=== PATIENT | female | born 1965 | race Caucasian/White ===

== ENCOUNTER 2018-09-21 13:33 | Inpatient (IN) | payer OTHER ==
[~2018-09-21] VITALS: Ht 162.6 cm; Wt 90.7 kg
--- OUTSIDE RECORDS SUMMARY | 2018-09-21 13:37 | XMS REPORT | Summary of Care ---
Author Organization Unknown Address Unknown Phone Unavailable Encounter [facility] Encntr_mike(BAYRON) [id number] Date(s): 11/10/14 - 11/10/14 [facility] Outpatient Imaging - [id number] [place] [address] [phone] Discharge Disposition: Home Physician Attending: Tao Wang MD Vital Signs No data available for this section Problem List No data available for this section Allergies, Adverse Reactions, Alerts Substance Reaction Severity Status NKDA Active Medications No data available for this section Results No data available for this section Immunizations Vaccine Date Refusal Reason diphtheria/pertussis, acel/tetanus adult 03/07/14 Procedures No data available for this section Social History No data available for this section Assessment and Plan No data available for this section
--- OUTSIDE RECORDS SUMMARY | 2018-09-21 13:37 | XMS REPORT | Summary of Care ---
Author Author [facility] Organization [facility] Address Unknown Phone Unavailable Encounter BANDAR Cazares(BAYRON) [id number] Date(s): 04/15/17 - 04/15/17 [facility] [address] [place] [address]- [phone] Discharge Diagnosis: Acute exacerbation of chronic obstructive pulmonary disease (COPD) Discharge Disposition: Home or Self Care Attending Physician: Yonatan Moran MD Vital Signs 1 2 3 Most recent to oldest [Reference Range]: 162.56 cm (04/15/17 6:19 PM) Height 98.2 DegF (04/15/17 10:05 PM) 98 DegF (04/15/17 8:10 PM) 98.1 DegF (04/15/17 6:19 PM) Temperature Oral [96.4-99.1 DegF] 153/88 mmHg *HI* (04/15/17 10:05 PM) 131/96 mmHg (04/15/17 8:10 PM) 166/115 mmHg *HI* (04/15/17 6:19 PM) Blood Pressure [90-140/60-90 mmHg] 16 BRMIN (04/15/17 10:05 PM) 20 BRMIN (04/15/17 8:49 PM) 18 BRMIN (04/15/17 8:10 PM) Respiratory Rate [14-20 BRMIN] 84 bpm (04/15/17 10:05 PM) 84 bpm (04/15/17 8:10 PM) 90 bpm (04/15/17 6:19 PM) Peripheral Pulse Rate [60-100 bpm] 74.545 kg (04/15/17 6:19 PM) Weight 28.21 m2 (04/15/17 6:19 PM) Body Mass Index Problem List Condition Effective Dates Status Health Status Informant Screening for breast Active cancer(Confirmed) Chronic low back 09/15/13 Active pain1 Chronic obstructive Active lung disease(Confirmed)2 COPD (chronic Resolved obstructive pulmonary disease)(Confirmed) Leg Active cramps(Confirmed) Deviated nasal 10/19/14 Active septum3, 4 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 2Data migrated from [employer] on 01/30/15. 3Data migrated from [employer] on 03/10/15. 4Data migrated from [employer] on 03/10/15. 5Data migrated from [employer] on 03/20/15. 6Data migrated from [employer] on 03/19/15. 7Data migrated from [employer] on 01/30/15. 8Data migrated from [employer] on 01/30/15. Allergies, Adverse Reactions, Alerts Substance Reaction Severity Status acetaminophen-HYDROcodone hives MO^Moderate Active 1, 2 1Data migrated from [employer] on 03/11/15. Originally documented as VICODIN. hives 2Data migrated from [employer] on 12/31/14. Originally documented as VICODIN. hives Medications albuterol 0.083% inhalation solution 4.98 mg, 6 mL, Route: NEB, Drug form: SOLN, RQ6H, Dosing Weight 74.545, kg, Star t date: 04/16/17 2:00:00 CDT, Duration: 30 day, Stop date: 05/15/17 20:00:00 CDT Notes: SEE RT DOCUMENTATION (Same as: Belle) Start Date: 04/16/17 Stop Date: 04/15/17 Status: Canceled albuterol 0.083% inhalation solution 4.98 mg, 6 mL, Route: NEB, Drug form: SOLN, ONCE, Dosing Weight 74.545, kg, Prio rity: STAT, Start date: 04/15/17 21:41:00 CDT, Stop date: 04/15/17 21:41:00 CDT Notes: SEE RT DOCUMENTATION (Same as: Proventil) Start Date: 04/15/17 Stop Date: 04/15/17 Status: Completed albuterol 0.5% inhalation solution 2.5 mg, INHALATION, Q6H, PRN wheezing, # 20 ea, 0 Refill(s) Start Date: 04/15/17 Status: Ordered albuterol-ipratropium 2.5-0.5 mg inhalation solution 3 mL, Route: NEB, Drug Form: SOLN, Dosing Weight 74.545, kg, ONCE, STAT, Start d ate: 04/15/17 20:18:00 CDT, Stop date: 04/15/17 20:18:00 CDT Start Date: 04/15/17 Stop Date: 04/15/17 Status: Completed ipratropium 0.5 mg, Route: NEB, Drug form: SOLN, ONCE, Dosing Weight 74.545, kg, Priority: S TAT, Start date: 04/15/17 20:18:00 CDT, Stop date: 04/15/17 20:18:00 CDT Start Date: 04/15/17 Stop Date: 04/15/17 Status: Completed methylPREDNISolone SODium SUCCinate 125 mg, Route: IVP, ONCE, Dosing Weight 74.545, kg, Priority: STAT, Start date: 04/15/17 20:18:00 CDT, Stop date: 04/15/17 20:18:00 CDT Start Date: 04/15/17 Stop Date: 04/15/17 Status: Completed morphine Sulfate 4 mg, 1 mL, Route: IVP, Drug form: SOLN, ONCE, Dosing Weight 74.545, kg, Priorit y: STAT, Start date: 04/15/17 20:48:00 CDT, Stop date: 04/15/17 20:48:00 CDT Notes: (Same as:MORPhine Sulfate) Start Date: 04/15/17 Stop Date: 04/15/17 Status: Completed ondansetron 4 mg, 2 mL, Route: IVP, Drug form: INJ, ONCE, Dosing Weight 74.545, kg, Priority : STAT, Start date: 04/15/17 20:48:00 CDT, Stop date: 04/15/17 20:48:00 CDT Notes: (Same as: Thaoan) MEDICATION WASTE Product Size: 4 mgProduct Was elizabeth: ___ mg Start Date: 04/15/17 Stop Date: 04/15/17 Status: Completed predniSONE 50 mg oral tablet 50 mg=1 tab, PO, Daily, X 7 day, # 7 tab, 0 Refill(s) Start Date: 04/15/17 Stop Date: 04/22/17 Status: Ordered Saline Flush 0.9% 10 mL, Route: IVP, Drug Form: INJ, Dosing Weight 73.6, kg, PRN, PRN Line Flush, Start date: 04/15/17 18:21:00 CDT, Duration: 30 day, Stop date: 05/15/17 18:20:0 0 CDT Notes: Same as: BD Posiflush Sterile Start Date: 04/15/17 Stop Date: 04/16/17 Status: Discontinued Results ELECTROLYTES Most recent to 1 oldest [Reference Range]: Sodium Lvl [135-145 139 mEq/L mEq/L] (04/15/17 6:38 PM) Potassium Lvl 3.3 mEq/L [3.5-5.1 mEq/L] *LOW* (04/15/17 6:38 PM) Chloride Lvl [95-109 104 mEq/L mEq/L] (04/15/17 6:38 PM) CO2 [24-32 mEq/L] 30 mEq/L (04/15/17 6:38 PM) AGAP [10.0-20.0 8.3 mEq/L mEq/L] *LOW* (04/15/17 6:38 PM) CHEM PANEL Most recent to 1 oldest [Reference Range]: Creatinine Lvl 0.86 mg/dL [0.50-1.40 mg/dL] (04/15/17 6:38 PM) eGFR 78 mL/min/1.73m2 1 *NA* (04/15/17 6:38 PM) BUN [7-22 mg/dL] 12 mg/dL (04/15/17 6:38 PM) B/C Ratio [6-25] 14 (04/15/17 6:38 PM) Glucose Lvl [70-99 92 mg/dL mg/dL] (04/15/17 6:38 PM) Total Protein 7.8 g/dL [6.4-8.4 g/dL] (04/15/17 6:38 PM) Albumin Lvl [3.5-5.0 3.4 g/dL g/dL] *LOW* (04/15/17 6:38 PM) Globulin [2.7-4.2 4.4 g/dL g/dL] *HI* (04/15/17 6:38 PM) A/G Ratio [0.7-1.6] 0.8 (04/15/17 6:38 PM) Calcium Lvl 9.0 mg/dL [8.5-10.5 mg/dL] (04/15/17 6:38 PM) ALT [0-65 unit/L] 28 unit/L (04/15/17 6:38 PM) AST [0-37 unit/L] 14 unit/L (04/15/17 6:38 PM) Alk Phos [39-136 114 unit/L unit/L] (04/15/17:38 PM) Bili Total [0.2-1.3 0.4 mg/dL mg/dL] (04/15/17 6:38 PM) 1Result Comment: The eGFR is calculated using the CKD-EPI formula. In most young, healthy individuals the eGFR will be >90 mL/min/1.73m2. The eGFR declines with age. An eGFR of 60-89 may be normal in some populations, particularly the elderly, for whom the CKD-EPI formula has not been extensively validated. Use of the eGFR is not recommended in the following populations: Individuals with unstable creatinine concentrations, including patients and those with serious co-morbid conditions. Patients with extremes in muscle mass or diet. The data above are obtained from the National Kidney Disease Education Program ( NKDEP) which additionally recommends that when the eGFR is used in patients with extremes of body mass index for purposes of drug dosing, the eGFR should be mul tiplied by the estimated BMI. CARDIAC ENZYMES Most recent to 1 oldest [Reference Range]: Total CK [12-191 169 unit/L unit/L] (04/15/17 6:38 PM) CK MB [0.5-3.6 1.4 ng/mL ng/mL] (04/15/17 6:38 PM) CK MB Index 0.8 [0.0-2.5] (04/15/17 6:38 PM) Troponin-I <0.02 ng/mL [0.00-0.40 ng/mL] (04/15/17 6:38 PM) BNP [<=100 pg/mL] 24 pg/mL (04/15/17 6:38 PM) URINE AND STOOL Most recent to 1 oldest [Reference Range]: UA Turbidity [Clear] Clear (04/15/17 7:06 PM) UA Color Ltyellow *NA* (04/15/17 7:06 PM) UA pH [5.0-8.0] 6.0 (04/15/17 7:06 PM) UA Spec Grav 1.002 [<=1.030] (04/15/17 7:06 PM) UA Glucose [Negative Negative mg/dL mg/dL] *NA* (04/15/17 7:06 PM) UA Blood [Negative] Negative (04/15/17 7:06 PM) UA Ketones [Negative Negative mg/dL mg/dL] *NA* (04/15/17 7:06 PM) UA Protein [Negative Negative mg/dL mg/dL] (04/15/17 7:06 PM) UA Urobilinogen <=1.0 mg/dL [0.1-1.0 mg/dL] *NA* (04/15/17 7:06 PM) UA Bili [Negative] Negative *NA* (04/15/17 7:06 PM) UA Leuk Est Negative [Negative] (04/15/17 7:06 PM) UA Nitrite Negative [Negative] (04/15/17 7:06 PM) UA WBC [0-5 /HPF] <1 /HPF (04/15/17 7:06 PM) UA Sq Epi [Few /LPF] Occasional /LPF *NA* (04/15/17 7:06 PM) UA Mucus [None Seen Few /LPF /LPF] *NA* (04/15/17 7:06 PM) HEMATOLOGY Most recent to 1 oldest [Reference Range]: WBC [3.7-10.4 K/CMM] 11.7 K/CMM *HI* (04/15/17 6:38 PM) RBC [4.20-5.40 4.44 M/CMM M/CMM] (04/15/17 6:38 PM) Hgb [12.0-16.0 g/dL] 13.8 g/dL (04/15/17 6:38 PM) Hct [36.0-48.0 %] 40.9 % (04/15/17 6:38 PM) MCV [80.0-98.0 fL] 92.1 fL (04/15/17 6:38 PM) MCH [27.0-31.0 pg] 31.1 pg *HI* (04/15/17 6:38 PM) MCHC [32.0-36.0 33.8 g/dL g/dL] (04/15/17 6:38 PM) RDW [11.5-14.5 %] 12.3 % (04/15/17 6:38 PM) Platelet [133-450 283 K/CMM K/CMM] (04/15/17 6:38 PM) MPV [7.4-10.4 fL] 8.1 fL (04/15/17 6:38 PM) Segs [45.0-75.0 %] 70.7 % (04/15/17 6:38 PM) Lymphocytes 18.5 % [20.0-40.0 %] *LOW* (04/15/17 6:38 PM) Monocytes [2.0-12.0 7.5 % %] (04/15/17 6:38 PM) Eosinophils [0.0-4.0 2.6 % %] (04/15/17 6:38 PM) Basophils [0.0-1.0 0.7 % %] (04/15/17 6:38 PM) Segs-Bands # 8.3 K/CMM [1.5-8.1 K/CMM] *HI* (04/15/17 6:38 PM) Lymphocytes # 2.2 K/CMM [1.0-5.5 K/CMM] (04/15/17 6:38 PM) Monocytes # [0.0-0.8 0.9 K/CMM K/CMM] *HI* (04/15/17 6:38 PM) Eosinophils # 0.3 K/CMM [0.0-0.5 K/CMM] (04/15/17 6:38 PM) Basophils # [0.0-0.2 0.1 K/CMM K/CMM] (04/15/17 6:38 PM) Immunizations Given and Recorded Vaccine Date Status Refusal Reason diphtheria/pertussis, acel/tetanus adult 03/07/14 Given influenza virus vaccine, inactivated 05/29/16 Given influenza virus vaccine, inactivated 06/03/15 Given tuberculin purified protein derivative 05/29/16 Given Procedures Procedure Date Related Diagnosis Body Site Adhesiolysis FESS - FSS sphenoidotomy FLORENCIO BSO - Total abdominal hysterectomy and bilateral salpingo-oophorectomy1 1due to cysts Social History Social History Type Response Substance Abuse Use: None. Exercise Exercise type: none. Employment/School Status: Employed. 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 Alcohol Current, Type Beer. Frequency: 1-2 times per year. Smoking Status Former smoker; Type: Cigarettes; Started at age: 15.0; Exposure to Tobacco Smoke self; Cigarette Smoking Last 365 Days Yes; Reg Smoking Cessation Counseling No Assessment and Plan No data available for this section
--- OUTSIDE RECORDS SUMMARY | 2018-09-21 13:37 | XMS REPORT | Summary of Care ---
Author Author [facility] Organization [facility] Address Unknown Phone Unavailable Encounter BANDAR Cazares(BAYRON) [id number] Date(s): 02/28/17 - 02/28/17 [facility] [address] [place] [address]- Discharge Diagnosis: Displaced fracture of right radial styloid process, initial encounter for closed fracture Discharge Diagnosis: Closed nondisplaced fracture of ulnar styloid with delayed healing Discharge Disposition: Home or Self Care Attending Physician: Jose Alberto Plascencia MD Vital Signs Most recent to 1 2 oldest [Reference Range]: Temperature Oral 98.2 DegF 98.0 DegF [96.4-99.1 DegF] (02/28/17 9:00 PM) (02/28/17 4:22 PM) Blood Pressure 139/75 mmHg 152/83 mmHg [90-140/60-90 mmHg] (02/28/17 9:00 PM) *HI* (02/28/17 4:22 PM) Respiratory Rate 16 BRMIN 18 BRMIN [14-20 BRMIN] (02/28/17 9:00 PM) (02/28/17 4:22 PM) Peripheral Pulse 67 bpm 55 bpm Rate [60-100 bpm] (02/28/17 9:00 PM) *LOW* (02/28/17 4:22 PM) Weight 74.545 kg (02/28/17 4:22 PM) Problem List Condition Effective Dates Status Health Status Informant Screening for breast Active cancer(Confirmed) Chronic low back 09/15/13 Active pain1 Chronic obstructive Active lung disease(Confirmed)2 Leg Active cramps(Confirmed) Deviated nasal 10/19/14 Active [...] 12/31/14. Originally documented as VICODIN. hives Medications ibuprofen 800 mg, Route: PO, Drug form: TAB, ONCE, Dosing Weight 74.545, kg, Priority: STA T, Start date: 02/28/17 20:04:00 CDT, Stop date: 02/28/17 20:04:00 CDT Start Date: 02/28/17 Stop Date: 02/28/17 Status: Completed ketOROLAC 60 mg, 2 mL, Route: IM, Drug form: INJ, ONCE, Dosing Weight 74.545, kg, Priority : STAT, Start date: 02/28/17 16:26:00 CDT, Stop date: 02/28/17 16:26:00 CDT Notes: (Same as:Toradol) IV bolus must be given >15 seconds. Give IM administration slowly and deeply into the muscle.Not for use > 4 days MEDICATION WASTE Product Size: 60 mgProduct Wasted: ___ mg Start Date: 02/28/17 Stop Date: 02/28/17 Status: Completed Motrin 800 mg oral tablet 800 mg=1 tab, PO, Q8H, PRN Pain, Take with food, X 10 day, # 30 tab, 0 Refill(s) Start Date: 02/28/17 Stop Date: 03/10/17 Status: Ordered Tylenol with Codeine #3 oral tablet 2 tab, Route: PO, Drug Form: TAB, Dosing Weight 74.545, kg, ONCE, STAT, Start da te: 02/28/17 20:04:00 CDT, Stop date: 02/28/17 20:04:00 CDT Start Date: 02/28/17 Stop Date: 02/28/17 Status: Completed Tylenol with Codeine #4 oral tablet 1 - 2 tab, PO, Q6H, PRN Pain, X 4 day, # 32 tab, 0 Refill(s) Start Date: 02/28/17 Stop Date: 03/04/17 Status: Ordered Results No data available for this section Immunizations Given and Recorded Vaccine Date Status [...] type: none. Employment/School Status: Employed. 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 Alcohol Current, Type Beer. Frequency: 1-2 times per year. Smoking Status Current every day smoker; Type: Cigarettes; Tobacco use per day: 20; Started at age: 15.0; Exposure to Tobacco Smoke self; Cigarette Smoking Last 365 Days Yes; Reg Smoking Cessation Counseling No Assessment and Plan No data available for this section
--- OUTSIDE RECORDS SUMMARY | 2018-09-21 13:37 | XMS REPORT | Continuity of Care Document ---
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 enhancement on postcontrast imaging (axial series 14 image 9 and coronal series 11 image 19). On the PET/CT a chronic, sclerotic, and benign-appearing erosion is seen within the sphenoid wing about this mass. Localization of the lesion is limited on this whole brain MRI, but overall appearance favors benign lesion, possibly a sphenoid sinus mucous retention cyst. No other possible mass is identified on this study. No evidence of metastatic disease to the brain. No abnormal meningeal enhancement. There is no acute infarct or restricted diffusion. The ventricles, sulci, and cisterns are normal. There are a few scattered nonspecific foci of T2/FLAIR signal abnormality, likely reflecting minimal chronic small vessel ischemic change. There is no other signal abnormality in the honeycutt or the white matter. No abnormal enhancement is present. No hemorrhage or extra-axial fluid collection is identified. The pituitary gland is normal in size. The cerebellar tonsils are normal in position. Normal T2 flow voids are present. A small mucous retention cyst is seen within each maxillary sinus. IMPRESSION: 1. A benign-appearing elongated complex cyst or mass along the left aspect of the sphenoid sinus with associated benign-appearing erosion of the left sphenoid wing, not well characterized. Question whether this may represent a sphenoid sinus mucous retention cyst or mucocele. Recommend further evaluation with MRI of the IAC without and with IV contrast. 2. No other mass lesions are identified. No evidence of metastatic disease within the brain. 3. Minimal microvascular chronic ischemic change and small mucous retention cyst within each maxillary sinus. SL: [id number] 04/26/2017 - - Electronically Signed by: Fransisco Julian MD 06/25/17 14:35 FINAL REPORT - - Read by: Fransisco Julian MD Dictated Date/time: 04/27/17 10:10 Electronically Signed by: Fransisco Julian MD 04/27/17 10:31 FINAL REPORT [facility] Brain w/wo contrast MRI Brain w/wo contrast MRI MRI BRAIN WITHOUT AND WITH CONTRAST HISTORY: ; - C34.90 Malignant neoplasm of unspecified part of unspecified bronchus or lung; COMPARISON: PET/CT dated April 26, [address] thorax dated April 11, 2017 TECHNIQUE: Multiecho multiplanar images of the brain were done without and with contrast injection. FINDINGS: There is a 10 x 13 x 20 mm elongated complex cyst or mass along the left aspect of the sphenoid sinus which shows mild T1 hyperintensity and no definite enhancement on postcontrast imaging (axial series 14 image 9 and coronal series 11 image 19). On the PET/CT a chronic, sclerotic, and benign-appearing erosion is seen within the sphenoid wing about this mass. Localization of the lesion is limited on this whole brain MRI, but overall appearance favors benign lesion, possibly a sphenoid sinus mucous retention cyst. No other possible mass is identified on this study. No evidence of metastatic disease to the brain. No abnormal meningeal enhancement. There is no acute infarct or restricted diffusion. The ventricles, sulci, and cisterns are normal. There are a few scattered nonspecific foci of T2/FLAIR signal abnormality, likely reflecting minimal chronic small vessel ischemic change. There is no other signal abnormality in the honeycutt or the white matter. No abnormal enhancement is present. No hemorrhage or extra-axial fluid collection is identified. The pituitary gland is normal in size. The cerebellar tonsils are normal in position. Normal T2 flow voids are present. A small mucous retention cyst is seen within each maxillary sinus. IMPRESSION: 1. A benign-appearing elongated complex cyst or mass along the left aspect of the sphenoid sinus with associated benign-appearing erosion of the left sphenoid wing, not well characterized. Question whether this may represent a sphenoid sinus mucous retention cyst or mucocele. Recommend further evaluation with MRI of the IAC without and with IV contrast. 2. No other mass lesions are identified. No evidence of metastatic disease within the brain. 3. Minimal microvascular chronic ischemic change and small mucous retention cyst within each maxillary sinus. SL: [id number] 04/26/2017 - - Read by: Fransisco Julian MD Dictated Date/time: 04/27/17 10:10 Electronically Signed by: Fransisco Julian MD 04/27/17 10:31 FINAL REPORT [facility] PET CT Lung non-small cell initial [facility] PET CT Lung non- small cell [facility] Lung non-small cell initial staging TECHNIQUE: 16.3 mCis of FDG were administered intravenously and a series of overlapping images were obtained from the skull base to the proximal thighs utilizing a PET/CT hybrid device. The CT was utilized for attenuation correction and anatomic correlation and not as an independent diagnostic study. BLOOD GLUCOSE: 108 mg/dl COMPARISON: CTA chest 04/11/2017 CLINICAL HISTORY: C34.90 Malignant neoplasm of unspecified part of unspecified bronchus or lung - NZC=808.56 mGy*cm , CTDIvol=6.45 mGy; FINDINGS: HEAD AND NECK: No abnormal activity is visualized CHEST: Right hilar mass, nearly 3 cm in size, demonstrates increase in metabolic activity with maximum SUV at 4.4 on image 91. Enlarged and FDG avid lymph nodes are present in the right suprahilar, precarinal and subcarinal locations. Maximum SUV is 3.8 on image 82. 8 mm groundglass density nodule is visualized in the right upper lobe with mild increase in metabolic activity. Maximum SUV is 1.9 on image 75. Small granuloma, right upper lobe. ABDOMEN AND PELVIS: Adrenal glands demonstrate normal morphology. Physiologic activity is visualized in the solid organs, genitourinary tract and gastrointestinal tract. SKELETON: No abnormal activity is visualized. IMPRESSION: Moderate increase in metabolic activity in the right hilar region presumed to represent primary focus of malignancy. There is local danyell disease in the right suprahilar region, precarinal and subcarinal locations. Nonspecific 8 mm groundglass density nodule, right upper lobe. Differential considerations include infectious, inflammatory and neoplastic possibilities. SL:[id number] 04/26/2017 - - Read by: Russell Pantoja MD Dictated Date/time: 04/27/17 11:51 Electronically Signed by: Russell Pantoja MD 04/27/17 13:23 FINAL REPORT [facility] URINE AND STOOL UA Color Ltyellow 04/16/2017 [facility] URINE AND STOOL UA Mucus Few /LPF None Seen /LPF 04/16/2017 [facility] URINE AND STOOL UA WBC null 0 - 5 04/16/2017 [facility] URINE AND STOOL UA Urobilinogen <=1.0 mg/dL 0.1 - 1.0 04/16/2017 [facility] URINE AND STOOL UA Blood Negative (04/15/17 7:06 PM) Negative 04/16/2017 [facility] URINE AND STOOL UA Leuk Est Negative (04/15/17 7:06 PM) Negative 04/16/2017 [facility] URINE AND STOOL UA Sq Epi Occasional /LPF Few /LPF 04/16/2017 [facility] URINE AND STOOL UA Nitrite Negative (04/15/17 7:06 PM) Negative 04/16/2017 [facility] URINE AND STOOL UA Glucose Negative mg/dL Negative mg/dL 04/16/2017 [facility] URINE AND STOOL UA Protein Negative mg/dL Negative mg/dL 04/16/2017 [facility] URINE AND STOOL UA Ketones Negative mg/dL Negative mg/dL 04/16/2017 [facility] URINE AND STOOL UA Bili Negative *NA* (04/15/17 7:06 PM) Negative 04/16/2017 [facility] URINE AND STOOL UA Turbidity Clear (04/15/17 7:06 PM) Clear 04/16/2017 [facility] URINE AND STOOL UA pH 6.0 5.0 - 8.0 04/16/2017 [facility] URINE AND STOOL UA Spec Grav 1.002 <=1.030 04/16/2017 [facility] CARDIAC ENZYMES BNP 24 pg/mL <=100 pg/mL 04/15/2017 [facility] CARDIAC ENZYMES Troponin-I null 0.00 - 0.40 04/15/2017 [facility] CARDIAC ENZYMES CK MB 1.4 ng/mL 0.5 - 3.6 04/15/2017 [facility] CARDIAC ENZYMES Total CK 169 unit/L 12 - 191 04/15/2017 [facility] CARDIAC ENZYMES CK MB Index 0.8 0.0 - 2.5 04/15/2017 [facility] CHEM PANEL eGFR 78 mL/min/1.73m2 04/15/2017 Result Comment: The eGFR is calculated using the [...] from the National Kidney Disease Education Program (NKDEP) which additionally recommends that when the eGFR is used in patients with extremes of body mass index for purposes of drug dosing, the eGFR should be multiplied by the estimated BMI. [facility] CHEM PANEL Globulin 4.4 g/dL 2.7 - 4.2 04/15/2017 [facility] CHEM PANEL B/C Ratio 14 6 - 25 04/15/2017 [facility] CHEM PANEL A/G Ratio 0.8 0.7 - 1.6 04/15/2017 [facility] CHEM PANEL Albumin Lvl 3.4 g/dL 3.5 - 5.0 04/15/2017 [facility] CHEM PANEL Calcium Lvl 9.0 mg/dL 8.5 - 10.5 04/15/2017 [facility] CHEM PANEL Total Protein 7.8 g/dL 6.4 - 8.4 04/15/2017 [facility] CHEM PANEL Bili Total 0.4 mg/dL 0.2 - 1.3 04/15/2017 [facility] CHEM PANEL Alk Phos 114 unit/L 39 - 136 04/15/2017 [facility] CHEM PANEL AGAP 8.3 meq/L 10.0 - 20.0 04/15/2017 [facility] CHEM PANEL AST 14 unit/L 0 - 37 04/15/2017 [facility] CHEM PANEL Chloride Lvl 104 meq/L 95 - 109 04/15/2017 [facility] CHEM PANEL CO2 30 meq/L 24 - 32 04/15/2017 [facility] CHEM PANEL Glucose Lvl 92 mg/dL 70 - 99 04/15/2017 [facility] CHEM PANEL ALT 28 unit/L 0 - 65 04/15/2017 [facility] CHEM PANEL Potassium Lvl 3.3 meq/L 3.5 - 5.1 04/15/2017 [facility] CHEM PANEL Sodium Lvl 139 meq/L 135 - 145 04/15/2017 [facility] CHEM PANEL Creatinine Lvl 0.86 mg/dL 0.50 - 1.40 04/15/2017 [facility] CHEM PANEL BUN 12 mg/dL 7 - 22 04/15/2017 [facility] HEMATOLOGY MPV 8.1 fL 7.4 - 10.4 04/15/2017 [facility] HEMATOLOGY Platelet 283 K/CMM 133 - 450 04/15/2017 [facility] MCHC 33.8 g/dL 32.0 - 36.0 04/15/2017 [facility] HEMATOLOGY RDW 12.3 % 11.5 - 14.5 04/15/2017 [facility] HEMATOLOGY Hgb 13.8 g/dL 12.0 - 16.0 04/15/2017 [facility] HEMATOLOGY RBC 4.44 M/CMM 4.20 - 5.40 04/15/2017 [facility] HEMATOLOGY WBC 11.7 K/CMM 3.7 - 10.4 04/15/2017 [facility] HEMATOLOGY Hct 40.9 % 36.0 - 48.0 04/15/2017 [facility] MCH 31.1 pg 27.0 - 31.0 04/15/2017 [facility] HEMATOLOGY MCV 92.1 fL 80.0 - 98.0 04/15/2017 [facility] HEMATOLOGY Basophils 0.7 % 0.0 - 1.0 04/15/2017 [facility] HEMATOLOGY Eosinophils 2.6 % 0.0 - 4.0 04/15/2017 [facility] HEMATOLOGY Segs 70.7 % 45.0 - 75.0 04/15/2017 [facility] HEMATOLOGY Monocytes 7.5 % 2.0 - 12.0 04/15/2017 [facility] HEMATOLOGY Lymphocytes 18.5 % 20.0 - 40.0 04/15/2017 [facility] HEMATOLOGY Eosinophils # 0.3 K/CMM 0.0 - 0.5 04/15/2017 [facility] HEMATOLOGY Basophils # 0.1 K/CMM 0.0 - 0.2 04/15/2017 [facility] HEMATOLOGY Monocytes # 0.9 K/CMM 0.0 - 0.8 04/15/2017 [facility] HEMATOLOGY Lymphocytes # 2.2 K/CMM 1.0 - 5.5 04/15/2017 [facility] HEMATOLOGY Segs-Bands # 8.3 K/CMM 1.5 - 8.1 04/15/2017 [facility] Chest 2 views DX Chest 2 views DX EXAM: Chest 2 views DX DATE: 04/15/2017 6:21 PM CDT INDICATION: - chest pain, sob, hx lung cancer. COMPARISON: 04/12/2017. IMPRESSION: Stable cardiac silhouette and mediastinum. Tortuous atherosclerotic thoracic aorta. The lungs are mildly hyperexpanded. No focal consolidation, significant pleural effusion or pneumothorax. SL: [id number] 04/15/2017 - - Read by: Chance Tinoco MD Dictated Date/time: 04/15/17 19:04 Electronically Signed by: Chance Tinoco MD 04/15/17 19:05 FINAL REPORT [facility] CHEM PANEL Magnesium Lvl 2.5 mg/dL 1.8 - 2.4 04/12/2017 [facility] CHEM PANEL Globulin 3.6 g/dL 2.7 - 4.2 04/12/2017 [facility] CHEM PANEL B/C Ratio 14 6 - 25 04/12/2017 [facility] CHEM PANEL AGAP 9.7 meq/L 10.0 - 20.0 04/12/2017 [facility] CHEM PANEL A/G Ratio 0.8 0.7 - 1.6 04/12/2017 [facility] CHEM PANEL eGFR 90 mL/min/1.73m2 04/12/2017 Result Comment: The eGFR is calculated using the [...] from the National Kidney Disease Education Program (NKDEP) which additionally recommends that when the eGFR is used in patients with extremes of body mass index for purposes of drug dosing, the eGFR should be multiplied by the estimated BMI. [facility] CHEM PANEL Alk Phos 96 unit/L 39 - 136 04/12/2017 [facility] CHEM PANEL Bili Total 0.5 mg/dL 0.2 - 1.3 04/12/2017 [facility] CHEM PANEL BUN 11 mg/dL 7 - 22 04/12/2017 [facility] CHEM PANEL Creatinine Lvl 0.76 mg/dL 0.50 - 1.40 04/12/2017 [facility] CHEM PANEL Sodium Lvl 141 meq/L 135 - 145 04/12/2017 [facility] CHEM PANEL Potassium Lvl 3.7 meq/L 3.5 - 5.1 04/12/2017 [facility] CHEM PANEL Chloride Lvl 106 meq/L 95 - 109 04/12/2017 [facility] CHEM PANEL Calcium Lvl 8.6 mg/dL 8.5 - 10.5 04/12/2017 [facility] CHEM PANEL CO2 29 meq/L 24 - 32 04/12/2017 [facility] CHEM PANEL ALT 24 unit/L 0 - 65 04/12/2017 [facility] CHEM PANEL AST 16 unit/L 0 - 37 04/12/2017 [facility] CHEM PANEL Total Protein 6.6 g/dL 6.4 - 8.4 04/12/2017 [facility] CHEM PANEL Albumin Lvl 3.0 g/dL 3.5 - 5.0 04/12/2017 [facility] CHEM PANEL Glucose Lvl 102 mg/dL 70 - 99 04/12/2017 [facility] HEMATOLOGY Basophils # 0.1 K/CMM 0.0 - 0.2 04/12/2017 [facility] HEMATOLOGY Lymphocytes # 2.4 K/CMM 1.0 - 5.5 04/12/2017 [facility] Monocytes # 0.9 K/CMM 0.0 - 0.8 04/12/2017 [facility] Eosinophils # 0.1 K/CMM 0.0 - 0.5 04/12/2017 [facility] Segs 70.0 % 45.0 - 75.0 04/12/2017 [facility] Segs-Bands # 8.3 K/CMM 1.5 - 8.1 04/12/2017 [facility] Basophils 1.3 % 0.0 - 1.0 04/12/2017 [facility] Eosinophils 0.8 % 0.0 - 4.0 04/12/2017 [facility] Lymphocytes 20.4 % 20.0 - 40.0 04/12/2017 [facility] Monocytes 7.5 % 2.0 - 12.0 04/12/2017 [facility] MCHC 33.4 g/dL 32.0 - 36.0 04/12/2017 [facility] MPV 8.7 fL 7.4 - 10.4 04/12/2017 [facility] RDW 12.4 % 11.5 - 14.5 04/12/2017 [facility] Platelet 217 K/CMM 133 - 450 04/12/2017 [facility] MCH 31.0 pg 27.0 - 31.0 04/12/2017 [facility] MCV 92.9 fL 80.0 - 98.0 04/12/2017 [facility] RBC 3.68 M/CMM 4.20 - 5.40 04/12/2017 [facility] Hgb 11.4 g/dL 12.0 - 16.0 04/12/2017 [facility] Hct 34.2 % 36.0 - 48.0 04/12/2017 [facility] WBC 11.8 K/CMM 3.7 - 10.4 04/12/2017 [facility] Chest 1view DX Chest 1view DX Chest 1view DX CLINICAL HISTORY:Chest tightness - post biopsy COMPARISON: 04/11/2017 FINDINGS/IMPRESSION: Limited AP portable study. Support Lines/Devices: none Lungs: No change in right hilar mass. Question small right basilar effusion. No pneumothorax. Left lung remains clear. Cardiomediastinum: Cardiomediastinal silhouette is stable. Bone and Soft Tissues: No acute bony abnormality is evident. Multiple EKG leads and other wires project over the patient's chest. SL: [id number] 04/12/2017 - - Read by: Russell Pantoja MD Dictated Date/time: 04/12/17 11:47 Electronically Signed by: Russell Pantoja MD 04/12/17 11:48 FINAL REPORT [facility] URINE AND STOOL UA Urobilinogen <=1.0 mg/dL 0.1 - 1.0 04/11/2017 [facility] URINE AND STOOL UA Mucus Few /LPF None Seen /LPF 04/11/2017 [facility] URINE AND STOOL UA Hyal Cast 1 /LPF 0 - 2 04/11/2017 [facility] URINE AND STOOL UA Leuk Est Negative (04/11/17 8:19 AM) Negative 04/11/2017 [facility] URINE AND STOOL UA Sq Epi Occasional /LPF Few /LPF 04/11/2017 [facility] URINE AND STOOL UA WBC 1 /HPF 0 - 5 04/11/2017 [facility] URINE AND STOOL UA RBC 5 /HPF 0 - 2 04/11/2017 [facility] URINE AND STOOL UA Blood Negative (04/11/17 8:19 AM) Negative 04/11/2017 [facility] URINE AND STOOL UA Bili Negative *NA* (04/11/17 8:19 AM) Negative 04/11/2017 [facility] URINE AND STOOL UA Ketones Negative mg/dL Negative mg/dL 04/11/2017 [facility] URINE AND STOOL UA Glucose Negative mg/dL Negative mg/dL 04/11/2017 [facility] URINE AND STOOL UA Nitrite Negative (04/11/17 8:19 AM) Negative 04/11/2017 [facility] URINE AND STOOL UA Protein Negative mg/dL Negative mg/dL 04/11/2017 [facility] URINE AND STOOL UA pH 5.0 5.0 - 8.0 04/11/2017 [facility] URINE AND STOOL UA Spec Grav 1.017 <=1.030 04/11/2017 [facility] URINE AND STOOL UA Turbidity Clear (04/11/17 8:19 AM) Clear 04/11/2017 [facility] URINE AND STOOL UA Color Yellow *NA* (04/11/17 8:19 AM) Yellow 04/11/2017 [facility] CARDIAC ENZYMES CK MB Index 0.7 0.0 - 2.5 04/11/2017 [facility] CARDIAC ENZYMES Total CK 173 unit/L 12 - 191 04/11/2017 [facility] CARDIAC ENZYMES Troponin-I null 0.00 - 0.40 04/11/2017 [facility] CARDIAC ENZYMES CK MB 1.2 ng/mL 0.5 - 3.6 04/11/2017 [facility] CHEM PANEL Lipase Lvl 121 unit/L 73 - 393 04/11/2017 [facility] CHEM PANEL eGFR 77 mL/min/1.73m2 04/11/2017 Result Comment: The eGFR is calculated using the [...] from the National Kidney Disease Education Program (NKDEP) which additionally recommends that when the eGFR is used in patients with extremes of body mass index for purposes of drug dosing, the eGFR should be multiplied by the estimated BMI. [facility] CHEM PANEL A/G Ratio 0.8 0.7 - 1.6 04/11/2017 [facility] CHEM PANEL B/C Ratio 10 6 - 25 04/11/2017 [facility] CHEM PANEL Globulin 4.3 g/dL 2.7 - 4.2 04/11/2017 [facility] CHEM PANEL Bili Total 0.6 mg/dL 0.2 - 1.3 04/11/2017 [facility] CHEM PANEL AST 21 unit/L 0 - 37 04/11/2017 [facility] CHEM PANEL AGAP 9.7 meq/L 10.0 - 20.0 04/11/2017 [facility] CHEM PANEL Glucose Lvl 116 mg/dL 70 - 99 04/11/2017 [facility] CHEM PANEL BUN 9 mg/dL 7 - 22 04/11/2017 [facility] CHEM PANEL Creatinine Lvl 0.87 mg/dL 0.50 - 1.40 04/11/2017 [facility] CHEM PANEL Potassium Lvl 3.7 meq/L 3.5 - 5.1 04/11/2017 [facility] CHEM PANEL Sodium Lvl 138 meq/L 135 - 145 04/11/2017 [facility] CHEM PANEL ALT 27 unit/L 0 - 65 04/11/2017 [facility] CHEM PANEL Albumin Lvl 3.6 g/dL 3.5 - 5.0 04/11/2017 [facility] CHEM PANEL Alk Phos 123 unit/L 39 - 136 04/11/2017 [facility] CHEM PANEL Chloride Lvl 102 meq/L 95 - 109 04/11/2017 [facility] CHEM PANEL CO2 30 meq/L 24 - 32 04/11/2017 [facility] CHEM PANEL Calcium Lvl 8.9 mg/dL 8.5 - 10.5 04/11/2017 [facility] CHEM PANEL Total Protein 7.9 g/dL 6.4 - 8.4 04/11/2017 [facility] HEMATOLOGY Monocytes # 0.8 K/CMM 0.0 - 0.8 04/11/2017 [facility] HEMATOLOGY Lymphocytes # 1.3 K/CMM 1.0 - 5.5 04/11/2017 [facility] HEMATOLOGY Basophils # 0.1 K/CMM 0.0 - 0.2 04/11/2017 [facility] HEMATOLOGY Eosinophils # 0.3 K/CMM 0.0 - 0.5 04/11/2017 [facility] HEMATOLOGY Segs-Bands # 11.2 K/CMM 1.5 - 8.1 04/11/2017 [facility] HEMATOLOGY Basophils 0.7 % 0.0 - 1.0 04/11/2017 [facility] HEMATOLOGY Eosinophils 1.9 % 0.0 - 4.0 04/11/2017 [facility] [facility] HEMATOLOGY Monocytes 6.0 % 2.0 - 12.0 04/11/2017 [facility] Lymphocytes 9.5 % 20.0 - 40.0 04/11/2017 [facility] HEMATOLOGY Segs 81.9 % 45.0 - 75.0 04/11/2017 [facility] HEMATOLOGY Hct 40.3 % 36.0 - 48.0 04/11/2017 [facility] HEMATOLOGY WBC 13.7 K/CMM 3.7 - 10.4 04/11/2017 [facility] HEMATOLOGY RBC 4.37 M/CMM 4.20 - 5.40 04/11/2017 [facility] HEMATOLOGY Platelet 272 K/CMM 133 - 450 04/11/2017 [facility] HEMATOLOGY MPV 8.4 fL 7.4 - 10.4 04/11/2017 [facility] MCV 92.1 fL 80.0 - 98.0 04/11/2017 [facility] MCH 30.5 pg 27.0 - 31.0 04/11/2017 [facility] HEMATOLOGY RDW 12.4 % 11.5 - 14.5 04/11/2017 [facility] HEMATOLOGY MCHC 33.1 g/dL 32.0 - 36.0 04/11/2017 [facility] HEMATOLOGY Hgb 13.3 g/dL 12.0 - 16.0 04/11/2017 [facility] ED Abdomen/Pelvis IV contrast only CT ED Abdomen/Pelvis IV contrast only CT Patient Name: MARINA BERGMAN : 1965; Age: 51 years y/o Female MR: [id number] Study: ED Abdomen/Pelvis IV contrast only CT 04/11/2017 8:41 AM CDT Ordering Physician: Cheikh Monroy MD Clinical Indication: CT dose DLP 2275.72 mGy-cm 100cc omni 947 20 g right ac - right sided abdominal pain Pt c/o SOB and R sided rib pain that is worse upon deep breathing that began at 5am. Hx of COPD; Comparison: None TECHNIQUE: Helical imaging was performed from the diaphragm through the symphysis with multiplanar reformations obtained after intravenous administration of 100 mL of Omnipaque. FINDINGS: LOWER CHEST: The lung bases are clear without significant pleural effusion bilaterally. SOLID ORGANS: No focal liver or splenic abnormality. Kidneys are unremarkable bilaterally. No pelvocaliectasis or ureterectasis bilaterally. The adrenals, pancreas and gallbladder are unremarkable. RETROPERITONEUM: No abdominal or pelvic adenopathy. The abdominal aorta is unremarkable. PELVIS: No pelvic mass. Bladder is unremarkable. BOWEL: No bowel abnormality identified in the abdomen or pelvis. The appendix is unremarkable. PERITONEUM: No free intraperitoneal air. No abnormal fluid collection identified in the abdomen or pelvis. MUSCULOSKELETAL: No significant osseous abnormality. IMPRESSION: 1. Unremarkable abdominal and pelvic CT with contrast. SL: [id number] 04/11/2017 - - Read by: Jose Alfredo Damon MD Dictated Date/time: 04/11/17 10:21 Electronically Signed by: Jose Alfredo Damon MD 04/11/17 10:25 FINAL REPORT [facility] Chest CTA Chest CTA Patient Name: MARINA BERGMAN : 1965; Age: 51 years y/o Female MR: [id number] Study: Chest CTA 04/11/2017 8:41 AM CDT Clinical Indication: CT dose DLP 832.44 mGy-cm 100cc omni 947 right ac - c/f PE Pt c/o SOB and R sided rib pain that is worse upon deep breathing that began at 5am. Hx of COPD; Comparison: None TECHNIQUE: Sequential trans-axial images were obtained thru the chest and upper abdomen after administration of iodinated contrast. Coronal and sagittal reconstructions were obtained. 3-D reconstructions obtained. FINDINGS: VASCULAR STRUCTURES: No evidence for pulmonary embolism. No evidence for thoracic aortic aneurysm or thoracic aortic dissection. AIRWAY: Tracheobronchial tree is unremarkable. LUNG PARENCHYMA AND PLEURA: 3 cm right hilar lymphadenopathy or mass which encases the right pulmonary artery and superior pulmonary vein near the right hilum. Direct extension of mass , versus contiguous lymphadenopathy extending into the right paratracheal and subcarinal region. Additional anterior and middle mediastinal adenopathy. Right superior pulmonary vein is considerably narrowed by this mass. Diffuse there is groundglass interstitial opacity within the right upper lobe peripherally suggesting focal pulmonary edema which may be related to pulmonary venous obstruction. Several small subcentimeter pulmonary nodules in the right upper lobe, largest 6 mm in the right lung apex. A 9 mm groundglass opacity is also present in the right upper lobe. MEDIASTINUM: As above, paratracheal, subcarinal, and hilar mass/lymphadenopathy. HEART: No pericardial effusion. Heart size normal. No obvious coronary calcification. OSSEOUS STRUCTURES: There are no definite significant osseous abnormalities seen. VISUALIZED UPPER ABDOMEN: Views of the upper abdomen are unremarkable. IMPRESSION: 1. No evidence for pulmonary embolus. 2. Right hilar mass or adenopathy with encases the proximal right pulmonary artery and vein. The central aspect of the right superior pulmonary vein is considerably narrowed by this process. Right upper lobe peripheral groundglass opacities suggesting resultant lobar pulmonary edema likely related to venous obstruction. Contiguous extension into the subcarinal and right paratracheal mediastinum. Numerous additional mildly enlarged middle and anterior mediastinal lymph nodes are also present. Several additional small pulmonary nodules are also noted within the right upper lobe. SL: [id number] 04/11/2017 - - Read by: Jose Alfredo Damon MD Dictated Date/time: 04/11/17 10:27 Electronically Signed by: Jose Alfredo Damon MD 04/11/17 10:40 FINAL REPORT [facility] Abdomen RUQ US Abdomen RUQ US Abdomen RUQ US TECHNIQUE: Grayscale and color Doppler images of the right upper quadrant of the abdomen were performed with a curvilinear transducer. Static images are submitted for review. CLINICAL HX: - ruq abdominal pain; COMPARISON: No priors FINDINGS: LIVER: 04/10/2017 GALL BLADDER AND BILE DUCTS: Gall bladder is sonolucent without evidence for gall stones. CBD measures 4 mm. PANCREAS: Pancreas is largely obscured by bowel gas. Visualized portion of the pancreas is unremarkable. Right kidney: Right kidney demonstrates normal echotexture and size and reveals no gross masses or any evidence for hydronephrosis. Maximal sagittal diameter of the right kidney is 10.3 cm. Vascular: Midline structures are partially obscured due to bowel gas. Visualized portion of the IVC is unremarkable. Ascites: No free fluid is present in the right upper abdomen. No significant effusion is noted on the right. IMPRESSION: There is diffuse heterogeneous increase in echogenicity of the liver suggestive of fatty infiltration and/or nonspecific hepatocellular disease. No other significant sonographic abnormality is noted in the RUQ of the abdomen. SL: [id number] 04/11/2017 - - Read by: Russell Pantoja MD Dictated Date/time: 04/11/17 08:20 Electronically Signed by: Russell Pantoja MD 04/11/17 08:21 FINAL REPORT [facility] 1view DX Chest 1view DX PROCEDURE: Chest, 1 view on 04/11/2017 at 0724 hours. INDICATION: Right upper abdominal pain. Shortness of breath. Chronic obstructive pulmonary disease. COMPARISON: Chest radiographs dated 12/22/2016 and 03/07/2014. FINDINGS: No pleural effusion or pneumothorax. There is increased right perihilar density. Possible focal infiltrates, right perihilar opacity versus right hilar lymphadenopathy. Mediastinum and left hilum appears otherwise unremarkable. Left lung is clear. No venous congestion identified. No acute bony abnormality. IMPRESSION: 1. Increased right perihilar density which may represent focal acute infiltrate versus right hilar lymphadenopathy. Consider close radiographic follow-up after appropriate treatment in the correct clinical setting, versus further evaluation with CT chest. SL: [id number] 04/11/2017 - - Read by: Sarwat Leblanc MD Dictated Date/time: 04/11/17 07:59 Electronically Signed by: Sarwat Leblanc MD 04/11/17 08:01 FINAL REPORT [facility] Wrist complete DX Wrist complete DX Patient Name: MARINA BERGMAN : 1965; Age: 51 years y/o Female MR: [id number] Study: Wrist complete DX 02/28/2017 4:24 PM CDT Ordering Physician: Clinical Indication: - right wrist pain after falling; Comparison: None Right wrist 3 views IMPRESSION: There is a comminuted intra-articular distal radial metaphyseal fracture, with mild radial shortening. Additional nondisplaced fracture of the ulnar styloid. SL: JAVIER 02/28/2017 - - Read by: Jose Alfredo Damon MD Dictated Date/time: 02/28/17 17:15 Electronically Signed by: Jose Alfredo Damon MD 02/28/17 17:17 FINAL REPORT [facility] Forearm 2 views DX Forearm 2 views DX Patient Name: MARNIA BERGMAN : 1965; Age: 51 years y/o Female MR: [id number] Study: Forearm 2 views DX 02/28/2017 4:24 PM CDT Ordering Physician: Clinical Indication: - right arm pain after falling; Comparison: None Right forearm 2 views IMPRESSION: The Impacted distal radial metaphyseal intra-articular fracture. There is no proximal radial or ulnar shaft fractures appreciated. SL: JAVIER 02/28/2017 - - Read by: Jose Alfredo Damon MD Dictated Date/time: 02/28/17 17:17 Electronically Signed by: Jose Alfredo Damon MD 02/28/17 17:18 FINAL REPORT [facility] Chest 2 views DX Chest 2 views DX Addendum: Mild increased prominence of the right hilum is seen compared to 03/07/2014. Follow-up chest CT is recommended. The findings were called to Dr. Tai on 12/26/2016 11:04 AM CDT. EXAM: Chest 2 views DX HISTORY: Coughing COMPARISON: 03/07/2014 Heart size is normal. Lungs are clear. There is no effusion or pneumothorax. No acute osseous lesion. IMPRESSION: No acute abnormality. 12/22/2016 - - Read by: Errol Templeton MD Dictated Date/time: 12/26/16 11:00 Electronically Signed by: Errol Templeton MD 12/26/16 11:04 FINAL REPORT - - Read by: Alix Arguelles MD Dictated Date/time: 12/22/16 12:34 Electronically Signed by: Alix Arguelles MD 12/22/16 12:35 FINAL REPORT [facility] Sinus wo contrast CT Sinus wo contrast CT EXAM: SINUS CT WITHOUT CONTRAST DATE: Nov 10, 2014 10:21:00 AM CLINICAL INDICATION: Chronic sinusitis. No history of surgery.. TECHNIQUE: Thin section axial images are obtained from skull base to frontal sinuses without IV contrast. Axial, sagittal, and coronal images are interpreted. Dose: DLP 363 mGy-cm COMPARISON: Unavailable FINDINGS: Frontal sinuses: Inferior mucosal thickening bilaterally with narrowing of each frontoethmoidal recess more pronounced on the left than right. There is no complete occlusion. Ethmoid sinuses: Left greater the right anterior mucosal thickening without dehiscence. The fovea is intact. Sphenoid sinuses: Bilateral retention cysts or polyps. Sphenoethmoidal recesses are patent. Maxillary sinuses: Multiple bilateral retention cysts or polyps. Soft tissue narrows the left ostium and infundibulum without complete occlusion. The right ostiomeatal complex is patent. Nasal airway: Leftward spurring and deviation of the nasal septum measuring up to 3 mm. There is remodeling of the left lower turbinate. There is significant right greater left nasal turbinate mucosal thickening without polypoid lesion. Mastoids: Clear where visualized Soft tissues: No visualized abnormality IMPRESSION: 1. Multifocal chronic sinusitis with drainage pathway narrowings described above. 2. No evidence of acute sinusitis. 3. Nasal turbinate mucosal thickening suggesting allergic rhinitis. 4. Leftward spurring and deviation of the nasal septum 11/10/2014 - - Read by: Marck Blanton MD Dictated Date/time: 11/10/14 12:27 Electronically Signed by: Marck Blanton MD 11/10/14 12:51 FINAL REPORT [facility] Spine cervical 2 or 3 views Spine cervical 2 or 3 views HISTORY: Trauma. Cervical spine 2 views. Degenerative spondylosis with facet hypertrophy and endplate osteophytes at multiple levels. There is no acute fracture subluxation or lesion otherwise evident. SL:14 03/07/2014 - - Read by: Jose Alfredo Damon MD Dictated Date/time: 03/07/14 11:14 Electronically Signed by: Jose Alfredo Damon MD 03/07/14 11:14 FINAL REPORT [facility] Spine lumbar 2 or 3 views Spine lumbar 2 or 3 views HISTORY: Trauma. Lumbar spine 2 views. Comparison 11/07/2010. There appear to be fractures of the transverse processes of L1 and L2 on the right. No other vertebral fractures or subluxation evident. Findings relayed to ordering clinician at the time of dictation. SL:14 03/07/2014 - - Read by: Jose Alfredo Damon MD Dictated Date/time: 03/07/14 11:15 Electronically Signed by: Jose Alfredo Damon MD 03/07/14 11:24 FINAL REPORT [facility] Chest 2 views Chest 2 views CHEST, TWO VIEWS HISTORY: Chest pain. COMPARISON: 02/19/2014 FINDINGS: The lungs are clear. No pleural effusion. No pneumothorax. Heart size normal. No acute osseous abnormality. SL: 12 03/07/2014 - - Read by: Fransisco Julian MD Dictated Date/time: 03/07/14 11:15 Electronically Signed by: Fransisco Julian MD 03/07/14 11:17 FINAL REPORT [facility] Chest 2 views Chest 2 views PA and lateral chest: The cardiomediastinal silhouette, pulmonary vasculature and benjamin are within normal limits. The lungs and pleural spaces are clear. There are no significant osseous abnormalities. There is no significant change compared to 01/18/2012. IMPRESSION: No acute radiographic abnormality in the chest. SL:13 02/19/2014 - - Read by: Anson Pete MD Dictated Date/time: 02/19/14 13:35 Electronically Signed by: Anson Pete MD 02/19/14 13:36 FINAL REPORT [facility] Vital Signs Vital Sign Value Date Comments Source BMI Calculated 30.1 10/29/2017 [facility] Weight 79.545 10/29/2017 [facility] Height 162.56 cm 10/29/2017 [facility] Heart Rate 82 10/29/2017 [facility] Systolic (mm Hg) 116 10/29/2017 [facility] Diastolic (mm Hg) 66 10/29/2017 [facility] Temperature Oral (F) 98.0 F 10/29/2017 [facility] Respitory Rate 14 10/29/2017 [facility] BMI Calculated 28.55 08/30/2017 [facility] Height 162.56 cm 08/30/2017 [facility] Weight 75.455 08/30/2017 [facility] Systolic (mm Hg) 122 08/30/2017 [facility] Diastolic (mm Hg) 79 08/30/2017 [facility] Heart Rate 91 08/30/2017 [facility] Respitory Rate 14 08/30/2017 [facility] Temperature Oral (F) 100.8 F 08/30/2017 [facility] BMI Calculated 29.63 08/21/2017 [facility] Weight 78.295 08/21/2017 [facility] Heart Rate 73 08/21/2017 [facility] Respitory Rate 16 08/21/2017 [facility] Systolic (mm Hg) 108 08/21/2017 [facility] Diastolic (mm Hg) 68 08/21/2017 [facility] Height 162.56 cm 08/21/2017 [facility] Temperature Oral (F) 97.8 F 08/21/2017 [facility] Systolic (mm Hg) 125 05/10/2017 [facility] Diastolic (mm Hg) 80 05/10/2017 [facility] Systolic (mm Hg) 136 05/10/2017 [facility] Diastolic (mm Hg) 77 05/10/2017 [facility] Respitory Rate 16 05/10/2017 [facility] Systolic (mm Hg) 124 05/10/2017 [facility] Diastolic (mm Hg) 79 05/10/2017 [facility] Respitory Rate 16 05/10/2017 [facility] Respitory Rate 18 05/10/2017 [facility] Temperature Oral (F) 98.0 F 05/10/2017 [facility] Heart Rate 69 05/10/2017 [facility] Temperature Oral (F) 98.2 F 05/10/2017 [facility] Heart Rate 68 05/10/2017 [facility] Height 162.56 cm 05/10/2017 [facility] Weight 75.818 05/10/2017 [facility] BMI Calculated 28.69 05/10/2017 [facility] Systolic (mm Hg) 153 04/16/2017 [facility] Diastolic (mm Hg) 88 04/16/2017 [facility] Temperature Oral (F) 98.2 F 04/16/2017 [facility] Heart Rate 84 04/16/2017 [facility] Respitory Rate 16 04/16/2017 [facility] Respitory Rate 20 04/16/2017 [facility] Temperature Oral (F) 98 F 04/16/2017 [facility] Heart Rate 84 04/16/2017 [facility] Respitory Rate 18 04/16/2017 [facility] Systolic (mm Hg) 131 04/16/2017 [facility] Diastolic (mm Hg) 96 04/16/2017 [facility] Temperature Oral (F) 98.1 F 04/15/2017 [facility] Weight 74.545 04/15/2017 [facility] Height 162.56 cm 04/15/2017 [facility] BMI Calculated 28.21 04/15/2017 [facility] Heart Rate 90 04/15/2017 [facility] Systolic (mm Hg) 166 04/15/2017 [facility] Diastolic (mm Hg) 115 04/15/2017 [facility] Temperature Oral (F) 98.8 F 04/12/2017 [facility] Systolic (mm Hg) 115 04/12/2017 [facility] Diastolic (mm Hg) 78 04/12/2017 [facility] Respitory Rate 18 04/12/2017 [facility] Systolic (mm Hg) 120 04/12/2017 [facility] Diastolic (mm Hg) 71 04/12/2017 [facility] Respitory Rate 22 04/12/2017 [facility] Systolic (mm Hg) 117 04/12/2017 [facility] Diastolic (mm Hg) 73 04/12/2017 [facility] Respitory Rate 16 04/12/2017 [facility] Heart Rate 79 04/12/2017 [facility] Temperature Oral (F) 99.3 F 04/12/2017 [facility] Heart Rate 90 04/12/2017 [facility] Temperature Oral (F) 98.1 F 04/12/2017 [facility] Heart Rate 83 04/12/2017 [facility] Weight 73.6 04/11/2017 [facility] Height 162.56 cm 04/11/2017 [facility] BMI Calculated 27.87 04/11/2017 [facility] Weight 73.636 04/11/2017 [facility] Heart Rate 67 03/01/2017 [facility] Temperature Oral (F) 98.2 F 03/01/2017 [facility] Respitory Rate 16 03/01/2017 [facility] Systolic (mm Hg) 139 03/01/2017 [facility] Diastolic (mm Hg) 75 03/01/2017 [facility] Temperature Oral (F) 98.0 F 02/28/2017 [facility] Systolic (mm Hg) 152 02/28/2017 [facility] Diastolic (mm Hg) 83 02/28/2017 [facility] Heart Rate 55 02/28/2017 [facility] Respitory Rate 18 02/28/2017 [facility] Weight 74.545 02/28/2017 [facility] Height 162.56 cm 03/07/2014 [facility] Weight 66.818 03/07/2014 [facility] BMI Calculated 25.29 03/07/2014 [facility] Temperature Oral (F) 98.1 F 03/07/2014 [facility] Diastolic (mm Hg) 87 03/07/2014 [facility] Heart Rate 92 03/07/2014 [facility] Respitory Rate 18 03/07/2014 [facility] Systolic (mm Hg) 142 03/07/2014 [facility] Encounters Location Location Details Encounter Type Encounter Number Reason For Visit Attending Provider ADM Date DC Date Status Source [facility] Outpatient [id number] COUGH TAHIR YEUNG 09/08/2011 09/08/2011 Active [facility] Outpatient [id number] COPD PETER BOSWELL 01/18/2012 Active [facility] Outpatient [id number] Peter Boswell 02/19/2014 02/20/2014 [facility] [id number] Rafaelastevenson Gordillo 03/07/2014 03/07/2014 [facility] [place] [facility] Di[facility] Services [id number] Tao Wang 11/10/2014 11/11/2014 [facility] [place] Out[facility] [id number] PETER BOSWELL 06/03/2015 Active [facility]patient [id number] PETER BOSWELL 07/09/2015 Active [facility] Outpatient [id number] PETER BOSWELL 10/08/2015 Active [facility] Outpatient [id number] PETER BOSWELL 11/02/2015 Active [facility] Outpatient [id number] JASPREET HERNANDEZ 12/02/2015 Active [facility] [id number] PETER BOSWELL 2015 Active [facility]patient [id number] PETER BOSWELL 03/14/2016 Active [facility] [id number] PETER BOSWELL 05/29/2016 Active [facility] [id number] NURSE VISIT 05/31/2016 Active [facility] [id number] PETER BOSWELL 06/29/2016 Active [facility] [id number] PETER BOSWELL 11/30/2016 [facility] [place] [facility] Diag Services [id number] Anson Tai 12/22/2016 12/23/2016 [facility] Emergency [id number] Jose Alberto Plascencia 02/28/2017 03/01/2017 [facility] Inpatient [id number] Crow Alberto 04/11/2017 04/12/2017 [facility] Emergency [id number] Yonatan Moran 04/15/2017 04/16/2017 [facility] Outpatient [id number] PETER BOSWELL 04/25/2017 Active [facility] [id number] Vasu Perryroxy 05/10/2017 05/10/2017 [facility] Outpatient [id number] PETER BOSWELL 06/18/2017 Active [facility] Outpatient [id number] PETER BOSWELL 07/27/2017 Active [facility] Ambulatory Pre-Reg [id number] Peter Boswell 07/27/2017 07/27/2017 [facility] Primary Care [facility] Phone Message [id number] 07/30/2017 08/01/2017 [facility] Primary [facility] Phone Message [id number] 07/31/2017 08/02/2017 [facility] Outpatient [id number] PETER BOSWELL 08/09/2017 Active [facility] Ambulatory Pre-Reg [id number] Peter Boswell 08/09/2017 08/09/2017 [facility] Outpatient [id number] PETER BOSWELL 08/21/2017 Active [facility] Outpatient [id number] Peter Boswell 08/21/2017 08/22/2017 [facility] Primary [facility] Phone Message [id number] 08/24/2017 08/25/2017 [facility] Outpatient [id number] PETER BOSWELL 08/30/2017 Active [facility] Outpatient [id number] Peter Boswell 08/30/2017 08/31/2017 [facility] Outpatient [id number] YESSY COX 10/29/2017 Active [facility] [id number] Yessy Cox 10/29/2017 10/30/2017 [facility] Outpatient [id number] PETER BOSWELL 11/26/2017 [facility] Ambulatory Pre-Reg [id number] Peter Boswell 11/26/2017 11/26/2017 [facility] Phone Message [id number] 11/29/2017 12/01/2017 [facility] Outpatient [id number] PETER BOSWELL 05/01/2018 Active [facility] Outpatient [id number] YESSY JEFFERY 06/20/2018 Active [facility] Outpatient [id number] YESSY JEFFERY 09/19/2018 Active [facility] Outpatient [id number] PETER BOSWELL 09/27/2018 Active [facility] Procedures Procedure Code Date Perfomer Comments Source Measurement of occult blood in stool specimen using immunoassay<sup>1</sup> [id number] 10/12/2017 negative [facility] Mediastinoscopy and lymph node sampling<sup>1</sup> [id number] 05/10/2017 PREOPERATIVE DIAGNOSIS: Right hilar mass with mediastinal lymphadenopathy. POSTOPERATIVE DIAGNOSIS: Right hilar mass with mediastinal lymphadenopathy. PROCEDURES PERFORMED: Video mediastinoscopy with mediastinal lymph node biopsies. [facility] Mediastinoscopy and lymph node sampling<sup>2</sup> [id number] 05/10/2017 PREOPERATIVE DIAGNOSIS: Right hilar mass with mediastinal lymphadenopathy. POSTOPERATIVE DIAGNOSIS: Right hilar mass with mediastinal lymphadenopathy. PROCEDURES PERFORMED: Video mediastinoscopy with mediastinal lymph node biopsies. [facility] Bronchoscopy and biopsy of bronchus<sup>2</sup> [id number] 04/12/2017 PROCEDURES PERFORMED: Central with ultrasound-guided transbronchial needle aspiration biopsy. INDICATIONS FOR THE PROCEDURE: Mediastinal adenopathy. PREOPERATIVE DIAGNOSIS Lung cancer. POSTPROCEDURE DIAGNOSIS: Lung cancer. [facility] Bronchoscopy and biopsy of bronchus<sup>3</sup> [id number] 04/12/2017 PROCEDURES PERFORMED: Central with ultrasound-guided transbronchial needle aspiration biopsy. INDICATIONS FOR THE PROCEDURE: Mediastinal adenopathy. PREOPERATIVE DIAGNOSIS Lung cancer. POSTPROCEDURE DIAGNOSIS: Lung cancer. [facility] Internal fixation of fracture<sup>3</sup> [id number] 09/03/2016 right wrist [facility] Internal fixation of fracture<sup>4</sup> [id number] 09/03/2016 right wrist [facility] Internal fixation of fracture<sup>1</sup> [id number] 09/03/2016 right wrist [facility] Adhesiolysis [id number] OPI [place] FESS - FSS sphenoidotomy [id number] OPIShivani [place] FLORENCIO BSO - Total abdominal hysterectomy and bilateral salpingo-oophorectomy<sup>1</sup> [id number] due to cysts [facility] Adhesiolysis [id number] [facility] FESS - FSS sphenoidotomy [id number] [facility] FLORENCIO BSO - Total abdominal hysterectomy and bilateral salpingo-oophorectomy<sup>1</sup> [id number] due to cysts [facility] Adhesiolysis [id number] [facility] FESS - FSS sphenoidotomy [id number] [facility] FLORENCIO BSO - Total abdominal hysterectomy and bilateral salpingo-oophorectomy<sup>4</sup> [id number] due to cysts [facility] FLORENCIO BSO - Total abdominal hysterectomy and bilateral salpingo-oophorectomy<sup>5</sup> [id number] due to cysts [facility] FLORENCIO BSO - Total abdominal hysterectomy and bilateral salpingo-oophorectomy<sup>2</sup> [id number] due to cysts [facility]
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
--- OUTSIDE RECORDS SUMMARY | 2018-09-21 13:37 | XMS REPORT | Summary of Care ---
Author Author [facility] Organization [facility] Address Unknown Phone Unavailable Encounter [facility] Sage(BAYRON) [id number] Date(s): 04/11/17 - 04/12/17 [facility] [address] [place] [address]- Discharge Disposition: Home or Self Care Attending Physician: Crow Alberto MD Admitting Physician: Crow Alberto MD Vital Signs 1 2 3 Most recent to oldest [Reference Range]: 162.56 cm (04/11/17 6:54 AM) Height 98.8 DegF (04/12/17 11:45 AM) 99.3 DegF *HI* (04/12/17 7:45 AM) 98.1 DegF (04/12/17 3:00 AM) Temperature Oral [96.4-99.1 DegF] 115/78 mmHg (04/12/17 11:45 AM) 120/71 mmHg (04/12/17 9:45 AM) 117/73 mmHg (04/12/17 9:30 AM) Blood Pressure [90-140/60-90 mmHg] 18 BRMIN (04/12/17 11:45 AM) 22 BRMIN *HI* (04/12/17 9:45 AM) 16 BRMIN (04/12/17 9:30 AM) Respiratory Rate [14-20 BRMIN] 79 bpm (04/12/17 7:45 AM) 90 bpm (04/12/17 3:00 AM) 83 bpm (04/11/17 11:36 PM) Peripheral Pulse Rate [60-100 bpm] 73.6 kg (04/11/17 1:37 PM) 73.636 kg (04/11/17 6:54 AM) Weight 27.87 m2 (04/11/17 6:54 AM) Body Mass Index Problem List Condition Effective [...] 12/31/14. Originally documented as VICODIN. hives Medications Advair Diskus 250 mcg-50 mcg inhalation powder 1 puff, Route: INHALATION, Drug Form: AERO, Dosing Weight 73.6, kg, BID, Start d ate: 04/11/17 17:00:00 CDT, Duration: 30 day, Stop date: 05/11/17 9:00:00 CDT Start Date: 04/11/17 Stop Date: 04/11/17 Status: Deleted albuterol 0.083% inhalation solution 2.49 mg, Route: NEB, Drug form: SOLN, ONCE, Dosing Weight 73.636, kg, Priority: STAT, Start date: 04/11/17 7:09:00 CDT, Stop date: 04/11/17 7:09:00 CDT Start Date: 04/11/17 Stop Date: 04/11/17 Status: Completed albuterol-ipratropium 2.5-0.5 mg inhalation solution 3 mL, Route: NEB, Drug Form: SOLN, Dosing Weight 73.636, kg, ONCE, STAT, Start d ate: 04/11/17 7:09:00 CDT, Stop date: 04/11/17 7:09:00 CDT Start Date: 04/11/17 Stop Date: 04/11/17 Status: Completed albuterol-ipratropium 2.5-0.5 mg inhalation solution 3 mL, Route: NEB, Drug Form: SOLN, Dosing Weight 73.6, kg, ONCE, STAT, Start yosef e: 04/12/17 7:59:00 CDT, Stop date: 04/12/17 7:59:00 CDT Notes: (Same as: Duoneb) Start Date: 04/12/17 Stop Date: 04/12/17 Status: Discontinued budesonide-formoterol 160 mcg-4.5 mcg/inh inhalation aerosol with adapter 2 inhalation, Route: INHALATION, Drug Form: AERO/A, BID, Start date: 04/11/17 17 :00:00 CDT, Duration: 30 day, Stop date: 05/11/17 9:00:00 CDT Notes: (Same as: Symbicort)WASTE: Aerosol - Return to Pharmacy Start Date: 04/11/17 Stop Date: 04/12/17 Status: Discontinued buPROPion 150 mg, 1 tab, Route: PO, Drug form: ERTAB, BID, Dosing Weight 73.6, kg, Start d ate: 04/11/17 17:00:00 CDT, Duration: 30 day, Stop date: 05/11/17 9:00:00 CDT Notes: (Do not crush) (Same As: Wellbutrin SR) Start Date: 04/11/17 Stop Date: 04/12/17 Status: Discontinued DuoNeb inhalation solution 3 mL, Route: NEB, Dosing Weight 73.636, kg, ONCE, Start date: 04/11/17 9:54:00 C DT, Stop date: 04/11/17 9:54:00 CDT Start Date: 04/11/17 Stop Date: 04/11/17 Status: Completed esomeprazole 20 mg, Route: PO, Drug form: ECCAP, Daily, Dosing Weight 73.6, kg, Start date: 0 04/12/17 9:00:00 CDT, Duration: 30 day, Stop date: 05/11/17 9:00:00 CDT Start Date: 04/12/17 Stop Date: 04/11/17 Status: Deleted heparin 5,000 unit, 1 mL, Route: SUB-Q, Drug form: INJ, Q12H, Dosing Weight 73.636, kg, Start date: 04/11/17 21:00:00 CDT, Duration: 30 day, Stop date: 05/11/17 9:00:00 CDT Notes: porcine heparin Start Date: 04/11/17 Stop Date: 04/12/17 Status: Discontinued ketOROLAC 15 mg, Route: IVP, Drug form: INJ, ONCE, Dosing Weight 73.636, kg, Priority: STA T, Start date: 04/11/17 7:09:00 CDT, Stop date: 04/11/17 7:09:00 CDT Start Date: 04/11/17 Stop Date: 04/11/17 Status: Completed morphine Sulfate 4 mg, Route: IVP, ONCE, Dosing Weight 73.636, kg, Priority: STAT, Start date: 7:09:00 CDT, Stop date: 04/11/17 7:09:00 CDT Start Date: 04/11/17 Stop Date: 04/11/17 Status: Completed morphine Sulfate 2 mg, 1 mL, Route: IVP, Drug form: SOLN, Q4H, Dosing Weight 73.636, kg, PRN Pain Score 7-10, Start date: 04/11/17 12:32:00 CDT, Duration: 30 day, Stop date: 04/19 12:31:00 CDT Start Date: 04/11/17 Stop Date: 04/12/17 Status: Discontinued nicotine 21 mg, 1 patch, Route: TOP, Drug form: ERFILM, Daily, Dosing Weight 73.6, kg, Pr iority: NOW, Start date: 04/11/17 16:31:00 CDT, Duration: 30 day, Stop date: 03/19 17:00:00 CDT Notes: (Same as: Habitrol)"Remove old patch before application of new patch"WAST E: F/P - P Waste Black; E - P Waste Black Start Date: 04/11/17 Stop Date: 04/12/17 Status: Discontinued ondansetron 4 mg, 2 mL, Route: IVP, Drug form: INJ, Q6H, Dosing Weight 73.636, kg, PRN Nause a & Vomiting, Start date: 04/11/17 12:32:00 CDT, Duration: 30 day, Stop date: 05/11/17 12:31:00 CDT Notes: (Same as: Sherry) MEDICATION WASTE Product Size: 4 mgProduct Was elizabeth: ___ mg Start Date: 04/11/17 Stop Date: 04/12/17 Status: Discontinued predniSONE 60 mg, Route: PO, Drug form: TAB, ONCE, Dosing Weight 73.636, kg, Priority: STAT , Start date: 04/11/17 7:09:00 CDT, Stop date: 04/11/17 7:09:00 CDT Start Date: 04/11/17 Stop Date: 04/11/17 Status: Completed Protonix 20 mg, 1 tab, Route: PO, Drug form: ECTAB, Daily, Start date: 04/12/17 9:00:00 C DT, Duration: 30 day, Stop date: 05/11/17 9:00:00 CDT Notes: Tablet should not be chewed or crushed. Start Date: 04/12/17 Stop Date: 04/12/17 Status: Discontinued remove patch 1 patch, Route: TOP, Drug form: ERFILM, Daily, Start date: 04/11/17 17:00:00 CDT , Duration: 30 day, Stop date: 05/10/17 17:00:00 CDT Notes: Remove old patch before application of new patch.WASTE: F/P - P Waste Anup ck; E - P Waste Black Start Date: 04/11/17 Stop Date: 04/12/17 Status: Discontinued Saline Flush 0.9% 10 mL, Route: IVP, Drug Form: INJ, Dosing Weight 73.636, kg, PRN, PRN Line Flush , Start date: 04/11/17 7:09:00 CDT, Duration: 30 day, Stop date: 05/11/17 7:08:0 0 CDT Notes: (Same as: BD Posiflush) Start Date: 04/11/17 Stop Date: 04/12/17 Status: Discontinued Sodium Chloride 0.9% (Bolus) IV 1,000 mL, Infuse Over: 1 hr, Route: IV, ONCE, Priority: STAT, Dosing Weight 73.6 36 kg, Start date: 04/11/17 7:09:00 CDT, Duration: 1 doses or times, Stop date: 04/11/17 7:09:00 CDT Start Date: 04/11/17 Stop Date: 04/11/17 Status: Completed sodium chloride 0.9% 1000 ml INJ 1,000 mL 1,000 mL, Rate: 75 ml/hr, Infuse over: 13.3 hr, Route: IV, Dosing Weight 73.6 kg , Total Volume: 1,000, Start date: 04/12/17 0:00:00 CDT, Duration: 30 day, Stop date: 05/11/17 23:59:00 CDT Start Date: 04/12/17 Stop Date: 04/12/17 Status: Discontinued sodium chloride 0.9% 500 ml INJ 500 mL 500 mL, Rate: 25 ml/hr, Infuse over: 20 hr, Route: IV, Dosing Weight 73.6 kg, To abena Volume: 500, Start date: 04/12/17 7:59:00 CDT, Duration: 1 day, Stop date: 0 04/13/17 7:58:00 CDT Start Date: 04/12/17 Stop Date: 04/12/17 Status: Discontinued Ventolin HFA 90 mcg/inh inhalation aerosol with adapter 2 puff, Route: INHALER, Drug Form: AERO/A, Dosing Weight 73.6, kg, Q6H, PRN as n eeded for wheezing, Start date: 04/11/17 16:31:00 CDT, Duration: 30 day, Stop da te: 05/11/17 16:30:00 CDT Notes: Albuterol 90 microgram/inh 8gm HFAWASTE: Aerosol - Return to Pharmacy [facility] as: Neetu Provenrashel Start Date: 04/11/17 Stop Date: 04/12/17 Status: Discontinued Zofran 4 mg, Route: IVP, Drug form: INJ, ONCE, Dosing Weight 73.636, kg, Priority: STAT , Start date: 04/11/17 7:09:00 CDT, Stop date: 04/11/17 7:09:00 CDT Start Date: 04/11/17 Stop Date: 04/11/17 Status: Completed Results ELECTROLYTES Most recent to 1 2 oldest [Reference Range]: Sodium Lvl [135-145 141 mEq/L 138 mEq/L mEq/L] (04/12/17 6:34 AM) (04/11/17 7:29 AM) Potassium Lvl 3.7 mEq/L 3.7 mEq/L [3.5-5.1 mEq/L] (04/12/17 6:34 AM) (04/11/17 7:29 AM) Chloride Lvl [95-109 106 mEq/L 102 mEq/L mEq/L] (04/12/17 6:34 AM) (04/11/17 7:29 AM) CO2 [24-32 mEq/L] 29 mEq/L 30 mEq/L (04/12/17 6:34 AM) (04/11/17 7:29 AM) AGAP [10.0-20.0 9.7 mEq/L 9.7 mEq/L mEq/L] *LOW* *LOW* (04/12/17:34 AM) (04/11/17 7:29 AM) CHEM PANEL Most recent to 1 2 oldest [Reference Range]: Creatinine Lvl 0.76 mg/dL 0.87 mg/dL [0.50-1.40 mg/dL] (04/12/17 6:34 AM) (04/11/17 7:29 AM) eGFR 90 mL/min/1.73m2 1 77 mL/min/1.73m2 2 *NA* *NA* (04/12/17 6:34 AM) (04/11/17 7:29 AM) BUN [7-22 mg/dL] 11 mg/dL 9 mg/dL (04/12/17 6:34 AM) (04/11/17 7:29 AM) B/C Ratio [6-25] 14 10 (04/12/17 6:34 AM) (04/11/17 7:29 AM) Glucose Lvl [70-99 102 mg/dL 116 mg/dL mg/dL] *HI* *HI* (04/12/17 6:34 AM) (04/11/17 7:29 AM) Total Protein 6.6 g/dL 7.9 g/dL [6.4-8.4 g/dL] (04/12/17 6:34 AM) (04/11/17 7:29 AM) Albumin Lvl [3.5-5.0 3.0 g/dL 3.6 g/dL g/dL] *LOW* (04/11/17 7:29 AM) (04/12/17 6:34 AM) Globulin [2.7-4.2 3.6 g/dL 4.3 g/dL g/dL] (04/12/17 6:34 AM) *HI* (04/11/17 7:29 AM) A/G Ratio [0.7-1.6] 0.8 0.8 (04/12/17:34 AM) (04/11/17 7:29 AM) Calcium Lvl 8.6 mg/dL 8.9 mg/dL [8.5-10.5 mg/dL] (04/12/17 6:34 AM) (04/11/17 7:29 AM) Magnesium Lvl 2.5 mg/dL [1.8-2.4 mg/dL] *HI* (04/12/17 6:34 AM) ALT [0-65 unit/L] 24 unit/L 27 unit/L (04/12/17 6:34 AM) (04/11/17 7:29 AM) AST [0-37 unit/L] 16 unit/L 21 unit/L (04/12/17 6:34 AM) (04/11/17 7:29 AM) Alk Phos [39-136 96 unit/L 123 unit/L unit/L] (04/12/17 6:34 AM) (04/11/17 7:29 AM) Bili Total [0.2-1.3 0.5 mg/dL 0.6 mg/dL mg/dL] (04/12/17 6:34 AM) (04/11/17 7:29 AM) Lipase Lvl [73-393 121 unit/L unit/L] (04/11/17 7:29 AM) 1Result Comment: The eGFR is calculated using [...] be mul tiplied by the estimated BMI. 2Result Comment: The eGFR is calculated using the [...] BMI. CARDIAC ENZYMES Most recent to 1 2 oldest [Reference Range]: Total CK [12-191 173 unit/L unit/L] (04/11/17 7:29 AM) CK MB [0.5-3.6 1.2 ng/mL ng/mL] (04/11/17 7:29 AM) CK MB Index 0.7 [0.0-2.5] (04/11/17 7:29 AM) Troponin-I <0.02 ng/mL [0.00-0.40 ng/mL] (04/11/17 7:29 AM) URINE AND STOOL Most recent to 1 2 oldest [Reference Range]: UA Turbidity [Clear] Clear (04/11/17 8:19 AM) UA Color [Yellow] Yellow *NA* (04/11/17 8:19 AM) UA pH [5.0-8.0] 5.0 (04/11/17 8:19 AM) UA Spec Grav 1.017 [<=1.030] (04/11/17 8:19 AM) UA Glucose [Negative Negative mg/dL mg/dL] *NA* (04/11/17 8:19 AM) UA Blood [Negative] Negative (04/11/17 8:19 AM) UA Ketones [Negative Negative mg/dL mg/dL] *NA* (04/11/17 8:19 AM) UA Protein [Negative Negative mg/dL mg/dL] (04/11/17 8:19 AM) UA Urobilinogen <=1.0 mg/dL [0.1-1.0 mg/dL] *NA* (04/11/17 8:19 AM) UA Bili [Negative] Negative *NA* (04/11/17 8:19 AM) UA Leuk Est Negative [Negative] (04/11/17 8:19 AM) UA Nitrite Negative [Negative] (04/11/17 8:19 AM) UA WBC [0-5 /HPF] 1 /HPF (04/11/17 8:19 AM) UA RBC [0-2 /HPF] 5 /HPF *HI* (04/11/17 8:19 AM) UA Sq Epi [Few /LPF] Occasional /LPF *NA* (04/11/17 8:19 AM) UA Hyal Cast [0-2 1 /LPF /LPF] (04/11/17 8:19 AM) UA Mucus [None Seen Few /LPF /LPF] *NA* (04/11/17 8:19 AM) HEMATOLOGY Most recent to 1 2 oldest [Reference Range]: WBC [3.7-10.4 K/CMM] 11.8 K/CMM 13.7 K/CMM *HI* *HI* (04/12/17 6:34 AM) (04/11/17 7:29 AM) RBC [4.20-5.40 3.68 M/CMM 4.37 M/CMM M/CMM] *LOW* (04/11/17 7:29 AM) (04/12/17 6:34 AM) Hgb [12.0-16.0 g/dL] 11.4 g/dL 13.3 g/dL *LOW* (04/11/17 7:29 AM) (04/12/17 6:34 AM) Hct [36.0-48.0 %] 34.2 % 40.3 % *LOW* (04/11/17 7:29 AM) (04/12/17:34 AM) MCV [80.0-98.0 fL] 92.9 fL 92.1 fL (04/12/17 6:34 AM) (04/11/17 7:29 AM) MCH [27.0-31.0 pg] 31.0 pg 30.5 pg (04/12/17:34 AM) (04/11/17 7:29 AM) MCHC [32.0-36.0 33.4 g/dL 33.1 g/dL g/dL] (04/12/17:34 AM) (04/11/17 7:29 AM) RDW [11.5-14.5 %] 12.4 % 12.4 % (04/12/17 6:34 AM) (04/11/17 7:29 AM) Platelet [133-450 217 K/CMM 272 K/CMM K/CMM] (04/12/17 6:34 AM) (04/11/17 7:29 AM) MPV [7.4-10.4 fL] 8.7 fL 8.4 fL (04/12/17:34 AM) (04/11/17 7:29 AM) Segs [45.0-75.0 %] 70.0 % 81.9 % (04/12/17 6:34 AM) *HI* (04/11/17 7:29 AM) Lymphocytes 20.4 % 9.5 % [20.0-40.0 %] (04/12/17 6:34 AM) *LOW* (04/11/17 7:29 AM) Monocytes [2.0-12.0 7.5 % 6.0 % %] (04/12/17 6:34 AM) (04/11/17 7:29 AM) Eosinophils [0.0-4.0 0.8 % 1.9 % %] (04/12/17 6:34 AM) (04/11/17 7:29 AM) Basophils [0.0-1.0 1.3 % 0.7 % %] *HI* (04/11/17 7:29 AM) (04/12/17 6:34 AM) Segs-Bands # 8.3 K/CMM 11.2 K/CMM [1.5-8.1 K/CMM] *HI* *HI* (04/12/17 6:34 AM) (04/11/17 7:29 AM) Lymphocytes # 2.4 K/CMM 1.3 K/CMM [1.0-5.5 K/CMM] (04/12/17 6:34 AM) (04/11/17 7:29 AM) Monocytes # [0.0-0.8 0.9 K/CMM 0.8 K/CMM K/CMM] *HI* (04/11/17 7:29 AM) (04/12/17 6:34 AM) Eosinophils # 0.1 K/CMM 0.3 K/CMM [0.0-0.5 K/CMM] (04/12/17 6:34 AM) (04/11/17 7:29 AM) Basophils # [0.0-0.2 0.1 K/CMM 0.1 K/CMM K/CMM] (04/12/17 6:34 AM) (04/11/17 7:29 AM) Immunizations Given and Recorded Vaccine Date Status [...] type: none. Employment/School Status: Employed. 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 Alcohol Current, Type Beer. Frequency: 1-2 times per year. Smoking Status Former smoker; Type: Cigarettes; Started at age: 15.0; Exposure to Tobacco Smoke self; Cigarette Smoking Last 365 Days Yes; Reg Smoking Cessation Counseling No Assessment and Plan Extracted from: Title: Discharge Summary * Author: Crow Alberto MD Date: 04/12/17 Discharge Information Disposition to home Condition stable Medications: See med reconciliation form Diet: Right Discharge Plan Follow-up with hematology oncology on 04/16/2017 for further evaluation, pulmonary in 2 weeks, PCP in 1 week In the event of any worsening symptoms patient was a come back to the ED for further evaluation Discharge summary took greater than 35 minutes Extracted from: Title: Clinical Document Author: Elizabeth Tinoco Date: 04/12/17 Iliana MENJIVAR EBUS of right hilar mass, positive for tumor cells, full report to follow. d/w path ok to discharge from pulm standpoint. Extracted from: Title: General Admission H&P * Author: Crow Alberto MD Date: 04/11/17 Impression and Plan 1. Respiratory distress/shortness of breath with underlying lung mass-pulmonary consulted will get bronchoscopy with biopsy tomorrow, oncology consulted, neb treatments, oxygen supplement 2. Chronic smoker-nicotine patch 3. History of COPD continue Advair, neb treatments 4. Prophylaxis SCDs 5. Fluid electrolytes nutrients low-dose IV fluids, regular diet n.p.o. after midnight 6. Disposition inpatient, pulmonary and oncology consulted
--- OUTSIDE RECORDS SUMMARY | 2018-09-21 13:37 | XMS REPORT | Summary of Care ---
Author Author [facility] Organization [facility] Address Unknown Phone Unavailable Encounter HQ Sage(BAYRON) [id number] Date(s): 05/10/17 - 05/10/17 [facility] [address] [place] [address]- Discharge Disposition: Home or Self Care Attending Physician: Vasu Cruz MD Referring Physician: Vasu Cruz MD Vital Signs 1 2 3 Most recent to oldest [Reference Range]: 162.56 cm (05/10/17 6:35 AM) Height 98.0 DegF (05/10/17 7:38 AM) 98.2 DegF (05/10/17 6:52 AM) Temperature Oral [96.4-99.1 DegF] 125/80 mmHg (05/10/17 12:00 PM) 136/77 mmHg (05/10/17 11:30 AM) 124/79 mmHg (05/10/17 11:15 AM) Blood Pressure [90-140/60-90 mmHg] 16 BRMIN (05/10/17 11:15 AM) 16 BRMIN (05/10/17 11:00 AM) 18 BRMIN (05/10/17 10:45 AM) Respiratory Rate [14-20 BRMIN] 69 bpm (05/10/17 7:38 AM) 68 bpm (05/10/17 6:52 AM) Peripheral Pulse Rate [60-100 bpm] 75.818 kg (05/10/17 6:35 AM) Weight 28.69 m2 (05/10/17 6:35 AM) Body Mass Index Problem List Condition Effective Dates Status Health Status Informant Anxiety(Confirmed) Active Screening for breast Active cancer(Confirmed) Chest Active pain(Confirmed) Chronic low back 09/15/13 Active pain1 Advanced Active COPD(Confirmed) Chronic obstructive Active lung disease(Confirmed)2 Leg Active cramps(Confirmed) Deviated nasal 10/19/14 Active septum3, 4 SOB (shortness of Active breath)(Confirmed) 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 2Data migrated from [employer] on 01/30/15. 3Data migrated from [employer] on 03/10/15. 4Data migrated from [employer] on 03/10/15. 5Data migrated from [employer] on 03/20/15. 6Data migrated from [employer] on 03/19/15. 7Data migrated from [employer] on 01/30/15. Allergies, Adverse Reactions, Alerts Substance Reaction Severity Status acetaminophen-HYDROcodone hives MO^Moderate Active 1, 2 1Data migrated from [employer] on 03/11/15. Originally documented as VICODIN. hives 2Data migrated from [employer] on 12/31/14. Originally documented as VICODIN. hives Medications acetaminophen-codeine #3 1 tab, Route: PO, Drug Form: TAB, Dosing Weight 75.818, kg, Q4H, PRN Pain Score 4-6, Start date: 05/10/17 10:32:00 CDT, Duration: 30 day, Stop date: 06/09/17 10 :31:00 CDT Start Date: 05/10/17 Stop Date: 05/10/17 Status: Discontinued acetaminophen-codeine #3 2 tab, Route: PO, Drug Form: TAB, Dosing Weight 75.818, kg, Q4H, PRN Pain Score 4-6, Start date: 05/10/17 10:32:00 CDT, Duration: 30 day, Stop date: 06/09/17 10 :31:00 CDT Start Date: 05/10/17 Stop Date: 05/10/17 Status: Discontinued albuterol-ipratropium 2.5-0.5 mg inhalation solution 3 mL, Route: NEB, Dosing Weight 75.818, kg, ONCE, STAT, Start date: 05/10/17 8:0 3:00 CDT, Stop date: 05/10/17 8:03:00 CDT Start Date: 05/10/17 Stop Date: 05/10/17 Status: Completed ceFAZolin (ANES) Route: IV, Drug form: INJ, ONCE, Stop date: 05/10/17 10:35:00 CDT Start Date: 05/10/17 Stop Date: 05/10/17 Status: Completed DuoNeb inhalation solution 3 mL, Route: NEB, Drug Form: SOLN, Dosing Weight 75.818, kg, ONCE, Start date: 0 05/10/17 8:05:00 CDT, Stop date: 05/10/17 8:05:00 CDT Notes: (Same as: Duoneb) Start Date: 05/10/17 Stop Date: 05/10/17 Status: Ordered famotidine (ANES) Route: IV, Drug form: INJ, ONCE, Stop date: 05/10/17 10:37:00 CDT Start Date: 05/10/17 Stop Date: 05/10/17 Status: Completed fentaNYL (ANES) Route: IV, Drug form: INJ, ONCE, Stop date: 05/10/17 10:35:00 CDT Start Date: 05/10/17 Stop Date: 05/10/17 Status: Completed heparin 5,000 unit, Route: SUB-Q, ONCE, Dosing Weight 75.818, kg, Start date: 05/10/17 8 :05:00 CDT, Stop date: 05/10/17 8:05:00 CDT Start Date: 05/10/17 Stop Date: 05/10/17 Status: Completed hydromorphone (ANES) Route: IV, Drug form: INJ, ONCE, Stop date: 05/10/17 10:37:00 CDT Start Date: 05/10/17 Stop Date: 05/10/17 Status: Completed Lactated Ringers Injection IV 1000 mL 1,000 mL, Rate: 25 ml/hr, Infuse over: 40 hr, Route: IV, Dosing Weight 75.818 kg , Total Volume: 1,000, Start date: 05/10/17 8:03:00 CDT, Duration: 30 day, Stop date: 06/09/17 8:02:00 CDT Start Date: 05/10/17 Stop Date: 05/10/17 Status: Discontinued lidocaine (ANES) Route: IV, Drug form: INJ, ONCE, Stop date: 05/10/17 10:25:00 CDT Start Date: 05/10/17 Stop Date: 05/10/17 Status: Completed LR 1000 mL INJ (ANES) Route: IV, Total Volume: 1,000, Start date: 05/10/17 9:20:00 CDT, Stop date: 03/19 10:20:00 CDT Start Date: 05/10/17 Stop Date: 05/10/17 Status: Completed midazolam (ANES) Route: IV, Drug form: SOLN, ONCE, Stop date: 05/10/17 10:25:00 CDT Start Date: 05/10/17 Stop Date: 05/10/17 Status: Completed morphine Sulfate 2 mg, Route: IVP, Q3H, Dosing Weight 75.818, kg, PRN Pain Score 1-3, Start date: 05/10/17 10:32:00 CDT, Duration: 30 day, Stop date: 06/09/17 10:31:00 CDT Start Date: 05/10/17 Stop Date: 05/10/17 Status: Discontinued ondansetron (ANES) Route: IV, Drug form: INJ, ONCE, Stop date: 05/10/17 10:35:00 CDT Start Date: 05/10/17 Stop Date: 05/10/17 Status: Completed propofol (ANES) Route: IV, Drug form: INJ, ONCE, Stop date: 05/10/17 10:35:00 CDT Start Date: 05/10/17 Stop Date: 05/10/17 Status: Completed rocuronium (ANES) Route: IV, Drug form: INJ, ONCE, Stop date: 05/10/17 10:25:00 CDT Start Date: 05/10/17 Stop Date: 05/10/17 Status: Completed Sodium Chloride 0.9% IV 500 mL 500 mL, Rate: 25 ml/hr, Infuse over: 20 hr, Route: IV, Dosing Weight 75.818 kg, Total Volume: 500, Start date: 05/10/17 8:03:00 CDT, Duration: 30 day, Stop date : 06/09/17 8:02:00 CDT Start Date: 05/10/17 Stop Date: 05/10/17 Status: Discontinued sugammadex (ANES) Route: IV, Drug form: SOLN, ONCE, Stop date: 05/10/17 10:37:00 CDT Start Date: 05/10/17 Stop Date: 05/10/17 Status: Completed Results BLOOD BANK RESULTS Most recent to 1 oldest [Reference Range]: ABO/Rh A POS *Unknown* (05/10/17 8:13 AM) Antibody Scrn Negative (05/10/17 8:13 AM) ELECTROLYTES Most recent to 1 oldest [Reference Range]: Sodium Lvl [135-145 142 mEq/L mEq/L] (05/10/17 6:46 AM) Potassium Lvl 3.6 mEq/L [3.5-5.1 mEq/L] (05/10/17 6:46 AM) Chloride Lvl [95-109 105 mEq/L mEq/L] (05/10/17 6:46 AM) CO2 [24-32 mEq/L] 30 mEq/L (05/10/17 6:46 AM) AGAP [10.0-20.0 10.6 mEq/L mEq/L] (05/10/17 6:46 AM) CHEM PANEL Most recent to 1 oldest [Reference Range]: Creatinine Lvl 0.84 mg/dL [0.50-1.40 mg/dL] (05/10/17 6:46 AM) eGFR 80 mL/min/1.73m2 1 *NA* (05/10/17 6:46 AM) BUN [7-22 mg/dL] 9 mg/dL (05/10/17 6:46 AM) B/C Ratio [6-25] 11 (05/10/17 6:46 AM) Glucose Lvl [70-99 97 mg/dL mg/dL] (05/10/17 6:46 AM) Total Protein 7.4 g/dL [6.4-8.4 g/dL] (05/10/17 6:46 AM) Albumin Lvl [3.5-5.0 3.4 g/dL g/dL] *LOW* (05/10/17 6:46 AM) Globulin [2.7-4.2 4.0 g/dL g/dL] (05/10/17 6:46 AM) A/G Ratio [0.7-1.6] 0.8 (05/10/17 6:46 AM) Calcium Lvl 8.7 mg/dL [8.5-10.5 mg/dL] (05/10/17 6:46 AM) ALT [0-65 unit/L] 28 unit/L (05/10/17 6:46 AM) AST [0-37 unit/L] 12 unit/L (05/10/17 6:46 AM) Alk Phos [39-136 128 unit/L unit/L] (05/10/17 6:46 AM) Bili Total [0.2-1.3 0.6 mg/dL mg/dL] (05/10/17 6:46 AM) 1Result Comment: The eGFR is calculated [...] be mul tiplied by the estimated BMI. HEMATOLOGY Most recent to 1 oldest [Reference Range]: WBC [3.7-10.4 K/CMM] 8.8 K/CMM (05/10/17 6:46 AM) RBC [4.20-5.40 4.24 M/CMM M/CMM] (05/10/17 6:46 AM) Hgb [12.0-16.0 g/dL] 13.1 g/dL (05/10/17 6:46 AM) Hct [36.0-48.0 %] 38.9 % (05/10/17 6:46 AM) MCV [80.0-98.0 fL] 91.8 fL (05/10/17 6:46 AM) MCH [27.0-31.0 pg] 30.9 pg (05/10/17 6:46 AM) MCHC [32.0-36.0 33.7 g/dL g/dL] (05/10/17 6:46 AM) RDW [11.5-14.5 %] 12.7 % (05/10/17 6:46 AM) Platelet [133-450 258 K/CMM K/CMM] (05/10/17 6:46 AM) MPV [7.4-10.4 fL] 8.0 fL (05/10/17 6:46 AM) Segs [45.0-75.0 %] 60.7 % (05/10/17 6:46 AM) Lymphocytes 27.9 % [20.0-40.0 %] (05/10/17 6:46 AM) Monocytes [2.0-12.0 7.8 % %] (05/10/17 6:46 AM) Eosinophils [0.0-4.0 3.0 % %] (05/10/17 6:46 AM) Basophils [0.0-1.0 0.6 % %] (05/10/17 6:46 AM) Segs-Bands # 5.3 K/CMM [1.5-8.1 K/CMM] (05/10/17 6:46 AM) Lymphocytes # 2.4 K/CMM [1.0-5.5 K/CMM] (05/10/17 6:46 AM) Monocytes # [0.0-0.8 0.7 K/CMM K/CMM] (05/10/17 6:46 AM) Eosinophils # 0.3 K/CMM [0.0-0.5 K/CMM] (05/10/17 6:46 AM) PT [12.0-14.7 13.0 seconds seconds] (05/10/17 6:46 AM) INR [0.85-1.17] 0.96 (05/10/17 6:46 AM) PTT [22.9-35.8 26.1 seconds seconds] (05/10/17 6:46 AM) Immunizations Given and Recorded Vaccine Date Status Refusal Reason diphtheria/pertussis, acel/tetanus adult 03/07/14 Given influenza virus vaccine, inactivated 05/29/16 Given influenza virus vaccine, inactivated 06/03/15 Given tuberculin purified protein derivative 05/29/16 Given Procedures Procedure Date Related Diagnosis Body Site Internal fixation of fracture1 2016 Adhesiolysis FESS - FSS sphenoidotomy FLORENCIO BSO - Total abdominal hysterectomy and bilateral salpingo-oophorectomy2 1right wrist 2due to cysts Social History Social History Type Response Substance Abuse Use: None. Exercise Exercise type: none. Employment/School Status: Employed. 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 Alcohol Current, Type Beer. Frequency: 1-2 times per year. Smoking Status Former smoker; Type: Cigarettes; Started at age: 15.0; Exposure to Tobacco Smoke self; Cigarette Smoking Last 365 Days Yes; Reg Smoking Cessation Counseling No Assessment and Plan No data available for this section
--- OUTSIDE RECORDS SUMMARY | 2018-09-21 13:37 | XMS REPORT | Summary of Care ---
Author Author [facility] Organization [facility] Address Unknown Phone Unavailable Encounter [facility](FIN) [id number] Date(s): 12/22/16 - 12/22/16 [facility] [address] [place] [address] [phone] Discharge Disposition: Home or Self Care Attending Physician: Anson Tai MD Vital Signs No data available for this section Problem List Condition Effective Dates Status Health Status Informant Chronic low back 09/15/13 Active pain1 Chronic [...] 12/31/14. Originally documented as VICODIN. hives Medications No data available for this section [...] type: none. Employment/School Status: Employed. 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 Alcohol Current, Type Beer. Frequency: 1-2 times per year. Smoking Status Current every day smoker; Type: Cigarettes; Tobacco use per day: 20; Started at age: 15.0; Exposure to Tobacco Smoke self; Cigarette Smoking Last 365 Days Yes; Reg Smoking Cessation Counseling No Assessment and Plan No data available for this section
--- OUTSIDE RECORDS SUMMARY | 2018-09-21 13:37 | XMS REPORT | Summary of Care ---
Author Author [facility] Organization [facility] Address Unknown Phone Unavailable Encounter [facility](FIN) [id number] Date(s): 07/27/17 - 07/27/17 [facility] [address], [address] [place] [address]- [phone] Attending Physician: Linh Coto MD Vital Signs No data available for this section Problem List Condition Effective Dates Status Health Status Informant Anxiety(Confirmed) Active Screening for breast Active cancer(Confirmed) Chronic obstructive Active lung disease(Confirmed)1 Leg Active cramps(Confirmed) Deviated nasal 10/19/14 Active septum2, 3 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 2Data migrated from [employer] on 03/10/15. 3Data migrated from [employer] on 03/10/15. 4Data migrated from [employer] on 03/20/15. 5Data migrated from [employer] on 03/19/15. Allergies, Adverse Reactions, Alerts Substance Reaction Severity Status acetaminophen-HYDROcodone hives MO^Moderate Active 1, 2 1Data migrated from [employer] on 03/11/15. Originally documented as VICODIN. hives 2Data migrated from [employer] on 12/31/14. Originally documented as VICODIN. hives Medications No data available for this section Results No data available for this section Immunizations Given and Recorded Vaccine Date Status Refusal Reason influenza virus vaccine, inactivated1 06/18/17 Given influenza virus vaccine, inactivated 05/29/16 Given influenza virus vaccine, inactivated 06/03/15 Given tuberculin purified protein derivative 05/29/16 Given diphtheria/pertussis, acel/tetanus adult 03/07/14 Given 1Result Comment: Patient waited 15 min with no reaction. Procedures Procedure Date Related Diagnosis Body Site Mediastinoscopy and lymph node sampling1 05/10/17 Bronchoscopy and biopsy of bronchus2 04/12/17 Internal fixation of fracture3 2016 Adhesiolysis FESS - FSS sphenoidotomy FLORENCIO BSO - Total abdominal hysterectomy and bilateral salpingo-oophorectomy4 1PREOPERATIVE DIAGNOSIS: Right hilar mass with mediastinal lymphadenopathy. POSTOPERATIVE DIAGNOSIS: Right hilar mass with mediastinal lymphadenopathy. PROCEDURES PERFORMED: Video mediastinoscopy with mediastinal lymph node biopsies. 2PROCEDURES PERFORMED: Central with ultrasound-guided transbronchial needle aspiration biopsy. INDICATIONS FOR THE PROCEDURE: Mediastinal adenopathy. PREOPERATIVE DIAGNOSIS Lung cancer. POSTPROCEDURE DIAGNOSIS: Lung cancer. 3right wrist 4due to cysts Social History Social History Type Response Substance Abuse Use: None. Exercise Exercise type: none. Employment/School Status: Employed. 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. Alcohol Current, Type Beer. Frequency: 1-2 times per year. Smoking Status Former smoker; Type: Cigarettes; Exposure to Tobacco Smoke self; Cigarette Smoking Last 365 Days Yes; Reg Smoking Cessation Counseling No; Started at age: 15.0; Assessment and Plan No data available for this section
--- OUTSIDE RECORDS SUMMARY | 2018-09-21 13:37 | XMS REPORT | Summary of Care ---
Author Organization Unknown Address Unknown Phone Unavailable Encounter [facility](BAYRON) [id number] Date(s): 02/19/14 - 02/19/14 [facility] [address] Discharge Disposition: Home Physician Attending: Linh Coto MD Reason for Visit 496 Problem List No data available for this section Allergies, Adverse Reactions, Alerts No data available for this section Medications No data available for this section Medications Administered During Your Visit No data available for this section Immunizations No data available for this section
--- OUTSIDE RECORDS SUMMARY | 2018-09-21 13:38 | XMS REPORT | Summary of Care ---
Author Author [facility] Organization [facility] Address Unknown Phone Unavailable Encounter [facility](FIN) [id number] Date(s): 07/30/17 - 07/31/17 [facility] [address], [address] [place] [address]- [phone] Vital Signs No data available for this [...] VICODIN. hives Medications albuterol 0.083% inhalation solution 2.5 mg=3 mL, NEB, Q6H, PRN Shortness of breath, wheezing or cough, # 300 mL, 5 R efill(s), Pharmacy: [facility] [id number] Start Date: 07/30/17 Stop Date: 10/28/17 Status: Ordered Results No data available for [...] type: none. Employment/School Status: Employed. 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 Alcohol Current, Type Beer. Frequency: 1-2 times per year. Smoking Status Former smoker; Type: Cigarettes; Exposure to Tobacco Smoke self; Cigarette Smoking Last 365 Days Yes; Reg Smoking Cessation Counseling No; Started at age: 15.0; Assessment and Plan No data available for this section
--- OUTSIDE RECORDS SUMMARY | 2018-09-21 13:38 | XMS REPORT | Summary of Care ---
Author Author [facility] Organization [facility] Address Unknown Phone Unavailable Encounter BANDAR Cazares(FIN) [id number] Date(s): 08/21/17 - 08/21/17 [facility] [address], [address] [place] [address]- [phone] Discharge Disposition: Home or Self Care Attending Physician: Linh Coto MD Vital Signs Most recent to 1 oldest [Reference Range]: Height 162.56 cm (08/21/17 8:58 AM) Temperature Oral 97.8 DegF [96.4-99.1 DegF] (08/21/17 8:58 AM) Blood Pressure 108/68 mmHg [90-140/60-90 mmHg] (08/21/17 8:58 AM) Respiratory Rate 16 BRMIN [14-20 BRMIN] (08/21/17 8:58 AM) Peripheral Pulse 73 bpm Rate [60-100 bpm] (08/21/17 8:58 AM) Weight 78.295 kg (08/21/17 8:58 AM) Body Mass Index 29.63 m2 (08/21/17 8:58 AM) Problem List Condition Effective Dates Status Health Status Informant Anxiety(Confirmed) Active Screening for breast Active cancer(Confirmed) Chronic obstructive Active lung disease(Confirmed)1 Leg Active cramps(Confirmed) Deviated nasal 10/19/14 Active septum2, 3 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 2Data migrated from [employer] [...] INHALATION, BID, # 1 ea, 0 Refill(s) Start Date: 08/21/17 Stop Date: 11/19/17 Status: Ordered Spiriva 18 mcg inhalation capsule 18 microgram=1 cap, INHALATION, Daily, Use two inhalations of one capsule for ea ch dose, # 30 cap, 0 Refill(s) Start Date: 08/21/17 Status: Ordered Results No data available for [...] of bronchus2 04/12/17 Internal fixation of fracture3 2017 Adhesiolysis FESS - FSS sphenoidotomy FLORENCIO BSO [...] type: none. Employment/School Status: Employed. 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 Alcohol Current, Type Beer. Frequency: 1-2 times per year. Smoking Status Former smoker; Type: Cigarettes; Exposure to Tobacco Smoke self; Cigarette Smoking Last 365 Days Yes; Reg Smoking Cessation Counseling No; Started at age: 15.0; Assessment and Plan No data available for this section
--- OUTSIDE RECORDS SUMMARY | 2018-09-21 13:38 | XMS REPORT | Summary of Care ---
Author Author [facility] Organization [facility] Address Unknown Phone Unavailable Encounter [facility]age(FIN) [id number] Date(s): 11/29/17 - 11/30/17 [facility] [address], [address] [place], [place] [address]- [phone] Vital Signs No data available for this section Problem List Condition Effective Dates Status Health Status Informant Anxiety(Confirmed) Active Chronic obstructive Active lung disease(Confirmed)1 Deviated nasal 10/19/14 Active septum2, 3 GERD Active (gastroesophageal reflux disease)(Confirmed) Unequal leg Active length(Confirmed) Pulmonary Active histoplasmosis capsulati(Confirmed) Prediabetes(Confirme Active d) History of cigarette Active smoking(Confirmed) 1Data migrated from [employer] on 01/30/15. 2Data migrated from [employer] on 03/10/15. 3Data migrated from [employer] on 03/10/15. Allergies, Adverse Reactions, Alerts Substance Reaction Severity Status acetaminophen-HYDROcodone hives MO^Moderate Active 1, 2 1Data migrated from [employer] on 03/11/15. Originally documented as VICODIN. hives 2Data migrated from [employer] on 12/31/14. Originally documented as VICODIN. hives Medications clonazePAM 0.5 mg oral tablet 0.5 mg=1 tab, PO, BID, PRN anxiety, # 40 tab, 0 Refill(s) Start Date: 11/30/17 Status: Ordered Results No data available for this section Immunizations Given and Recorded Vaccine Date Status Refusal Reason influenza virus vaccine, inactivated1 06/18/17 Given influenza virus vaccine, inactivated 05/29/16 Given influenza virus vaccine, inactivated 06/03/15 Given tuberculin purified protein derivative 05/29/16 Given diphtheria/pertussis, acel/tetanus adult 03/07/14 Given 1Result Comment: Patient waited 15 min with no reaction. Procedures Procedure Date Related Diagnosis Body Site Status Measurement of occult blood in stool specimen 10/12/17 Completed using immunoassay1 Mediastinoscopy and lymph node sampling2 05/10/17 Completed Bronchoscopy and biopsy of bronchus3 04/12/17 Completed Internal fixation of fracture4 2016 Completed Adhesiolysis Completed FESS - FSS sphenoidotomy Completed FLORENCIO BSO - Total abdominal hysterectomy and Completed bilateral salpingo-oophorectomy5 1negative 2PREOPERATIVE DIAGNOSIS: Right hilar mass with mediastinal lymphadenopathy. POSTOPERATIVE DIAGNOSIS: Right hilar mass with mediastinal lymphadenopathy. PROCEDURES PERFORMED: Video mediastinoscopy with mediastinal lymph node biopsies. 3PROCEDURES PERFORMED: Central with ultrasound-guided transbronchial needle aspiration biopsy. INDICATIONS FOR THE PROCEDURE: Mediastinal adenopathy. PREOPERATIVE DIAGNOSIS Lung cancer. POSTPROCEDURE DIAGNOSIS: Lung cancer. 4right wrist 5due to cysts Social History Social History Type Response Substance Abuse Use: None. Exercise Exercise type: none. Employment/School Status: Employed. 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 Alcohol Current, Type Beer. Frequency: 1-2 times per year. Smoking Status Former smoker; Exposure to Tobacco Smoke self; Cigarette Smoking Last 365 Days Yes; Reg Smoking Cessation Counseling No; Started at age: 15.0; Stopped at age: 51; entered on: 10/29/17 Assessment and Plan No data available for this section
--- OUTSIDE RECORDS SUMMARY | 2018-09-21 13:38 | XMS REPORT | Summary of Care ---
Author Author [facility] Organization [facility] Address Unknown Phone Unavailable Encounter [facility](FIN) [id number] Date(s): 08/09/17 - 08/09/17 [facility] [address], [address] [place], [place] [address]- [phone] Attending Physician: Linh Coto MD Vital Signs [...] type: none. Employment/School Status: Employed. 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 Alcohol Current, Type Beer. Frequency: 1-2 times per year. Smoking Status Former smoker; Type: Cigarettes; Exposure to Tobacco Smoke self; Cigarette Smoking Last 365 Days Yes; Reg Smoking Cessation Counseling No; Started at age: 15.0; Assessment and Plan No data available for this section
--- OUTSIDE RECORDS SUMMARY | 2018-09-21 13:38 | XMS REPORT | Summary of Care ---
Author Author [facility] Organization [facility] Address Unknown Phone Unavailable Encounter [facility] Sage(FIN) [id number] Date(s): 11/26/17 - 11/26/17 [facility] [address], [address] [place], [place] [address]- [phone] Attending Physician: Linh Coto MD Vital Signs [...] type: none. Employment/School Status: Employed. 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 Alcohol Current, Type Beer. Frequency: 1-2 times per year. Smoking Status Former smoker; Exposure to Tobacco Smoke self; Cigarette Smoking Last 365 Days Yes; Reg Smoking Cessation Counseling No; Started at age: 15.0; Stopped at age: 51; entered on: 10/29/17 Assessment and Plan No data available for this section
--- OUTSIDE RECORDS SUMMARY | 2018-09-21 13:38 | XMS REPORT | Summary of Care ---
Author Author [facility] Organization [facility] Address Unknown Phone Unavailable Encounter HQ Sage(FIN) [id number] Date(s): 10/29/17 - 10/29/17 [facility] [address], [address] [place], [place] [id number]- [phone] Discharge Disposition: Home or Self Care Attending Physician: Nidia Cox DO Vital Signs Most recent to 1 oldest [Reference Range]: Height 162.56 cm (10/29/17 1:03 PM) Temperature Oral 98.0 DegF [96.4-99.1 DegF] (10/29/17 1:03 PM) Blood Pressure 116/66 mmHg [90-140/60-90 mmHg] (10/29/17 1:03 PM) Respiratory Rate 14 BRMIN [14-20 BRMIN] (10/29/17 1:03 PM) Peripheral Pulse 82 bpm Rate [60-100 bpm] (10/29/17 1:03 PM) Weight 79.545 kg (10/29/17 1:03 PM) Body Mass Index 30.1 m2 (10/29/17 1:03 PM) Problem List Condition Effective Dates Status [...] documented as VICODIN. hives [facility]. Originally documented as VICODIN. hives Medications doxycycline hyclate 100 mg oral tablet 100 mg=1 tab, PO, BID, 0 Refill(s) Start Date: 10/29/17 Status: Ordered ibuprofen 800 mg oral tablet 800 mg=1 tab, PO, TID, PRN Pain, # 90 tab, 0 Refill(s) Start Date: 10/29/17 Status: Ordered ProAir HFA 1 - 2 puffs, PO, Q4H, PRN Wheezing / cough / shortness of breath, # 1 ea, 0 Refi ll(s) Start Date: 10/29/17 Stop Date: 11/23/17 Status: Ordered Voltaren Topical 1% topical gel 2 gm, TOP, BID, PRN Apply to affected area, # 100 gm, 1 Refill(s), Pharmacy: [facility] [id number] Start Date: 10/29/17 Status: Ordered Results No data available for [...] of bronchus3 04/12/17 Completed Internal fixation of fracture2016 Completed Adhesiolysis Completed FESS - FSS sphenoidotomy [...] type: none. Employment/School Status: Employed. 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 Alcohol Current, Type Beer. Frequency: 1-2 times per year. Smoking Status Former smoker; Exposure to Tobacco Smoke self; Cigarette Smoking Last 365 Days Yes; Reg Smoking Cessation Counseling No; Started at age: 15.0; Stopped at age: 51; entered on: 10/29/17 Assessment and Plan No data available for this section
--- OUTSIDE RECORDS SUMMARY | 2018-09-21 13:38 | XMS REPORT | Summary of Care ---
Author Author [facility] Organization [facility] Address Unknown Phone Unavailable Encounter HQ Sage(FIN) [id number] Date(s): 08/23/17 - 08/24/17 [facility] [address], [address] [place], [place] [id number]- [phone] Vital Signs No data available for this [...] type: none. Employment/School Status: Employed. 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 Alcohol Current, Type Beer. Frequency: 1-2 times per year. Smoking Status Former smoker; Type: Cigarettes; Exposure to Tobacco Smoke self; Cigarette Smoking Last 365 Days Yes; Reg Smoking Cessation Counseling No; Started at age: 15.0; Stopped at age: 51; Assessment and Plan No data available for this section
--- OUTSIDE RECORDS SUMMARY | 2018-09-21 13:38 | XMS REPORT ---
Author Author [facility] Address Unknown Phone Unavailable Care Team Providers Care Acid Concentrator Name Role Phone Unavailable Unavailable Payers Payer Name Policy Type Policy Number Effective Date Expiration Date Problems This patient has no known problems. Allergies, Adverse Reactions, Alerts Allergy Name Allergy Type Status Severity Reaction(s) Onset Date Inactive Date Treating Clinician Comments hydrocodone DA Active MD 2018-08-27 00:00:00 hydrocodone DA Active MD 2018-08-22 00:00:00 hydrocodone DA Active MD 2018-07-25 00:00:00 hydrocodone DA Active MD 2018-06-27 00:00:00 hydrocodone DA Active MD 2018-01-18 00:00:00 Medications This patient has no known medications.
--- OUTSIDE RECORDS SUMMARY | 2018-09-21 13:38 | XMS REPORT | Summary of Care ---
Author Author [facility] Organization [facility] Address Unknown Phone Unavailable Encounter HQ Sedrick_mike(FIN) [id number] Date(s): 07/31/17 - 08/01/17 [facility] [address], [address] [place], [place] [address]- [phone] Vital Signs No data available for this [...] none. Employment/School Status: Employed. 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 Alcohol Current, Type Beer. Frequency: 1-2 times per year. Smoking Status Former smoker; Type: Cigarettes; Exposure to Tobacco Smoke self; Cigarette Smoking Last 365 Days Yes; Reg Smoking Cessation Counseling No; Started at age: 15.0; Assessment and Plan No data available for this section
--- OUTSIDE RECORDS SUMMARY | 2018-09-21 13:38 | XMS REPORT | Summary of Care ---
Author Author [facility] Organization [facility] Address Unknown Phone Unavailable Encounter BANDAR Cazares(FIN) [id number] Date(s): 08/30/17 - 08/30/17 [facility] [address], [address] [place] [address] [phone] Discharge Disposition: Home or Self Care Attending Physician: Linh Coto MD Vital Signs Most recent to 1 oldest [Reference Range]: Height 162.56 cm (08/30/17 10:52 AM) Temperature Oral 100.8 DegF [96.4-99.1 DegF] *HI* (08/30/17 10:52 AM) Blood Pressure 122/79 mmHg [90-140/60-90 mmHg] (08/30/17 10:52 AM) Respiratory Rate 14 BRMIN [14-20 BRMIN] (08/30/17 10:52 AM) Peripheral Pulse 91 bpm Rate [60-100 bpm] (08/30/17 10:52 AM) Weight 75.455 kg (08/30/17 10:52 AM) Body Mass Index 28.55 m2 (08/30/17 10:52 AM) Problem List Condition Effective Dates Status Health Status Informant Acute Active bronchitis(Confirmed ) Anxiety(Confirmed) Active Screening for breast Active cancer(Confirmed) Chronic obstructive Active lung disease(Confirmed)1 Leg Active cramps(Confirmed) Deviated nasal 10/19/14 Active septum2, 3 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 Originally documented as VICODIN. hives Medications cephalexin 500 mg oral capsule 500 mg=1 cap, PO, TID, X 7 day, # 21 cap, 0 Refill(s), Pharmacy: [facility] [id number] Start Date: 08/30/17 Stop Date: 09/06/17 Status: Ordered dextromethorphan-promethazine 15 mg-6.25 mg/5 mL oral syrup 5 mL, PO, Q6H, PRN for cough, # 120 mL, 0 Refill(s), Pharmacy: [facility] [address] [facility] [id number] Start Date: 08/30/17 Stop Date: 08/30/18 Status: Ordered Results No data available for [...] Employed. 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 Alcohol Current, Type Beer. Frequency: 1-2 times per year. Smoking Status Former smoker; Exposure to Tobacco Smoke self; Cigarette Smoking Last 365 Days Yes; Reg Smoking Cessation Counseling No; Started at age: 15.0; Stopped at age: 51; Assessment and Plan No data available for this section
[2018-09-21] MEDS ORDERED: METHYLPREDNISOLONE SOD SUCC 125 MG/2ML VIAL IV STA (13:49)
[2018-09-21] MEDS ORDERED: IPRATROPIUM BROMIDE 0.02% 2.5 ML NEB NEB STA (13:49)
[2018-09-21] MEDS ORDERED: ALBUTEROL SULF 0.083% NEB SOLN 3 ML NEB NEB STA (13:49)
[2018-09-21] MEDS ORDERED: ASPIRIN 81 MG CHEW TAB PO ONE (14:00)
[2018-09-21 14:15] LABS: BASOPHILS % 0.2 % (0.0-1.0); EOSINOPHILS % 0.2 % (0.0-6.0); HEMATOCRIT 38.9 % (34.2-44.1); LYMPHOCYTES # (AUTO) 0.3 (1.0-3.2); LYMPHOCYTES % 2.3 % (18.0-39.1); MEAN CORPUSCULAR HEMOGLOBIN 30.7 pg (28-32); MEAN CORPUSCULAR HGB CONC 33.4 g/dL (31-35); MEAN CORPUSCULAR VOLUME 91.7 fL (81-99); MONOCYTES # (AUTO) 0.2 (0.2-0.8); MONOCYTES % 1.9 % (4.4-11.3); NEUTROPHILS # (AUTO) 12.2 (2.1-6.9); PLATELET COUNT 261 x10e3/uL (140-360); RED BLOOD COUNT 4.24 x10e6/uL (3.6-5.1)
[2018-09-21] MEDS ORDERED: ALBUTEROL0.63 MG/3 INH (14:25)
[2018-09-21] MEDS ORDERED: NEXIUM40 MG PO (14:25)
[2018-09-21] MEDS ORDERED: CENTRUM SILVER1 EAC3 PO (14:25)
[2018-09-21] MEDS ORDERED: BREO ELLIPTA INH (14:25)
[2018-09-21] MEDS ORDERED: IPRATROPIU0.2 MG/1 M NEB (14:25)
[2018-09-21] MEDS ORDERED: METHOTREXATE2.5 MG PO (14:25)
[2018-09-21] MEDS ORDERED: LEVAQUIN500 MG PO (14:25)
[2018-09-21] MEDS ORDERED: FOLIC ACID1 MG PO (14:25)
[2018-09-21] MEDS ORDERED: TREXALL10 MG PO (14:25)
[2018-09-21] MEDS ORDERED: PREDNISONE10 MG PO (14:25)
[2018-09-21] MEDS ORDERED: BUSPIRONE HCL5 MG PO (14:25)
--- NOTE | 2018-09-21 14:27 | Diagnostic Imaging Report ---
Frontal and lateral views of the chest. HISTORY: COPD, shortness of breath COMPARISON: Lateral chest x-ray September 21, 2018 DISCUSSION: Soft tissue attenuation partially limits sensitivity of the exam. Overlying monitoring leads. Lungs: Marked right lung volume loss. Underlying pathology could be obscured. Increased left lung interstitial markings. Pleura: Small to moderate right effusion. Heart and mediastinum: The cardiac silhouette is predominant obscured on the right. Bones and soft tissues: Appear unremarkable. IMPRESSION: Small to moderate right pleural effusion with adjacent atelectasis. Recommend short term follow up routine PA and lateral chest radiographs, in 6-8 weeks, to evaluate for resolution. Signed by: Dr. Bryson Humphrey D.O., M.M.M. on 09/21/2018 2:24 PM
[2018-09-21 14:33] LABS: ALANINE AMINOTRANSFERASE 42 IU/L (0-55); ALBUMIN 3.5 g/dL (3.5-5.0); ALBUMIN/GLOBULIN RATIO 1.1 (0.8-2.0); ALKALINE PHOSPHATASE 87 IU/L (40-150); ANION GAP 15.8 mmol/L (8-16); BLOOD UREA NITROGEN 15 mg/dL (7-26); BUN/CREATININE RATIO 16 (6-25); CALCIUM 8.8 mg/dL (8.4-10.2); CARBON DIOXIDE 24 mmol/L (22-29); CHLORIDE 107 mmol/L (98-107); CREATINE KINASE 713 IU/L (29-168); CREATININE, SERUM 0.96 mg/dL (0.57-1.11); EST GLOMERULAR FILTRATION RATE > 60 ML/MIN (60-); GLUCOSE 135 mg/dL (74-118); LIPASE 22 U/L (8-78); POTASSIUM 3.8 mmol/L (3.5-5.1); SODIUM 143 mmol/L (136-145)
--- NOTE | 2018-09-21 15:40 | NUR ---
ASSISTED PT TO RR VIA WC, UA COLLECTED AND PT RETURNED TO BED W/O INCIDENT.
[2018-09-21 16:02] LABS: BILIRUBIN,URINE NEGATIVE (NEGATIVE); CLARITY,URINE CLEAR (CLEAR); COLOR,URINE YELLOW (YELLOW); KETONES,URINE NEGATIVE (NEGATIVE); LEUKOCYTE ESTERASE ,URINE NEGATIVE (NEGATIVE); NITRITE,URINE NEGATIVE (NEGATIVE); PROTEIN,URINE DIPSTICK NEGATIVE (NEGATIVE); URINE UROBILINOGEN 0.2 mg/dL (0.2 - 1)
[2018-09-21] MEDS ORDERED: SODIUM CHLORIDE 0.9% 1000ML 1,000 ML IV STA (16:07)
[2018-09-21 16:11] LABS: AMORPHOUS SEDIMENT,URINE FEW (FEW); BACTERIA,URINE FEW /HPF
[2018-09-21] MEDS ORDERED: SODIUM CHLORIDE FLUSH 10 ML SYR INJ PRN (16:15)
[2018-09-21] MEDS ORDERED: ALBUTEROL SULF 0.083% NEB SOLN 3 ML NEB INH PRN (17:30)
[2018-09-21] MEDS ORDERED: IPRATROPIUM BROMIDE 0.02% 2.5 ML NEB NEB PRN (17:30)
[2018-09-21 17:54] LABS: LYMPHOCYTES % (MANUAL) 1 % (19-48); MONOCYTES % (MANUAL) 1 % (3.4-9.0); NEUTROPHILS % (MANUAL) 98 % (40-74)
[2018-09-21 17:55] LABS: RBC MORPHOLOGY COMMENT NORMAL
[2018-09-21 17:56] LABS: PLATELET ESTIMATE ADEQUATE; PLATELET MORPHOLOGY COMMENT NORMAL
--- NOTE | 2018-09-21 19:40 | History and Physical ---
CHIEF COMPLAINT: Wheezing, shortness of breath, and history of histoplasmosis. HISTORY OF PRESENT ILLNESS: The patient is a 52-year-old woman. About 4 years ago, she went to [facility] with right upper lobe mass and some difficulty breathing. 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 She received itraconazole for 7 months with microbiological resolution of her histoplasmosis. She continued to have some wheezing and intermittent dyspnea. She subsequently went to see Dr. Brown at [facility]. He repeated a bronchoscopy with cultures and found no evidence of active histoplasmosis. CT scan showed adenopathy with some extrinsic compression of the right upper lobe bronchus. Patient also had an echocardiogram that showed some pericarditis. Patient received some steroids and bronchodilators with only transient improvement in her symptoms. She subsequently underwent a dilatation of the right upper lobe bronchus. She did not have a stent placed. Her course has been further complicated by recurrent pleural effusions, mostly on the right side. She has required repeated thoracentesis. The results have shown a lymphocytic predominance, and she was presumed to have a hypersensitivity reaction to her prior histoplasmosis. She was started on methotrexate about 3 weeks ago, but has not had any significant improvement. PAST SURGICAL HISTORY 1. Status post bronchoplasty of right upper lobe. 2. Status post CT-guided . PAST MEDICAL HISTORY 1. 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 2. Asthma. SOCIAL HISTORY: Patient quit smoking. She is not an active drinker. FAMILY HISTORY: Family history is noncontributory. REVIEW OF SYSTEMS: There is no fever. She has no headache. She has no neck pain. She has no sore throat. Cardiac review shows no chest pain or prior heart disease. She does report wheezing and coughing as well as dyspnea. She has no abdominal pain. She does not report any GE reflux. She has no leg edema or calf tenderness. She has no cyanosis or clubbing. She does not complain of any focal neurological symptoms. PHYSICAL EXAMINATION VITAL SIGNS: The patient is afebrile. The blood pressure is 133/87 and the pulse is 86. The respiratory rate is 19. O2 saturation is 97%. HEENT: Sows no facial swelling or erythema. The nasal mucosa is normal. The oropharynx is normal. LYMPHATIC: Shows no submandibular, cervical, or supraclavicular adenopathy. NECK: Shows no JVD or thyromegaly. There is no nuchal rigidity. CARDIAC: Reveals a regular rate and rhythm with normal S1 and S2. LUNGS: Auscultation of the lungs reveals wheezes in both lung jacobs. ABDOMEN: Soft, nontender. There is no rebound or guarding. EXTREMITIES: There is no leg edema or calf tenderness. There is no cyanosis or clubbing. SKIN: Shows no rashes. NEUROLOGIC: Shows no focal abnormalities. RADIOGRAPHIC DATA: Chest x-ray shows small to moderate right pleural effusion as well as some scarring and volume loss in the right upper lobe. LABORATORY STUDIES: Her white blood cell count is 12.8 with a hemoglobin of 13 and a platelet count of 261. The BUN to creatinine ratio is normal. The other electrolytes are within normal limits. Influenza is negative. IMPRESSION 1. 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 2. Asthma with acute exacerbation. 3. Chronic right upper lobe atelectasis. 4. History of prior sinus disease, requiring balloon sinuplasty. PLAN 1. Repeat CT scan of the chest with IV contrast. 2. Echocardiogram. 3. Obtain records and laboratory results from [facility] and [facility]. 4. Solu-Medrol and bronchodilators. 5. Oxygen. Job#: [id number] PIERRE
--- NOTE | 2018-09-21 19:46 | Diagnostic Imaging Report ---
EXAM: CT CHEST W INDICATION: COPD exacerbation, abnormal chest x-ray COMPARISON: None TECHNIQUE: Multidetector CT scanning of the chest was performed. Coronal and sagittal multiplanar reformations were obtained. Dose modulation, iterative reconstruction, and/or weight based adjustment of the mA/kV was utilized to reduce the radiation dose to as low as reasonably achievable. Routine protocol performed. IV Contrast: 100 cc Isovue-370 CTDIvol has been reviewed. It is below the limits set by the Radiation Protocol Committee (RPC). FINDINGS: LUNGS AND AIRWAYS: The trachea and left mainstem bronchus are patent. The right upper, middle and lower central bronchi are compressed by surrounding soft tissue density. There is a consolidation in the anterior right upper lung. Partially calcified round nodule measuring 6 mm in the right apex. The left lung is clear. PLEURA: Large partially loculated right pleural effusion. HEART, MEDIASTINUM, VESSELS: The heart is within normal size limits. Small pericardial effusion. Confluent right hilar and mediastinal lymphadenopathy including paratracheal, prevascular and subcarinal spaces and left hilar to a lesser extent. No thoracic aortic aneurysm. Right distal esophageal lymph node measuring 1.7 cm. Right diaphragmatic lymph nodes measuring up to 2.8 x 1.9 cm. Several supraclavicular lymph nodes measuring up to 1.2 cm on the left. Prominent right axillary lymph node measuring 1.7 cm. Additional enlarged bilateral prepectoral lymph nodes measuring up to 1 cm in short diameter. UPPER ABDOMEN: Nonspecific 1.3 cm focal hypodensity segment 4A of the liver near the falciform ligament. This is commonly a site for fatty infiltration. Recommend attention on follow-up exams. No adrenal gland nodules. MUSCULOSKELETAL: Nonspecific right breast retroareolar asymmetric breast tissue. IMPRESSION: Confluent mediastinal lymphadenopathy with more pronounced confluent soft tissue density around the right hilum resulting in postobstructive pneumonia in the right upper lung. Associated large right partially loculated pleural effusion. Abnormal lymphadenopathy including right diaphragmatic, bilateral supraclavicular, right axillary and subpectoral locations. Overall findings are most consistent with a primary lung cancer. A pulmonary consult is recommended. Nonspecific asymmetric right breast tissue without focal mass. Recommend correlation with diagnostic mammography. Nonspecific small pericardial effusion. Signed by: Dr. Cintia Rothman M.D. on 09/21/2018 7:43 PM
[2018-09-21] MEDS: ALBUTEROL/IPRATROPIUM 3 ML NEB INH PRN (20:20)
--- NOTE | 2018-09-21 20:58 | NUR ---
asked dr guitérrez for need for continuous pulse ox when transferred to floor, stated not needed.
[2018-09-21 21:30] VITALS: BP 139/79
--- NOTE | 2018-09-21 21:30 | NUR ---
patient is a new admit that arrived via wheelchair/. patient is awake and talking. patient has been helped into the bed. bed is in lowest position and call light is within reach. will continue to monitor patient.
[2018-09-21] MEDS: SODIUM CHLORIDE 0.9% 1000ML 1,000 ML IV SCH (22:45)
[2018-09-21] MEDS: LORAZEPAM 0.5 MG TAB PO PRN (22:46)
[2018-09-21] MEDS: ZOLPIDEM TARTRATE 10 MG TAB PO PRN (22:46)
[2018-09-21 23:33] LABS: CREATINE KINASE MB 9.8 ng/mL (0-5.0)
[2018-09-21] MEDS ORDERED: IOPAMIDOL 370 MG/ML 200 ML INFUS..BTL INJ ONE (23:49)
[2018-09-21] MEDS ORDERED: SODIUM CHLORIDE 0.9% 50ML 50 ML ONE (23:49)
[2018-09-22] VITALS (9 sets, daily range): BP systolic 117–181; BP diastolic 63–94
[2018-09-22] MEDS: SODIUM CHLORIDE 0.9% 1000ML 1,000 ML IV SCH ×3 (02:15→22:15)
[2018-09-22 05:07] LABS: BASOPHILS % 0.1 % (0.0-1.0); HEMATOCRIT 36.2 % (34.2-44.1); HEMOGLOBIN 11.8 g/dL (12.0-16.0); LYMPHOCYTES # (AUTO) 0.3 (1.0-3.2); MEAN CORPUSCULAR HEMOGLOBIN 30.6 pg (28-32); MEAN CORPUSCULAR HGB CONC 32.6 g/dL (31-35); MEAN CORPUSCULAR VOLUME 93.8 fL (81-99); MONOCYTES # (AUTO) 0.4 (0.2-0.8); MONOCYTES % 3.4 % (4.4-11.3); NEUTROPHILS # (AUTO) 10.1 (2.1-6.9); PLATELET COUNT 248 x10e3/uL (140-360); RED BLOOD COUNT 3.86 x10e6/uL (3.6-5.1); RED CELL DISTRIBUTION WIDTH 13.9 % (11.7-14.4)
[2018-09-22] MEDS: METHYLPREDNISOLONE SOD SUCC 40 MG/ML VIAL 1ML IV SCH ×3 (05:08→20:24)
[2018-09-22 05:26] LABS: BLOOD UREA NITROGEN 11 mg/dL (7-26); BUN/CREATININE RATIO 14 (6-25); CALCIUM 8.9 mg/dL (8.4-10.2); CARBON DIOXIDE 27 mmol/L (22-29); CHLORIDE 105 mmol/L (98-107); EST GLOMERULAR FILTRATION RATE > 60 ML/MIN (60-); GLUCOSE 129 mg/dL (74-118); SODIUM 140 mmol/L (136-145)
[2018-09-22 05:28] LABS: CREATINE KINASE 303 IU/L (29-168)
[2018-09-22] MEDS ORDERED: METHYLPREDNISOLONE SOD SUCC 40 MG/ML VIAL 1ML IV SCH (06:00)
[2018-09-22] MEDS: ALBUTEROL/IPRATROPIUM 3 ML NEB INH PRN ×3 (06:58→19:45)
--- NOTE | 2018-09-22 08:00 | NUR ---
PT RECEIVED SITTING ON EDGE OF BED, AA/O X3. NO C/O AT PRESENT. ASSESSMENT COMPLETE, BP ELEVATED, PT ANXIOUS, JUST COMPLETED NEB TREATMENT. FREQUENTLY TAKES O2 NASAL CANNULA OFF. WILL REASSESS BP. DISCUSSED PLAN FOR THE DAY.
[2018-09-22] MEDS: PANTOPRAZOLE SOD 40 MG TABEC PO SCH (08:50)
[2018-09-22] MEDS: BUSPIRONE HCL 5 MG TAB PO SCH ×3 (08:50→17:32)
[2018-09-22] MEDS: FOLIC ACID 1 MG TAB PO SCH (08:50)
[2018-09-22] MEDS: LORAZEPAM 0.5 MG TAB PO PRN ×2 (09:52→18:59)
[2018-09-22 10:28] LABS: BAND NEUTROPHILS % (MANUAL) 1 %; LYMPHOCYTES % (MANUAL) 5 % (19-48); NEUTROPHILS % (MANUAL) 94 % (40-74); PLATELET ESTIMATE ADEQUATE; PLATELET MORPHOLOGY COMMENT NORMAL; RBC MORPHOLOGY COMMENT NORMAL
--- NOTE | 2018-09-22 11:02 | NUR ---
PT FREQUENTLY AMBULATING IN HALLWAY, SPO2 92% ON ROOM AIR. ADVISED OF INCREASED SHORTNESS OF BREATH WHEN NOT ON OXYGEN. REPLIED "IM OK, THE ATIVAN HELPED".
--- NOTE | 2018-09-22 11:11 | NUR ---
MEET INPATIENT STATUS. REQUESTED INPATIENT ORDER. AWAITING REPLY
--- NOTE | 2018-09-22 13:30 | NUR ---
BEDSIDE RIGHT LUNG THORACENTESIS PERFORMED BY DR ECHAVARRIA, PT TOLERATED WELL. DRESSING IN PLACE
[2018-09-22 14:08] LABS: CREATINE KINASE 280 IU/L (29-168)
[2018-09-22 14:46] LABS: BODY FLUID APPEARANCE SL.CLOUDY; BODY FLUID COLOR YELLOW; RBC,BODY FLUID 714 cells/uL; WBC,BODY FLUID 1447 cells/uL
--- NOTE | 2018-09-22 14:50 | Diagnostic Imaging Report ---
A single frontal view of the chest. HISTORY: COPD exacerbation, status post thoracentesis COMPARISON: Chest radiograph September 21, 2018, CT of the chest September 21, 2018. DISCUSSION: Portable technique, limits sensitivity of the exam. Soft tissue attenuation partially limits sensitivity of the exam. Tubes/Lines: None Lungs and pleura: Improved aeration of the right lung. Decreased right pleural effusion. Residual right basilar atelectasis and focal edema. No definitive pneumothorax. Heart and mediastinum: Unchanged Bones and soft tissues: Appear unremarkable, given this limited exam. IMPRESSION: Status post thoracentesis, no evidence of a postprocedural pneumothorax. Signed by: Dr. Bryson Humphrey D.O., M.M.M. on 09/22/2018 2:46 PM
--- NOTE | 2018-09-22 14:52 | NUR ---
dr chen reviewed cxr results
[2018-09-22 15:22] LABS: LYMPHOCYTES,BODY FLUID 90 %; MONO/MACROPHG,BODY FLUID 6 %
[2018-09-22 15:23] LABS: BODY FLUID TYPE PLEURAL; NEUTROPHILS,BODY FLUID 4 %
--- NOTE | 2018-09-22 17:58 | Operative Report ---
DATE OF PROCEDURE: PROCEDURE: Thoracentesis. INDICATION: Right pleural effusion. CONSENT: Consent was obtained from the patient. ANESTHESIA: 1% lidocaine for local anesthesia. DETAILS OF PROCEDURE: Patient was placed in an upright position leaning forward. The right posterior thorax was prepped sterilely. The posterolateral intracostal space between the 8th and 9th rib was located. The area was anesthetized with lidocaine. A 21-gauge needle was used to locate the pleural space and withdraw pleural fluid. Subsequently, a 16-gauge needle was used to introduce a catheter into the pleural space. A total of 450 mL of susi fluid was removed. COMPLICATIONS: None. BLOOD LOSS: None. Job#: [id number] RUBY
[2018-09-22] MEDS: ZOLPIDEM TARTRATE 10 MG TAB PO PRN (20:24)
[2018-09-23 04:00] VITALS: BP 143/83
[2018-09-23] MEDS: PANTOPRAZOLE SOD 40 MG TABEC PO SCH (07:30)
[2018-09-23 07:59] VITALS: BP 159/77
[2018-09-23] MEDS ORDERED: LORAZEPAM 0.5 MG TAB PO PRN (08:00)
--- NOTE | 2018-09-23 08:00 | NUR ---
SEEN BY DR ECHAVARRIA, PT TO HAVE REPEAT RIGHT THORACENTESIS VIA ULTRASOUND. PT NPO
[2018-09-23] MEDS: BUSPIRONE HCL 5 MG TAB PO SCH (09:00)
[2018-09-23] MEDS: FOLIC ACID 1 MG TAB PO SCH (09:00)
[2018-09-23] MEDS ORDERED: METHYLPREDNISOLONE SOD SUCC 40 MG/ML VIAL 1ML IV SCH (09:00)
[2018-09-23 09:05] VITALS: BP 159/77
--- NOTE | 2018-09-23 09:05 | NUR ---
PT RECEIVED AMBULATING, TOLERATING WELL, IN NO APPARENT RESP DISTRESS. AA/O X3. NO C/O AT PRESENT. ASSESSMENT COMPLETE, VSS. FREQUENTLY TAKES O2 NASAL CANNULA OFF. DISCUSSED PLAN FOR THE DAY.
[2018-09-23 09:16] LABS: INR 0.97; PROTHROMBIN TIME 13.8 seconds (11.9-14.5)
--- NOTE | 2018-09-23 12:31 | Diagnostic Imaging Report ---
Examination: Single AP view of the chest. COMPARISON: CT chest 09/21/2018, chest radiograph 09/22/2018 INDICATION: Post thoracentesis DISCUSSION: See impression IMPRESSION: Interval right thoracentesis with essentially complete evacuation of pleural effusion. No pneumothorax. Calcified right apical granuloma. Residual patchy airspace disease in the medial right lung base. Signed by: Dr. Anson Jimenez M.D. on 09/23/2018 12:28 PM
--- NOTE | 2018-09-23 12:31 | NUR ---
Pt returned to unit, aa/o x3. In no apparent resp distress.
--- NOTE | 2018-09-23 12:34 | Diagnostic Imaging Report ---
Date and Time: 09/23/2018 Procedure: Ultrasound-guided right thoracentesis straightening press operator helper: Dr. Jimenez Pre-operative diagnosis: Right pleural effusion Post-operative diagnosis: Right pleural effusion Conscious Sedation: None. The patient's heart rate and pulse oximetry were continuously monitored by the interventional radiology nurse. Blood pressure was monitored at 5 minute intervals. Additional Medications: Lidocaine 1% for local anesthesia Estimated blood loss: Minimal Blood products administered: None Specimens: 300 cc susi-colored fluid Implants: None Condition at completion: Stable Disposition: Returned to floor DISCUSSION: Informed consent was obtained and documented in the medical record. Patient was placed in the sitting position on the sonographic table. The right posterolateral chest wall was prepped and draped in the standard sterile fashion. A suitable intercostal approach to the small right pleural effusion was identified and 1% lidocaine was infiltrated into the skin and subcutaneous tissues for local anesthesia. Then under continuous sonographic guidance a 5 English Yueh needle catheter was advanced into the pleural space and the catheter was advanced off the needle. The catheter was then connected to vacuum bottle with evacuation of 300 cc susi-colored fluid. Postprocedure sonographic evaluation confirmed essentially complete evacuation of the right pleural effusion. The catheter was removed and a sterile, occlusive dressing was applied. The patient tolerated the procedure well without immediate complication. FINDINGS: Small right pleural effusion IMPRESSION: Successful ultrasound-guided right thoracentesis with evacuation of 300 cc susi-colored fluid. Specimen was submitted for laboratory analysis as requested by the referring clinical team. Signed by: Dr. Anson Jimenez M.D. on 09/23/2018 12:31 PM
[2018-09-23 12:35] VITALS: BP 151/81
[2018-09-23 13:19] LABS: BODY FLUID APPEARANCE SL.CLOUDY; BODY FLUID COLOR YELLOW; BODY FLUID TYPE PLEURAL
[2018-09-23 13:20] LABS: RBC,BODY FLUID 767 cells/uL; WBC,BODY FLUID 2475 cells/uL
[2018-09-23 13:51] LABS: LYMPHOCYTES,BODY FLUID 81 %; MONO/MACROPHG,BODY FLUID 3 %; NEUTROPHILS,BODY FLUID 7 %; OTHER CELLS,BODY FLUID 9 %
--- NOTE | 2018-09-23 14:53 | NUR ---
SOCIAL WORK INITIAL ASSESSMENT Wood Inspector to bedside to discuss plan of care with patient/family. CM/SW role and care transitions discussed. Anticipated discharge plan discussed along with duration of care. CM/SW discussed patients right to make decisions in care. CM/SW work hours given. 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 Name and number was also written on the patients whiteboard. Patient verbalized understanding of discussion. CM will follow-up with ongoing discharge and transition of care needs.
[2018-09-23] MEDS: ALBUTEROL/IPRATROPIUM 3 ML NEB INH PRN (15:20)
[2018-09-23 16:30] VITALS: BP 150/80
--- NOTE | 2018-09-23 18:53 | NUR ---
PT LEFT FLOOR, REFUSED W/C, ACCOMPANIED BY STAFF
== END 2018-09-23 18:52 | disposition home or self-care (01) | DRG 190 ==
LOC: ER 13:33 → ERHOLD 16:48 → IMCU 21:32 → OBSVTOIN 09-23 07:58
PROVIDERS: ADMIT Internal Medicine Critical Care Medicine; ATTEND Internal Medicine Critical Care Medicine
PROC: 0W993ZX Drainage of Right Pleural Cavity, Percutaneous Approach, Diagnostic (ICD-10-PCS; principal; 2018-09-22)
PROC: 0W993ZX Drainage of Right Pleural Cavity, Percutaneous Approach, Diagnostic (ICD-10-PCS; 2018-09-23)
DX: J44.1 Chronic obstructive pulmonary disease with (acute) exacerbation (principal); B39.1 Chronic pulmonary histoplasmosis capsulati; J98.11 Atelectasis; J90 Pleural effusion, not elsewhere classified; Z88.6 Allergy status to analgesic agent; Z88.5 Allergy status to narcotic agent
CPT/HCPCS: 32555; 36415; 71045; 71046; 71260; 80048; 80053; 81001; 82550; 82553; 82785; 83615; 83690; 83880; 84157; 84484; 85025; 85610; 86606; 86612; 86698; 87070; 87086; 87205; 87400; 88112; 88305; 88312; 89051; 93005; 93306; 94640; 99284; G0378; J2920; J2930; J7030; Q9967

== ENCOUNTER 2018-10-12 11:50 | Observation (INO) | payer OTHER ==
[~2018-10-12] VITALS: Ht 162.6 cm; Wt 90.7 kg
[~2018-10-12 11:50] MED LIST: ALBUTEROL0.63 MG/3 INH; BREO ELLIPTA INH; BUSPIRONE HCL5 MG PO; CENTRUM SILVER1 EAC3 PO; FOLIC ACID1 MG PO; IPRATROPIU0.2 MG/1 M NEB; LEVAQUIN500 MG PO; METHOTREXATE2.5 MG PO; NEXIUM40 MG PO; PREDNISONE10 MG PO; TREXALL10 MG PO
--- OUTSIDE RECORDS SUMMARY | 2018-10-12 11:54 | XMS REPORT | Continuity of Care Document ---
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 09/22/2018 [facility] Automated erythrocyte mean corpuscular volume 93.8 81 - 99 09/22/2018 [facility] Automated erythrocyte mean corpuscular hemoglobin (mass per erythrocyte) 30.6 28 - 32 09/22/2018 [facility] Automated erythrocyte mean corpuscular hemoglobin concentration measurement (mass/volume) 32.6 31 - 35 09/22/2018 [facility] RDW BldCo-Rto 13.9 11.7 - 14.4 09/22/2018 [facility] Automated blood platelet count (count/volume) 248 140 - 360 09/22/2018 [facility] Automated blood segmented neutrophil count as percentage of total leukocytes 93.0 38.7 - 80.0 09/22/2018 [facility] Automated blood lymphocyte count as percentage ot total leukocytes 3.0 18.0 - 39.1 09/22/2018 [facility] Automated blood monocyte count as percentage of total leukocytes 3.4 4.4 - 11.3 09/22/2018 [facility] Automated blood eosinophil count as percentage of total leukocytes 0.0 0.0 - 6.0 09/22/2018 [facility] Automated blood basophil count as percentage of total leukocytes 0.1 0.0 - 1.0 09/22/2018 [facility] IM GRANULOCYTES % 0.5 0.0 - 1.0 09/22/2018 [facility] Automated blood neutrophil count 10.1 2.1 - 6.9 09/22/2018 [facility] Blood lymphocytes count (number/volume) 0.3 1.0 - 3.2 09/22/2018 [facility] Blood monocytes automated count (number/volume) 0.4 0.2 - 0.8 09/22/2018 [facility] Automated blood eosinophil count 0.0 0.0 - 0.4 09/22/2018 [facility] Automated blood basophil count (count/volume) 0.0 0.0 - 0.1 09/22/2018 [facility] Absolute Immature Granulocyte (auto 0.05 0 - 0.1 09/22/2018 [facility] Differential Total Cells Counted 100 09/22/2018 [facility] Manual blood neutrophils/100 leukocytes 94 40 - 74 09/22/2018 [facility] Manual blood band neutrophils form/100 leukocytes 1 09/22/2018 [facility] Manual blood lymphocytes/100 leukocytes 5 19 - 48 09/22/2018 [facility] Blood platelets count by estimate (number/volume) ADEQUATE 09/22/2018 [facility] Platelet morphology NORMAL 09/22/2018 [facility] RBC morphology NORMAL 09/22/2018 [facility] Serum or plasma sodium measurement (moles/volume) 140 136 - 145 09/22/2018 [facility] Serum or plasma potassium measurement (moles/volume) 4.0 3.5 - 5.1 09/22/2018 [facility] Serum or plasma chloride measurement (moles/volume) 105 98 - 107 09/22/2018 [facility] Serum or plasma carbon dioxide, total measurement (moles/volume) 27 22 - 29 09/22/2018 [facility] Serum or plasma anion gap 12.0 8 - 16 09/22/2018 [facility] Serum or plasma urea nitrogen measurement (mass/volume) 11 7 - 26 09/22/2018 [facility] Serum or plasma creatinine measurement (mass/volume) 0.80 0.57 - 1.11 09/22/2018 [facility] Serum or plasma urea nitrogen/creatinine mass ratio 14 6 - 25 09/22/2018 [facility] Estimated glomerular filtration rate (GFR) determination > 60 60 09/22/2018 [facility] Glucose measurement 129 74 - 118 09/22/2018 [facility] Serum or plasma calcium measurement (mass/volume) 8.9 8.4 - 10.2 09/22/2018 [facility] Urine color determination YELLOW YELLOW 09/21/2018 [facility] Urine clarity CLEAR CLEAR 09/21/2018 [facility] Specific gravity of Urine by Test strip 1.020 1.010 - 1.025 09/21/2018 [facility] Urine pH measurement by automated test strip 7 5 - 7 09/21/2018 [facility] Urine leukocyte esterase detection by dipstick NEGATIVE NEGATIVE 09/21/2018 [facility] Urine nitrite detection NEGATIVE NEGATIVE 09/21/2018 [facility] Urine protein measurement by test strip (mass/volume) NEGATIVE NEGATIVE 09/21/2018 [facility] Urine glucose detection NEGATIVE NEGATIVE 09/21/2018 [facility] Urine ketones detection by automated test strip NEGATIVE NEGATIVE 09/21/2018 [facility] Urine urobilinogen measurement by test strip (mass/volume) 0.2 0.2 - 1 09/21/2018 [facility] Urine total bilirubin measurement (mass/volume) NEGATIVE NEGATIVE 09/21/2018 [facility] Urine erythrocytes detection NEGATIVE NEGATIVE 09/21/2018 [facility] Automated urine sediment leukocyte count by microscopy (number/high power field) NONE 0 - 5 09/21/2018 [facility] Erythrocytes detection in urine sediment by light microscopy NONE 0 - 5 09/21/2018 [facility] Bacteria detection in urine sediment by light microscopy FEW NONE 09/21/2018 [facility] Epithelial cells detection in urine sediment by light microscopy NONE NONE 09/21/2018 [facility] Amorphous sediment detection in urine sediment by light microscopy FEW FEW 09/21/2018 [facility] Influenza virus A and B antigen identification by immunofluorescence NEGATIVE NEGATIVE 09/21/2018 [facility] Manual blood monocytes/100 leukocytes 1 3.4 - 9.0 09/21/2018 [facility] Serum or plasma total bilirubin measurement (mass/volume) 0.7 0.2 - 1.2 09/21/2018 [facility] Aspartate Amino Transf (AST/SGOT) 43 5 - 34 09/21/2018 [facility] Serum or plasma alanine aminotransferase measurement (enzymatic activity/volume) 42 0 - 55 09/21/2018 [facility] Serum or plasma protein measurement (mass/volume) 6.6 6.5 - 8.1 09/21/2018 [facility] Serum or plasma albumin measurement (mass/volume) 3.5 3.5 - 5.0 09/21/2018 [facility] Plasma globulin measurement (mass/volume) 3.1 2.3 - 3.5 09/21/2018 [facility] Serum or plasma albumin/globulin mass ratio 1.1 0.8 - 2.0 09/21/2018 [facility] Serum or plasma alkaline phosphatase measurement (enzymatic activity/volume) 87 40 - 150 09/21/2018 [facility] BNP Bld-mCnc 58.8 0 - 100 09/21/2018 [facility] Serum or plasma lipase measurement (enzymatic activity/volume) 22 8 - 78 09/21/2018 [facility] BLOOD BANK RESULTS ABO/Rh A POS 05/10/2017 [facility] BLOOD BANK RESULTS Antibody Scrn Negative (05/10/17 8:13 AM) 05/10/2017 [facility] CHEM PANEL Globulin 4.0 g/dL 2.7 - 4.2 05/10/2017 [facility] CHEM PANEL B/C Ratio 11 6 - 25 05/10/2017 [facility] CHEM PANEL AGAP 10.6 meq/L 10.0 - 20.0 05/10/2017 [facility] CHEM PANEL A/G Ratio 0.8 0.7 - 1.6 05/10/2017 [facility] CHEM PANEL eGFR 80 mL/min/1.73m2 05/10/2017 Result [...] should be multiplied by the estimated BMI. [facility] CHEM PANEL Glucose Lvl 97 mg/dL 70 - 99 05/10/2017 [facility] CHEM PANEL Chloride Lvl 105 meq/L 95 - 109 05/10/2017 [facility] CHEM PANEL Potassium Lvl 3.6 meq/L 3.5 - 5.1 05/10/2017 [facility] CHEM PANEL Sodium Lvl 142 meq/L 135 - 145 05/10/2017 [facility] CHEM PANEL BUN 9 mg/dL 7 - 22 05/10/2017 [facility] CHEM PANEL Creatinine Lvl 0.84 mg/dL 0.50 - 1.40 05/10/2017 [facility] CHEM PANEL Total Protein 7.4 g/dL 6.4 - 8.4 05/10/2017 [facility] CHEM PANEL Calcium Lvl 8.7 mg/dL 8.5 - 10.5 05/10/2017 [facility] CHEM PANEL CO2 30 meq/L 24 - 32 05/10/2017 [facility] CHEM PANEL Alk Phos 128 unit/L 39 - 136 05/10/2017 [facility] CHEM PANEL AST 12 unit/L 0 - 37 05/10/2017 [facility] CHEM PANEL ALT 28 unit/L 0 - 65 05/10/2017 [facility] CHEM PANEL Albumin Lvl 3.4 g/dL 3.5 - 5.0 05/10/2017 [facility] CHEM PANEL Bili Total 0.6 mg/dL 0.2 - 1.3 05/10/2017 [facility] HEMATOLOGY PT 13.0 s 12.0 - 14.7 05/10/2017 [facility] HEMATOLOGY PTT 26.1 s 22.9 - 35.8 05/10/2017 [facility] HEMATOLOGY INR 0.96 0.85 - 1.17 05/10/2017 [facility] HEMATOLOGY Segs 60.7 % 45.0 - 75.0 05/10/2017 [facility] HEMATOLOGY Lymphocytes # 2.4 K/CMM 1.0 - 5.5 05/10/2017 [facility] HEMATOLOGY Monocytes # 0.7 K/CMM 0.0 - 0.8 05/10/2017 [facility] HEMATOLOGY Eosinophils # 0.3 K/CMM 0.0 - 0.5 05/10/2017 [facility] HEMATOLOGY Lymphocytes 27.9 % 20.0 - 40.0 05/10/2017 [facility] HEMATOLOGY Monocytes 7.8 % 2.0 - 12.0 05/10/2017 [facility] HEMATOLOGY Basophils 0.6 % 0.0 - 1.0 05/10/2017 [facility] HEMATOLOGY Segs-Bands # 5.3 K/CMM 1.5 - 8.1 05/10/2017 [facility] HEMATOLOGY Eosinophils 3.0 % 0.0 - 4.0 05/10/2017 [facility] HEMATOLOGY MCH 30.9 pg 27.0 - 31.0 05/10/2017 [facility] MCHC 33.7 g/dL 32.0 - 36.0 05/10/2017 [facility] MCV 91.8 fL 80.0 - 98.0 05/10/2017 [facility] Platelet 258 K/CMM 133 - 450 05/10/2017 [facility] RDW 12.7 % 11.5 - 14.5 05/10/2017 [facility] MPV 8.0 fL 7.4 - 10.4 05/10/2017 [facility] Hct 38.9 % 36.0 - 48.0 05/10/2017 [facility] WBC 8.8 K/CMM 3.7 - 10.4 05/10/2017 [facility] Hgb 13.1 g/dL 12.0 - 16.0 05/10/2017 [facility] RBC 4.24 M/CMM 4.20 - 5.40 05/10/2017 [facility] Brain w/wo contrast MRI Brain w/wo contrast [...] retention cyst within each maxillary sinus. SL: [id number] 04/26/2017 - - Electronically Signed by: Fransisco Julian MD 06/25/17 14:35 FINAL REPORT - - Read by: Fransisco Julian MD Dictated Date/time: 04/27/17 10:10 Electronically Signed by: Fransisco Julian MD 04/27/17 10:31 FINAL REPORT [facility] Brain w/wo contrast MRI Brain w/wo contrast [...] retention cyst within each maxillary sinus. SL: [id number] 04/26/2017 - - Read by: Fransisco Julian MD Dictated Date/time: 04/27/17 10:10 Electronically Signed by: Fransisco Julian MD 04/27/17 10:31 FINAL REPORT [facility] PET CT Lung non-small cell initial [facility] PET CT Lung non- small cell initial [facility] PET CT Lung non-small cell initial staging [...] part of unspecified bronchus or lung - ATQ=514.56 mGy*cm , CTDIvol=6.45 mGy; FINDINGS: HEAD AND [...] considerations include infectious, inflammatory and neoplastic possibilities. SL:[id number] 04/26/2017 - - Read by: Russell Pantoja MD Dictated Date/time: 04/27/17 11:51 Electronically Signed by: Russell Pantoja MD 04/27/17 13:23 FINAL REPORT [facility] URINE AND STOOL UA Color Ltyellow 04/16/2017 [facility] URINE AND STOOL UA Mucus Few /LPF None Seen /LPF 04/16/2017 [facility] URINE AND STOOL UA WBC null 0 - 5 04/16/2017 [facility] URINE AND STOOL UA Urobilinogen <=1.0 mg/dL 0.1 - 1.0 04/16/2017 [facility] URINE AND STOOL UA Blood Negative (04/15/17 7:06 PM) Negative 04/16/2017 [facility] URINE AND STOOL UA Leuk Est Negative (04/15/17 7:06 PM) Negative 04/16/2017 [facility] URINE AND STOOL UA Sq Epi Occasional /LPF Few /LPF 04/16/2017 [facility] URINE AND STOOL UA Nitrite Negative (04/15/17 7:06 PM) Negative 04/16/2017 [facility] URINE AND STOOL UA Glucose Negative mg/dL Negative mg/dL 04/16/2017 [facility] URINE AND STOOL UA Protein Negative mg/dL Negative mg/dL 04/16/2017 [facility] URINE AND STOOL UA Ketones Negative mg/dL Negative mg/dL 04/16/2017 [facility] URINE AND STOOL UA Bili Negative *NA* (04/15/17 7:06 PM) Negative 04/16/2017 [facility] URINE AND STOOL UA Turbidity Clear (04/15/17 7:06 PM) Clear 04/16/2017 [facility] URINE AND STOOL UA pH 6.0 5.0 - 8.0 04/16/2017 [facility] URINE AND STOOL UA Spec Grav 1.002 <=1.030 04/16/2017 [facility] CARDIAC ENZYMES BNP 24 pg/mL <=100 pg/mL 04/15/2017 [facility] CARDIAC ENZYMES Troponin-I null 0.00 - 0.40 04/15/2017 [facility] CARDIAC ENZYMES CK MB 1.4 ng/mL 0.5 - 3.6 04/15/2017 [facility] CARDIAC ENZYMES Total CK 169 unit/L 12 - 191 04/15/2017 [facility] CARDIAC ENZYMES CK MB Index 0.8 0.0 - 2.5 04/15/2017 [facility] CHEM PANEL eGFR 78 mL/min/1.73m2 04/15/2017 Result [...] should be multiplied by the estimated BMI. [facility] CHEM PANEL Globulin 4.4 g/dL 2.7 - 4.2 04/15/2017 [facility] CHEM PANEL B/C Ratio 14 6 - 25 04/15/2017 [facility] CHEM PANEL A/G Ratio 0.8 0.7 - 1.6 04/15/2017 [facility] CHEM PANEL Albumin Lvl 3.4 g/dL 3.5 - 5.0 04/15/2017 [facility] CHEM PANEL Calcium Lvl 9.0 mg/dL 8.5 - 10.5 04/15/2017 [facility] CHEM PANEL Total Protein 7.8 g/dL 6.4 - 8.4 04/15/2017 [facility] CHEM PANEL Bili Total 0.4 mg/dL 0.2 - 1.3 04/15/2017 [facility] CHEM PANEL Alk Phos 114 unit/L 39 - 136 04/15/2017 [facility] CHEM PANEL AGAP 8.3 meq/L 10.0 - 20.0 04/15/2017 [facility] CHEM PANEL AST 14 unit/L 0 - 37 04/15/2017 [facility] CHEM PANEL Chloride Lvl 104 meq/L 95 - 109 04/15/2017 [facility] CHEM PANEL CO2 30 meq/L 24 - 32 04/15/2017 [facility] CHEM PANEL Glucose Lvl 92 mg/dL 70 - 99 04/15/2017 [facility] CHEM PANEL ALT 28 unit/L 0 - 65 04/15/2017 [facility] CHEM PANEL Potassium Lvl 3.3 meq/L 3.5 - 5.1 04/15/2017 [facility] CHEM PANEL Sodium Lvl 139 meq/L 135 - 145 04/15/2017 [facility] CHEM PANEL Creatinine Lvl 0.86 mg/dL 0.50 - 1.40 04/15/2017 [facility] CHEM PANEL BUN 12 mg/dL 7 - 22 04/15/2017 [facility] HEMATOLOGY MPV 8.1 fL 7.4 - 10.4 04/15/2017 [facility] HEMATOLOGY Platelet 283 K/CMM 133 - 450 04/15/2017 [facility] MCHC 33.8 g/dL 32.0 - 36.0 04/15/2017 [facility] HEMATOLOGY RDW 12.3 % 11.5 - 14.5 04/15/2017 [facility] Hgb 13.8 g/dL 12.0 - 16.0 04/15/2017 [facility] HEMATOLOGY RBC 4.44 M/CMM 4.20 - 5.40 04/15/2017 [facility] WBC 11.7 K/CMM 3.7 - 10.4 04/15/2017 [facility] Hct 40.9 % 36.0 - 48.0 04/15/2017 [facility] MCH 31.1 pg 27.0 - 31.0 04/15/2017 [facility] MCV 92.1 fL 80.0 - 98.0 04/15/2017 [facility] HEMATOLOGY Basophils 0.7 % 0.0 - 1.0 04/15/2017 [facility] HEMATOLOGY Eosinophils 2.6 % 0.0 - 4.0 04/15/2017 [facility] HEMATOLOGY Segs 70.7 % 45.0 - 75.0 04/15/2017 [facility] HEMATOLOGY Monocytes 7.5 % 2.0 - 12.0 04/15/2017 [facility] HEMATOLOGY Lymphocytes 18.5 % 20.0 - 40.0 04/15/2017 [facility] HEMATOLOGY Eosinophils # 0.3 K/CMM 0.0 - 0.5 04/15/2017 [facility] HEMATOLOGY Basophils # 0.1 K/CMM 0.0 - 0.2 04/15/2017 [facility] HEMATOLOGY Monocytes # 0.9 K/CMM 0.0 - 0.8 04/15/2017 [facility] HEMATOLOGY Lymphocytes # 2.2 K/CMM 1.0 - 5.5 04/15/2017 [facility] HEMATOLOGY Segs-Bands # 8.3 K/CMM 1.5 - 8.1 04/15/2017 [facility] Chest 2 views DX Chest 2 views [...] Chance Tinoco MD 04/15/17 19:05 FINAL REPORT [facility] CHEM PANEL Magnesium Lvl 2.5 mg/dL 1.8 - 2.4 04/12/2017 [facility] CHEM PANEL Globulin 3.6 g/dL 2.7 - 4.2 04/12/2017 [facility] CHEM PANEL B/C Ratio 14 6 - 25 04/12/2017 [facility] CHEM PANEL AGAP 9.7 meq/L 10.0 - 20.0 04/12/2017 [facility] CHEM PANEL A/G Ratio 0.8 0.7 - 1.6 04/12/2017 [facility] CHEM PANEL eGFR 90 mL/min/1.73m2 04/12/2017 Result [...] should be multiplied by the estimated BMI. [facility] CHEM PANEL Alk Phos 96 unit/L 39 - 136 04/12/2017 [facility] CHEM PANEL Bili Total 0.5 mg/dL 0.2 - 1.3 04/12/2017 [facility] CHEM PANEL BUN 11 mg/dL 7 - 22 04/12/2017 [facility] CHEM PANEL Creatinine Lvl 0.76 mg/dL 0.50 - 1.40 04/12/2017 [facility] CHEM PANEL Sodium Lvl 141 meq/L 135 - 145 04/12/2017 [facility] CHEM PANEL Potassium Lvl 3.7 meq/L 3.5 - 5.1 04/12/2017 [facility] CHEM PANEL Chloride Lvl 106 meq/L 95 - 109 04/12/2017 [facility] CHEM PANEL Calcium Lvl 8.6 mg/dL 8.5 - 10.5 04/12/2017 [facility] CHEM PANEL CO2 29 meq/L 24 - 32 04/12/2017 [facility] CHEM PANEL ALT 24 unit/L 0 - 65 04/12/2017 [facility] CHEM PANEL AST 16 unit/L 0 - 37 04/12/2017 [facility] CHEM PANEL Total Protein 6.6 g/dL 6.4 - 8.4 04/12/2017 [facility] CHEM PANEL Albumin Lvl 3.0 g/dL 3.5 - 5.0 04/12/2017 [facility] CHEM PANEL Glucose Lvl 102 mg/dL 70 - 99 04/12/2017 [facility] HEMATOLOGY Basophils # 0.1 K/CMM 0.0 - 0.2 04/12/2017 [facility] HEMATOLOGY Lymphocytes # 2.4 K/CMM 1.0 - 5.5 04/12/2017 [facility] HEMATOLOGY Monocytes # 0.9 K/CMM 0.0 - 0.8 04/12/2017 [facility] HEMATOLOGY Eosinophils # 0.1 K/CMM 0.0 - 0.5 04/12/2017 [facility] HEMATOLOGY Segs 70.0 % 45.0 - 75.0 04/12/2017 [facility] HEMATOLOGY Segs-Bands # 8.3 K/CMM 1.5 - 8.1 04/12/2017 [facility] HEMATOLOGY Basophils 1.3 % 0.0 - 1.0 04/12/2017 [facility] HEMATOLOGY Eosinophils 0.8 % 0.0 - 4.0 04/12/2017 [facility] HEMATOLOGY Lymphocytes 20.4 % 20.0 - 40.0 04/12/2017 [facility] HEMATOLOGY Monocytes 7.5 % 2.0 - 12.0 04/12/2017 [facility] MCHC 33.4 g/dL 32.0 - 36.0 04/12/2017 [facility] MPV 8.7 fL 7.4 - 10.4 04/12/2017 [facility] RDW 12.4 % 11.5 - 14.5 04/12/2017 [facility] Platelet 217 K/CMM 133 - 450 04/12/2017 [facility] MCH 31.0 pg 27.0 - 31.0 04/12/2017 [facility] MCV 92.9 fL 80.0 - 98.0 04/12/2017 [facility] RBC 3.68 M/CMM 4.20 - 5.40 04/12/2017 [facility] Hgb 11.4 g/dL 12.0 - 16.0 04/12/2017 [facility] Hct 34.2 % 36.0 - 48.0 04/12/2017 [facility] WBC 11.8 K/CMM 3.7 - 10.4 04/12/2017 [facility] Chest 1view DX Chest 1view DX Chest [...] wires project over the patient's chest. SL: [id number] 04/12/2017 - - Read by: Russell Pantoja MD Dictated Date/time: 04/12/17 11:47 Electronically Signed by: Russell Pantoja MD 04/12/17 11:48 FINAL REPORT [facility] URINE AND STOOL UA Urobilinogen <=1.0 mg/dL 0.1 - 1.0 04/11/2017 [facility] URINE AND STOOL UA Mucus Few /LPF None Seen /LPF 04/11/2017 [facility] URINE AND STOOL UA Hyal Cast 1 /LPF 0 - 2 04/11/2017 [facility] URINE AND STOOL UA Leuk Est Negative (04/11/17 8:19 AM) Negative 04/11/2017 [facility] URINE AND STOOL UA Sq Epi Occasional /LPF Few /LPF 04/11/2017 [facility] URINE AND STOOL UA WBC 1 /HPF 0 - 5 04/11/2017 [facility] URINE AND STOOL UA RBC 5 /HPF 0 - 2 04/11/2017 [facility] URINE AND STOOL UA Blood Negative (04/11/17 8:19 AM) Negative 04/11/2017 [facility] URINE AND STOOL UA Bili Negative *NA* (04/11/17 8:19 AM) Negative 04/11/2017 [facility] URINE AND STOOL UA Ketones Negative mg/dL Negative mg/dL 04/11/2017 [facility] URINE AND STOOL UA Glucose Negative mg/dL Negative mg/dL 04/11/2017 [facility] URINE AND STOOL UA Nitrite Negative (04/11/17 8:19 AM) Negative 04/11/2017 [facility] URINE AND STOOL UA Protein Negative mg/dL Negative mg/dL 04/11/2017 [facility] URINE AND STOOL UA pH 5.0 5.0 - 8.0 04/11/2017 [facility] URINE AND STOOL UA Spec Grav 1.017 <=1.030 04/11/2017 [facility] URINE AND STOOL UA Turbidity Clear (04/11/17 8:19 AM) Clear 04/11/2017 [facility] URINE AND STOOL UA Color Yellow *NA* (04/11/17 8:19 AM) Yellow 04/11/2017 [facility] CARDIAC ENZYMES CK MB Index 0.7 0.0 - 2.5 04/11/2017 [facility] CARDIAC ENZYMES Total CK 173 unit/L 12 - 191 04/11/2017 [facility] CARDIAC ENZYMES Troponin-I null 0.00 - 0.40 04/11/2017 [facility] CARDIAC ENZYMES CK MB 1.2 ng/mL 0.5 - 3.6 04/11/2017 [facility] CHEM PANEL Lipase Lvl 121 unit/L 73 - 393 04/11/2017 [facility] CHEM PANEL eGFR 77 mL/min/1.73m2 04/11/2017 Result [...] should be multiplied by the estimated BMI. [facility] CHEM PANEL A/G Ratio 0.8 0.7 - 1.6 04/11/2017 [facility] CHEM PANEL B/C Ratio 10 6 - 25 04/11/2017 [facility] CHEM PANEL Globulin 4.3 g/dL 2.7 - 4.2 04/11/2017 [facility] CHEM PANEL Bili Total 0.6 mg/dL 0.2 - 1.3 04/11/2017 [facility] CHEM PANEL AST 21 unit/L 0 - 37 04/11/2017 [facility] CHEM PANEL AGAP 9.7 meq/L 10.0 - 20.0 04/11/2017 [facility] CHEM PANEL Glucose Lvl 116 mg/dL 70 - 99 04/11/2017 [facility] CHEM PANEL BUN 9 mg/dL 7 - 22 04/11/2017 [facility] CHEM PANEL Creatinine Lvl 0.87 mg/dL 0.50 - 1.40 04/11/2017 [facility] CHEM PANEL Potassium Lvl 3.7 meq/L 3.5 - 5.1 04/11/2017 [facility] CHEM PANEL Sodium Lvl 138 meq/L 135 - 145 04/11/2017 [facility] CHEM PANEL ALT 27 unit/L 0 - 65 04/11/2017 [facility] CHEM PANEL Albumin Lvl 3.6 g/dL 3.5 - 5.0 04/11/2017 [facility] CHEM PANEL Alk Phos 123 unit/L 39 - 136 04/11/2017 [facility] CHEM PANEL Chloride Lvl 102 meq/L 95 - 109 04/11/2017 [facility] CHEM PANEL CO2 30 meq/L 24 - 32 04/11/2017 [facility] CHEM PANEL Calcium Lvl 8.9 mg/dL 8.5 - 10.5 04/11/2017 [facility] CHEM PANEL Total Protein 7.9 g/dL 6.4 - 8.4 04/11/2017 [facility] HEMATOLOGY Monocytes # 0.8 K/CMM 0.0 - 0.8 04/11/2017 [facility] HEMATOLOGY Lymphocytes # 1.3 K/CMM 1.0 - 5.5 04/11/2017 [facility] Basophils # 0.1 K/CMM 0.0 - 0.2 04/11/2017 [facility] Eosinophils # 0.3 K/CMM 0.0 - 0.5 04/11/2017 [facility] Segs-Bands # 11.2 K/CMM 1.5 - 8.1 04/11/2017 [facility] Basophils 0.7 % 0.0 - 1.0 04/11/2017 [facility] Eosinophils 1.9 % 0.0 - 4.0 04/11/2017 [facility] Monocytes 6.0 % 2.0 - 12.0 04/11/2017 [facility] Lymphocytes 9.5 % 20.0 - 40.0 04/11/2017 [facility] Segs 81.9 % 45.0 - 75.0 04/11/2017 [facility] Hct 40.3 % 36.0 - 48.0 04/11/2017 [facility] WBC 13.7 K/CMM 3.7 - 10.4 04/11/2017 [facility] RBC 4.37 M/CMM 4.20 - 5.40 04/11/2017 [facility] Platelet 272 K/CMM 133 - 450 04/11/2017 [facility] MPV 8.4 fL 7.4 - 10.4 04/11/2017 [facility] MCV 92.1 fL 80.0 - 98.0 04/11/2017 [facility] MCH 30.5 pg 27.0 - 31.0 04/11/2017 [facility] RDW 12.4 % 11.5 - 14.5 04/11/2017 [facility] MCHC 33.1 g/dL 32.0 - 36.0 04/11/2017 [facility] Hgb 13.3 g/dL 12.0 - 16.0 04/11/2017 [facility] ED Abdomen/Pelvis IV contrast only CT ED Abdomen/Pelvis IV contrast only CT Patient Name: MARINA BERGMAN : 1965; Age: 51 years y/o Female MR: [id number] Study: ED Abdomen/Pelvis IV contrast only CT [...] abdominal and pelvic CT with contrast. SL: [id number] 04/11/2017 - - Read by: Jose Alfredo Damon MD Dictated Date/time: 04/11/17 10:21 Electronically Signed by: Jose Alfredo Damon MD 04/11/17 10:25 FINAL REPORT [facility] Chest CTA Chest CTA Patient Name: MARINA MELCHORARGEGenevieve : 1965; Age: 51 years y/o Female MR: [id number] Study: Chest CTA 04/11/2017 8:41 AM CDT [...] noted within the right upper lobe. SL: [id number] 04/11/2017 - - Read by: Jose Alfredo Damon MD Dictated Date/time: 04/11/17 10:27 Electronically Signed by: Jose Alfredo Damon MD 04/11/17 10:40 FINAL REPORT [facility] Abdomen RUQ US Abdomen RUQ US Abdomen [...] in the RUQ of the abdomen. SL: [id number] 04/11/2017 - - Read by: Russell Pantoja MD Dictated Date/time: 04/11/17 08:20 Electronically Signed by: Russell Pantoja MD 04/11/17 08:21 FINAL REPORT [facility] Chest 1view DX Chest 1view DX PROCEDURE: Chest, [...] versus further evaluation with CT chest. SL: [id number] 04/11/2017 - - Read by: Sarwat Leblanc MD Dictated Date/time: 04/11/17 07:59 Electronically Signed by: Sarwat Leblanc MD 04/11/17 08:01 FINAL REPORT [facility] Wrist complete DX Wrist complete DX Patient Name: MARINA BERGMAN : 1965; Age: 51 years y/o Female MR: [id number] Study: Wrist complete DX 02/28/2017 4:24 PM CDT Ordering Physician: Clinical Indication: - right wrist pain after falling; Comparison: None Right wrist 3 views IMPRESSION: There is a comminuted intra-articular distal radial metaphyseal fracture, with mild radial shortening. Additional nondisplaced fracture of the ulnar styloid. EVELYN: JMARITZA 02/28/2017 - - Read by: Jose Alfredo Damon MD Dictated Date/time: 02/28/17 17:15 Electronically Signed by: Jose Alfredo Damon MD 02/28/17 17:17 FINAL REPORT [facility] Forearm 2 views DX Forearm 2 views DX Patient Name: MARINA BERGMAN : 1965; Age: 51 years y/o Female MR: [id number] Study: Forearm 2 views DX 02/28/2017 4:24 [...] Alfredo Damon MD 02/28/17 17:18 FINAL REPORT [facility] Chest 2 views DX Chest 2 views [...] Alix Arguelles MD 12/22/16 12:35 FINAL REPORT [facility] Sinus wo contrast CT Sinus wo [...] Marck Blanton MD 11/10/14 12:51 FINAL REPORT [facility] Spine cervical 2 or 3 views [...] Alfredo Damon MD 03/07/14 11:14 FINAL REPORT [facility] Spine lumbar 2 or 3 views Spine [...] Alfredo Damon MD 03/07/14 11:24 FINAL REPORT [facility] Chest 2 views Chest 2 views CHEST, TWO VIEWS HISTORY: Chest pain. COMPARISON: 02/19/2014 FINDINGS: The lungs are clear. No pleural effusion. No pneumothorax. Heart size normal. No acute osseous abnormality. SL: 12 03/07/2014 - - Read by: Fransisco Julian MD Dictated Date/time: 03/07/14 11:15 Electronically Signed by: Fransisco Julian MD 03/07/14 11:17 FINAL REPORT [facility] Chest 2 views Chest 2 views PA [...] Anson Pete MD 02/19/14 13:36 FINAL REPORT [facility] Vital Signs Vital Sign Value Date Comments Source Temperature Oral (F) 97.1 F 09/27/[facility] Heart Rate 98 09/27/2018 [facility] Respitory Rate 14 09/27/2018 [facility] BMI Calculated 32.51 09/27/2018 [facility] Weight 85.909 09/27/2018 [facility] Height 162.56 cm 09/27/2018 [facility] Systolic (mm Hg) 127 09/27/2018 [facility] Diastolic (mm Hg) 84 09/27/2018 [facility] BMI Calculated 30.1 10/29/2017 [facility] Weight [...] 77 05/10/2017 [facility] Rate 16 05/10/2017 [facility] Systolic (mm Hg) 124 05/10/2017 [facility] Diastolic (mm Hg) 79 05/10/2017 [facility] Respitory Rate 16 05/10/2017 [facility] Respitory Rate 18 05/10/2017 [facility] Temperature Oral (F) 98.0 F 05/10/2017 [facility] Heart Rate 69 05/10/2017 [facility] Temperature Oral (F) 98.2 F 05/10/2017 [facility] Heart Rate 68 05/10/2017 [facility] Height 162.56 cm 05/10/2017 [facility] Weight 75.818 05/10/2017 [facility] BMI Calculated 28.69 05/10/2017 [facility] Systolic (mm Hg) 153 04/16/2017 [facility] Diastolic (mm Hg) 88 04/16/2017 [facility] Temperature Oral (F) 98.2 F 04/16/2017 [facility] Heart Rate 84 04/16/2017 [facility] Respitory Rate 16 04/16/2017 [facility] Respitory Rate 20 04/16/2017 [facility] Temperature Oral (F) 98 F 04/16/2017 [facility] Heart Rate 84 04/16/2017 [facility] Respitory Rate 18 04/16/2017 [facility] Systolic (mm Hg) 131 04/16/2017 [facility] Diastolic (mm Hg) 96 04/16/2017 [facility] Temperature Oral (F) 98.1 F 04/15/2017 [facility] Weight 74.545 04/15/2017 [facility] Height 162.56 cm 04/15/2017 [facility] BMI Calculated 28.21 04/15/2017 [facility] Heart Rate 90 04/15/2017 [facility] Systolic (mm Hg) 166 04/15/2017 [facility] Diastolic (mm Hg) 115 04/15/2017 [facility] Temperature Oral (F) 98.8 F 04/12/2017 [facility] Systolic (mm Hg) 115 04/12/2017 [facility] Diastolic (mm Hg) 78 04/12/2017 [facility] Respitory Rate 18 04/12/2017 [facility] Systolic (mm Hg) 120 04/12/2017 [facility] Diastolic (mm Hg) 71 04/12/2017 [facility] Respitory Rate 22 04/12/2017 [facility] Systolic (mm Hg) 117 04/12/2017 [facility] Diastolic (mm Hg) 73 04/12/2017 [facility] Respitory Rate 16 04/12/2017 [facility] Heart Rate 79 04/12/2017 [facility] Temperature Oral (F) 99.3 F 04/12/2017 [facility] Heart Rate 90 04/12/2017 [facility] Temperature Oral (F) 98.1 F 04/12/2017 [facility] Heart Rate 83 04/12/2017 [facility] Weight 73.6 04/11/2017 [facility] Height 162.56 cm 04/11/2017 [facility] BMI Calculated 27.87 04/11/2017 [facility] Weight 73.636 04/11/2017 [facility] Heart Rate 67 03/01/2017 [facility] Temperature Oral (F) 98.2 F 03/01/2017 [facility] Respitory Rate 16 03/01/2017 [facility] Systolic (mm Hg) 139 03/01/2017 [facility] Diastolic (mm Hg) 75 03/01/2017 [facility] Temperature Oral (F) 98.0 F 02/28/2017 [facility] Systolic (mm Hg) 152 02/28/2017 [facility] Diastolic (mm Hg) 83 02/28/2017 [facility] Heart Rate 55 02/28/2017 [facility] Respitory Rate 18 02/28/2017 [facility] Weight 74.545 02/28/2017 [facility] Height 162.56 cm 03/07/2014 [facility] Weight 66.818 03/07/2014 [facility] BMI Calculated 25.29 03/07/2014 [facility] Temperature Oral (F) 98.1 F 03/07/2014 [facility] Diastolic (mm Hg) 87 03/07/2014 [facility] Heart Rate 92 03/07/2014 [facility] Respitory Rate 18 03/07/2014 [facility] Systolic (mm Hg) 142 03/07/2014 [facility] Encounters Location Location Details Encounter Type Encounter Number Reason For Visit Attending Provider ADM Date DC Date Status Source [facility] Outpatient [id number] COUGH TAHIR YEUNG 09/08/2011 09/08/2011 Active [facility] Outpatient [id number] COPD PETER BOSWELL 01/18/2012 Active [facility] Outpatient [id number] Peter Boswell 02/19/2014 02/20/2014 [facility] [id number] Rafaela Rand 03/07/2014 03/07/2014 [facility] [place] [facility] [id number] Tao Wang 11/10/2014 11/11/2014 [facility] [place] Outpatient [id number] PETER BOSWELL 06/03/2015 Active [facility] Outpatient [id number] PETER BOSWELL 07/09/2015 Active [facility] [id number] PETER BOSWELL 10/08/2015 Active [facility] Outpatient [id number] PETER BOSWELL 11/02/2015 Active [facility]patient [id number] JASPREET HERNANDEZ 12/02/2015 Active [facility] Outpatient [id number] PETER BOSWELL 2015 Active [facility] Outpatient [id number] PETER BOSWELL 03/14/2016 [facility] [id number] PETER BOSWELL 05/29/2016 Active [facility] Outpatient [id number] NURSE VISIT 05/31/2016 Active [facility] Outpatient [id number] PETER BOSWELL 06/29/2016 Active [facility] Outpatient [id number] PETER BOSWELL 11/30/2016 Active [facility] [place] [facility] Di[facility] [id number] Anson Tai 12/22/2016 12/23/2016 [facility] [id number] Jose Alberto Plascencia 02/28/2017 03/01/2017 [facility] Inpatient [id number] Crow Alberto 04/11/2017 04/12/2017 [facility] Emergency [id number] Yonatan Meyereme 04/15/2017 04/16/2017 [facility] Outpatient [id number] PETER BOSWELL 04/25/2017 Active [facility] Day Surgery [id number] Vasu Cruz 05/10/2017 05/10/2017 [facility] Outpatient [id number] PETER BOSWELL 06/18/2017 Active [facility] Outpatient [id number] PETER BOSWELL 07/27/2017 Active [facility] Primary [facility] Ambulatory Pre-Reg [id number] Peter Boswell 07/27/2017 07/27/2017 [facility] Primary Care [facility] Phone Message [id number] 07/30/2017 08/01/2017 [facility] Primary Care [facility] Phone Message [id number] 07/31/2017 08/02/2017 [facility] Outpatient [id number] PETER BOSWELL 08/09/2017 Active [facility] Primary [facility] Ambulatory Pre-Reg [id number] Peter Boswell 08/09/2017 08/09/2017 [facility] Outpatient [id number] PETER BOSWELL 08/21/2017 Active [facility] Outpatient [id number] Peter Boswell 08/21/2017 08/22/2017 [facility] Primary Care [facility] Phone Message [id number] 08/24/2017 08/25/2017 [facility] Outpatient [id number] PETER BOSWELL 08/30/2017 Active [facility] Outpatient [id number] Peter Boswell 08/30/2017 08/31/2017 [facility] Outpatient [id number] YESYS COX 10/29/2017 Active [facility] Primary [facility] Outpatient [id number] Yessy Cox 10/29/2017 10/30/2017 [facility] Outpatient [id number] PETER BOSWELL 11/26/2017 Active [facility] Primary [facility] Ambulatory Pre-Reg [id number] Peter Boswell 11/26/2017 11/26/2017 [facility] Phone Message [id number] 11/29/2017 12/01/2017 [facility] Outpatient [id number] PETER BOSWELL 05/01/2018 Active [facility] Outpatient [id number] YESSY COX 06/20/2018 Active [facility] Outpatient [id number] YESSY FUENTESH 09/19/2018 Active [facility] Discharged Inpatient [id number] SAEED ECHAVARRIA MD 09/23/2018 09/23/2018 [facility] Outpatient [id number] PETER BOSWELL 09/27/2018 Active [facility] Outpatient [id number] Peter Boswell 09/27/2018 09/28/2018 [facility] Phone Message [id number] 10/01/2018 10/02/2018 [facility] Outpatient [id number] PETER BOSWELL 03/26/2019 Active [facility] Procedures Procedure Code Date Perfomer Comments Source Thoracentesis with ultrasound guidance [id number] 09/23/2018 [facility] X-ray of chest, two views [id number] 09/21/2018 [facility] Computed tomography of chest with contrast [id number] 09/21/2018 [facility] Influenza vaccination [id number] 06/04/2018 [facility] Measurement of occult blood in stool specimen using immunoassay<sup>1</sup> [id number] 10/12/2017 negative [facility] Mediastinoscopy and lymph node sampling<sup>1</sup> [id number] 05/10/2017 PREOPERATIVE DIAGNOSIS: Right hilar mass with mediastinal lymphadenopathy. POSTOPERATIVE DIAGNOSIS: Right hilar mass with mediastinal lymphadenopathy. PROCEDURES PERFORMED: Video mediastinoscopy with mediastinal lymph node biopsies. [facility] Mediastinoscopy and lymph node sampling<sup>2</sup> [id number] 05/10/2017 PREOPERATIVE DIAGNOSIS: Right hilar mass with mediastinal lymphadenopathy. POSTOPERATIVE DIAGNOSIS: Right hilar mass with mediastinal lymphadenopathy. PROCEDURES PERFORMED: Video mediastinoscopy with mediastinal lymph node biopsies. [facility] Bronchoscopy and biopsy of bronchus<sup>2</sup> [id number] 04/12/2017 PROCEDURES PERFORMED: Central with ultrasound-guided transbronchial needle aspiration biopsy. INDICATIONS FOR THE PROCEDURE: Mediastinal adenopathy. PREOPERATIVE DIAGNOSIS Lung cancer. POSTPROCEDURE DIAGNOSIS: Lung cancer. [facility] Bronchoscopy and biopsy of bronchus<sup>3</sup> [id number] 04/12/2017 PROCEDURES PERFORMED: Central with ultrasound-guided transbronchial needle aspiration biopsy. INDICATIONS FOR THE PROCEDURE: Mediastinal adenopathy. PREOPERATIVE DIAGNOSIS Lung cancer. POSTPROCEDURE DIAGNOSIS: Lung cancer. [facility] Internal fixation of fracture<sup>3</sup> [id number] 09/03/2016 right wrist [facility] Internal fixation of fracture<sup>4</sup> [id number] 09/03/2016 right wrist [facility] Internal fixation of fracture<sup>1</sup> [id number] 09/03/2016 right wrist [facility] Tdap - tetanus, diphtheria and acellular pertussis vaccination [id number] 03/07/2014 [facility] Adhesiolysis [id number] [facility] [place] FESS - FSS sphenoidotomy [id number] [facility] [place] FLORENCIO BSO - Total abdominal hysterectomy and bilateral salpingo-oophorectomy<sup>1</sup> [id number] due to cysts [facility] [place] Adhesiolysis [id number] [facility] - FSS sphenoidotomy [id number] [facility] BSO - Total abdominal hysterectomy and bilateral salpingo-oophorectomy<sup>1</sup> [id number] due to cysts [facility] Adhesiolysis [id number] [facility] FESS - FSS sphenoidotomy [id number] [facility] FLORENCIO BSO - Total abdominal hysterectomy and bilateral salpingo-oophorectomy<sup>4</sup> [id number] due to cysts [facility] FLORENCIO BSO - Total abdominal hysterectomy and bilateral salpingo-oophorectomy<sup>5</sup> [id number] due to cysts [facility] FLORENCIO BSO - Total abdominal hysterectomy and bilateral salpingo-oophorectomy<sup>2</sup> [id number] due to cysts [facility] Thoracentesis [id number] [facility]
--- OUTSIDE RECORDS SUMMARY | 2018-10-12 11:55 | XMS REPORT | Summary of Care ---
Author Author [facility] Organization [facility] Address Unknown Phone Unavailable Encounter [facility](FIN) [id number] Date(s): 09/30/18 - 10/01/18 [facility] [address], [address] [place] [address]- [phone] Vital Signs No data available for this section Problem List Condition Effective Dates Status Health Status Informant Anxiety(Confirmed) Active Body mass index Active 32.0-32.9, adult(Confirmed) Chronic obstructive Active lung disease(Confirmed)1 Deviated nasal 10/19/14 Active septum2, 3 Current chronic use Active of systemic steroids(Confirmed) GERD Active (gastroesophageal reflux disease)(Confirmed) Unequal leg Active length(Confirmed) Leukocytosis(Confirm Active ed) Obesity(Confirmed) Active Annual physical Active exam(Confirmed) Pulmonary Active histoplasmosis capsulati(Confirmed) Prediabetes(Confirme Active d) Screen for colon Active cancer(Confirmed) History of cigarette Resolved smoking(Confirmed) 1Data migrated from [employer] on [...] and Recorded Vaccine Date Status Refusal Reason Hx influenza vaccine-unspecified 06/04/18 Recorded influenza virus vaccine, inactivated1 06/18/17 Given influenza virus vaccine, inactivated 05/29/16 Given influenza virus vaccine, inactivated 06/03/15 Given tuberculin purified protein derivative 05/29/16 Given diphtheria/pertussis, acel/tetanus adult 03/07/14 Given 1Result Comment: Patient waited 15 min with no reaction. Procedures Procedure Date Related Diagnosis Body Site Status Influenza vaccination 06/04/18 Completed Measurement of occult blood in stool specimen 10/12/17 Completed using immunoassay1 Mediastinoscopy and lymph node sampling2 05/10/17 Completed Bronchoscopy and biopsy of bronchus3 04/12/17 Completed Internal fixation of fracture4 2016 Completed Tdap - tetanus, diphtheria and acellular 03/07/14 Completed pertussis vaccination Adhesiolysis Completed FESS - FSS sphenoidotomy Completed FLORENCIO BSO - Total abdominal hysterectomy and Completed bilateral salpingo-oophorectomy5 Thoracentesis Completed 1negative 2PREOPERATIVE DIAGNOSIS: Right hilar mass with [...] type: none. Employment/School Status: Employed. 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 Alcohol Current, Type Beer. Frequency: 1-2 times per year. Smoking Status Former smoker; Exposure to Tobacco Smoke self; Cigarette Smoking Last 365 Days Yes; Reg Smoking Cessation Counseling No; Started at age: 15.0; Stopped at age: 51; entered on: 09/27/18 Assessment and Plan No data available for this section
--- OUTSIDE RECORDS SUMMARY | 2018-10-12 11:55 | XMS REPORT | Summary of Care ---
Author Author [facility] Organization [facility] Address Unknown Phone Unavailable Encounter [facility](FIN) [id number] Date(s): 09/27/18 - 09/27/18 [facility] [address], [address] [place], [place] [address]- [phone] Discharge Disposition: Home or Self Care Attending Physician: Linh Coto MD Vital Signs Most recent to 1 oldest [Reference Range]: Height 162.56 cm (09/27/18 10:46 AM) Temperature Oral 97.1 DegF [96.4-99.1 DegF] (09/27/18 10:46 AM) Blood Pressure 127/84 mmHg [90-140/60-90 mmHg] (09/27/18 10:46 AM) Respiratory Rate 14 BRMIN [14-20 BRMIN] (09/27/18 10:46 AM) Peripheral Pulse 98 bpm Rate [60-100 bpm] (09/27/18 10:46 AM) Weight 85.909 kg (09/27/18 10:46 AM) Body Mass Index 32.51 m2 (09/27/18 10:46 AM) Problem List Condition Effective Dates Status Health Status Informant Anxiety(Confirmed) Active Body mass index Active 32.0-32.9, adult(Confirmed) Chronic obstructive Active lung disease(Confirmed)1 Deviated nasal 10/19/14 Active septum2, 3 Current chronic use Active of systemic steroids(Confirmed) GERD Active (gastroesophageal reflux disease)(Confirmed) Unequal leg Active length(Confirmed) Obesity(Confirmed) Active Annual physical Active exam(Confirmed) Pulmonary Active histoplasmosis capsulati(Confirmed) Prediabetes(Confirme Active d) Screen for colon Active cancer(Confirmed) History of cigarette Resolved smoking(Confirmed) 1Data migrated from [employer] on 01/30/15. 2Data migrated from [employer] on 03/10/15. 3Data migrated from [employer] on 03/10/15. Allergies, Adverse Reactions, Alerts Substance Reaction Severity Status acetaminophen-HYDROcodone hives MO^Moderate Active 1, 2 1Data migrated from [employer] on 03/11/15. Originally documented as VICODIN. hives 2Data migrated from [employer] on 12/31/14. Originally documented as VICODIN. hives Medications pantoprazole 40 mg oral enteric coated tablet 40 mg=1 tab, PO, Daily, # 90 tab, 1 Refill(s), Pharmacy: [facility] Start Date: 09/27/18 Status: Ordered Results No data available for [...] 04/12/17 Completed Internal fixation of fracture2016 Completed Tdap - tetanus, diphtheria and acellular [...] Status: Employed. 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 Alcohol Current, Type Beer. Frequency: 1-2 times per year. Smoking Status Former smoker; Exposure to Tobacco Smoke self; Cigarette Smoking Last 365 Days Yes; Reg Smoking Cessation Counseling No; Started at age: 15.0; Stopped at age: 51; entered on: 09/27/18 Assessment and Plan No data available for this section
[2018-10-12] MEDS ORDERED: METHYLPREDNISOLONE SOD SUCC 125 MG/2ML VIAL IV NR (12:15)
[2018-10-12] MEDS ORDERED: ALBUTEROL SULF 0.083% NEB SOLN 3 ML NEB NEB PRN (12:15)
[2018-10-12 12:18] VITALS: BP 155/78
[2018-10-12 12:21] LABS: BASOPHILS % 0.2 % (0.0-1.0); EOSINOPHILS % 0.1 % (0.0-6.0); HEMATOCRIT 39.4 % (34.2-44.1); HEMOGLOBIN 12.7 g/dL (12.0-16.0); LYMPHOCYTES # (AUTO) 0.3 (1.0-3.2); LYMPHOCYTES % 2.5 % (18.0-39.1); MEAN CORPUSCULAR HEMOGLOBIN 29.7 pg (28-32); MEAN CORPUSCULAR HGB CONC 32.2 g/dL (31-35); MEAN CORPUSCULAR VOLUME 92.1 fL (81-99); MONOCYTES # (AUTO) 0.4 (0.2-0.8); MONOCYTES % 3.1 % (4.4-11.3); NEUTROPHILS # (AUTO) 10.7 (2.1-6.9); NEUTROPHILS % 93.7 % (38.7-80.0); PLATELET COUNT 230 x10e3/uL (140-360); RED BLOOD COUNT 4.28 x10e6/uL (3.6-5.1); RED CELL DISTRIBUTION WIDTH 14.5 % (11.7-14.4)
--- NOTE | 2018-10-12 12:25 | NUR ---
Received patient from clinic referral by attending 52 y.o female a/ox3, ambulatory with PMH of chronic histoplamosis and Asthma. Current medical problem: Asthma exacerbation, SOB lung sounds diminished at bases with scattered wheezing across lung jacobs, no respiratory distress, SPO2 at 94% RA, O2 2L applied for comfort, c/o some chest discomfort exacerbated by pleural effusion and asthma, attending aware, orders in place, call light within reach, IV line to be placed and will be going for U/S to chest stat.
[2018-10-12 12:33] VITALS: BP 155/78
[2018-10-12 12:40] LABS: ALANINE AMINOTRANSFERASE 33 IU/L (0-55); ALBUMIN 3.7 g/dL (3.5-5.0); ALBUMIN/GLOBULIN RATIO 1.3 (0.8-2.0); ALKALINE PHOSPHATASE 73 IU/L (40-150); ANION GAP 15.8 mmol/L (8-16); BLOOD UREA NITROGEN 13 mg/dL (7-26); BUN/CREATININE RATIO 16 (6-25); CALCIUM 9.2 mg/dL (8.4-10.2); CARBON DIOXIDE 24 mmol/L (22-29); CHLORIDE 107 mmol/L (98-107); CREATININE, SERUM 0.83 mg/dL (0.57-1.11); EST GLOMERULAR FILTRATION RATE > 60 ML/MIN (60-); POTASSIUM 3.8 mmol/L (3.5-5.1); SODIUM 143 mmol/L (136-145)
--- NOTE | 2018-10-12 12:42 | NUR ---
Call to radiologist for U/S and they will be sending someone in stat
[2018-10-12 12:50] LABS: GLUCOSE 121 mg/dL (74-118)
--- NOTE | 2018-10-12 12:52 | NUR ---
Patient treated with Solumedrol IV and nebulizers given for asthmatic wheezing and SOB, on O2 2L NC
--- NOTE | 2018-10-12 12:59 | NUR ---
Consult for Dr. Tijerina called
--- NOTE | 2018-10-12 13:04 | NUR ---
Call back from Dr. Tijerina and will see patient tomorrow and attending is aware
[2018-10-12] MEDS: BUDESONIDE/FORMOTEROL 160/4.5MCG INHALER INH SCH (14:00)
--- NOTE | 2018-10-12 14:19 | Diagnostic Imaging Report ---
EXAMINATION: CHEST 2 VIEWS INDICATION: Asthma, pleural effusion COMPARISON: Chest radiograph 09/23/2018. FINDINGS: TUBES and LINES: None. LUNGS: There is linear subsegmental atelectasis in the right mid and lower lung zones. No evidence of lobar consolidation or pulmonary edema. PLEURA: Small right pleural effusion. No evidence of left-sided pleural effusion or pneumothorax. HEART AND MEDIASTINUM: The cardiomediastinal silhouette is unremarkable. BONES AND SOFT TISSUES: No acute osseous lesion. Soft tissues are unremarkable. UPPER ABDOMEN: No free air under the diaphragm. IMPRESSION: Small right pleural effusion with linear subsegmental atelectasis in the right mid and lower lung. Signed by: Dr. Patria Rahman MD on 10/12/2018 2:15 PM
--- NOTE | 2018-10-12 14:21 | Diagnostic Imaging Report ---
Limited bilateral chest ultrasound Indication: History of right sided pleural effusion, follow-up. Comparison: Chest radiograph 10/12/2018. Technique/findings: Limited bilateral chest ultrasound was performed to evaluate for pleural effusion. Small right pleural effusion and no left pleural effusion was identified. IMPRESSION: Small right pleural effusion and no left pleural effusion was identified. Signed by: Dr. Patria Rahman MD on 10/12/2018 2:17 PM
[2018-10-12] MEDS ORDERED: ZOLPIDEM TARTRATE 10 MG TAB PO PRN (14:45)
--- NOTE | 2018-10-12 15:46 | NUR ---
Report given to Truman CARTAGENA at this time to continue with care
[2018-10-12 16:26] VITALS: BP 142/79
[2018-10-12] MEDS: BUSPIRONE HCL 5 MG TAB PO SCH (16:33)
[2018-10-12 20:00] VITALS: BP 126/76
[2018-10-12] MEDS: IPRATROPIUM BROMIDE 0.02% 2.5 ML NEB NEB PRN (20:05)
[2018-10-12] MEDS: ALBUTEROL SULF 0.083% NEB SOLN 3 ML NEB INH PRN (20:05)
[2018-10-12] MEDS: METHYLPREDNISOLONE SOD SUCC 40 MG/ML VIAL 1ML IV SCH (22:23)
[2018-10-13] VITALS: BP 142/79
[2018-10-13] MEDS: IPRATROPIUM BROMIDE 0.02% 2.5 ML NEB NEB PRN (01:05)
[2018-10-13] MEDS: ALBUTEROL SULF 0.083% NEB SOLN 3 ML NEB INH PRN (01:05)
[2018-10-13 04:00] VITALS: BP 149/69
--- NOTE | 2018-10-13 07:08 | NUR ---
Report given to day shift nurse and walking rounds complete.
[2018-10-13] MEDS ORDERED: PANTOPRAZOLE SOD 40 MG TABEC PO SCH (07:30)
[2018-10-13] MEDS: BUDESONIDE/FORMOTEROL 160/4.5MCG INHALER INH SCH (07:55)
[2018-10-13] MEDS: BUSPIRONE HCL 5 MG TAB PO SCH (08:09)
[2018-10-13] MEDS: METHYLPREDNISOLONE SOD SUCC 40 MG/ML VIAL 1ML IV SCH (08:09)
[2018-10-13 08:12] VITALS: BP 126/78
[2018-10-13 08:18] VITALS: BP 126/78
[2018-10-13] MEDS ORDERED: FOLIC ACID 1 MG TAB PO SCH (09:00)
--- NOTE | 2018-10-13 12:31 | History and Physical ---
CHIEF COMPLAINT: Wheezing and dyspnea. HISTORY OF PRESENT ILLNESS: Patient is a 52-year-old woman. 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 She received itraconazole for 7 months with some resolution. She still continues to have wheezing and intermittent dyspnea. Over the past several years, she has had problems with recurrent asthma. She has been treated with high dose inhaled corticosteroids as well as bronchodilators and prednisone. She also has problems with chronic lymphadenopathy and some associated right upper lobe collapse related to a prior histoplasmosis. She has had some recurrent right pleural effusions as well that have required thoracentesis. Most recently, she notes worsening dyspnea and congestion over several days. It was not relieved with Breo and with her nebulizer treatments. She noted cough and wheezing. She denied chest pain or fevers. PAST SURGICAL HISTORY 1. Status post bronchoplasty of the right upper lobe. 2. Status post CT-guided lung biopsy at [facility]. PAST MEDICAL HISTORY Asthma. 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 SOCIAL HISTORY: The patient quit smoking. She is not an active drinker. 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 FAMILY HISTORY: Noncontributory. REVIEW OF SYSTEMS: She has no fever. She has no headache or neck pain. Oropharynx is normal. Lymphatic examination shows no submandibular, cervical, or supraclavicular adenopathy. Cardiac exam reveals a regular rate and rhythm with a normal S1 and S2. Auscultation of the lungs reveals wheezing bilaterally. There is a prolonged expiratory phase. Headache. She has no neck pain. She is not having any chest pain. She has no wheezing and cough. She has no abdominal pain. She has no nausea or vomiting. She has no leg edema. Neurological exam shows no focal abnormalities. PHYSICAL EXAMINATION VITAL SIGNS: The patient is afebrile, blood pressure 126/78, and the saturation is 94% on 2 liters. HEENT: Examination shows no facial swelling or erythema. The oropharynx is normal. LYMPHATIC: Examination shows no submandibular, cervical, or supraclavicular adenopathy. CARDIOVASCULAR: Reveals a regular rate and rhythm with normal S1 and S2. There are no murmurs or rubs. RESPIRATORY: Auscultation of the lungs reveals wheezing and rhonchi bilaterally. There is some coughing. ABDOMEN: Soft nontender. There is no rebound or guarding. EXTREMITIES: Examination of the extremities shows no leg edema or calf tenderness. There is no cyanosis or clubbing. SKIN: No rashes. NEUROLOGIC: Exam shows no focal abnormalities. RADIOGRAPHIC DATA: Chest x-ray shows chronic changes in the right upper lung field. There is possibly a small right pleural effusion. Ultrasound of the chest shows minimal right pleural fluid. IMPRESSION 1. Asthma with acute exacerbation. 2. Chronic pulmonary histoplasmosis. 3. Chronic right upper lobe atelectasis. 4. Recurrent right pleural effusions. PLAN 1. Patient will receive IV Solu-Medrol and bronchodilators. 2. Patient will continue high dose inhaled corticosteroids along with bronchodilators. 3. Evaluation for IL-5 inhibitors as an outpatient. 4. I have arranged for home oxygen through the office with an overnight pulse oximetry. 5. Continue methotrexate for the chronic pulmonary histoplasmosis. Job#: [id number] ETHAN
== END 2018-10-13 09:11 | disposition home or self-care (01) ==
LOC: IMCU 11:50
PROVIDERS: ADMIT Internal Medicine Critical Care Medicine; ATTEND Internal Medicine Critical Care Medicine
DX: J45.901 Unspecified asthma with (acute) exacerbation (principal); J90 Pleural effusion, not elsewhere classified; B39.1 Chronic pulmonary histoplasmosis capsulati; Z87.891 Personal history of nicotine dependence; J98.11 Atelectasis; Z88.6 Allergy status to analgesic agent; Z88.5 Allergy status to narcotic agent
CPT/HCPCS: 36415; 71046; 76604; 80053; 85025; 94640 ×2; G0378 ×2; J2920 ×2; J2930; S0164

== ENCOUNTER 2018-10-23 08:55 | Inpatient (IN) | payer OTHER ==
[~2018-10-23] VITALS: Ht 162.6 cm; Wt 85.4 kg
[2018-10-23] MEDS: IPRATROPIUM BROMIDE 0.02% 2.5 ML NEB NEB SCH ×2 (00:02→19:00)
[2018-10-23] MEDS: ALBUTEROL SULF 0.083% NEB SOLN 3 ML NEB INH SCH ×2 (00:02→19:00)
--- NOTE | 2018-10-23 09:35 | NUR ---
RADIOLOGY AT BEDSIDE FOR CXR AT THIS TIME.
[2018-10-23] MEDS ORDERED: METHYLPREDNISOLONE SOD SUCC 125 MG/2ML VIAL IV ONE (09:45)
[2018-10-23] MEDS ORDERED: ASPIRIN 81 MG CHEW TAB PO ONE (09:45)
[2018-10-23 09:49] LABS: BASOPHILS % 0.2 % (0.0-1.0); EOSINOPHILS % 0.1 % (0.0-6.0); HEMOGLOBIN 13.8 g/dL (12.0-16.0); LYMPHOCYTES # (AUTO) 0.6 (1.0-3.2); LYMPHOCYTES % 4.1 % (18.0-39.1); MEAN CORPUSCULAR HEMOGLOBIN 30.2 pg (28-32); MEAN CORPUSCULAR HGB CONC 32.9 g/dL (31-35); MEAN CORPUSCULAR VOLUME 91.9 fL (81-99); MONOCYTES # (AUTO) 1.4 (0.2-0.8); MONOCYTES % 8.8 % (4.4-11.3); NEUTROPHILS # (AUTO) 13.5 (2.1-6.9); NEUTROPHILS % 86.1 % (38.7-80.0); PLATELET COUNT 250 x10e3/uL (140-360); RED BLOOD COUNT 4.57 x10e6/uL (3.6-5.1); RED CELL DISTRIBUTION WIDTH 13.9 % (11.7-14.4)
[2018-10-23 10:06] LABS: ALANINE AMINOTRANSFERASE 28 IU/L (0-55); ALBUMIN 3.7 g/dL (3.5-5.0); ALBUMIN/GLOBULIN RATIO 1.4 (0.8-2.0); ALKALINE PHOSPHATASE 92 IU/L (40-150); ANION GAP 16.4 mmol/L (8-16); BLOOD UREA NITROGEN 12 mg/dL (7-26); BUN/CREATININE RATIO 13 (6-25); CALCIUM 9.7 mg/dL (8.4-10.2); CARBON DIOXIDE 24 mmol/L (22-29); CHLORIDE 100 mmol/L (98-107); CREATINE KINASE 171 IU/L (29-168); CREATININE, SERUM 0.93 mg/dL (0.57-1.11); EST GLOMERULAR FILTRATION RATE > 60 ML/MIN (60-); GLUCOSE 92 mg/dL (74-118); POTASSIUM 3.4 mmol/L (3.5-5.1); SODIUM 137 mmol/L (136-145)
[2018-10-23 10:26] LABS: BILIRUBIN,URINE NEGATIVE (NEGATIVE); CLARITY,URINE HAZY (CLEAR); COLOR,URINE ORANGE (YELLOW); KETONES,URINE TRACE (NEGATIVE); LEUKOCYTE ESTERASE ,URINE TRACE (NEGATIVE); NITRITE,URINE POSITIVE (NEGATIVE); PROTEIN,URINE DIPSTICK 2+ (NEGATIVE); URINE UROBILINOGEN 8 mg/dL (0.2 - 1)
[2018-10-23 10:33] LABS: BACTERIA,URINE RARE /HPF; EPITHELIAL CELLS,URINE RARE /LPF
--- NOTE | 2018-10-23 10:45 | Diagnostic Imaging Report ---
EXAM: CHEST SINGLE (PORTABLE) DATE: 10/23/2018 9:34 AM INDICATION: Shortness of breath COMPARISON: Chest x-ray, 10/12/2018 FINDINGS: Lines and tubes: None Heart size normal. There is increased hazy opacity in the right lower lobe since last exam. This likely represents increased right pleural effusion and underlying right lower lobe atelectasis or pneumonia. The left lung remains expanded and clear. No pneumothorax. Upper abdomen unremarkable. No acute bony abnormality. IMPRESSION: Increased hazy opacity in the right lower chest since last exam. This likely represents increased right pleural effusion with underlying atelectasis or, in the proper clinical setting, right lower lobe pneumonia. Signed by: Dr. Alexi Mathew M.D. on 10/23/2018 10:41 AM
[2018-10-23] MEDS ORDERED: LEVOFLOXACIN 750MG/D5W 150ML IV SCH (11:15)
[2018-10-23] MEDS: AZITHROMYCIN 500MG/SOD CHL 0.9% 250ML BAG IV SCH (11:25)
--- NOTE | 2018-10-23 12:15 | NUR ---
PT AMBULATORY TO RESTROOM. BREATHING EVEN/UNLABORED, NO DISTRESS NOTED AT THIS TIME.
--- NOTE | 2018-10-23 12:25 | NUR ---
PT ASSISTED WITH MEAL TRAY AT THIS TIME, TOLERATING WELL.
[2018-10-23 14:00] VITALS: BP 151/99
[2018-10-23] MEDS ORDERED: CEFEPIME HCL 2 GM/SOD CHL 0.9% 100 ML BAG IV SCH (14:00)
--- NOTE | 2018-10-23 14:24 | NUR ---
Received patient via stretcher from ER. AAOX4 to time, person,place, situation. Respirations even and unlabored. O2 3L NC. Oriented patient to room. Instructed to use call light for assistance. Voiced understanding. Will continue to monitor.
[2018-10-23] MEDS ORDERED: SODIUM CHLORIDE 0.9% 1000ML 1,000 ML IV SCH (14:45)
[2018-10-23] MEDS ORDERED: SINGULAIR10 MG PO (14:51)
[2018-10-23] MEDS ORDERED: PROTONIX40 MG PO (14:51)
[2018-10-23] MEDS ORDERED: FASENRA SQ (14:51)
[2018-10-23 14:57] VITALS: BP 151/99
[2018-10-23] MEDS ORDERED: IBUPROFEN400 MG PO (15:14)
[2018-10-23] MEDS ORDERED: CYMBALTA20 MG PO (15:18)
[2018-10-23] MEDS ORDERED: IPRATROPIUM BROMIDE 0.02% 2.5 ML NEB NEB PRN (15:30)
[2018-10-23] MEDS ORDERED: ALBUTEROL SULF 0.083% NEB SOLN 3 ML NEB INH PRN (15:30)
[2018-10-23] MEDS: IBUPROFEN 400 MG TAB PO PRN (16:00)
[2018-10-23] MEDS: SODIUM CHLORIDE 0.9% 1000ML 1,000 ML IV SCH (16:08)
[2018-10-23] MEDS ORDERED: LORAZEPAM 0.5 MG TAB PO PRN (16:15)
[2018-10-23] MEDS: CEFTRIAXONE SOD 1 GM/NS 50 ML 50 ML IV SCH (17:11)
--- NOTE | 2018-10-23 17:54 | Consultation ---
DATE OF CONSULTATION: October 23, 2018 PULMONARY/CRITICAL CARE CONSULTATION CHIEF COMPLAINT: Wheezing and dyspnea. HISTORY OF PRESENT ILLNESS: The patient is a 52-year-old woman with a history of asthma. She also required hospitalization about 4 years ago at [facility] for recurrent respiratory problems and mediastinal adenopathy. She had some right upper lobe collapse at that time. 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 She received antifungal medications for 9 months but has continued to have symptoms. She required a bronchoplasty and dilatation of the right upper lobe bronchus about 6 months ago. She also received methotrexate for about 2 months for chronic histoplasmosis with minimal benefit. She also uses inhalers for her asthma. She takes Breo and montelukast on a daily basis. She has oxygen at home. She was recently evaluated for Fasenra and received her first injection last week. She came to the emergency department with worsening dyspnea over the past several days. She noted wheezing and congestion. She had some cough, productive of discolored phlegm. She denied any fevers. She denied chest pain. She had a chest x-ray which showed chronic changes consistent with her chronic histoplasmosis and right upper lobe atelectasis. She also had some increased haziness on the right side, suggestive of a pleural effusion. PAST MEDICAL HISTORY 1. Chronic persistent asthma as noted above. 2. Chronic histoplasmosis. 3. Recurrent right pleural effusions. 4. Chronic right upper lobe atelectasis. PAST SURGICAL HISTORY 1. Status post mediastinoscopy with a biopsy. 2. Status post bronchoplasty with dilatation of the right upper lobe bronchus. SOCIAL HISTORY: The patient has never been a smoker. She is not a drinker. She [place] in the local area. 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 She also works for [employer]. FAMILY HISTORY: Noncontributory. ALLERGIES: THE PATIENT IS ALLERGIC TO HYDROCODONE. REVIEW OF SYSTEMS: She denies any fevers. She is not having any headaches. She has no neck pain. She does not complain of sore throat. She has no chest pain. She has wheezing in both lung jacobs. She notes a cough productive of discolored phlegm. She denies abdominal pain. She has no nausea or vomiting. She is not having any leg swelling. She denies any rashes. PHYSICAL EXAMINATION VITAL SIGNS: The patient is afebrile. The blood pressure is 151/99 and the pulse oximetry is 93% on 3 liters. Her pulse is 98 and respiratory rate is 22. HEENT: Examination shows no facial swelling or erythema. Nasal mucosa is normal. The oropharynx is normal. LYMPHATIC: Examination shows no submandibular, cervical or supraclavicular adenopathy. CARDIAC: Exam reveals regular rate and rhythm with normal S1 and S2. There are no murmurs or rubs. LUNGS: Auscultation of the lungs reveals diffuse wheezing in both lung jacobs. ABDOMEN: Soft and nontender. There is no rebound or guarding. EXTREMITIES: Examination of extremities shows no leg edema or calf tenderness. There is no cyanosis or clubbing. NEUROLOGIC: Exam shows no focal abnormalities. SKIN: Examination shows no rashes. LABORATORY DATA: White blood cell count is 15.6 and hemoglobin is 13.8. The platelet count is 250. The BUN-creatinine ratio is normal. The potassium 3.4 and the other electrolytes are within normal limits. IMPRESSIONS 1. Chronic persistent asthma with acute exacerbation. 2. Chronic pulmonary histoplasmosis. 3. Possible recurrent right pleural effusion. PLANS 1. Patient will receive IV Solu-Medrol along with aggressive bronchodilators. 2. She will continue her Breo and her montelukast. 3. She is scheduled to receive her next Fasenra shot in about 3 weeks. 4. Chest ultrasound to evaluate for right pleural effusion. If a pleural effusion is present, we will proceed with thoracentesis. Job#: [id number] TA MTDShivani
--- NOTE | 2018-10-23 18:35 | Diagnostic Imaging Report ---
ULTRASOUND: Chest TECHNIQUE: Limited ultrasound evaluation of the chest to evaluate for pleural effusion. HISTORY: Right pleural effusion COMPARISON: Chest radiograph October 23, 2018. DISCUSSION: See impression IMPRESSION: 1. Moderate right pleural effusion. 2. No left pleural effusion. Signed by: Dr. Bryson Humphrey D.O., M.M.M. on 10/23/2018 6:31 PM
--- NOTE | 2018-10-23 19:10 | NUR ---
Report given to oncoming nurse of patient's status. No s/s of acute distress noted.
[2018-10-23 20:00] VITALS: BP 146/92
[2018-10-23] MEDS: MONTELUKAST SODIUM 10 MG TAB PO SCH (20:53)
[2018-10-23] MEDS: DULOXETINE HCL 20 MG DELAYED RELEASE PO SCH (20:53)
[2018-10-23] MEDS: METHYLPREDNISOLONE SOD SUCC 125 MG/2ML VIAL IV SCH (20:53)
[2018-10-24] VITALS: BP 137/78
--- NOTE | 2018-10-24 02:12 | History and Physical ---
HISTORY OF PRESENT ILLNESS: A 52-year-old female with past medical history positive for COPD, histoplasmosis of the lung, admitted apparently a month ago according to Dr. Clifton Smith, came here with cough, phlegm, and shortness of breath. She was found to have COPD exacerbation with pneumonia, started on IV antibiotics and had been receiving treatment. REVIEW OF SYSTEMS: CARDIOVASCULAR: No chest pain or palpitation. RESPIRATORY: Shortness of breath and cough. GASTROINTESTINAL: No nausea. No vomiting. GENITOURINARY: . No urinary frequency or hematuria. ALLERGIES: ALLERGIC TO ACETAMINOPHEN AND HYDROCHLOROTHIAZIDE. SOCIAL HISTORY: She quit smoking some time ago. No alcohol. PAST MEDICAL HISTORY: COPD, lung histoplasmosis. PHYSICAL EXAMINATION: VITAL SIGNS: Blood pressure 151/99, temperature 96.6, heart rate 98 per minute, respiratory rate 22 per minute, oxygen saturation 94%. HEART: Showed regular rate and rhythm. No murmur or added sound. LUNGS: Clear bilaterally. ABDOMEN: Soft. EXTREMITIES: Show no edema. LABORATORY DATA: CBC: White blood count 15,650, hemoglobin 13.8, hematocrit 42.0, platelet count 250,000. BMP, sodium 137, potassium 3.4, chloride 100, CO2 is 24, anion gap 16.4. BUN 12, creatinine 0.93, glucose 92, calcium 9.78. AST 19, ALT 28, alkaline phosphatase 92, creatine kinase of 171. Troponin 0.009. CK-MB 3.80, total protein 3.3, albumin 3.7, globulin 2.6. Urinalysis, trace leucocytes. Blood culture and urine culture have been sent. Chest x-ray showed evidence of increased hazy opacity on the right lower chest, likely represent increased right pleural effusion with underlying atelectasis or inappropriate clinical setting of right lower lobe pneumonia. FINAL IMPRESSION: 1. Chronic obstructive pulmonary disease exacerbation. 2. Right lower lobe pneumonia. 3. Histoplasmosis. 4. Hypokalemia. 5. Leukocytosis. PLAN OF CARE: We are going to continue with albuterol and Atrovent q.4 hours as needed for shortness of breath. Continue Oxygen. Continue ceftriaxone 1 g IV once a day, Singulair 20 mg at bedtime, methylprednisolone 60 mg IV twice a day, ibuprofen 400 mg q.4 hours as needed for pain and fever, normal saline 100 mL an hour, Ambien 10 mg at night p.r.n. for sleep, Zithromax 500 mg IV once a day, Protonix 40 mg daily, lorazepam 0.5 mg 3 times a day as needed, Cymbalta 20 mg daily, multivitamin [address] Clifton Smith has been consulted from the pulmonary point of view. I want to replace the potassium, recheck the potassium level tomorrow CBC. MD PAPI Lopez/JILLIAN /[id number]
[2018-10-24] MEDS: SODIUM CHLORIDE 0.9% 1000ML 1,000 ML IV SCH ×2 (02:45→15:00)
--- NOTE | 2018-10-24 02:47 | Consultation ---
DATE OF CONSULTATION: 10/23/2018 REASON FOR CONSULTATION: Concern about histoplasmosis. HISTORY OF PRESENT ILLNESS: This is a patient who is a 52-year-old white female. She is telling me she has been having problem with her lungs for more than 10 years. Apparently, she inhaled, she said it was the mustard and that was when she poured Clorex while she washing dishes and she got burn to her lungs according to her. Since then, she had seen several pulmonologists. She was diagnosed with asthma. She was diagnosed with COPD, pulmonary fibrosis. The patient has had multiple admissions. She told me she had several aspirations of pleural fluid and she had a biopsy. She was diagnosed at one time that she had histoplasmosis and she was treated for several months with itraconazole back in 2001 she said. She had been coming back with this concern if she still has histoplasmosis. The patient tells me she has come in with shortness of breath and cough, but she felt feverish. The patient apparently had several admissions. She was here in September. At that time, she had pleural aspiration, which showed there is no growth. She also had fluid cytology on 09/23, which was negative for malignant cells. The patient was currently lying on bed comfortably. She was started on ceftriaxone, Ibuprofen, azithromycin, methylprednisolone and if she have histoplasmosis. The patient is concerned about it, she said she wondered if she still has it. PAST MEDICAL HISTORY: As mentioned above. PAST SURGICAL HISTORY: Multiple procedures done on her lungs she is saying. REVIEW OF SYSTEMS: At the present time, there is no headache, visual change or hearing change, but she does have cough, shortness of breath, and wheezing. Review of systems otherwise unremarkable. The patient has had bronchoscopy before, had CT-guided biopsy before. She had hypersensitive reaction with histoplasmosis, history of asthma. SOCIAL HISTORY: She used to smoke, but quit recently. PHYSICAL EXAMINATION: GENERAL: She is currently alert and oriented, does not seem to be in acute distress. VITALS: Afebrile. HEENT: Shows . NECK: Supple. CHEST: A few crackles bilaterally. COR: S1 and S2 . ABDOMEN: Soft. Bowel sounds present. No tenderness. EXTREMITIES: No edema. LABORATORY DATA: Her CT scan showed hazy opacity on the right lower chest. IMPRESSION: Right lower lobe pneumonia. RECOMMENDATIONS: Bronchoscopy to sent for fungal smear and cultures, BAL, cytology. I would also recommend to send urine for histoplasmosis antigen, blood cultures for AFB and fungal. We will discuss with Pulmonary and we will follow with you. MD JUAN JOSE Bennett/MODL /[id number]
[2018-10-24] MEDS: ALBUTEROL SULF 0.083% NEB SOLN 3 ML NEB INH SCH ×5 (03:34→23:00)
[2018-10-24] MEDS: IPRATROPIUM BROMIDE 0.02% 2.5 ML NEB NEB SCH ×5 (03:34→23:00)
[2018-10-24 04:00] VITALS: BP 154/83
[2018-10-24 05:02] LABS: BASOPHILS % 0.1 % (0.0-1.0); HEMATOCRIT 38.9 % (34.2-44.1); HEMOGLOBIN 12.6 g/dL (12.0-16.0); LYMPHOCYTES # (AUTO) 0.4 (1.0-3.2); LYMPHOCYTES % 2.8 % (18.0-39.1); MEAN CORPUSCULAR HEMOGLOBIN 29.7 pg (28-32); MEAN CORPUSCULAR HGB CONC 32.4 g/dL (31-35); MEAN CORPUSCULAR VOLUME 91.7 fL (81-99); MONOCYTES # (AUTO) 0.2 (0.2-0.8); NEUTROPHILS # (AUTO) 15.1 (2.1-6.9); NEUTROPHILS % 95.1 % (38.7-80.0); PLATELET COUNT 241 x10e3/uL (140-360); RED BLOOD COUNT 4.24 x10e6/uL (3.6-5.1); RED CELL DISTRIBUTION WIDTH 13.9 % (11.7-14.4)
[2018-10-24 05:23] LABS: ALANINE AMINOTRANSFERASE 25 IU/L (0-55); ALBUMIN 3.3 g/dL (3.5-5.0); ALBUMIN/GLOBULIN RATIO 1.3 (0.8-2.0); ALKALINE PHOSPHATASE 86 IU/L (40-150); ANION GAP 14.8 mmol/L (8-16); BLOOD UREA NITROGEN 11 mg/dL (7-26); BUN/CREATININE RATIO 13 (6-25); CALCIUM 9.3 mg/dL (8.4-10.2); CARBON DIOXIDE 23 mmol/L (22-29); CHLORIDE 102 mmol/L (98-107); CREATININE, SERUM 0.86 mg/dL (0.57-1.11); EST GLOMERULAR FILTRATION RATE > 60 ML/MIN (60-); GLUCOSE 186 mg/dL (74-118); POTASSIUM 3.8 mmol/L (3.5-5.1); SODIUM 136 mmol/L (136-145)
[2018-10-24 08:00] VITALS: BP 142/85
[2018-10-24] MEDS: MULTIVITAMINS/MINERALS TAB PO SCH (08:02)
[2018-10-24] MEDS: PANTOPRAZOLE SODIUM 40 MG SUSPDR.PKT PO SCH (08:02)
[2018-10-24] MEDS: METHYLPREDNISOLONE SOD SUCC 125 MG/2ML VIAL IV SCH ×2 (08:02→20:18)
[2018-10-24 08:05] VITALS: BP 142/85
[2018-10-24] MEDS ORDERED: NON-FORMULARY MEDICATION (Mu-Vits-Min Th/Lycopene/Lutein (Centrum Silver Tablet) 1 TAB) PO SCH (09:00)
[2018-10-24] MEDS ORDERED: PREDNISONE 10 MG TAB PO SCH (09:00)
[2018-10-24] MEDS: BREO ELLIPTA INH SCH (09:00)
--- NOTE | 2018-10-24 09:09 | Progress Note ---
DATE: October 24, 2018 PULMONARY PROGRESS NOTE SUBJECTIVE: The patient's ultrasound did show some right pleural effusion. She has less wheezing but still has dyspnea. She still has some cough. She has no chest pain. She has no fevers. OBJECTIVE VITAL SIGNS: Blood pressure is 154/83, and the saturation is 96% on 2 liters. The pulse is 96. The respiratory rate is 18. HEENT: No facial swelling or erythema. The nasal mucosa is normal. The oropharynx is normal. LYMPHATIC: No submandibular, cervical or supraclavicular adenopathy. NECK: No JVD or thyromegaly. There is no nuchal rigidity. CARDIAC: Regular rate and rhythm with normal S1 and S2. LUNGS: Auscultation reveals decreased breath sounds on the right side. ABDOMEN: Soft and nontender. There is no rebound or guarding. EXTREMITIES: No leg edema or calf tenderness. IMPRESSIONS 1. Chronic persistent asthma with acute exacerbation. 2. Prior treated pulmonary histoplasmosis with chronic scarring and right upper lobe atelectasis. 3. Recurrent right pleural effusion. PLAN 1. Patient will have an ultrasound-guided thoracentesis today. 2. Consult CT surgery for a possible thoracoscopy and pleurodesis as well as for consideration of a repeat mediastinoscopy. 3. Continue Solu-Medrol. 4. Continue bronchodilators. 5. Continue oxygen. Job#: [id number] NARESH LOUIS
[2018-10-24 09:36] LABS: INR 0.95; PROTHROMBIN TIME 13.5 seconds (11.9-14.5)
[2018-10-24 12:01] VITALS: BP 142/76
--- NOTE | 2018-10-24 12:54 | Diagnostic Imaging Report ---
Date and Time: 10/24/2018 Procedure: Ultrasound-guided right thoracentesis four roll calender operator: Dr. Jimenez Pre-operative diagnosis: Right pleural effusion Post-operative diagnosis: Right pleural effusion Conscious Sedation: None The patient's heart rate and pulse oximetry were continuously monitored by the interventional radiology nurse. Blood pressure was monitored at 5 minute intervals. Additional Medications: Lidocaine 1% for local anesthesia Estimated blood loss: Less than 5 cc Blood products administered: None Specimens: 900 cc straw-colored fluid Implants: None Condition at completion: Stable Disposition: Returned to floor DISCUSSION: Informed consent was obtained and documented in the medical record after discussion of risks and benefits. The right posterior chest was prepped and draped in the standard sterile fashion. A suitable intercostal percutaneous approach to the right pleural space was identified and 1% lidocaine was infiltrated into the skin and subcutaneous tissues for local anesthesia. Then under continuous sonographic guidance a 5 Frisian Just Eateh needle catheter was advanced into the pleural space. A permanent sonographic image was stored. The catheter was advanced off the needle and connected to vacuum bottle with subsequent evacuation of 900 cc straw-colored fluid. At the conclusion of sampling the catheter was removed and a sterile, occlusive dressing was applied. The patient tolerated the procedure well without immediate complication. FINDINGS: Moderate right pleural effusion IMPRESSION: Successful ultrasound-guided right thoracentesis with evacuation of 900 cc straw-colored fluid. Specimen was submitted for laboratory analysis as requested by the referring clinical service. Signed by: Dr. Anson Jimenez M.D. on 10/24/2018 12:50 PM
--- NOTE | 2018-10-24 13:00 | NUR ---
Attempted to see pt, but she is out of room for a procedure. Will attempt to see pt at a later time.
[2018-10-24] MEDS: AZITHROMYCIN 500MG/SOD CHL 0.9% 250ML BAG IV SCH (13:22)
[2018-10-24 13:26] LABS: BODY FLUID COLOR YELLOW; BODY FLUID TYPE PLEURAL
[2018-10-24 13:27] LABS: BODY FLUID APPEARANCE SL.CLOUDY; RBC,BODY FLUID 545 cells/uL; WBC,BODY FLUID 2129 cells/uL
--- NOTE | 2018-10-24 13:51 | Diagnostic Imaging Report ---
Examination: Single AP view of the chest. COMPARISON: 10/23/2018 INDICATION: Post thoracentesis DISCUSSION: Interval right thoracentesis with near complete evacuation of right pleural effusion. Minimal fluid within the minor fissure. No consolidation. No pneumothorax. Left lung remains clear. IMPRESSION: Interval right thoracentesis without pneumothorax. Signed by: Dr. Anson Jimenez M.D. on 10/24/2018 1:47 PM
[2018-10-24 15:18] LABS: LYMPHOCYTES,BODY FLUID 43 %; MONO/MACROPHG,BODY FLUID 47 %; NEUTROPHILS,BODY FLUID 1 %
[2018-10-24 15:19] LABS: OTHER CELLS,BODY FLUID 9 %
[2018-10-24] MEDS: CEFTRIAXONE SOD 1 GM/NS 50 ML 50 ML IV SCH (16:00)
--- NOTE | 2018-10-24 16:33 | Progress Note ---
DATE: 10/24/2018 Internal Medicine Progress Note SUBJECTIVE: The patient underwent thoracentesis due to right pleural effusion. She is doing much better right now. PHYSICAL EXAMINATION: VITAL SIGNS: Blood pressure 142/76, temperature 96.4, heart rate 99 per minute, respiratory rate is 20 per minute, oxygen saturation 94%. HEART: Showed regular rhythm. No murmur or added sound. LUNGS: Clear bilaterally. ABDOMEN: Soft. FINAL IMPRESSION: 1. Right pleural effusion. 2. Chronic obstructive pulmonary disease exacerbation. 3. History of histoplasmosis. 4. Right lower lobe pneumonia. 5. Hypokalemia. PLAN OF TREATMENT: We are going to have a follow up x-ray to make sure all the flu is gone. We are going to also continue with following medication, Rocephin 2 g IV once a day, normal saline 100 mL an hour, q.4 hours, Zithromax 500 mg IV once a day, Cymbalta 20 mg daily, ibuprofen 400 q.4 hours as needed for pain and fever. Continue Atrovent q.4 hours around the clock, lorazepam 0.5 mg 3 times as needed for anxiety, methylprednisolone 60 mg IV twice a day, Singulair 20 mg daily, multivitamin one tablet daily, Protonix 40 daily, Ambien 10 mg at night p.r.n. for sleep, Ellipta one inhalation daily. The patient is going to have follow up chest x-ray to rule out any reasons of recurrent pleural effusion. MD PAPI Lopez/JILLIAN /[id number]
[2018-10-24] MEDS: IBUPROFEN 400 MG TAB PO PRN (19:14)
--- NOTE | 2018-10-24 19:15 | NUR ---
Report given to oncoming nurse. c/o headache. PRN ibuprofen given
--- NOTE | 2018-10-24 19:48 | NUR ---
patient in bed, awake alert oriented, assessment done, no distress noted, will continue monitoring.
[2018-10-24 20:00] VITALS: BP 141/73
[2018-10-24] MEDS: MONTELUKAST SODIUM 10 MG TAB PO SCH (20:18)
[2018-10-24] MEDS: DULOXETINE HCL 20 MG DELAYED RELEASE PO SCH (20:18)
[2018-10-25] VITALS (9 sets, daily range): BP systolic 128–154; BP diastolic 61–86
[2018-10-25] MEDS: ALBUTEROL SULF 0.083% NEB SOLN 3 ML NEB INH SCH ×6 (00:57→23:45)
[2018-10-25] MEDS: IPRATROPIUM BROMIDE 0.02% 2.5 ML NEB NEB SCH ×6 (00:57→23:45)
[2018-10-25] MEDS: SODIUM CHLORIDE 0.9% 1000ML 1,000 ML IV SCH ×3 (03:35→16:45)
[2018-10-25 05:13] LABS: BASOPHILS % 0.1 % (0.0-1.0); HEMATOCRIT 37.1 % (34.2-44.1); HEMOGLOBIN 11.9 g/dL (12.0-16.0); LYMPHOCYTES # (AUTO) 0.4 (1.0-3.2); LYMPHOCYTES % 1.5 % (18.0-39.1); MEAN CORPUSCULAR HEMOGLOBIN 30.2 pg (28-32); MEAN CORPUSCULAR HGB CONC 32.1 g/dL (31-35); MEAN CORPUSCULAR VOLUME 94.2 fL (81-99); MONOCYTES # (AUTO) 0.5 (0.2-0.8); MONOCYTES % 2.2 % (4.4-11.3); NEUTROPHILS # (AUTO) 22.2 (2.1-6.9); NEUTROPHILS % 95.5 % (38.7-80.0); PLATELET COUNT 248 x10e3/uL (140-360); RED BLOOD COUNT 3.94 x10e6/uL (3.6-5.1); RED CELL DISTRIBUTION WIDTH 14.2 % (11.7-14.4)
--- NOTE | 2018-10-25 07:20 | NUR ---
HANDOFF REPORT AND WALKING ROUNDS WITH OUTGOING SHOP HELPER NURSE. NAD OBSERVED OR REPORTED.
[2018-10-25 08:03] LABS: LYMPHOCYTES % (MANUAL) 3 % (19-48); MONOCYTES % (MANUAL) 2 % (3.4-9.0); NEUTROPHILS % (MANUAL) 95 % (40-74); PLATELET ESTIMATE ADEQUATE; PLATELET MORPHOLOGY COMMENT NORMAL; RBC MORPHOLOGY COMMENT NORMAL
[2018-10-25] MEDS: BREO ELLIPTA INH SCH (09:00)
[2018-10-25] MEDS ORDERED: METHYLPREDNISOLONE SOD SUCC 40 MG/ML VIAL 1ML IV SCH (09:00)
[2018-10-25] MEDS: PANTOPRAZOLE SODIUM 40 MG SUSPDR.PKT PO SCH (09:30)
[2018-10-25] MEDS: MULTIVITAMINS/MINERALS TAB PO SCH (09:30)
[2018-10-25] MEDS: IBUPROFEN 400 MG TAB PO PRN (11:38)
[2018-10-25] MEDS: AZITHROMYCIN 500MG/SOD CHL 0.9% 250ML BAG IV SCH (11:38)
--- NOTE | 2018-10-25 12:55 | NUR ---
CASE MANAGEMENT ASSESSMENT Underwriting Technician to bedside to discuss plan of care with patient/family. CM/SW role and care transitions discussed. Anticipated discharge plan discussed along with duration of care. CM/SW discussed patients right to make decisions in care. CM/SW work hours given. Patient lives: with her and grandson Admit/Transfer: thru ED Hospital/ER visits since last admit: was recently discharged from this facility on Oct 13, 2018 in obs. POA/Emergency contact: Roberto Mercedesarger [phone] Current/Previous Home Health: none PCP/Follow-up Care: Dr. Linh Lewis - PCP; Dr. Clifton Smith - pulmonology; advised pt to follow up with her MD within 7 days of discharge from hospital Current/Previous DME: O2 at 2L, from [employer]; nebulizer Medications (referring to index hospitalization or the first time you were in the hospital) a. Were changes made in your medications when you were in the hospital on October 13, 2018? pt states no changes b. Did you understand the changes? n/a c. Were you able to obtain your new medications right away? n/a d. Were you able to take your medications like the doctor wanted you to? n/a e. Did the hospital give you an accurate, easy to understand list of medications when you left? 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 Tijerina Education Needs: PNA, medical management IMM/MAYERS given and signed (if applicable): n/a Goal for discharge: Home CM/SW left business card at the bedside with contact information. Name and number was also written on the patients whiteboard. Patient verbalized understanding of discussion. CM will follow-up with ongoing discharge and transition of care needs.
--- NOTE | 2018-10-25 15:53 | Progress Note ---
DATE: 10/25/2018 Internal Medicine Progress Note SUBJECTIVE: The patient is doing well, status post right thoracentesis. consulted for a possible pleurodesis. PHYSICAL EXAMINATION: VITAL SIGNS: Blood pressure 154/74, heart rate is 85 per minute, temperature 97.4, respiratory rate 19 per minute, oxygen saturation 97%. HEART: Showed regular rhythm. No murmur or added sound. LUNGS: Clear bilaterally. ABDOMEN: Soft. LABORATORY DATA: BMP; sodium 136, potassium 3.8, chloride 102, CO2 of 23, BUN 11, creatinine 0.86, and glucose 186. CBC; white blood count 23,200, hemoglobin 11.9, hematocrit 37.1, and platelet count 248,000. PT 13.5, INR 0.95. AST 14, ALT 25, total bilirubin 0.6, and alkaline phosphatase of 86. FINAL IMPRESSION: 1. Right lower lobe pneumonia. 2. Right pleural effusion status post thoracentesis. 3. Leukocytosis . 4. Hypertension. 5. History of histoplasmosis. PLAN OF TREATMENT: Continue with albuterol q.4 hour, Atrovent q.4 hours, ceftriaxone 2 g IV once a day, Singulair 20 mg daily, Ambien 10 mg at night p.r.n. for sleep, ibuprofen 400 mg q.4 hours as needed, lorazepam 0.5 three times a day as needed for anxiety, Zithromax 500 mg IV once a day, Protonix 40 mg daily, Solu-Medrol 30 mg IV twice a day, Cymbalta 20 mg daily, multivitamin daily. will cover this weekend. MD PAPI Lopez/JILLIAN /[id number]
--- NOTE | 2018-10-25 15:58 | Progress Note ---
DATE: 10/25/2018 Internal Medicine Progress Note ADDENDUM: We are going to have CBC tomorrow due to elevated white blood count, which most likely is secondary to Solu-Medrol. We are going to discontinue the Solu-Medrol and put her on prednisone 20 mg daily. She has no fever. MD PAPI Lopez/JILLIAN /[id number]
[2018-10-25] MEDS: CEFTRIAXONE SOD 1 GM/NS 50 ML 50 ML IV SCH (16:56)
[2018-10-25] MEDS: DULOXETINE HCL 20 MG DELAYED RELEASE PO SCH (20:30)
[2018-10-25] MEDS: MONTELUKAST SODIUM 10 MG TAB PO SCH (20:31)
[2018-10-26] VITALS (7 sets, daily range): BP systolic 128–150; BP diastolic 66–83
[2018-10-26] MEDS: SODIUM CHLORIDE 0.9% 1000ML 1,000 ML IV SCH (02:45)
[2018-10-26] MEDS: IPRATROPIUM BROMIDE 0.02% 2.5 ML NEB NEB SCH ×6 (03:00→23:00)
[2018-10-26] MEDS: ALBUTEROL SULF 0.083% NEB SOLN 3 ML NEB INH SCH ×6 (03:30→23:00)
[2018-10-26 05:32] LABS: BASOPHILS % 0.1 % (0.0-1.0); EOSINOPHILS % 0.1 % (0.0-6.0); HEMATOCRIT 36.2 % (34.2-44.1); HEMOGLOBIN 11.3 g/dL (12.0-16.0); LYMPHOCYTES # (AUTO) 0.7 (1.0-3.2); LYMPHOCYTES % 4.7 % (18.0-39.1); MEAN CORPUSCULAR HEMOGLOBIN 29.7 pg (28-32); MEAN CORPUSCULAR HGB CONC 31.2 g/dL (31-35); MEAN CORPUSCULAR VOLUME 95.3 fL (81-99); MONOCYTES % 6.3 % (4.4-11.3); NEUTROPHILS # (AUTO) 13.5 (2.1-6.9); NEUTROPHILS % 88.1 % (38.7-80.0); PLATELET COUNT 216 x10e3/uL (140-360); RED CELL DISTRIBUTION WIDTH 14.2 % (11.7-14.4)
[2018-10-26] MEDS: BREO ELLIPTA INH SCH (09:00)
[2018-10-26] MEDS: MULTIVITAMINS/MINERALS TAB PO SCH (09:15)
[2018-10-26] MEDS: PREDNISONE 20 MG TAB PO SCH (09:15)
[2018-10-26] MEDS: PANTOPRAZOLE SODIUM 40 MG SUSPDR.PKT PO SCH (09:15)
[2018-10-26] MEDS: AZITHROMYCIN 500MG/SOD CHL 0.9% 250ML BAG IV SCH (12:53)
[2018-10-26] MEDS ORDERED: VANCOMYCIN HCL 1 GM in SODIUM CHLORIDE 0.9% 250ML 250 ML IV SCH (13:30)
--- NOTE | 2018-10-26 13:33 | NUR ---
ROUNDS WITH DR. HAYWARD.
[2018-10-26] MEDS ORDERED: ACETAMINOPHEN 325 MG TAB PO PRN (13:45)
[2018-10-26] MEDS: VANCOMYCIN 1GM/NS 250 ML 250 ML IV SCH (15:30)
[2018-10-26] MEDS: CEFTRIAXONE SOD 1 GM/NS 50 ML 50 ML IV SCH (17:30)
[2018-10-26] MEDS: MONTELUKAST SODIUM 10 MG TAB PO SCH (20:05)
[2018-10-26] MEDS: DULOXETINE HCL 20 MG DELAYED RELEASE PO SCH (20:05)
[2018-10-27] VITALS (7 sets, daily range): BP systolic 125–161; BP diastolic 74–98
[2018-10-27] MEDS: IPRATROPIUM BROMIDE 0.02% 2.5 ML NEB NEB SCH ×6 (03:00→23:00)
[2018-10-27] MEDS: ALBUTEROL SULF 0.083% NEB SOLN 3 ML NEB INH SCH ×6 (03:00→23:00)
[2018-10-27] MEDS: VANCOMYCIN 1GM/NS 250 ML 250 ML IV SCH ×2 (03:30→14:50)
[2018-10-27 05:12] LABS: BASOPHILS % 0.2 % (0.0-1.0); HEMATOCRIT 40.3 % (34.2-44.1); LYMPHOCYTES # (AUTO) 0.6 (1.0-3.2); LYMPHOCYTES % 6.4 % (18.0-39.1); MEAN CORPUSCULAR HGB CONC 32.3 g/dL (31-35); MEAN CORPUSCULAR VOLUME 92.9 fL (81-99); MONOCYTES % 10.1 % (4.4-11.3); NEUTROPHILS # (AUTO) 8.2 (2.1-6.9); NEUTROPHILS % 82.5 % (38.7-80.0); PLATELET COUNT 224 x10e3/uL (140-360); RED BLOOD COUNT 4.34 x10e6/uL (3.6-5.1); RED CELL DISTRIBUTION WIDTH 13.9 % (11.7-14.4)
[2018-10-27 05:32] LABS: ALANINE AMINOTRANSFERASE 23 IU/L (0-55); ALBUMIN 3.2 g/dL (3.5-5.0); ALBUMIN/GLOBULIN RATIO 1.2 (0.8-2.0); ALKALINE PHOSPHATASE 75 IU/L (40-150); ANION GAP 10.9 mmol/L (8-16); BLOOD UREA NITROGEN 11 mg/dL (7-26); BUN/CREATININE RATIO 13 (6-25); CARBON DIOXIDE 35 mmol/L (22-29); CHLORIDE 101 mmol/L (98-107); CREATININE, SERUM 0.85 mg/dL (0.57-1.11); EST GLOMERULAR FILTRATION RATE > 60 ML/MIN (60-); GLUCOSE 89 mg/dL (74-118); POTASSIUM 3.9 mmol/L (3.5-5.1); SODIUM 143 mmol/L (136-145)
[2018-10-27] MEDS: BREO ELLIPTA INH SCH (09:00)
[2018-10-27] MEDS: PREDNISONE 20 MG TAB PO SCH (09:15)
[2018-10-27] MEDS: MULTIVITAMINS/MINERALS TAB PO SCH (09:15)
[2018-10-27] MEDS: PANTOPRAZOLE SODIUM 40 MG SUSPDR.PKT PO SCH (09:15)
[2018-10-27] MEDS: CEFTRIAXONE SOD 1 GM/NS 50 ML 50 ML IV SCH (17:00)
--- NOTE | 2018-10-27 17:33 | Progress Note ---
DATE: 10/27/2018 SUBJECTIVE: The patient saw Dr. Tijerina yesterday. He is planning for a video-assisted thoracoscopy with biopsy and pleurodesis tomorrow. She has less wheezing and less cough. She is not complaining as much dyspnea. PHYSICAL EXAMINATION: VITAL SIGNS: The patient is afebrile. The vital signs are stable. HEENT: Shows no facial swelling or erythema. The nasal mucosa is normal. CARDIAC: Reveals regular rate and rhythm with normal S1 and S2. LUNGS: Auscultation of lungs reveal wheezes bilaterally. ABDOMEN: Soft, nontender. There is no rebound or guarding. EXTREMITIES: Shows no leg edema or calf tenderness. IMPRESSION: 1. Chronic persistent asthma with acute exacerbation. 2. Recurrent right pleural effusion secondary to chronic histoplasmosis. 3. Chronic right upper lobe atelectasis. PLAN: 1. The patient is scheduled for VATS and pleurodesis tomorrow. 2. Continue current antibiotics. 3. Taper steroids. 4. Continue bronchodilators. Clifton Smith MD [facility] /[id number]
--- NOTE | 2018-10-27 19:46 | NUR ---
DR SANDRA ANSWERING SERVICE CALLED AT THIS TIME,DR SANDRA PAGED.
[2018-10-27] MEDS: MONTELUKAST SODIUM 10 MG TAB PO SCH (20:30)
[2018-10-27] MEDS: DULOXETINE HCL 20 MG DELAYED RELEASE PO SCH (20:30)
--- NOTE | 2018-10-27 20:48 | NUR ---
DR SANDRA CALLED BACK,N/O'S RECEIVED AND ENTERED.
[2018-10-28] VITALS (15 sets, daily range): BP systolic 73–158; BP diastolic 45–100
[2018-10-28] MEDS: IPRATROPIUM BROMIDE 0.02% 2.5 ML NEB NEB SCH ×6 (03:00→23:00)
[2018-10-28] MEDS: ALBUTEROL SULF 0.083% NEB SOLN 3 ML NEB INH SCH ×6 (03:00→23:00)
[2018-10-28] MEDS: VANCOMYCIN 1GM/NS 250 ML 250 ML IV SCH ×2 (03:15→15:13)
[2018-10-28 05:12] LABS: BASOPHILS % 0.1 % (0.0-1.0); HEMATOCRIT 41.4 % (34.2-44.1); HEMOGLOBIN 13.5 g/dL (12.0-16.0); LYMPHOCYTES # (AUTO) 0.6 (1.0-3.2); LYMPHOCYTES % 6.3 % (18.0-39.1); MEAN CORPUSCULAR HEMOGLOBIN 30.3 pg (28-32); MEAN CORPUSCULAR HGB CONC 32.6 g/dL (31-35); MONOCYTES # (AUTO) 0.7 (0.2-0.8); MONOCYTES % 7.2 % (4.4-11.3); NEUTROPHILS # (AUTO) 8.4 (2.1-6.9); NEUTROPHILS % 85.7 % (38.7-80.0); PLATELET COUNT 226 x10e3/uL (140-360); RED BLOOD COUNT 4.45 x10e6/uL (3.6-5.1); RED CELL DISTRIBUTION WIDTH 13.8 % (11.7-14.4)
[2018-10-28 05:27] LABS: INR 0.97; PROTHROMBIN TIME 13.8 seconds (11.9-14.5)
[2018-10-28 05:28] LABS: PARTIAL THROMBOPLASTIN TIME 25.3 seconds (23.8-35.5)
[2018-10-28 05:35] LABS: ALANINE AMINOTRANSFERASE 22 IU/L (0-55); ALBUMIN 3.2 g/dL (3.5-5.0); ALBUMIN/GLOBULIN RATIO 1.3 (0.8-2.0); ALKALINE PHOSPHATASE 74 IU/L (40-150); ANION GAP 10.8 mmol/L (8-16); BLOOD UREA NITROGEN 13 mg/dL (7-26); BUN/CREATININE RATIO 15 (6-25); CALCIUM 9.1 mg/dL (8.4-10.2); CARBON DIOXIDE 33 mmol/L (22-29); CHLORIDE 101 mmol/L (98-107); CREATININE, SERUM 0.85 mg/dL (0.57-1.11); EST GLOMERULAR FILTRATION RATE > 60 ML/MIN (60-); GLUCOSE 99 mg/dL (74-118); POTASSIUM 3.8 mmol/L (3.5-5.1); SODIUM 141 mmol/L (136-145)
[2018-10-28] MEDS ORDERED: HEPARIN SOD/SOD CHLORIDE 1,000 ML ONE (06:36)
--- NOTE | 2018-10-28 06:56 | NUR ---
PT TAKEN TO OR AT THIS TIME IN STABLE CONDITION.REPORT GIVEN TO ONCOMING NURSE.
[2018-10-28] MEDS ORDERED: DOXYCYCLINE HYCLATE 100 MG VIAL IV ONE (07:24)
[2018-10-28] MEDS ORDERED: SODIUM CHLORIDE 0.9% 500ML 500 ML ONE (07:41)
[2018-10-28] MEDS: BREO ELLIPTA INH SCH (09:00)
[2018-10-28] MEDS: PANTOPRAZOLE SODIUM 40 MG SUSPDR.PKT PO SCH (09:00)
[2018-10-28] MEDS: MULTIVITAMINS/MINERALS TAB PO SCH (09:00)
--- NOTE | 2018-10-28 09:58 | NUR ---
see supervisor and brooklyn Bills transferred all of patient's belongings to room 196. I notified when he came to the floor and walked him to the room in ICU. All patient's belongings were present according to . We also checked room 204 to make sure all belongings were collected.
[2018-10-28] MEDS ORDERED: SODIUM CHLORIDE ONE (10:24)
[2018-10-28] MEDS ORDERED: HETASTARCH ONE (10:24)
[2018-10-28] MEDS ORDERED: BUPIVACAINE 0.25% 30ML SDV INJ ONE (10:58)
[2018-10-28] MEDS ORDERED: MUPIROCIN 2% OINT 22 GM TUBE ONE (11:28)
--- NOTE | 2018-10-28 12:39 | Diagnostic Imaging Report ---
Examination: Single AP view of the chest. COMPARISON: October 24, 2018 INDICATION: Central line placement DISCUSSION: Lines/tubes: Right jugular central venous line placement with tip overlying the low SVC. Right-sided chest tube. Lungs: Pulmonary edema. Pleura: No pleural effusion or pneumothorax. Heart and mediastinum: The heart and the mediastinum are unremarkable. Bones and soft tissues: Right fifth rib osteotomy. Soft tissue gas lateral chest wall. IMPRESSION: Right IJ central venous catheter with tip overlying the low SVC. Pulmonary interstitial edema. Signed by: Dr. Fransisco Mcmullen M.D. on 10/28/2018 12:36 PM
[2018-10-28 14:00] LABS: BASOPHILS % 0.1 % (0.0-1.0); HEMATOCRIT 32.6 % (34.2-44.1); HEMOGLOBIN 10.7 g/dL (12.0-16.0); LYMPHOCYTES # (AUTO) 0.2 (1.0-3.2); MEAN CORPUSCULAR HEMOGLOBIN 30.6 pg (28-32); MEAN CORPUSCULAR HGB CONC 32.8 g/dL (31-35); MEAN CORPUSCULAR VOLUME 93.1 fL (81-99); MONOCYTES # (AUTO) 1.1 (0.2-0.8); MONOCYTES % 5.1 % (4.4-11.3); NEUTROPHILS # (AUTO) 19.9 (2.1-6.9); NEUTROPHILS % 93.1 % (38.7-80.0); PLATELET COUNT 184 x10e3/uL (140-360); RED CELL DISTRIBUTION WIDTH 13.9 % (11.7-14.4)
[2018-10-28] MEDS ORDERED: HYDROCORTISONE SOD SUCCINATE 100 MG VIAL IV SCH (14:00)
--- NOTE | 2018-10-28 15:03 | Progress Note ---
DATE: 10/28/2018 Internal Medicine Progress Note SUBJECTIVE: The patient is status post chest tube placement, kind of sleepy after the procedure. PHYSICAL EXAMINATION: VITAL SIGNS: Blood pressure 106/69, temperature 97.7, heart rate is 68 per minute, respiratory rate is 18 per minute, oxygen saturation is 100%. HEART: Showed regular rhythm. No murmur or added sounds. LUNGS: Clear bilaterally. Chest tube in place. EXTREMITIES: Show no evidence of cyanosis or hematoma. LABORATORY DATA: BMP; sodium 141, potassium 3.8, chloride 101, CO2 of 33, BUN 13, creatinine 0.85, glucose 99. CBC; white blood count 9.81, hemoglobin 13.5, hematocrit 41.4, platelet count of . PT 13.8, PTT 25.3, INR 0.87. AST 12, ALT 22, total bilirubin 0.9, alkaline phosphatase of 74. FINAL IMPRESSION: 1. Right pleural effusion status post chest tube placement. 2. Hypotension. 3. Right lower lobe pneumonia. 4. History of hypertension. 5. History of pulmonary histoplasmosis. PLAN OF TREATMENT: We will continue on IV fluids, albuterol and Atrovent q.4 hours, Rocephin 2 g IV once a day, ibuprofen 400 mg q.4 hours as needed, lorazepam 0.5 mg three times a day as needed, vancomycin 1 g IV twice a day, Protonix 40 mg daily, prednisone 20 mg daily, Cymbalta 20 mg daily, multivitamin one tablet daily, Tylenol 650 mg q.6 hours as needed, Singulair 20 mg daily, and Ambien 10 mg at night p.r.n. for sleep. with a nurse at the bedside. Labs have been reviewed. Medication list has been reviewed. Time spent around 50 minutes. MD PAPI Lopez/JILLIAN /[id number]
[2018-10-28] MEDS ORDERED: SODIUM CHLORIDE 0.9% 1000ML 1,000 ML IV ONE (15:15)
[2018-10-28] MEDS ORDERED: SODIUM CHLORIDE 0.9% 1000ML 1,000 ML ONE (15:15)
[2018-10-28] MEDS ORDERED: MORPHINE SULFATE INJ 10 MG/ML IV PRN ×2 (15:45→16:15)
[2018-10-28] MEDS ORDERED: ONDANSETRON HCL INJ 2MG/ML 2ML 2 MG/ML VIAL IV PRN (16:00)
[2018-10-28] MEDS ORDERED: LABETALOL HCL 5 MG/ML 20ML VIAL IV PRN (16:00)
[2018-10-28] MEDS ORDERED: LABETALOL HCL 20 MG/4 ML SYRINGE IV PRN (16:15)
[2018-10-28] MEDS: CEFTRIAXONE SOD 1 GM/NS 50 ML 50 ML IV SCH (16:36)
[2018-10-28] MEDS: MORPHINE SULFATE INJ 4 MG/ML INJ 1ML IV PRN ×3 (16:36→21:50)
[2018-10-28] MEDS ORDERED: ENOXAPARIN SOD INJ 40 MG/0.4 ML SYR SC SCH (17:00)
--- NOTE | 2018-10-28 17:23 | NUR ---
spoke with Dr. Tijerina. patient may have morphine 4 through 8mg based on patient pain needs. also clarified Lovenox 40mg SQ to start in the morning. updated dr. Tijerina with patient labs and status.
--- NOTE | 2018-10-28 17:40 | Progress Note ---
DATE: 10/28/2018 SUBJECTIVE: The patient went for a limited thoracotomy today. She had some biopsy of the mediastinal lymph nodes along with some removal of adhesions that were sent to Pathology. She also had a pleurodesis. Postoperatively, the patient was in the recovery room. Her blood pressure transiently dropped into the 60 to 70 range systolic. Her pulse was remaining at 60 to 70. OBJECTIVE: VITAL SIGNS: The blood pressure is 106/70 and the pulse was 69. The respiratory rate was 16. The saturation was 100%. The patient is on 5 L of oxygen. HEENT: Shows no facial swelling or erythema. The nasal mucosa is normal. The oropharynx is normal. LYMPHATIC: Shows no submandibular, cervical, or supraclavicular adenopathy. CARDIAC: Reveals regular rate and rhythm with a normal S1 and S2. There are no murmurs or rubs. LUNGS: Auscultation of lungs shows decreased breath sounds at the bases. There is no wheezing. ABDOMEN: Soft and nontender. There is no rebound or guarding. EXTREMITIES: Show no leg edema or calf tenderness. There is no cyanosis or clubbing. There is a chest tube in place with 20 to 30 mL of serosanguinous fluid. LABORATORY DATA: White blood cell count is 9.8, the hemoglobin is 13.5, and the platelet count is 226. The BUN to creatinine ratio is normal. The other electrolytes are within normal limits. IMPRESSION: 1. Hypotension following video-assisted thoracoscopy and limited thoracotomy. 2. Chronic persistent asthma with acute exacerbation. 3. Chronic histoplasmosis. 4. Recent pleurodesis. PLAN: 1. The patient stat CBC. 2. Continue IV fluids. 3. Continue antibiotics. 4. Continue bronchodilators. Case discussed with Dr. Tijerina, Dr. Monae, Nursing staff, and the patient. Greater than 35 minutes in direct critical care time. Clifton Smith MD [facility]/MOD[facility] /[id number]
[2018-10-28] MEDS ORDERED: MIDAZOLAM HCL 2 MG/2 ML VIAL ONE (18:40)
[2018-10-28] MEDS ORDERED: FENTANYL CITRATE/PF 100MCG/2 ML INJ ONE (18:40)
[2018-10-28 18:45] LABS: BASOPHILS % 0.1 % (0.0-1.0); HEMATOCRIT 33.2 % (34.2-44.1); HEMOGLOBIN 11.1 g/dL (12.0-16.0); LYMPHOCYTES # (AUTO) 0.2 (1.0-3.2); LYMPHOCYTES % 0.8 % (18.0-39.1); MEAN CORPUSCULAR HGB CONC 33.4 g/dL (31-35); MEAN CORPUSCULAR VOLUME 92.7 fL (81-99); MONOCYTES % 3.9 % (4.4-11.3); NEUTROPHILS # (AUTO) 25.3 (2.1-6.9); NEUTROPHILS % 94.5 % (38.7-80.0); PLATELET COUNT 196 x10e3/uL (140-360); RED BLOOD COUNT 3.58 x10e6/uL (3.6-5.1); RED CELL DISTRIBUTION WIDTH 13.7 % (11.7-14.4)
[2018-10-28 19:04] LABS: ANION GAP 7.9 mmol/L (8-16); BLOOD UREA NITROGEN 15 mg/dL (7-26); BUN/CREATININE RATIO 20 (6-25); CALCIUM 8.1 mg/dL (8.4-10.2); CARBON DIOXIDE 28 mmol/L (22-29); CHLORIDE 104 mmol/L (98-107); CREATININE, SERUM 0.74 mg/dL (0.57-1.11); EST GLOMERULAR FILTRATION RATE > 60 ML/MIN (60-); GLUCOSE 139 mg/dL (74-118); POTASSIUM 3.9 mmol/L (3.5-5.1); SODIUM 136 mmol/L (136-145)
[2018-10-28] MEDS ORDERED: LABETALOL HCL 5 MG/ML 20ML VIAL ONE (19:04)
[2018-10-28] MEDS ORDERED: ONDANSETRON HCL INJ 2MG/ML 2ML 2 MG/ML VIAL ONE (19:04)
[2018-10-28] MEDS ORDERED: KETOROLAC TROMETHAMINE 30 MG/ML VIAL ONE (19:04)
[2018-10-28] MEDS ORDERED: SEVOFLURANE INHAL SOLN 250 ML PEN BTL ONE (19:04)
[2018-10-28] MEDS ORDERED: ROCURONIUM BROMIDE 10 MG/ML 5ML VIAL ONE (19:04)
[2018-10-28] MEDS ORDERED: LIDOCAINE HCL 2% LOCAL INJ 5 ML SDV VIAL INJ ONE (19:04)
[2018-10-28] MEDS ORDERED: ACETAMINOPHEN 1000 MG/100 ML IV ONE (19:04)
[2018-10-28] MEDS ORDERED: DEXAMETHASONE SOD PHOS INJ 4 MG/ML VIAL ONE (19:04)
[2018-10-28] MEDS ORDERED: PROPOFOL IV EMULSION 10 MG/ML 20 ML VIAL ONE (19:04)
--- NOTE | 2018-10-28 19:30 | NUR ---
Received patient stable, on morphine prn for pain, no complaints raised
[2018-10-28 20:25] LABS: MONOCYTES % (MANUAL) 4 % (3.4-9.0); NEUTROPHILS % (MANUAL) 96 % (40-74); PLATELET ESTIMATE ADEQUATE; PLATELET MORPHOLOGY COMMENT NORMAL; RBC MORPHOLOGY COMMENT NORMAL
[2018-10-28] MEDS: DULOXETINE HCL 20 MG DELAYED RELEASE PO SCH (21:00)
[2018-10-28] MEDS: MONTELUKAST SODIUM 10 MG TAB PO SCH (21:00)
[2018-10-29] VITALS (24 sets, daily range): BP systolic 95–144; BP diastolic 75–125
[2018-10-29] MEDS: ZOLPIDEM TARTRATE 10 MG TAB PO PRN ×2 (00:45→21:23)
[2018-10-29] MEDS: ALBUTEROL SULF 0.083% NEB SOLN 3 ML NEB INH SCH (03:00)
[2018-10-29] MEDS: IPRATROPIUM BROMIDE 0.02% 2.5 ML NEB NEB SCH (03:00)
[2018-10-29] MEDS: VANCOMYCIN 1GM/NS 250 ML 250 ML IV SCH ×2 (03:00→16:25)
--- NOTE | 2018-10-29 05:00 | NUR ---
Patient cleaned, dirty linens changed
[2018-10-29 05:14] LABS: BASOPHILS % 0.1 % (0.0-1.0); HEMATOCRIT 32.7 % (34.2-44.1); HEMOGLOBIN 10.4 g/dL (12.0-16.0); LYMPHOCYTES # (AUTO) 0.5 (1.0-3.2); MEAN CORPUSCULAR HEMOGLOBIN 29.9 pg (28-32); MEAN CORPUSCULAR HGB CONC 31.8 g/dL (31-35); MONOCYTES # (AUTO) 1.7 (0.2-0.8); MONOCYTES % 6.5 % (4.4-11.3); NEUTROPHILS # (AUTO) 23.2 (2.1-6.9); NEUTROPHILS % 90.6 % (38.7-80.0); PLATELET COUNT 210 x10e3/uL (140-360); RED BLOOD COUNT 3.48 x10e6/uL (3.6-5.1); RED CELL DISTRIBUTION WIDTH 13.9 % (11.7-14.4)
[2018-10-29 05:41] LABS: ALANINE AMINOTRANSFERASE 23 IU/L (0-55); ALBUMIN 2.6 g/dL (3.5-5.0); ALBUMIN/GLOBULIN RATIO 1.1 (0.8-2.0); ALKALINE PHOSPHATASE 57 IU/L (40-150); ANION GAP 9.6 mmol/L (8-16); BLOOD UREA NITROGEN 16 mg/dL (7-26); BUN/CREATININE RATIO 21 (6-25); CALCIUM 8.3 mg/dL (8.4-10.2); CARBON DIOXIDE 27 mmol/L (22-29); CHLORIDE 104 mmol/L (98-107); CREATININE, SERUM 0.76 mg/dL (0.57-1.11); EST GLOMERULAR FILTRATION RATE > 60 ML/MIN (60-); GLUCOSE 112 mg/dL (74-118); POTASSIUM 3.6 mmol/L (3.5-5.1); SODIUM 137 mmol/L (136-145)
--- NOTE | 2018-10-29 05:58 | Diagnostic Imaging Report ---
EXAMINATION: CHEST SINGLE (PORTABLE) COMPARISON: Chest x-ray 10/28/2018 INDICATION: Respiratory failure ^Resp Failure ^[id number] ^0505 DISCUSSION: Frontal view of the chest obtained at 0502 hours. HEART AND MEDIASTINUM: Stable mild cardiomegaly LINES: Right IJ catheter remains in the SVC. Large bore chest tube terminating at the apex of the right lung is stable. LUNGS: Lower lung volumes. Increasing conspicuity of right upper lobe mass, infiltrate, or contusion. No new findings in the left lung PLEURA: Small amount of fluid in the minor fissure. No evidence of pneumothorax BONES AND SOFT TISSUES: Multiple right rib fractures are stable. There is diffuse subcutaneous emphysema predominantly in the lower right neck and lateral right chest, increasing. IMPRESSION: 1. Lower lung volumes. Increasing airspace opacity in the right upper lobe suggestive of atelectasis, infiltrate, or contusion. Small right pleural effusion. No evidence of pneumothorax on this image. 2. Stable support devices. 3. Increasing subcutaneous emphysema. Signed by: Dr. Yani George MD on 10/29/2018 5:54 AM
[2018-10-29 07:00] LABS: ANISOCYTOSIS SLIGHT; HYPOCHROMASIA SLIGHT; LYMPHOCYTES % (MANUAL) 3 % (19-48); MONOCYTES % (MANUAL) 6 % (3.4-9.0); NEUTROPHILS % (MANUAL) 91 % (40-74); NUCLEATED RED BLOOD CELLS 1; PLATELET ESTIMATE ADEQUATE; PLATELET MORPHOLOGY COMMENT NORMAL; RBC MORPHOLOGY COMMENT NORMAL
--- NOTE | 2018-10-29 07:30 | NUR ---
Patient handed over stable, no complaints raised
[2018-10-29] MEDS: BREO ELLIPTA INH SCH (09:00)
[2018-10-29] MEDS: PANTOPRAZOLE SOD 40 MG TABEC PO SCH (09:38)
[2018-10-29] MEDS: ENOXAPARIN SOD INJ 40 MG/0.4 ML SYR SC SCH (09:38)
[2018-10-29] MEDS: HYDROCORTISONE SOD SUCCINATE 100 MG VIAL IV SCH ×2 (09:38→21:23)
[2018-10-29] MEDS: MULTIVITAMINS/MINERALS TAB PO SCH (09:38)
[2018-10-29 09:48] LABS: ABG HCO3 28 mmol/L (23-28); ABG PCO2 47 mmHg (41-51); ABG PH 7.38 (7.31-7.41); ABG PO2 107 mmHg (80-105)
--- NOTE | 2018-10-29 10:44 | Progress Note ---
DATE: 10/29/2018 Pulmonary Critical Care Progress Note SUBJECTIVE: The patient for some transient hypotension after coming to the Intensive Care Unit last night. She required additional fluids. She continued to have direct blood pressure monitoring through an arterial line. The patient required morphine intermittently for pain. She had several 100 mL of serosanguineous drainage from the chest tube overnight. PHYSICAL EXAMINATION: VITAL SIGNS: The blood pressure is now 142/80 and the saturation is 97% on nasal cannula. Her pulse is in the 100 to 110 range. Her respiratory rate is 18 to 22. HEENT: Shows no facial swelling or erythema. The oropharynx is normal. LYMPHATIC: Shows no submandibular, cervical, or supraclavicular adenopathy. LUNGS: Auscultation of lungs reveals decreased breath sounds on the right side. There is a chest tube on the right side set to negative 20 mL of water pressure. There are several 100 mL of serosanguineous fluid in the Pleur-evac. There is no visible air leak. CARDIAC: Reveals regular rate and rhythm with a normal S1 and S2. ABDOMEN: Auscultation of the abdomen is normal. Abdomen is soft, nontender. There is no rebound or guarding. The patient has a Flores catheter in place. LABORATORY DATA: The BUN to creatinine ratio is 16 to 0.76. The other electrolytes are within normal limits. The total bilirubin is 1.6. The white blood cell count is 25.5 and the hemoglobin is 10.4. The platelet count is 210. The chest x-ray shows continued atelectasis in the right upper lobe. There is small right pleural effusion. There is no pneumothorax. There is a chest tube on the right side as well as a right IJ line. IMPRESSION: 1. Status post video-assisted thoracoscopy, limited thoracotomy and pleurodesis. 2. 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 3. Chronic right upper lobe atelectasis. 4. Chronic persistent asthma with acute exacerbation. 5. Leukocytosis. PLAN: 1. Continue Intensive Care Unit monitoring with an arterial line and CVP pressure monitoring with the right IJ. 2. Decrease IV fluids to 75 mL an hour and monitor electrolytes. 3. Continue antibiotics and monitor white blood cell count. 4. Leave Pleur-evac to negative 20 mL for now. 5. DVT prophylaxis. 6. Mobilize the patient as tolerated and remove Flores as soon as possible. 7. Physical therapy. 8. Decrease morphine as tolerated. 9. Case discussed with the patient, nursing staff, and Dr. Tijerina. Greater than 35 minutes in direct critical care time. MD MYLENE Cash/JILLIAN /[id number]
[2018-10-29] MEDS: MORPHINE SULFATE INJ 4 MG/ML INJ 1ML IV PRN ×2 (11:03→15:06)
[2018-10-29] MEDS: CEFTRIAXONE SOD 1 GM/NS 50 ML 50 ML IV SCH (16:25)
--- NOTE | 2018-10-29 16:33 | NUR ---
Nutrition Screen Note RD Recommendation for Physician: -Rec advancing to cardiac diet as medically appropriate Plan of Care: RD following, monitoring for tolerance and adequacy Nutrition reason for involvement: LOS Primary Diagnose(s): 1. Status post video-assisted thoracoscopy, limited thoracotomy and pleurodesis. 2. 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 3. Chronic right upper lobe atelectasis. 4. Chronic persistent asthma with acute exacerbation. 5. Leukocytosis. PMH: COPD, histoplasmosis of the lung Ht: 64in Wt: 187lb BMI: 32.1kg/m2 IBW: 120lb RD Assessment: (10/29) Chart reviewed. Labs and meds reviewed. 52yo F, who was admitted for SOB and cough. Visited pt in room who denied significant wt loss, denied decrease in appetite [employer]. Pt denied chewing/swallowing problems and nausea/vomiting. Clear liquid diet was tolerated well. Anticipated pt able to meet nutritional need through po intake when diet is advanced. Will cont to monitor. Please consult as needed. Current Diet: Clear liquid diet Malnutrition Evaluation (10/29/2018) The patient does not meet criteria for a specified degree of malnutrition at this time. Will re-evaluate at follow-up as appropriate. Diet Education Needs Assessment: Diet education not indicated. Nutrition Care Level: low Signed: Niurka Garcia, MS, RD, LD
--- NOTE | 2018-10-29 19:00 | NUR ---
Report received. Assumed care. Assessment done. See interventions. IV saline locked. CT to right lateral chest to 20cm suction. No air leak detected.
--- NOTE | 2018-10-29 19:15 | NUR ---
Medicated for c/o pain 01/10.
--- NOTE | 2018-10-29 20:54 | Progress Note ---
DATE: 10/29/2018 Internal Medicine Progress Note SUBJECTIVE: The patient is a 52-year-old, who had a chest tube placed due to recurrent pleural effusion, status post VATS. The patient is still complaining of pain at the chest tube site. Otherwise, no fever. PHYSICAL EXAMINATION: VITAL SIGNS: Blood pressure 107/77, temperature , heart rate is 110 per minute, respiratory rate is 32 per minute, and oxygen saturation 98%. HEART: Show regular rhythm. No murmur or added sound. LUNGS: Clear bilaterally. She has a chest tube on the right side. ABDOMEN: Soft. EXTREMITIES: Show no evidence of cyanosis or hematoma. LABORATORY DATA: , potassium 3.6, chloride 104, CO2 of 27, BUN 16, creatinine 0.73, and glucose 112. CBC; white blood count elevated at 25,500, hemoglobin 10.4, hematocrit 32.7, and platelet count 210,000. PT 13.8, INR 0.97, and PTT 35.3. AST 31, ALT 23, total bilirubin 1.6, and alkaline phosphatase 57. FINAL IMPRESSION: 1. Right lower lobe pneumonia. 2. Right pleural effusion, which is a recurrent pleural effusion. 3. Leukocytosis, most likely secondary to corticosteroids. 4. Mild anemia. 5. Hypertension. 6. Histoplasmosis in the past. PLAN OF TREATMENT: Continue albuterol q.4h., Atrovent q.4h., ceftriaxone 2 g IV once a day, multivitamin one tablet daily, morphine 4 mg IV q.3h. as needed for severe pain, hydrocortisone succinate 100 mg IV, vancomycin 1 g IV twice a day, Ambien 10 mg at bedtime, Zofran 8 mg every 4 hours as needed, Protonix 40 mg daily, Cymbalta 20 mg daily, lorazepam 0.5 mg 3 times a day as needed, labetalol 5 mg IV q.4h. as needed for hypertension, Singulair 20 mg at bedtime, Lovenox 40 mg subcutaneously daily for DVT prophylaxis, and Tylenol 650 mg q.6h. as needed for pain. Dr. Tijerina will continue to see the patient and chest tube will be removed as per his instructions. So far, the pleural effusion culture is negative for . MD PAPI Lopez/JILLIAN /[id number]
[2018-10-29] MEDS: DULOXETINE HCL 20 MG DELAYED RELEASE PO SCH (21:23)
[2018-10-29] MEDS: MONTELUKAST SODIUM 10 MG TAB PO SCH (21:23)
--- NOTE | 2018-10-29 21:24 | NUR ---
Ibeth given for sleep per request.
[2018-10-30] VITALS (17 sets, daily range): BP systolic 105–139; BP diastolic 47–87
[2018-10-30] MEDS: MORPHINE SULFATE INJ 4 MG/ML INJ 1ML IV PRN ×5 (03:20→20:30)
--- NOTE | 2018-10-30 03:20 | NUR ---
Medicated for c/o pain.
[2018-10-30] MEDS: VANCOMYCIN 1GM/NS 250 ML 250 ML IV SCH ×2 (03:38→15:27)
[2018-10-30 04:54] LABS: BASOPHILS % 0.1 % (0.0-1.0); HEMATOCRIT 27.6 % (34.2-44.1); HEMOGLOBIN 9.1 g/dL (12.0-16.0); LYMPHOCYTES # (AUTO) 0.3 (1.0-3.2); LYMPHOCYTES % 1.5 % (18.0-39.1); MEAN CORPUSCULAR HEMOGLOBIN 30.1 pg (28-32); MEAN CORPUSCULAR VOLUME 91.4 fL (81-99); MONOCYTES # (AUTO) 1.3 (0.2-0.8); MONOCYTES % 5.9 % (4.4-11.3); NEUTROPHILS # (AUTO) 20.2 (2.1-6.9); NEUTROPHILS % 91.7 % (38.7-80.0); PLATELET COUNT 172 x10e3/uL (140-360); RED BLOOD COUNT 3.02 x10e6/uL (3.6-5.1); RED CELL DISTRIBUTION WIDTH 13.6 % (11.7-14.4)
[2018-10-30 05:17] LABS: ALANINE AMINOTRANSFERASE 29 IU/L (0-55); ALBUMIN 2.1 g/dL (3.5-5.0); ALBUMIN/GLOBULIN RATIO 0.8 (0.8-2.0); ALKALINE PHOSPHATASE 72 IU/L (40-150); ANION GAP 8.5 mmol/L (8-16); BLOOD UREA NITROGEN 11 mg/dL (7-26); BUN/CREATININE RATIO 16 (6-25); CALCIUM 8.7 mg/dL (8.4-10.2); CARBON DIOXIDE 31 mmol/L (22-29); CHLORIDE 99 mmol/L (98-107); CREATININE, SERUM 0.69 mg/dL (0.57-1.11); EST GLOMERULAR FILTRATION RATE > 60 ML/MIN (60-); GLUCOSE 115 mg/dL (74-118); POTASSIUM 3.5 mmol/L (3.5-5.1); SODIUM 135 mmol/L (136-145)
--- NOTE | 2018-10-30 05:48 | Diagnostic Imaging Report ---
EXAMINATION: CHEST SINGLE (PORTABLE) COMPARISON: Chest x-ray 10/29/2018 INDICATION: Post thoracotomy ^s/p Thoracotomy ^[id number] ^[id number] DISCUSSION: Frontal view of the chest obtained at 0525 hours. HEART AND MEDIASTINUM: Stable mild cardiomegaly LINES: Right IJ catheter terminates in the SVC. Large bore chest tube terminating in the apex of the right chest is stable LUNGS: Some improvement in aeration. Patchy airspace opacities throughout the right lung are similar. Left lung is stable. PLEURA: No large effusions. No pneumothorax BONES AND SOFT TISSUES: No focal osseous lesion. Mild amount of subcutaneous emphysema in the lower right chest, stable. IMPRESSION: Stable medical devices. No change in airspace opacities throughout the right lung. No pneumothorax. Signed by: Dr. Yani George MD on 10/30/2018 5:45 AM
--- NOTE | 2018-10-30 07:35 | NUR ---
PT RESTING IN BED, NO C/O PAIN OR S/S DISTRESS NOTED AT THIS TIME. DIET INCREASED PER WRITTEN ORDERS TOLERATED. WILL CONTINUE TO MONITOR.
[2018-10-30] MEDS: HYDROCORTISONE SOD SUCCINATE 100 MG VIAL IV SCH ×2 (08:44→20:30)
[2018-10-30] MEDS: PANTOPRAZOLE SOD 40 MG TABEC PO SCH (08:44)
[2018-10-30] MEDS: ENOXAPARIN SOD INJ 40 MG/0.4 ML SYR SC SCH (08:44)
[2018-10-30] MEDS: MULTIVITAMINS/MINERALS TAB PO SCH (08:44)
[2018-10-30] MEDS: BREO ELLIPTA INH SCH (08:44)
--- NOTE | 2018-10-30 14:38 | Progress Note ---
DATE: 10/30/2018 Internal Medicine Progress Note SUBJECTIVE: The patient had a chest tube placed. She has complained today. PHYSICAL EXAMINATION: VITAL SIGNS: Blood pressure 126/81, temperature 36.4, heart rate 92 per minute, respiratory rate 16 per minute, oxygen saturation 98%. HEART: Shows regular rhythm. No murmur or added sounds. LUNGS: Clear bilaterally. ABDOMEN: Soft. EXTREMITIES: Show no evidence of cyanosis or hematoma. LABORATORY DATA: Sodium 135, potassium 3.5, chloride 99, CO2 of 31, BUN 11, creatinine 0.69, glucose 159. CBC; white blood count is elevated 21,900, hemoglobin 9.1, hematocrit 27.6, platelet count 172,000. PT 13.8, INR 0.97, PTT 25.3. AST 31, ALT 29, total bilirubin 0.9, and alkaline phosphatase 72. IMPRESSION: 1. Right lower lobe pneumonia. 2. Right pleural effusion status post chest tube placement, status post VATS. 3. Leukocytosis. 4. Anemia. 5. History of histoplasmosis. PLAN OF TREATMENT: Continue the chest tube monitoring the output. Continue albuterol, Atrovent q.4 hours. Continue ceftriaxone 2 g IV once daily, multivitamin one tab daily, morphine 4 mg IV q.3 hours as needed, hydrocortisone 100 mg daily. Continue vancomycin 1 g IV twice a day, Ambien 10 mg at night p.r.n. for sleep, Zofran 8 mg q.4 hours as needed, Protonix 40 mg daily, Cymbalta 20 mg daily, lorazepam 0.5 mg three times a day as needed for anxiety, labetalol 5 mg IV q.4 hours as needed for hypertension, Singulair 20 mg daily, Tylenol 650 mg p.o. q.6 hours as needed, Lovenox 40 mg subcutaneously daily. Labs have been reviewed. Medication has been reviewed also. The patient is doing much better now. Dr. Tijerina, cardiovascular surgeon following the case and decide when the chest tube can be removed. I spent 55 minutes. MD PAPI Lopez/JILLIAN /[id number]
--- NOTE | 2018-10-30 16:28 | NUR ---
pt amb well with PT around ICU. sat on side of bed for 30min after.
[2018-10-30] MEDS: CEFTRIAXONE SOD 1 GM/NS 50 ML 50 ML IV SCH (17:13)
[2018-10-30] MEDS: MONTELUKAST SODIUM 10 MG TAB PO SCH (20:30)
[2018-10-30] MEDS: DULOXETINE HCL 20 MG DELAYED RELEASE PO SCH (20:30)
[2018-10-31] VITALS (24 sets, daily range): BP systolic 78–139; BP diastolic 34–97
[2018-10-31] MEDS: MORPHINE SULFATE INJ 4 MG/ML INJ 1ML IV PRN ×6 (00:35→22:15)
[2018-10-31] MEDS: VANCOMYCIN 1GM/NS 250 ML 250 ML IV SCH ×2 (03:02→14:56)
[2018-10-31 05:09] LABS: BASOPHILS % 0.1 % (0.0-1.0); HEMATOCRIT 24.5 % (34.2-44.1); HEMOGLOBIN 7.9 g/dL (12.0-16.0); LYMPHOCYTES # (AUTO) 0.4 (1.0-3.2); LYMPHOCYTES % 2.5 % (18.0-39.1); MEAN CORPUSCULAR HEMOGLOBIN 30.4 pg (28-32); MEAN CORPUSCULAR HGB CONC 32.2 g/dL (31-35); MEAN CORPUSCULAR VOLUME 94.2 fL (81-99); MONOCYTES # (AUTO) 0.8 (0.2-0.8); MONOCYTES % 5.2 % (4.4-11.3); NEUTROPHILS # (AUTO) 14.2 (2.1-6.9); NEUTROPHILS % 91.5 % (38.7-80.0); PLATELET COUNT 159 x10e3/uL (140-360); RED CELL DISTRIBUTION WIDTH 13.6 % (11.7-14.4)
[2018-10-31 05:46] LABS: ALANINE AMINOTRANSFERASE 33 IU/L (0-55); ALBUMIN 1.9 g/dL (3.5-5.0); ALBUMIN/GLOBULIN RATIO 0.6 (0.8-2.0); ALKALINE PHOSPHATASE 79 IU/L (40-150); ANION GAP 8.6 mmol/L (8-16); BLOOD UREA NITROGEN 11 mg/dL (7-26); BUN/CREATININE RATIO 17 (6-25); CALCIUM 8.6 mg/dL (8.4-10.2); CARBON DIOXIDE 31 mmol/L (22-29); CHLORIDE 99 mmol/L (98-107); CREATININE, SERUM 0.65 mg/dL (0.57-1.11); EST GLOMERULAR FILTRATION RATE > 60 ML/MIN (60-); GLUCOSE 124 mg/dL (74-118); POTASSIUM 3.6 mmol/L (3.5-5.1); SODIUM 135 mmol/L (136-145)
--- NOTE | 2018-10-31 06:52 | Diagnostic Imaging Report ---
EXAMINATION: CHEST SINGLE (PORTABLE) COMPARISON: 10/30/2018 INDICATION: Post thoracotomy ^Resp Failure ^[id number] ^[id number] DISCUSSION: Frontal view of the chest obtained at 0611 hours. HEART AND MEDIASTINUM: Stable mild cardiomegaly LINES: Right IJ catheter and right chest tube are stable in position. No new medical devices. LUNGS: Patchy airspace opacities throughout the right lung are similar. Subsegmental atelectasis in the left lung is stable. PLEURA: No pleural effusion or pneumothorax. BONES AND SOFT TISSUES: Stable thoracotomy changes. Mild subcutaneous emphysema in the lower right neck and right shoulder is similar. Subcutaneous emphysema in the lower right chest is stable. IMPRESSION: No new cardiopulmonary findings. Stable medical devices. Signed by: Dr. Yani George MD on 10/31/2018 6:48 AM
[2018-10-31] MEDS: MULTIVITAMINS/MINERALS TAB PO SCH (08:15)
[2018-10-31] MEDS: PANTOPRAZOLE SOD 40 MG TABEC PO SCH (08:15)
[2018-10-31] MEDS: BREO ELLIPTA INH SCH (08:15)
[2018-10-31] MEDS: ENOXAPARIN SOD INJ 40 MG/0.4 ML SYR SC SCH (08:15)
[2018-10-31] MEDS: HYDROCORTISONE SOD SUCCINATE 100 MG VIAL IV SCH ×2 (08:16→20:47)
--- NOTE | 2018-10-31 08:31 | NUR ---
pt resting in bed, no s/s distress. vs stable. will continue to monitor.
--- NOTE | 2018-10-31 12:44 | NUR ---
dr rider rounded, chest tube ordered to water seal. will continue to monitor.
[2018-10-31] MEDS: CEFTRIAXONE SOD 1 GM/NS 50 ML 50 ML IV SCH (16:15)
--- NOTE | 2018-10-31 18:33 | Progress Note ---
DATE: 10/31/2018 Internal Medicine Progress Note SUBJECTIVE: The patient is doing well. No significant complaint. PHYSICAL EXAMINATION: HEART: Shows regular rhythm. No murmur or added sounds. LUNGS: Clear bilaterally. CHEST: She has a chest tube on the right side. ABDOMEN: Soft. EXTREMITIES: Show no evidence of cyanosis or hematoma. VITAL SIGNS: Blood pressure 114/77, temperature 98.6, heart rate 81 per minute, respiratory rate 18 per minute, and oxygen saturation 99%. LABORATORY DATA: On the blood work, we have BMP, sodium 135, potassium 3.6, chloride 99, CO2 of 31, BUN 11, creatinine 0.65, and glucose 124. CBC, white blood count 15.5, hemoglobin 7.9, hematocrit 24.5, and platelet count 159,000. PT 13.8, PTT 25.3, and INR 0.97. AST 36, ALT 33, total bilirubin 0.5, and alkaline phosphatase is 79. IMPRESSION: 1. Right pleural effusion, which is recurrent, status post right chest tube placement. 2. Histoplasmosis. 3. Leukocytosis. 4. Anemia. 5. Chronic obstructive pulmonary disease exacerbation. PLAN OF TREATMENT: tomorrow on the chest x-ray . Continue with albuterol q.4 hours, Atrovent q.4 hours, ceftriaxone 2 g IV once a day, multivitamin tablet daily, labetalol 5 mg IV q.4 hours as needed, vancomycin 1 g IV twice a day, Tylenol 650 mg q.6 hours as needed, Lovenox 40 mg subcutaneously daily, Cymbalta 20 mg daily, and morphine 4 mg IV q.3 hours as needed. Continue hydrocortisone. Continue Protonix 40 mg daily, Singulair 20 mg daily, and Zofran 4 mg q.4 hours as needed. She will be DNR transferred to the regular medical floor. MD PAPI Lopez/JILLIAN /[id number]
--- NOTE | 2018-10-31 18:49 | Progress Note ---
DATE: 10/31/2018 Pulmonary Progress Note SUBJECTIVE: The patient is on 2 liters of oxygen. She had only a small amount of drainage from the chest tube last night. There is no air leak. She was switched to water-seal by Dr. Tijerina. PHYSICAL EXAMINATION: VITAL SIGNS: The patient is afebrile. The saturation is 99% on 2 liters. The blood pressure is 114/77. HEENT: Shows no facial swelling or erythema. The nasal mucosa is normal. The oropharynx is normal. LYMPHATIC: Shows no submandibular, cervical, or supraclavicular adenopathy. CARDIAC: Reveals a regular rate and rhythm with normal S1 and S2. There are no murmurs or rubs. LUNGS: Auscultation of lungs shows decreased breath sounds on the right side. ABDOMEN: Soft and nontender. There is no rebound or guarding. EXTREMITIES: Show no leg edema or calf tenderness. There is no cyanosis or clubbing. SKIN: Shows no rashes. NEUROLOGIC: Shows no focal abnormalities. LABORATORY DATA: The BUN to creatinine ratio is 11 to 0.65. Other electrolytes are within normal limits. The white blood cell count is 15.5, hemoglobin is 7.9, and platelet count is 159. IMPRESSION: 1. Status post video-assisted thoracoscopy with a limited thoracotomy and pleurodesis. 2. 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 3. Chronic right upper lobe atelectasis. 4. Chronic persistent asthma. 5. Recurrent right pleural effusion. 6. Leukocytosis. 7. Anemia, unspecified. PLAN: 1. The patient will remain on water-seal overnight. Repeat chest x-ray tomorrow. 2. If the lung does not collapse and there is no reaccumulation of fluid, we will re-sclerose the patient with doxycycline and remove the chest tube. 3. Continue current antibiotics. 4. Await pathology results. 5. Decrease morphine as tolerated. Clifton Smith MD [facility] /[id number]
--- NOTE | 2018-10-31 19:30 | NUR ---
Pt c/o pain at ct insertion site. States she feels like there's " a hole there". Pt states this happened earlier during the day shift. Pt was given morphine at 1853. I assisted her to reposition, take slow deep breaths, and I connected her CT back to wall suction. She continued to verbalize discomfort and I called Dr Oakley and paged Dr Monae. Dr Smith Ordered STAT upright Chest X Ray. Addendum: 10/31/18 at 2100 by Estefania Jackson RN 136/84, 98, 20, 100%
--- NOTE | 2018-10-31 19:41 | NUR ---
pt resting in bed, amb with PT today around icu and imcu. amb to bathroom with standby assist. chest tube to water seal. vs remain stable. 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 pain resolved and vs stable.
--- NOTE | 2018-10-31 20:00 | NUR ---
CXR was completed
--- NOTE | 2018-10-31 20:10 | NUR ---
Dr Monae called me back and I gave him update on current situation with pt. VS reading was also communicated to him: 130/77, 92, 17, 100% on 2l/NC. He was told that CXR had been done and we are waiting for results. He stated to keep pt in ICU.
[2018-10-31] MEDS: MONTELUKAST SODIUM 10 MG TAB PO SCH (20:47)
[2018-10-31] MEDS: DULOXETINE HCL 20 MG DELAYED RELEASE PO SCH (20:47)
--- NOTE | 2018-10-31 20:53 | Diagnostic Imaging Report ---
EXAMINATION: CHEST SINGLE (PORTABLE) INDICATION: ^Chest pain ^[id number] ^2026 COMPARISON: Chest radiograph 10/23/2018 6011 FINDINGS: AP view TUBES and LINES: Stable position of the right IJ and right-sided chest tube with tip in the right apex. LUNGS: Lungs are well inflated. Patchy airspace opacities throughout the right lung have decreased. Decreased volume overload. PLEURA: No pleural effusion or pneumothorax. HEART AND MEDIASTINUM: The cardiomediastinal silhouette is unremarkable.. BONES AND SOFT TISSUES: No acute osseous lesion. Subcutaneous emphysema in the right lower neck remains stable. UPPER ABDOMEN: No free air under the diaphragm. IMPRESSION: Right lung contusions and decreased volume overload. No new consolidations. Signed by: Dr. Santa Rajan M.D. on 10/31/2018 8:50 PM
--- NOTE | 2018-10-31 21:13 | NUR ---
Called Dr Smith and read CXR result to him. Gave him update on pt. Pt is resting in bed. No pain c/o @ this time. 137/81, 94, 20, 99%.
--- NOTE | 2018-10-31 23:19 | Operative Report ---
DATE OF PROCEDURE: 10/28/2018 SURGEON: Sarwat Tijerina MD SOCIAL SCIENCES RESEARCH SCIENTIST: Juan Hernandez. PREOPERATIVE DIAGNOSES: 1. Recurrent large right pleural effusion. 2. History of histoplasmosis. 3. Status post prior mediastinoscopy. 4. Right hilar and mediastinal mass. POSTOPERATIVE DIAGNOSES: 1. Recurrent large right pleural effusion. 2. History of histoplasmosis. 3. Status post prior mediastinoscopy. 4. Right hilar and mediastinal mass. TITLE OF OPERATION: 1. Video-assisted thoracoscopy (VATS), right chest. 2. Exploratory right thoracotomy. 3. Incisional biopsy of right hilar and mediastinal mass. 4. Right chest pleurodesis. DESCRIPTION OF OPERATION: After the satisfactory accomplishment of general anesthesia with a double-lumen endotracheal tube, the patient was placed in the left lateral decubitus position and the right chest was prepped and draped in sterile fashion. A small 1-inch thoracotomy incision was made along the posterolateral line in the right chest. The incision was carried down through the muscles and fascia to enter the right chest in the 5th intercostal space. A thoracoscope was introduced into the right chest for observation and procedures. These maneuvers were made difficult by the presence of many adhesions and much scarring between the lungs and visceral and parietal pleura. These adhesions were carefully divided, but they continued around to the mediastinum and the central portions of the chest and heart. At this point, the scope procedure was abandoned due to the difficulties with scarring and dangerous adhesions. The small incision was extended into a 3- to 4-inch incision and this allowed better visualization and some conventional exploration. No ribs were cut during this procedure. Even with the extended incision, the adhesions and exploration proved too difficult and too dangerous to continue without better exposure. For this reason, the incision was extended for 2 more inches in either direction and the right 4th rib was surgically divided. A chest wall retractor was gently placed and slightly opened to allow proper exposure for the procedure. The right lung was carefully mobilized and most of the parenchyma of the right lung appeared to be normal. There were several hard white fibrous nodules along the fissure between the upper and middle lobes. These were carefully excised and removed for further inspection in the pathology laboratory at a later date. Once the lung was mobilized, thick sheets of the same hard fibrous honeycutt-white tissue was found along the borders of the pulmonary vessels and bronchi. Many sections of this material were excised by way of incisional biopsy using a combination of biopsy forceps and scalpel and scissors. In addition, some hilar nodules were also removed separately. There were no specific abnormalities of the parietal pleura, but there was approximately 400 mL of serosanguinous fluid that was removed by suction. Principal Librarian samples of this fluid were sent to the Pathology and Bacteriology Lab for further study. The lung was completely mobilized to allow for adequate expansion. The hilar and mediastinal mass was contiguous and eligibility services representative samples were taken from both areas. A single 36-mm [place] chest tube was inserted into the left chest through a separate stab incision. A slurry of talc was created and this was administered generally over the entire parietal pleural surface. The chest tube remained clamped for approximately 30 minutes after this administration. All bleeding points were cauterized, ligated, or oversewn and the lung was reinflated. The chest wall was closed with interrupted #1 Vicryl sutures for the pericostal closure and running 0 Vicryl for the muscles and fascia of the chest wall. The subcutaneous tissue was closed with 2-0 Vicryl and the skin was closed with a Monocryl subcuticular stitch. The patient tolerated the procedure well and was returned to the Intensive Care Unit in good condition. MD CESAR G[facility]mez/JILLIAN /[id number]
[2018-11-01] VITALS (17 sets, daily range): BP systolic 115–150; BP diastolic 70–98
[2018-11-01] MEDS: VANCOMYCIN 1GM/NS 250 ML 250 ML IV SCH ×2 (02:31→18:13)
[2018-11-01] MEDS: MORPHINE SULFATE INJ 4 MG/ML INJ 1ML IV PRN ×3 (02:32→14:00)
[2018-11-01 04:14] LABS: BASOPHILS % 0.1 % (0.0-1.0); HEMATOCRIT 24.6 % (34.2-44.1); HEMOGLOBIN 8.1 g/dL (12.0-16.0); LYMPHOCYTES # (AUTO) 0.5 (1.0-3.2); LYMPHOCYTES % 3.8 % (18.0-39.1); MEAN CORPUSCULAR HEMOGLOBIN 30.7 pg (28-32); MEAN CORPUSCULAR HGB CONC 32.9 g/dL (31-35); MEAN CORPUSCULAR VOLUME 93.2 fL (81-99); MONOCYTES # (AUTO) 0.8 (0.2-0.8); MONOCYTES % 5.4 % (4.4-11.3); NEUTROPHILS # (AUTO) 12.5 (2.1-6.9); PLATELET COUNT 215 x10e3/uL (140-360); RED BLOOD COUNT 2.64 x10e6/uL (3.6-5.1); RED CELL DISTRIBUTION WIDTH 13.6 % (11.7-14.4)
[2018-11-01 04:35] LABS: ALANINE AMINOTRANSFERASE 44 IU/L (0-55); ALBUMIN 2.1 g/dL (3.5-5.0); ALBUMIN/GLOBULIN RATIO 0.6 (0.8-2.0); ALKALINE PHOSPHATASE 81 IU/L (40-150); ANION GAP 10.5 mmol/L (8-16); BLOOD UREA NITROGEN 10 mg/dL (7-26); BUN/CREATININE RATIO 15 (6-25); CALCIUM 8.8 mg/dL (8.4-10.2); CARBON DIOXIDE 33 mmol/L (22-29); CHLORIDE 100 mmol/L (98-107); CREATININE, SERUM 0.67 mg/dL (0.57-1.11); EST GLOMERULAR FILTRATION RATE > 60 ML/MIN (60-); GLUCOSE 122 mg/dL (74-118); POTASSIUM 3.5 mmol/L (3.5-5.1); SODIUM 140 mmol/L (136-145)
--- NOTE | 2018-11-01 06:04 | Diagnostic Imaging Report ---
EXAMINATION: CHEST SINGLE (PORTABLE) COMPARISON: Multiple chest x-rays extending back to 10/28/2018. The most recent is 10/31/2018 INDICATION: Thoracotomy ^Recent pleurodesis DISCUSSION: Frontal view of the chest obtained at 0536 hours. HEART AND MEDIASTINUM: The cardiomediastinal silhouette is stable LINES: Right IJ catheter and right chest tube are stable in position. LUNGS: Patchy airspace opacities throughout the right lung are similar. No new findings in the left lung. PLEURA: No pleural effusion or pneumothorax. BONES AND SOFT TISSUES: Stable thoracotomy changes. Subcutaneous emphysema in the lower right neck and right chest wall is diminishing. IMPRESSION: No significant change in patchy airspace opacities in the right lung. No new cardiopulmonary findings. Signed by: Dr. Yani George MD on 11/01/2018 6:01 AM
[2018-11-01] MEDS: PANTOPRAZOLE SOD 40 MG TABEC PO SCH (08:01)
[2018-11-01] MEDS: ENOXAPARIN SOD INJ 40 MG/0.4 ML SYR SC SCH (08:01)
[2018-11-01] MEDS: MULTIVITAMINS/MINERALS TAB PO SCH (08:01)
[2018-11-01] MEDS: HYDROCORTISONE SOD SUCCINATE 100 MG VIAL IV SCH ×2 (08:01→20:48)
[2018-11-01] MEDS: BREO ELLIPTA INH SCH (09:00)
[2018-11-01] MEDS ORDERED: DOXYCYCLINE HYCLATE IV ONE (12:45)
[2018-11-01] MEDS ORDERED: SODIUM CHLORIDE 0.9% IV ONE (12:45)
[2018-11-01] MEDS ORDERED: LIDOCAINE HCL 2% LOCAL 20 ML VIAL INJ ONE (12:45)
--- NOTE | 2018-11-01 13:13 | NUR ---
dr. rider calls, he states he is going to do a bedside pleurodesis with doxycycline. orders for meds entered into [facility] and supplies gathered to bedside. consent signed by patient, md states he has discussed the procedure with patient and her spouse.
[2018-11-01] MEDS ORDERED: MORPHINE SULFATE INJ 4 MG/ML INJ 1ML IV PRN (14:45)
[2018-11-01] MEDS ORDERED: ACETAMINOPHEN 325 MG TAB PO PRN (14:45)
--- NOTE | 2018-11-01 14:56 | NUR ---
8 MG OF MORPHINE GIVEN DURING BEDSIDE PLEURODESIS PER ORDER FROM DR SANDRA.
[2018-11-01] MEDS ORDERED: METOCLOPRAMIDE HCL 10 MG/2ML VIAL IV PRN (15:30)
[2018-11-01] MEDS ORDERED: NALOXONE HCL INJ 0.4 MG/ML AMP IV PRN (15:30)
[2018-11-01] MEDS ORDERED: ONDANSETRON HCL INJ 2MG/ML 2ML 2 MG/ML VIAL IV PRN (15:30)
[2018-11-01] MEDS ORDERED: DIPHENHYDRAMINE HCL 25 MG CAP PO PRN (15:30)
--- NOTE | 2018-11-01 15:59 | NUR ---
DC PLAN: VATS POD1 CT IN PLACE. O23L/NC PT RECOMMENDS HOME W HH AND WILL NEED RW.
[2018-11-01] MEDS ORDERED: SODIUM CHLORIDE 0.9% 500ML 500 ML ONE (17:17)
[2018-11-01] MEDS: HYDROMORPHONE 0.2MG/ML-SOD CHL 30ML PCA SYRINGE IV PRN (17:39)
[2018-11-01] MEDS: CEFTRIAXONE SOD 1 GM/NS 50 ML 50 ML IV SCH (17:39)
--- NOTE | 2018-11-01 18:54 | Progress Note ---
DATE: 11/01/2018 Internal Medicine Progress Note SUBJECTIVE: The patient had pleurodesis done. The patient is complaining of pain on the chest tube site. PHYSICAL EXAMINATION: VITAL SIGNS: Blood pressure 140/85, temperature 98.2, heart rate 84 per minute, respiratory rate 16 per minute, oxygen saturation 95%. HEART: Shows regular rhythm. No murmur or added sounds. LUNGS: Clear bilaterally. ABDOMEN: Soft. LABORATORY DATA: On the blood work, which showed her BMP, sodium 140, potassium 3.5, chloride 100, CO2 of 33, BUN 10, creatinine 0.67, glucose 122. On CBC, white blood count 13,800, hemoglobin 8.1, hematocrit 24.6, platelet count of 215,000. PT 13.8, INR 0.97, PTT 25.3. AST 43, ALT 44, total bilirubin 0.6, alkaline phosphatase of 81. FINAL IMPRESSION: 1. Recurrent right pleural effusion status post pleurodesis with doxycycline. 2. Right lower lobe pneumonia. 3. History of histoplasmosis. 4. Anemia. 5. Chronic obstructive pulmonary disease exacerbation. 6. Leukocytosis. PLAN OF TREATMENT: Continue with chest tube placement, albuterol q.4 hours, Atrovent q.4 hours, ceftriaxone 2 g IV once a daily, multivitamin tablet daily, labetalol 5 mg IV q.4 hours as needed, vancomycin 1 g IV twice a daily, Tylenol 650 mg q.6 hours as needed, Lovenox 40 mg subcutaneous daily for DVT prophylaxis, Cymbalta 20 mg daily, morphine 4 mg IV q.3 hours as needed, hydrocortisone succinate 100 mg daily, Singulair 20 mg daily, Zofran 4 mg q.4 hours as needed, omeprazole 40 mg daily. MD PAPI Lopez/JILLIAN /[id number]
--- NOTE | 2018-11-01 19:00 | NUR ---
Received patient stable, calm in bed, alert and oriented, helped to the bedside commode and back to bed, vitals stable. Still has a chest tube connected to suction and a FAMILY AND CONSUMER SCIENCES PROFESSOR pump. No complaints raised.
[2018-11-01] MEDS: ALBUTEROL SULF 0.083% NEB SOLN 3 ML NEB INH PRN (20:12)
[2018-11-01] MEDS: MONTELUKAST SODIUM 10 MG TAB PO SCH (20:48)
[2018-11-01] MEDS: DULOXETINE HCL 20 MG DELAYED RELEASE PO SCH (20:48)
[2018-11-02] VITALS (23 sets, daily range): BP systolic 118–153; BP diastolic 64–116
[2018-11-02] MEDS: VANCOMYCIN 1GM/NS 250 ML 250 ML IV SCH ×2 (03:12→14:17)
[2018-11-02 04:24] LABS: BASOPHILS % 0.1 % (0.0-1.0); HEMATOCRIT 24.3 % (34.2-44.1); HEMOGLOBIN 7.8 g/dL (12.0-16.0); LYMPHOCYTES # (AUTO) 0.3 (1.0-3.2); LYMPHOCYTES % 2.4 % (18.0-39.1); MEAN CORPUSCULAR HEMOGLOBIN 30.1 pg (28-32); MEAN CORPUSCULAR HGB CONC 32.1 g/dL (31-35); MEAN CORPUSCULAR VOLUME 93.8 fL (81-99); MONOCYTES # (AUTO) 0.5 (0.2-0.8); MONOCYTES % 4.4 % (4.4-11.3); NEUTROPHILS # (AUTO) 10.2 (2.1-6.9); NEUTROPHILS % 91.9 % (38.7-80.0); PLATELET COUNT 218 x10e3/uL (140-360); RED BLOOD COUNT 2.59 x10e6/uL (3.6-5.1); RED CELL DISTRIBUTION WIDTH 13.8 % (11.7-14.4)
[2018-11-02] MEDS: BREO ELLIPTA INH SCH (09:00)
[2018-11-02] MEDS: HYDROCORTISONE SOD SUCCINATE 100 MG VIAL IV SCH ×2 (09:37→21:23)
[2018-11-02] MEDS: PANTOPRAZOLE SOD 40 MG TABEC PO SCH (09:37)
[2018-11-02] MEDS: ENOXAPARIN SOD INJ 40 MG/0.4 ML SYR SC SCH (09:37)
[2018-11-02] MEDS: MULTIVITAMINS/MINERALS TAB PO SCH (09:37)
--- NOTE | 2018-11-02 11:32 | Diagnostic Imaging Report ---
EXAMINATION: CHEST SINGLE (PORTABLE) INDICATION: Septic shock. Pneumonia. Recent pleurodesis. COMPARISON: Chest x-ray 11/01/2018. FINDINGS: AP view TUBES and LINES: Apically directed right chest tube remains unchanged. Right IJ central line with tip in the SVC is unchanged. LUNGS: Lungs are well inflated. Patchy airspace opacities in right lung is grossly unchanged taking into account hypoinflation compared to prior x-ray. There are bibasilar atelectasis. PLEURA: No pleural effusion or pneumothorax. HEART AND MEDIASTINUM: The cardiomediastinal silhouette is unremarkable. BONES AND SOFT TISSUES: Stable thoracotomy changes. Subcutaneous emphysema overlying the right upper chest is unchanged. UPPER ABDOMEN: No free air under the diaphragm. IMPRESSION: Overall no significant change in patchy airspace opacities in the right lung taking into account lower lung volumes. Signed by: Dr. Franko Tyson M.D. on 11/02/2018 11:29 AM
--- NOTE | 2018-11-02 15:03 | Progress Note ---
DATE: 11/02/2018 Pulmonary Critical Care Progress Note SUBJECTIVE: The patient has about 170 mL of drainage from the chest tube over the past 24 hours. She has less pain. There is no air leak. OBJECTIVE: VITAL SIGNS: The patient is afebrile. She is saturating 100% on 3 L. Pulse is 82 and the respiratory rate is 14. HEENT: Shows no facial swelling or erythema. The patient has a right-sided chest tube in place. The site looks clean. There is no air leak. LUNGS: Auscultation of lungs shows decreased breath sounds on the right side. ABDOMEN: Soft, nontender. There is no rebound or guarding. EXTREMITIES: Show no leg edema or calf tenderness. There is no cyanosis or clubbing. SKIN: Shows no rashes. LABORATORY DATA: Hemoglobin is 7.8 and the white blood cell count is 11. Platelet count is 218. IMPRESSION: 1. Recent pleurodesis for recurrent pleural effusion. 2. Asthma with acute exacerbation. 3. Chronic pulmonary histoplasmosis. 4. Chronic right upper lobe atelectasis. 5. Anemia. PLAN: 1. Continue to leave chest tube on -20 mL of suction. 2. Continue current antibiotics. 3. Await Pathology results. 4. Decrease pain medications as tolerated. Clifton Smith MD [facility]/JILLIAN /[id number]
--- NOTE | 2018-11-02 17:33 | Progress Note ---
DATE: 11/02/2018 Internal Medicine Progress Note SUBJECTIVE: The patient had pleurodesis done yesterday. She is feeling a little better today compared to yesterday where she had a lot of pain, so her pain is resolved today. OBJECTIVE: VITAL SIGNS: Blood pressure 124/64, temperature 98.4, heart rate 82 per minute, respiratory rate 14 per minute, and oxygen saturation 100%. HEART: Showed regular rhythm. No murmur or added sound. LUNGS: Clear bilaterally. She has a chest tube in place. EXTREMITIES: Show no evidence of cyanosis or hematoma. LABORATORY DATA: BMP; sodium 140, potassium 3.5, chloride 100, CO2 of 33, BUN 10, creatinine 0.67, glucose 122. CBC; white blood count 11,100, hemoglobin 7.8, hematocrit 24.3, platelet count of 218,000. PT 13.8, PTT 25.3, INR 0.97. AST 43, ALT 44, total bilirubin 0.4, alkaline phosphatase of 81. IMPRESSION: 1. Right pleural effusion, status post thoracentesis, status post pleurodesis. 2. Anemia. 3. Chronic obstructive pulmonary disease exacerbation. 4. History of histoplasmosis. PLAN OF TREATMENT: Continue albuterol and Atrovent q.4 hours. Continue ceftriaxone 2 g IV once a day, multivitamin one tablet daily, Protonix 40 mg daily, metoclopramide 10 mg q.8 hours. Continue vancomycin 1 g IV twice a day, labetalol 5 mg q.4 hours, Tylenol 650 mg q.6 hours as needed, Benadryl 25 mg q.4 hours as needed for itching, Cymbalta 20 mg daily, Lovenox 40 mg subcutaneous daily, Dilaudid as needed for severe pain, naloxone 0.4 mg as needed for excessive sedation, Singulair 20 mg daily, hydrocortisone succinate 100 mg twice a day, and Zofran 4 mg IV q.8 hours as needed for vomiting. The patient is doing better today. MD PAPI Lopez/JILLIAN /[id number]
[2018-11-02] MEDS: IPRATROPIUM BROMIDE 0.02% 2.5 ML NEB NEB PRN (18:58)
[2018-11-02] MEDS: ALBUTEROL SULF 0.083% NEB SOLN 3 ML NEB INH PRN (18:58)
--- NOTE | 2018-11-02 19:00 | NUR ---
Report received. Assumed care. Assessment done. See interventions. O2 per NC @ 3L. RIJ dual lumen. Dilaudid PROCESSING ASSISTANT for pain control. Chest tube to 20cm suction. No air leak detected.
[2018-11-02] MEDS: MONTELUKAST SODIUM 10 MG TAB PO SCH (21:23)
[2018-11-02] MEDS: DULOXETINE HCL 20 MG DELAYED RELEASE PO SCH (21:23)
[2018-11-03] VITALS (26 sets, daily range): BP systolic 126–174; BP diastolic 71–91
[2018-11-03] MEDS: VANCOMYCIN 1GM/NS 250 ML 250 ML IV SCH ×2 (03:04→14:53)
[2018-11-03 05:14] LABS: BASOPHILS % 0.1 % (0.0-1.0); HEMATOCRIT 23.6 % (34.2-44.1); HEMOGLOBIN 7.6 g/dL (12.0-16.0); LYMPHOCYTES # (AUTO) 0.4 (1.0-3.2); LYMPHOCYTES % 3.2 % (18.0-39.1); MEAN CORPUSCULAR HEMOGLOBIN 30.2 pg (28-32); MEAN CORPUSCULAR HGB CONC 32.2 g/dL (31-35); MEAN CORPUSCULAR VOLUME 93.7 fL (81-99); MONOCYTES # (AUTO) 0.6 (0.2-0.8); NEUTROPHILS % 89.1 % (38.7-80.0); PLATELET COUNT 244 x10e3/uL (140-360); RED BLOOD COUNT 2.52 x10e6/uL (3.6-5.1); RED CELL DISTRIBUTION WIDTH 13.8 % (11.7-14.4)
[2018-11-03 05:51] LABS: ALANINE AMINOTRANSFERASE 37 IU/L (0-55); ALBUMIN 2.1 g/dL (3.5-5.0); ALBUMIN/GLOBULIN RATIO 0.7 (0.8-2.0); ALKALINE PHOSPHATASE 73 IU/L (40-150); ANION GAP 8.7 mmol/L (8-16); BLOOD UREA NITROGEN 8 mg/dL (7-26); BUN/CREATININE RATIO 13 (6-25); CALCIUM 8.7 mg/dL (8.4-10.2); CARBON DIOXIDE 37 mmol/L (22-29); CHLORIDE 96 mmol/L (98-107); EST GLOMERULAR FILTRATION RATE > 60 ML/MIN (60-); GLUCOSE 126 mg/dL (74-118); SODIUM 139 mmol/L (136-145)
[2018-11-03 06:05] LABS: POTASSIUM 2.7 mmol/L (3.5-5.1)
[2018-11-03] MEDS ORDERED: POTASSIUM CHLORIDE 20 MEQ TAB CR PO STA (06:19)
[2018-11-03] MEDS ORDERED: POTASSIUM CHLORIDE 20 MEQ TAB CR PO SCH (06:30)
--- NOTE | 2018-11-03 06:47 | Diagnostic Imaging Report ---
EXAMINATION: CHEST SINGLE (PORTABLE) COMPARISON: Chest x-ray 11/02/2018 INDICATION: Post thoracotomy ^COMPARISON ^[id number] ^0629 ^Y DISCUSSION: Frontal view of the chest obtained at 0619 hours. HEART AND MEDIASTINUM: The cardiomediastinal silhouette is stable LINES: Right IJ catheter and right chest tube are stable in position. LUNGS: Airspace opacities throughout the right lung are stable in morphology. No new findings in the left lung. PLEURA: No pneumothorax. Trace right pleural effusion. BONES AND SOFT TISSUES: Stable post thoracotomy changes of the right hemithorax. The soft tissues are normal. IMPRESSION: 1. No change in patchy airspace opacities in the right lung. 2. Support devices as described above. No pneumothorax. Signed by: Dr. Yani George MD on 11/03/2018 6:43 AM
[2018-11-03] MEDS: HYDROMORPHONE 0.2MG/ML-SOD CHL 30ML PCA SYRINGE IV PRN (06:55)
[2018-11-03] MEDS: ALBUTEROL SULF 0.083% NEB SOLN 3 ML NEB INH PRN (07:45)
[2018-11-03] MEDS: IPRATROPIUM BROMIDE 0.02% 2.5 ML NEB NEB PRN (07:45)
[2018-11-03] MEDS: PANTOPRAZOLE SOD 40 MG TABEC PO SCH (08:12)
[2018-11-03] MEDS: ENOXAPARIN SOD INJ 40 MG/0.4 ML SYR SC SCH (08:12)
[2018-11-03] MEDS: HYDROCORTISONE SOD SUCCINATE 100 MG VIAL IV SCH ×2 (08:12→21:50)
[2018-11-03] MEDS: MULTIVITAMINS/MINERALS TAB PO SCH (08:12)
[2018-11-03] MEDS: BREO ELLIPTA INH SCH (08:26)
[2018-11-03 10:09] LABS: LYMPHOCYTES % (MANUAL) 4 % (19-48); MONOCYTES % (MANUAL) 5 % (3.4-9.0); NEUTROPHILS % (MANUAL) 91 % (40-74); PLATELET MORPHOLOGY COMMENT NORMAL; RBC MORPHOLOGY COMMENT NORMAL
[2018-11-03 10:10] LABS: PLATELET ESTIMATE ADEQUATE
--- NOTE | 2018-11-03 13:13 | Progress Note ---
DATE: 11/03/2018 Internal Medicine Progress Note SUBJECTIVE: The patient is doing well. No significant complaints. Her chest tube has very little output. PHYSICAL EXAMINATION: VITAL SIGNS: Blood pressure 136/72, temperature 98.9, heart rate 73 per minute, respiratory rate 18 per minute, oxygen saturation 100%. HEART: Showed regular rhythm. No murmur or added sound. LUNGS: Clear bilaterally. ABDOMEN: Soft. LABORATORY DATA: BMP; sodium 139, potassium 2.7, chloride 96, CO2 of 37, BUN 9, creatinine 0.60, glucose 126. CBC; white blood count 11,100, hemoglobin 7.6, hematocrit 23.6, platelet count 244,000. PT 13.8, INR 0.97, PTT 25.3. AST 27, ALT 37, total bilirubin 0.4, alkaline phosphatase of 93. FINAL IMPRESSION: 1. Recurrent pleural effusion status post pleurodesis with chest tube placement. 2. Pneumonia. 3. Hypokalemia. 4. History of histoplasmosis in the past. 5. Depression. PLAN OF TREATMENT: We are going to continue monitoring the output from the chest tube. Dr. Tijerina, cardiovascular surgeon would decide when to remove it. Continue albuterol and Atrovent q.4 hours. Continue vancomycin 1 g IV twice a day, labetalol 5 mg q.4 hours as needed for hypertension, Tylenol 650 mg p.o. q.6 hours as needed for pain or fever, Benadryl 25 mg q.4 hours as needed, Cymbalta 20 mg daily, Lovenox 40 mg subcutaneous daily for DVT prophylaxis, Dilaudid as needed for pain, naloxone 0.4 mg as needed for sedation, Singulair 20 mg at bedtime, hydrocortisone succinate 100 mg daily, Zofran 4 mg q.8 hours as needed for nausea and vomiting, potassium chloride 40 mEq now x2 doses. We are going to repeat a BMP tomorrow and magnesium level tomorrow. Continue multivitamin one tablet daily, Protonix 40 mg daily, metoclopramide 10 mg q.8 hours. The case has been discussed with the patient. Labs have been reviewed. Medication list has been reviewed. Time spent 55 minute. MD PAPI Lopez/JILLIAN /[id number]
[2018-11-03] MEDS ORDERED: ACETAMINOPHEN 325 MG TAB PO STA (14:15)
[2018-11-03] MEDS ORDERED: FAMOTIDINE 20 MG/2 ML VIAL IV ONE (14:15)
[2018-11-03] MEDS ORDERED: FUROSEMIDE INJ 10 MG/ML 2 ML VIAL IV SCH (14:15)
[2018-11-03] MEDS ORDERED: SODIUM CHLORIDE 0.9% 250ML 250 ML IV ONE (14:30)
--- NOTE | 2018-11-03 17:44 | Progress Note ---
DATE: 11/03/2018 Pulmonary Progress Note SUBJECTIVE: The patient has less pain today. She is ambulating. She received p.o. potassium this morning. PHYSICAL EXAMINATION: VITAL SIGNS: The blood pressure is 153/83 and the saturation is 100% on 2 L. The pulse is 95 and the respiratory rate is 18. HEENT: Shows no facial swelling or erythema. CARDIAC: Reveals a regular rate and rhythm with a normal S1 and S2. There are no murmurs or rubs heard. LUNGS: Auscultation of lungs reveals decreased breath sounds on the right side. There is a chest tube in good position. There is no air leak. LABORATORY DATA: White blood cell count is 11.2 and hemoglobin is 7.6. The platelet count is 244. The potassium is 2.7 and the BUN to creatinine ratio is normal. IMPRESSION: 1. Status post video-assisted thoracoscopy and pleurodesis. 2. Asthma with acute exacerbation. 3. Chronic pulmonary histoplasmosis. 4. Chronic right upper lobe atelectasis. 5. Anemia. 6. Hypokalemia. PLAN: 1. Replete potassium. 2. One unit of packed blood cells. 3. Wean off LEGAL JOB TITLES pump. 4. Continue chest tube to suction for now. 5. Await pathology results. Clifton Smith MD [facility]/JILLIAN /[id number]
--- NOTE | 2018-11-03 21:30 | NUR ---
pt ambulated w/walker to M/S I and back to room w/o any issues. pt tolerated well. O2 sats and v/s remained stable. will continue to monitor
[2018-11-03] MEDS: DULOXETINE HCL 20 MG DELAYED RELEASE PO SCH (21:50)
[2018-11-03] MEDS: MONTELUKAST SODIUM 10 MG TAB PO SCH (21:50)
[2018-11-04] VITALS (20 sets, daily range): BP systolic 128–193; BP diastolic 79–118
--- NOTE | 2018-11-04 01:12 | NUR ---
administered PRN Labetalol 5mg SIVP for SBP >170. will continue to monitor
[2018-11-04 04:03] LABS: BASOPHILS % 0.1 % (0.0-1.0); HEMATOCRIT 27.4 % (34.2-44.1); LYMPHOCYTES # (AUTO) 0.4 (1.0-3.2); LYMPHOCYTES % 2.5 % (18.0-39.1); MEAN CORPUSCULAR HEMOGLOBIN 30.4 pg (28-32); MEAN CORPUSCULAR HGB CONC 32.8 g/dL (31-35); MEAN CORPUSCULAR VOLUME 92.6 fL (81-99); MONOCYTES # (AUTO) 0.6 (0.2-0.8); MONOCYTES % 3.8 % (4.4-11.3); NEUTROPHILS # (AUTO) 13.9 (2.1-6.9); NEUTROPHILS % 91.8 % (38.7-80.0); PLATELET COUNT 285 x10e3/uL (140-360); RED BLOOD COUNT 2.96 x10e6/uL (3.6-5.1); RED CELL DISTRIBUTION WIDTH 14.2 % (11.7-14.4)
[2018-11-04 04:24] LABS: ALANINE AMINOTRANSFERASE 40 IU/L (0-55); ALBUMIN 2.3 g/dL (3.5-5.0); ALBUMIN/GLOBULIN RATIO 0.7 (0.8-2.0); ALKALINE PHOSPHATASE 74 IU/L (40-150); ANION GAP 8.8 mmol/L (8-16); BLOOD UREA NITROGEN 7 mg/dL (7-26); BUN/CREATININE RATIO 11 (6-25); CALCIUM 8.9 mg/dL (8.4-10.2); CARBON DIOXIDE 38 mmol/L (22-29); CHLORIDE 94 mmol/L (98-107); CREATININE, SERUM 0.63 mg/dL (0.57-1.11); EST GLOMERULAR FILTRATION RATE > 60 ML/MIN (60-); GLUCOSE 136 mg/dL (74-118); SODIUM 138 mmol/L (136-145)
[2018-11-04 04:30] LABS: POTASSIUM 2.8 mmol/L (3.5-5.1)
[2018-11-04] MEDS: VANCOMYCIN 1GM/NS 250 ML 250 ML IV SCH ×2 (04:45→15:00)
[2018-11-04] MEDS ORDERED: POTASSIUM CHLORIDE 20 MEQ TAB CR PO STA (04:49)
[2018-11-04] MEDS ORDERED: POTASSIUM CHLORIDE 20 MEQ TAB CR PO SCH (06:00)
[2018-11-04] MEDS: BREO ELLIPTA INH SCH (09:00)
[2018-11-04] MEDS: MULTIVITAMINS/MINERALS TAB PO SCH (09:37)
[2018-11-04] MEDS: HYDROCORTISONE SOD SUCCINATE 100 MG VIAL IV SCH (09:37)
[2018-11-04] MEDS: ENOXAPARIN SOD INJ 40 MG/0.4 ML SYR SC SCH (09:37)
[2018-11-04] MEDS: PANTOPRAZOLE SOD 40 MG TABEC PO SCH (09:37)
[2018-11-04] MEDS ORDERED: SODIUM CHLORIDE 0.9% 250ML 250 ML ONE (14:16)
[2018-11-04] MEDS ORDERED: TRAMADOL HCL 50 MG TAB PO PRN (15:15)
--- NOTE | 2018-11-04 16:17 | NUR ---
patient ambulated in hallway to med surg 1 and back on room air. nurse with patient during ambulation. pt on room air. pt reports fatigue but ambulated very well with a short break during walk.
[2018-11-04] MEDS: POTASSIUM CHLORIDE 20 MEQ TAB CR PO ONE ×2 (16:23→18:08)
--- NOTE | 2018-11-04 17:50 | Progress Note ---
DATE: 11/04/2018 SUBJECTIVE: The patient has minimal drainage from her chest tube today. She has less pain. She has been walking with physical therapy. PHYSICAL EXAMINATION: VITAL SIGNS: The patient is afebrile. The blood pressure is 139/83 and the saturation is 95% on 2 L. HEENT: Shows no facial swelling or erythema. Nasal mucosa is normal. The oropharynx is normal. LYMPHATIC: Shows no submandibular, cervical, or supraclavicular adenopathy. CARDIAC: Reveals regular rate and rhythm with a normal S1 and S2. There are no murmurs or rubs. CHEST: Auscultation of the lungs reveals decreased breath sounds at the right base. ABDOMEN: Soft and nontender. There is no rebound or guarding. EXTREMITIES: Show no leg edema or calf tenderness. There is no cyanosis or clubbing. LABORATORY DATA: Potassium is 2.8 and the BUN to creatinine ratio is normal. The other electrolytes are within normal limits. The white blood cell count is 15 and the hemoglobin is 9. The platelet count is 285. IMPRESSION: 1. Status post video-assisted thoracoscopy and pleurodesis. 2. Chronic pulmonary histoplasmosis. 3. Chronic right upper lobe atelectasis. 4. Asthma with acute exacerbation. 5. Anemia. 6. Hypokalemia. PLAN: 1. Replete potassium. 2. Discontinue SITE WORKER pump and use p.r.n. tramadol. 3. Await pathology results. 4. Transfer out of intensive care unit. Clifton Smith MD [facility] /[id number]
[2018-11-04] MEDS: MONTELUKAST SODIUM 10 MG TAB PO SCH (21:00)
[2018-11-04] MEDS: DULOXETINE HCL 20 MG DELAYED RELEASE PO SCH (21:00)
--- NOTE | 2018-11-04 23:12 | Progress Note ---
DATE: 11/04/2018 Internal Medicine Progress Note. SUBJECTIVE: The patient is doing well. No significant complaints today. PHYSICAL EXAMINATION: VITAL SIGNS: Blood pressure 120/80, temperature 99.3, heart rate 82 per minute, respiratory rate 18 per minute, and oxygen saturation 96%. HEART: Shows regular rhythm. No murmur or added sound. LUNGS: Clear bilaterally. ABDOMEN: Soft. She had a chest tube in place. LABORATORY DATA: On the blood work, sodium 138, potassium 3.1, chloride 94, CO2 of 38, BUN 7, creatinine 0.63, and glucose 136. On CBC, white blood count is 15.1, hemoglobin 9.0, hematocrit 27.5, and platelet count 285,000. PT 13.8, INR 0.97, PTT 35.3. AST 22, ALT 40, total bilirubin 0.5, and alkaline phosphatase 74. IMPRESSION: 1. Recurrent right pleural effusion, status post pleurodesis, status post chest tube placement. 2. Right lower lobe pneumonia. 3. COPD. 4. History of histoplasmosis. 5. Anemia of chronic disease. 6. Hypokalemia. PLAN OF TREATMENT: Replace potassium. Recheck the potassium tomorrow. Continue albuterol q.4 hours, Atrovent q.4 hours, vancomycin 1 g IV twice a day, labetalol 5 mg IV q.4 hours as needed for hypertension, Tylenol 650 mg q.6 hours as needed, tramadol 50 mg q.6 hours as needed, Cymbalta 20 mg daily, Lovenox 40 mg subcutaneous daily for DVT prophylaxis, Zofran 4 mg IV q.8 hours as needed for vomiting, Singulair 20 mg daily, hydrocortisone 100 mg twice a day, metoclopramide 10 mg q.8 hours, potassium chloride 40 mEq once, multivitamin tablet daily, omeprazole 40 mg daily, Benadryl 25 mg q.4 hours as needed. The case discussed with the nurse with the patient at the bedside. Labs have been reviewed. Medication list has been reviewed. Time spent 60 minutes. MD PAPI Lopez/JILLIAN /[id number]
[2018-11-05] MEDS ORDERED: SODIUM CHLORIDE 0.9% 250ML 250 ML ONE (02:24)
[2018-11-05] MEDS: VANCOMYCIN 1GM/NS 250 ML 250 ML IV SCH (02:32)
[2018-11-05 03:56] VITALS: BP 131/63
[2018-11-05 06:21] LABS: BASOPHILS % 0.2 % (0.0-1.0); HEMATOCRIT 28.5 % (34.2-44.1); HEMOGLOBIN 9.4 g/dL (12.0-16.0); LYMPHOCYTES # (AUTO) 0.7 (1.0-3.2); LYMPHOCYTES % 6.1 % (18.0-39.1); MEAN CORPUSCULAR HEMOGLOBIN 30.8 pg (28-32); MEAN CORPUSCULAR VOLUME 93.4 fL (81-99); MONOCYTES # (AUTO) 0.8 (0.2-0.8); MONOCYTES % 7.3 % (4.4-11.3); NEUTROPHILS # (AUTO) 9.5 (2.1-6.9); NEUTROPHILS % 84.7 % (38.7-80.0); PLATELET COUNT 311 x10e3/uL (140-360); RED BLOOD COUNT 3.05 x10e6/uL (3.6-5.1); RED CELL DISTRIBUTION WIDTH 14.3 % (11.7-14.4)
[2018-11-05 06:32] LABS: ALANINE AMINOTRANSFERASE 37 IU/L (0-55); ALBUMIN 2.3 g/dL (3.5-5.0); ALBUMIN/GLOBULIN RATIO 0.8 (0.8-2.0); ALKALINE PHOSPHATASE 74 IU/L (40-150); ANION GAP 8.7 mmol/L (8-16); BLOOD UREA NITROGEN 8 mg/dL (7-26); BUN/CREATININE RATIO 11 (6-25); CALCIUM 8.5 mg/dL (8.4-10.2); CARBON DIOXIDE 34 mmol/L (22-29); CHLORIDE 96 mmol/L (98-107); EST GLOMERULAR FILTRATION RATE > 60 ML/MIN (60-); GLUCOSE 98 mg/dL (74-118); SODIUM 136 mmol/L (136-145)
[2018-11-05 06:36] LABS: POTASSIUM 2.7 mmol/L (3.5-5.1)
--- NOTE | 2018-11-05 06:40 | NUR ---
SPOKE TO DR. LOPEZ AT THIS TIME REGARDING PT POTASSIUM READING 2.7. NEW ORDER RCV FOR PO POTASSIUM 40MEQ NOW AND ANOTHER 40MEQ AFTER 1 HOUR. ALSO TO DRAW POTASSIUM LEVEL AT 1700
[2018-11-05] MEDS ORDERED: POTASSIUM CHLORIDE 20 MEQ TAB CR PO STA (06:46)
[2018-11-05] MEDS ORDERED: POTASSIUM CHLORIDE 20 MEQ TAB CR PO ONE (07:46)
[2018-11-05 08:00] VITALS: BP 137/83
[2018-11-05] MEDS: BREO ELLIPTA INH SCH (09:00)
[2018-11-05 09:18] VITALS: BP 137/83
[2018-11-05] MEDS: PANTOPRAZOLE SOD 40 MG TABEC PO SCH (09:18)
[2018-11-05] MEDS: MULTIVITAMINS/MINERALS TAB PO SCH (09:18)
--- NOTE | 2018-11-05 10:58 | NUR ---
CUSTODY OFFICER MIKIE ROUNDED. NOTIFIED CUSTODY OFFICER OF PT STATING SHE WILL NOT TAKE VANCOMYCIN DUE TO S/E GIVING HER DIARRHEA . NOTIFIED CUSTODY OFFICER OF YELLOW DRAINAGE NOTED ON CHEST TUBE . CUSTODY OFFICER WILL LOOK AT THIS HE STATES . NO ORDERS RECEIVED AT THIS TIME
[2018-11-05 12:00] VITALS: BP 136/79
--- NOTE | 2018-11-05 12:40 | NUR ---
SPOKE WITH MD LOPEZ REGARDING PT C/O NUMBNESS TO RIGHT BREAST. ORDERED LYRICA. STATES HE WILL SEE PT SHORTLY
[2018-11-05] MEDS: PREGABALIN 50 MG CAP PO SCH (13:03)
--- NOTE | 2018-11-05 16:04 | NUR ---
CHEST TUBE REMOVED AT BEDSIDE BY MD BASS. DRESSING IN PLACE. ORDERS S.P CHEST X RAY. IF NORMAL PT CAN GO HOME UPON HIS STAND POINT
--- NOTE | 2018-11-05 16:05 | Progress Note ---
DATE: 11/05/2018 Internal Medicine Progress Note SUBJECTIVE: A 52-year-old female, who had pleurodesis done. She is doing better. PHYSICAL EXAMINATION: VITAL SIGNS: Blood pressure 136/79, temperature 98.3 degrees, heart rate 88 per minute, respiratory rate 19 per minute, oxygen saturation 95%. HEART: Showed regular rhythm. No murmur or added sound. LUNGS: Clear bilaterally. ABDOMEN: Soft. She has a chest tube in place. LABORATORY DATA: BMP; sodium 133, potassium 2.7, chloride 96, CO2 of 34, BUN 8, creatinine 0.70, glucose 98. CBC; white blood count 8100, hemoglobin 9.4, hematocrit 28.5, platelet count 311,000. PT 13.8, INR 0.97, PTT 35.3. AST 25, ALT 37, total bilirubin 0.4, alkaline phosphatase 74. IMPRESSION: 1. Recurrent right pleural effusion status post pleurodesis. 2. Right lower lobe pneumonia. 3. History of chronic obstructive pulmonary disease. 4. Hypokalemia. 5. Anemia. 6. History of histoplasmosis. PLAN OF TREATMENT: Potassium is going to be replaced with 80 mEq today. We are going to recheck potassium later in the evening. Continue albuterol and Atrovent q.4 hours, Cymbalta 20 mg daily, Protonix 40 mg daily, Benadryl 25 mg q.4 hours as needed, tramadol 50 mg q.6 hours as needed, Singulair 20 mg daily, Tylenol 650 mg q.6 hours as needed, naloxone 0.4 mg as needed, Lyrica 50 mg twice a day. Continue multivitamin one tablet daily, Zofran 4 mg IV q.8 hours as needed for nausea and vomiting, labetalol 5 mg IV q.4 hours as needed for hypertension, metoclopramide 10 mg q.8 hours. Potassium chloride has been replaced. I want to recheck potassium and magnesium level today. The case discussed with the family at the bedside and nurse. She is also complaining of numbness on the right side of the chest, Lyrica has been started because of that. MD PAPI Lopez/JILLIAN /[id number]
--- NOTE | 2018-11-05 16:12 | NUR ---
Follow-up Note RD Recommendation for Physician: - Continue GI soft diet as ordered Plan of Care: RD following, monitoring for tolerance and adequacy Nutrition reason for involvement: Follow up Primary Diagnose(s): 1. Status post video-assisted thoracoscopy, limited thoracotomy and pleurodesis. 2. 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 3. Chronic right upper lobe atelectasis. 4. Chronic persistent asthma with acute exacerbation. 5. Leukocytosis. PMH: COPD, histoplasmosis of the lung Ht: 64in Wt: 187lb BMI: 32.1kg/m2 IBW: 120lb RD Assessment: (11/05) K was repleted. Visited pt in the room. Pt reported good appetite with >50% meal intake. No GI complains noted. LBM 11/05. Will continue to monitor and follow. (10/29) Chart reviewed. Labs and meds reviewed. 52yo F, who was admitted for SOB and cough. 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 Pt denied chewing/swallowing problems and nausea/vomiting. Clear liquid diet was tolerated well. Anticipated pt able to meet nutritional need through po intake when diet is advanced. Will cont to monitor. Please consult as needed. Current Diet: GI soft Malnutrition Evaluation (10/29/2018) The patient does not meet criteria for a specified degree of malnutrition at this time. Will re-evaluate at follow-up as appropriate. Diet Education Needs Assessment: Diet education not indicated. Nutrition Care Level: low Signed: Niurka Garcia, MS, RD, LD
[2018-11-05 16:16] VITALS: BP 127/80
[2018-11-05 16:49] LABS: ANION GAP 12.1 mmol/L (8-16); BLOOD UREA NITROGEN 7 mg/dL (7-26); BUN/CREATININE RATIO 10 (6-25); CALCIUM 9.3 mg/dL (8.4-10.2); CARBON DIOXIDE 32 mmol/L (22-29); CHLORIDE 101 mmol/L (98-107); EST GLOMERULAR FILTRATION RATE > 60 ML/MIN (60-); GLUCOSE 101 mg/dL (74-118); POTASSIUM 3.1 mmol/L (3.5-5.1); SODIUM 142 mmol/L (136-145)
--- NOTE | 2018-11-05 17:18 | Diagnostic Imaging Report ---
EXAMINATION: CHEST 2 VIEWS INDICATION: ^S/P CHEST TUBE REMOVAL COMPARISON: Chest x-ray 11/03/2018. 11/02/2018. FINDINGS: PA and lateral views TUBES and LINES: Interval removal of previous right chest tube. Right IJ central line with tip at mid SVC is unchanged. LUNGS: Lungs are well inflated. There are bibasilar atelectasis. There is no evidence of pneumonia or pulmonary edema. PLEURA: Small amount of right pleural effusion with fluid trapped along the major fissure and minor fissure. No definite pneumothorax. HEART AND MEDIASTINUM: The cardiomediastinal silhouette is unremarkable. BONES AND SOFT TISSUES: No acute osseous lesion. Right posterior fifth rib fracture remain present. Soft tissues are unremarkable. UPPER ABDOMEN: No free air under the diaphragm. IMPRESSION: Status post removal right chest tube. No pneumothorax. Right lung atelectasis. Signed by: Dr. Franko Tyson M.D. on 11/05/2018 5:14 PM
[2018-11-05] MEDS ORDERED: POTASSIUM CHLORIDE 20 MEQ TAB CR PO NR (17:30)
--- NOTE | 2018-11-05 17:39 | NUR ---
SPOKE TO MD LOPEZ REGARDING POTASSIUM LEVEL. ORDERS TO GIVE ANOTHER DOSAGE OF POTASSIUM GIVEN. MD ORDERED A RECHECK IN THE AM. MD NOW AWARE OF MD BASS REMOVING CHEST TUBE AND CURT DC. MD STATES PT IS TO STAY OVERNIGHT TO MONITOR K LEVEL. ORDERS RECEIVED. PT IS AWARE OF PLAN OF CARE
[2018-11-05 20:00] VITALS: BP 124/76
[2018-11-05] MEDS: MONTELUKAST SODIUM 10 MG TAB PO SCH (21:22)
[2018-11-05] MEDS: DULOXETINE HCL 20 MG DELAYED RELEASE PO SCH (21:22)
[2018-11-06] VITALS: BP 135/70
--- NOTE | 2018-11-06 02:29 | Operative Report ---
DATE OF PROCEDURE: 11/01/2018 SURGEON: Sarwat Tijerina MD PREOPERATIVE DIAGNOSIS: Recurrent right pleural effusion. POSTOPERATIVE DIAGNOSIS: Recurrent right pleural effusion. TITLE OF OPERATION: Chemical pleurodesis of right chest (doxycycline). DESCRIPTION OF OPERATION: After the accomplishment of local anesthesia with intravenous sedation and local anesthesia, approximately 200 mg of lidocaine was injected through the chest tube into the right chest, the lidocaine was allowed to coat the pleural surfaces of the right chest before the pleurodesis was started. After approximately 20 minutes, 1 g of doxycycline mixed in 50 mL of normal saline was injected into the right chest by way of the chest tube. After this, approximately 100 mL of air was injected into the right chest to help the general distribution of the pleurodesis agent. The doxycyline was allowed to dwell in the right chest for approximately 1 hour. During this time, the patient was rolled into various positions to allow the chemicals to distribute across the surfaces of the pleura more evenly. Following this, the chest tube was unclamped and reconnected to the chest tube suction. A postoperative chest x-ray was obtained and showed no pneumothorax. The procedure was well tolerated by the patient and she was returned to the sitting position at her bedside. MD CESAR Gómez/JILLIAN /[id number]
[2018-11-06 04:00] VITALS: BP 131/70
[2018-11-06 06:45] LABS: ANION GAP 11.6 mmol/L (8-16); BLOOD UREA NITROGEN 9 mg/dL (7-26); BUN/CREATININE RATIO 11 (6-25); CALCIUM 9.1 mg/dL (8.4-10.2); CARBON DIOXIDE 32 mmol/L (22-29); CHLORIDE 99 mmol/L (98-107); EST GLOMERULAR FILTRATION RATE > 60 ML/MIN (60-); GLUCOSE 112 mg/dL (74-118); POTASSIUM 3.6 mmol/L (3.5-5.1); SODIUM 139 mmol/L (136-145)
[2018-11-06] MEDS: PANTOPRAZOLE SOD 40 MG TABEC PO SCH (07:53)
[2018-11-06] MEDS: PREGABALIN 50 MG CAP PO SCH (07:53)
[2018-11-06] MEDS: BREO ELLIPTA INH SCH (07:53)
[2018-11-06] MEDS: MULTIVITAMINS/MINERALS TAB PO SCH (07:53)
[2018-11-06 08:11] VITALS: BP 120/82
--- NOTE | 2018-11-06 09:49 | NUR ---
SPOKE WITH DR. LOPEZ D/C ORDER RECEIVED. CHECKED WITH AL, DR. COLLIER PA STATES OK TO D/C WITHOUT ANTIBIOTICS. D/C CENTRAL LINE.
--- NOTE | 2018-11-06 10:32 | NUR ---
LEFT IJ CENTRAL LINE D/C. CATHETER INTACT. NO BLEEDING NOTED. PRESSURE DRESSING APPLIED. DISCHARGE INSTRUCTIONS GIVEN. PT VERBALIZED UNDERSTANDING. PT LEFT IN STABLE CONDITION. Addendum: 11/06/18 at 1033 by Yue Leblanc RN CORRECTION RIGHT IJ.
--- NOTE | 2018-11-06 11:41 | Progress Note ---
DATE: 11/06/2018 SUBJECTIVE: Chest tube was removed yesterday. The patient feels better and is eager to go home. She is not having any further diarrhea. OBJECTIVE: VITAL SIGNS: The blood pressure is 120/82 and the pulse is 96. Temperature is 97.1. Respiratory rate is 18. HEENT: No facial swelling or erythema. CARDIAC: Regular rate and rhythm with normal S1, S2. There are no murmurs or rubs. LUNGS: Auscultation of lungs shows decreased breath sounds on the right side. ABDOMEN: Soft, nontender. There is no rebound or guarding. EXTREMITIES: No leg edema or calf tenderness. There is no cyanosis or clubbing. SKIN: No rashes. NEUROLOGICAL: No focal abnormalities. IMPRESSION: 1. Recurrent right pleural effusion requiring video-assisted thoracoscopy and pleurodesis. 2. Chronic right upper lobe atelectasis. 3. History of chronic histoplasmosis. 4. Asthma with acute exacerbation. PLAN: 1. The patient can be discharged home. 2. She should continue her prior medications including prednisone at 50 mg a day and Breo as well as montelukast. 3. The patient is to return to the office in several weeks for her 2nd Fasrena shot. 4. We are still awaiting pathology results. 5. Follow up with Dr. Smith in 5 to 7 days. Clifton Smith MD LMH/MODL /[id number]
--- NOTE | 2018-11-07 08:18 | Discharge Summary ---
HISTORY: A 52-year-old female, who came with shortness of breath and cough. She was found to have a right lower lobe pneumonia and a right pleural effusion. Apparently, it is a recurrent pleural effusion, it happened several times. She underwent serial thoracentesis. Dr. Clifton Smith was consulted on the case. We consulted Dr. Tijerina for pleurodesis. Pleurodesis was done with doxycycline. The patient is doing better now. The pleural effusion has resolved. She finished her course of IV antibiotics and she is going home. Her potassium was low yesterday. We had to replace the potassium, it is back to 3.6 today. The patient is going home. PHYSICAL EXAMINATION: HEART: Showed regular rhythm. No murmurs. No added sounds. LUNGS: Clear bilaterally. FINAL IMPRESSION: 1. Recurrent right pleural effusion, status post pleurodesis. 2. Right lower lobe pneumonia. 3. Chronic obstructive pulmonary disease. PLAN OF TREATMENT: The patient is going to be going home. Continue albuterol q.4 hours as needed for shortness of breath. Continue rest of home medications. Followup with Dr. Clifton Smith, her photo offset printer as an outpatient and myself in a week. MD PAPI Lopez/JILLIAN /[id number]
== END 2018-11-06 10:32 | disposition home or self-care (01) | DRG 166 ==
LOC: ER 08:59 → OBSVTOIN 11:09 → ERHOLD 11:09 → MED/SURG2 14:25 → ICU 10-28 10:23 → MED/SURG 11-04 19:54
PROVIDERS: ADMIT Internal Medicine; ATTEND Internal Medicine
PROC: 0W993ZX Drainage of Right Pleural Cavity, Percutaneous Approach, Diagnostic (ICD-10-PCS; 2018-10-24)
PROC: 07B70ZX Excision of Thorax Lymphatic, Open Approach, Diagnostic (ICD-10-PCS; 2018-10-28)
PROC: 3E0L3GC Introduction of Other Therapeutic Substance into Pleural Cavity, Percutaneous Approach (ICD-10-PCS; 2018-10-28)
PROC: 0W9B00Z Drainage of Left Pleural Cavity with Drainage Device, Open Approach (ICD-10-PCS; 2018-10-28)
PROC: 0BJQ4ZZ Inspection of Pleura, Percutaneous Endoscopic Approach (ICD-10-PCS; principal; 2018-10-28 07:30)
PROC: 3E0L3GC Introduction of Other Therapeutic Substance into Pleural Cavity, Percutaneous Approach (ICD-10-PCS; 2018-11-01)
PROC: 30233N1 Transfusion of Nonautologous Red Blood Cells into Peripheral Vein, Percutaneous Approach (ICD-10-PCS; 2018-11-03)
DX: J15.9 Unspecified bacterial pneumonia (principal); J96.91 Respiratory failure, unspecified with hypoxia; J44.0 Chronic obstructive pulmonary disease with (acute) lower respiratory infection; J45.51 Severe persistent asthma with (acute) exacerbation; J90 Pleural effusion, not elsewhere classified; N39.0 Urinary tract infection, site not specified; J98.11 Atelectasis; K52.1 Toxic gastroenteritis and colitis; J44.1 Chronic obstructive pulmonary disease with (acute) exacerbation; Z87.891 Personal history of nicotine dependence; Z99.81 Dependence on supplemental oxygen; Z88.6 Allergy status to analgesic agent; Z88.8 Allergy status to other drugs, medicaments and biological substances; Z87.01 Personal history of pneumonia (recurrent); E87.6 Hypokalemia; D72.829 Elevated white blood cell count, unspecified; Z87.09 Personal history of other diseases of the respiratory system; I10 Essential (primary) hypertension; R59.0 Localized enlarged lymph nodes; R19.7 Diarrhea, unspecified; T36.95XA Adverse effect of unspecified systemic antibiotic, initial encounter; Y92.230 Patient room in hospital as the place of occurrence of the external cause; I95.9 Hypotension, unspecified; D64.9 Anemia, unspecified; Z66 Do not resuscitate; F32.9 Major depressive disorder, single episode, unspecified; D63.8 Anemia in other chronic diseases classified elsewhere
CPT/HCPCS: 32555; 36415; 36600; 71045; 71046; 76604; 80048; 80053; 80202; 81001; 82550; 82553; 82805; 82948; 83615; 83735; 84132; 84157; 84484; 85025; 85610; 85730; 86850; 86900; 86920; 87040; 87070; 87086; 87102; 87116; 87205; 87206; 88112; 88305; 88312; 88342; 89051; 93005; 94640; 96360; 97139; 99285; J0456; J0696; J1100; J1650; J1720; J1885; J1940; J2001; J2250; J2270; J2405; J2930; J3370; J7030; J7040; J7050; J7512; P9016

== ENCOUNTER 2018-11-28 17:49 | Emergency (ER) | payer OTHER ==
[~2018-11-28] VITALS: Ht 162.6 cm; Wt 85.3 kg
[~2018-11-28 17:49] MED LIST changes: +CYMBALTA20 MG PO; +FASENRA SQ; +IBUPROFEN400 MG PO; +PROTONIX40 MG PO; +SINGULAIR10 MG PO
--- OUTSIDE RECORDS SUMMARY | 2018-11-28 17:54 | XMS REPORT | Summary of Care ---
Author Author [facility] Organization [facility] Address Unknown Phone Unavailable Encounter [facility](FIN) [id number] Date(s): 05/01/18 - 05/01/18 [facility] [address], [address] [place] [address]- [phone] Attending Physician: Linh Coto MD Vital Signs [...] none. Employment/School Status: Employed. 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 Alcohol Current, Type Beer. Frequency: 1-2 times per year. Smoking Status Former smoker; Exposure to Tobacco Smoke self; Cigarette Smoking Last 365 Days Yes; Reg Smoking Cessation Counseling No; Started at age: 16.0; Stopped at age: 51; entered on: 09/27/18 Assessment and Plan No data available for this section
--- OUTSIDE RECORDS SUMMARY | 2018-11-28 17:54 | XMS REPORT | Continuity of Care Document ---
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 Automated blood neutrophil count 10.1 2.1 - 6.9 09/22/2018 [facility] Blood lymphocytes count (number/volume) 0.3 1.0 - 3.2 09/22/2018 [facility] Blood monocytes automated count (number/volume) 0.4 0.2 - 0.8 09/22/2018 [facility] Automated blood eosinophil count 0.0 0.0 - 0.4 09/22/2018 [facility] Automated blood basophil count (count/volume) 0.0 0.0 - 0.1 09/22/2018 [facility] Absolute Immature Granulocyte (auto 0.05 0 - 0.1 09/22/2018 [facility] Differential Total Cells Counted 100 09/22/2018 [facility] Manual blood neutrophils/100 leukocytes 94 40 - 74 09/22/2018 [facility] Manual blood band neutrophils form/100 leukocytes 1 09/22/2018 [facility] Manual blood lymphocytes/100 leukocytes 5 19 - 48 09/22/2018 [facility] Blood platelets count by estimate (number/volume) ADEQUATE 09/22/2018 [facility] Platelet morphology NORMAL 09/22/2018 [facility] RBC morphology NORMAL 09/22/2018 [facility] Serum or plasma sodium measurement (moles/volume) 140 136 - 145 09/22/2018 [facility] Serum or plasma potassium measurement (moles/volume) 4.0 3.5 - 5.1 09/22/2018 [facility] Serum or plasma chloride measurement (moles/volume) 105 98 - 107 09/22/2018 [facility] Serum or plasma carbon dioxide, total measurement (moles/volume) 27 22 - 29 09/22/2018 [facility] Serum or plasma anion gap 12.0 8 - 16 09/22/2018 [facility] Serum or plasma urea nitrogen measurement (mass/volume) 11 7 - 26 09/22/2018 [facility] Serum or plasma creatinine measurement (mass/volume) 0.80 0.57 - 1.11 09/22/2018 [facility] Serum or plasma urea nitrogen/creatinine mass ratio 14 6 - 25 09/22/2018 [facility] Estimated glomerular filtration rate (GFR) determination > 60 60 09/22/2018 [facility] Glucose measurement 129 74 - 118 09/22/2018 [facility] Serum or plasma calcium measurement (mass/volume) 8.9 8.4 - 10.2 09/22/2018 [facility] Urine color determination YELLOW YELLOW 09/21/2018 [facility] Urine clarity CLEAR CLEAR 09/21/2018 [facility] Specific gravity of Urine by Test strip 1.020 1.010 - 1.025 09/21/2018 [facility] Urine pH measurement by automated test strip 7 5 - 7 09/21/2018 [facility] Urine leukocyte esterase detection by dipstick NEGATIVE NEGATIVE 09/21/2018 [facility] Urine nitrite detection NEGATIVE NEGATIVE 09/21/2018 [facility] Urine protein measurement by test strip (mass/volume) NEGATIVE NEGATIVE 09/21/2018 [facility] Urine glucose detection NEGATIVE NEGATIVE 09/21/2018 [facility] Urine ketones detection by automated test strip NEGATIVE NEGATIVE 09/21/2018 [facility] Urine urobilinogen measurement by test strip (mass/volume) 0.2 0.2 - 1 09/21/2018 [facility] Urine total bilirubin measurement (mass/volume) NEGATIVE NEGATIVE 09/21/2018 [facility] Urine erythrocytes detection NEGATIVE NEGATIVE 09/21/2018 [facility] Automated urine sediment leukocyte count by microscopy (number/high power field) NONE 0 - 5 09/21/2018 [facility] Erythrocytes detection in urine sediment by light microscopy NONE 0 - 5 09/21/2018 [facility] Bacteria detection in urine sediment by light microscopy FEW NONE 09/21/2018 [facility] Epithelial cells detection in urine sediment by light microscopy NONE NONE 09/21/2018 [facility] Amorphous sediment detection in urine sediment by light microscopy FEW FEW 09/21/2018 [facility] Influenza virus A and B antigen identification by immunofluorescence NEGATIVE NEGATIVE 09/21/2018 [facility] Manual blood monocytes/100 leukocytes 1 3.4 - 9.0 09/21/2018 [facility] Serum or plasma total bilirubin measurement (mass/volume) 0.7 0.2 - 1.2 09/21/2018 [facility] Aspartate Amino Transf (AST/SGOT) 43 5 - 34 09/21/2018 [facility] Serum or plasma alanine aminotransferase measurement (enzymatic activity/volume) 42 0 - 55 09/21/2018 [facility] Serum or plasma protein measurement (mass/volume) 6.6 6.5 - 8.1 09/21/2018 [facility] Serum or plasma albumin measurement (mass/volume) 3.5 3.5 - 5.0 09/21/2018 [facility] Plasma globulin measurement (mass/volume) 3.1 2.3 - 3.5 09/21/2018 [facility] Serum or plasma albumin/globulin mass ratio 1.1 0.8 - 2.0 09/21/2018 [facility] Serum or plasma alkaline phosphatase measurement (enzymatic activity/volume) 87 40 - 150 09/21/2018 [facility] BNP Bld-mCnc 58.8 0 - 100 09/21/2018 [facility] Serum or plasma lipase measurement (enzymatic activity/volume) 22 8 - 78 09/21/2018 [facility] BLOOD BANK RESULTS ABO/Rh A POS 05/10/2017 [facility] BLOOD BANK RESULTS Antibody Scrn Negative (05/10/17 8:13 AM) 05/10/2017 [facility] CHEM PANEL Globulin 4.0 g/dL 2.7 - 4.2 05/10/2017 [facility] CHEM PANEL B/C Ratio 11 6 - 25 05/10/2017 [facility] CHEM PANEL AGAP 10.6 meq/L 10.0 - 20.0 05/10/2017 [facility] CHEM PANEL A/G Ratio 0.8 0.7 - 1.6 05/10/2017 [facility] CHEM PANEL eGFR 80 mL/min/1.73m2 05/10/2017 Result [...] should be multiplied by the estimated BMI. [facility] CHEM PANEL Glucose Lvl 97 mg/dL 70 - 99 05/10/2017 [facility] CHEM PANEL Chloride Lvl 105 meq/L 95 - 109 05/10/2017 [facility] CHEM PANEL Potassium Lvl 3.6 meq/L 3.5 - 5.1 05/10/2017 [facility] CHEM PANEL Sodium Lvl 142 meq/L 135 - 145 05/10/2017 [facility] CHEM PANEL BUN 9 mg/dL 7 - 22 05/10/2017 [facility] CHEM PANEL Creatinine Lvl 0.84 mg/dL 0.50 - 1.40 05/10/2017 [facility] CHEM PANEL Total Protein 7.4 g/dL 6.4 - 8.4 05/10/2017 [facility] CHEM PANEL Calcium Lvl 8.7 mg/dL 8.5 - 10.5 05/10/2017 [facility] CHEM PANEL CO2 30 meq/L 24 - 32 05/10/2017 [facility] CHEM PANEL Alk Phos 128 unit/L 39 - 136 05/10/2017 [facility] CHEM PANEL AST 12 unit/L 0 - 37 05/10/2017 [facility] CHEM PANEL ALT 28 unit/L 0 - 65 05/10/2017 [facility] CHEM PANEL Albumin Lvl 3.4 g/dL 3.5 - 5.0 05/10/2017 [facility] CHEM PANEL Bili Total 0.6 mg/dL 0.2 - 1.3 05/10/2017 [facility] HEMATOLOGY PT 13.0 s 12.0 - 14.7 05/10/2017 [facility] PTT 26.1 s 22.9 - 35.8 05/10/2017 [facility] INR 0.96 0.85 - 1.17 05/10/2017 [facility] HEMATOLOGY Segs 60.7 % 45.0 - 75.0 05/10/2017 [facility] [place] Lymphocytes # 2.4 K/CMM 1.0 - 5.5 05/10/2017 [facility] [place] Monocytes # 0.7 K/CMM 0.0 - 0.8 05/10/2017 [facility] [place] Eosinophils # 0.3 K/CMM 0.0 - 0.5 05/10/2017 [facility] [place] Lymphocytes 27.9 % 20.0 - 40.0 05/10/2017 [facility] [place] Monocytes 7.8 % 2.0 - 12.0 05/10/2017 [facility] [place] Basophils 0.6 % 0.0 - 1.0 05/10/2017 [facility] [place] Segs-Bands # 5.3 K/CMM 1.5 - 8.1 05/10/2017 [facility] [place] Eosinophils 3.0 % 0.0 - 4.0 05/10/2017 [facility] [place] MCH 30.9 pg 27.0 - 31.0 05/10/2017 [facility] [place] MCHC 33.7 g/dL 32.0 - 36.0 05/10/2017 [facility] [place] MCV 91.8 fL 80.0 - 98.0 05/10/2017 [facility] [place] Platelet 258 K/CMM 133 - 450 05/10/2017 [facility] [place] RDW 12.7 % 11.5 - 14.5 05/10/2017 [facility] [place] MPV 8.0 fL 7.4 - 10.4 05/10/2017 [facility] [place] Hct 38.9 % 36.0 - 48.0 05/10/2017 [facility] [place] WBC 8.8 K/CMM 3.7 - 10.4 05/10/2017 [facility] Hgb 13.1 g/dL 12.0 - 16.0 05/10/2017 [facility] HEMATOLOGY RBC 4.24 M/CMM 4.20 - 5.40 05/10/2017 [facility] Brain w/wo contrast MRI Brain w/wo [...] retention cyst within each maxillary sinus. SL: [id number] 04/26/2017 - - Electronically Signed by: Fransisco Julian MD 06/25/17 14:35 FINAL REPORT - - Read by: Fransisco Julian MD Dictated Date/time: 04/27/17 10:10 Electronically Signed by: Fransisco Julian MD 04/27/17 10:31 FINAL REPORT [facility] Brain w/wo contrast MRI Brain w/wo [...] retention cyst within each maxillary sinus. SL: [id number] 04/26/2017 - - Read by: Fransisco Julian MD Dictated Date/time: 04/27/17 10:10 Electronically Signed by: Fransisco Julian MD 04/27/17 10:31 FINAL REPORT [facility] PET CT Lung non-small cell initial stagi PET CT Lung non- small cell initial stagi PET CT Lung non-small cell initial staging [...] part of unspecified bronchus or lung - MLP=722.56 mGy*cm , CTDIvol=6.45 mGy; FINDINGS: HEAD AND [...] considerations include infectious, inflammatory and neoplastic possibilities. SL:[id number] 04/26/2017 - - Read by: Russell Pantoja MD Dictated Date/time: 04/27/17 11:51 Electronically Signed by: Russell Pantoja MD 04/27/17 13:23 FINAL REPORT [facility] URINE AND STOOL UA Color Ltyellow 04/16/2017 [facility] URINE AND STOOL UA Mucus Few /LPF None Seen /LPF 04/16/2017 [facility] URINE AND STOOL UA WBC null 0 - 5 04/16/2017 [facility] URINE AND STOOL UA Urobilinogen <=1.0 mg/dL 0.1 - 1.0 04/16/2017 [facility] URINE AND STOOL UA Blood Negative (04/15/17 7:06 PM) Negative 04/16/2017 [facility] URINE AND STOOL UA Leuk Est Negative (04/15/17 7:06 PM) Negative 04/16/2017 [facility] URINE AND STOOL UA Sq Epi Occasional /LPF Few /LPF 04/16/2017 [facility] URINE AND STOOL UA Nitrite Negative (04/15/17 7:06 PM) Negative 04/16/2017 [facility] URINE AND STOOL UA Glucose Negative mg/dL Negative mg/dL 04/16/2017 [facility] URINE AND STOOL UA Protein Negative mg/dL Negative mg/dL 04/16/2017 [facility] URINE AND STOOL UA Ketones Negative mg/dL Negative mg/dL 04/16/2017 [facility] URINE AND STOOL UA Bili Negative *NA* (04/15/17 7:06 PM) Negative 04/16/2017 [facility] URINE AND STOOL UA Turbidity Clear (04/15/17 7:06 PM) Clear 04/16/2017 [facility] URINE AND STOOL UA pH 6.0 5.0 - 8.0 04/16/2017 [facility] URINE AND STOOL UA Spec Grav 1.002 <=1.030 04/16/2017 [facility] CARDIAC ENZYMES BNP 24 pg/mL <=100 pg/mL 04/15/2017 [facility] CARDIAC ENZYMES Troponin-I null 0.00 - 0.40 04/15/2017 [facility] CARDIAC ENZYMES CK MB 1.4 ng/mL 0.5 - 3.6 04/15/2017 [facility] CARDIAC ENZYMES Total CK 169 unit/L 12 - 191 04/15/2017 [facility] CARDIAC ENZYMES CK MB Index 0.8 0.0 - 2.5 04/15/2017 [facility] CHEM PANEL eGFR 78 mL/min/1.73m2 04/15/2017 [...] should be multiplied by the estimated BMI. [facility] CHEM PANEL Globulin 4.4 g/dL 2.7 - 4.2 04/15/2017 [facility] CHEM PANEL B/C Ratio 14 6 - 25 04/15/2017 [facility] CHEM PANEL A/G Ratio 0.8 0.7 - 1.6 04/15/2017 [facility] CHEM PANEL Albumin Lvl 3.4 g/dL 3.5 - 5.0 04/15/2017 [facility] CHEM PANEL Calcium Lvl 9.0 mg/dL 8.5 - 10.5 04/15/2017 [facility] CHEM PANEL Total Protein 7.8 g/dL 6.4 - 8.4 04/15/2017 [facility] CHEM PANEL Bili Total 0.4 mg/dL 0.2 - 1.3 04/15/2017 [facility] CHEM PANEL Alk Phos 114 unit/L 39 - 136 04/15/2017 [facility] CHEM PANEL AGAP 8.3 meq/L 10.0 - 20.0 04/15/2017 [facility] CHEM PANEL AST 14 unit/L 0 - 37 04/15/2017 [facility] CHEM PANEL Chloride Lvl 104 meq/L 95 - 109 04/15/2017 [facility] CHEM PANEL CO2 30 meq/L 24 - 32 04/15/2017 [facility] CHEM PANEL Glucose Lvl 92 mg/dL 70 - 99 04/15/2017 [facility] CHEM PANEL ALT 28 unit/L 0 - 65 04/15/2017 [facility] CHEM PANEL Potassium Lvl 3.3 meq/L 3.5 - 5.1 04/15/2017 [facility] CHEM PANEL Sodium Lvl 139 meq/L 135 - 145 04/15/2017 [facility] CHEM PANEL Creatinine Lvl 0.86 mg/dL 0.50 - 1.40 04/15/2017 [facility] CHEM PANEL BUN 12 mg/dL 7 - 22 04/15/2017 [facility] HEMATOLOGY MPV 8.1 fL 7.4 - 10.4 04/15/2017 [facility] HEMATOLOGY Platelet 283 K/CMM 133 - 450 04/15/2017 [facility] [place] MCHC 33.8 g/dL 32.0 - 36.0 04/15/2017 [facility] [place] RDW 12.3 % 11.5 - 14.5 04/15/2017 [facility] [place] Hgb 13.8 g/dL 12.0 - 16.0 04/15/2017 [facility] RBC 4.44 M/CMM 4.20 - 5.40 04/15/2017 [facility] [place] WBC 11.7 K/CMM 3.7 - 10.4 04/15/2017 [facility] [place] Hct 40.9 % 36.0 - 48.0 04/15/2017 [facility] [place] MCH 31.1 pg 27.0 - 31.0 04/15/2017 [facility] [place] MCV 92.1 fL 80.0 - 98.0 04/15/2017 [facility] [place] Basophils 0.7 % 0.0 - 1.0 04/15/2017 [facility] [place] Eosinophils 2.6 % 0.0 - 4.0 04/15/2017 [facility] [place] Segs 70.7 % 45.0 - 75.0 04/15/2017 [facility] [place] Monocytes 7.5 % 2.0 - 12.0 04/15/2017 [facility] [place] Lymphocytes 18.5 % 20.0 - 40.0 04/15/2017 [facility] [place] Eosinophils # 0.3 K/CMM 0.0 - 0.5 04/15/2017 [facility] [place] Basophils # 0.1 K/CMM 0.0 - 0.2 04/15/2017 [facility] [place] Monocytes # 0.9 K/CMM 0.0 - 0.8 04/15/2017 [facility] [place] Lymphocytes # 2.2 K/CMM 1.0 - 5.5 04/15/2017 [facility] [place] Segs-Bands # 8.3 K/CMM 1.5 - 8.1 04/15/2017 [facility] Chest 2 views DX Chest 2 views DX EXAM: Chest 2 views DX DATE: 04/15/2017 6:21 PM CDT INDICATION: - chest pain, sob, hx lung cancer. COMPARISON: 04/12/2017. IMPRESSION: Stable cardiac silhouette and mediastinum. Tortuous atherosclerotic thoracic aorta. The lungs are mildly hyperexpanded. No focal consolidation, significant pleural effusion or pneumothorax. SL: [id number] 04/15/2017 - - Read by: Chance Tinoco MD Dictated Date/time: 04/15/17 19:04 Electronically Signed by: Chance Tinoco MD 04/15/17 19:05 FINAL REPORT [facility] CHEM PANEL Magnesium Lvl 2.5 mg/dL 1.8 - 2.4 04/12/2017 [facility] CHEM PANEL Globulin 3.6 g/dL 2.7 - 4.2 04/12/2017 [facility] CHEM PANEL B/C Ratio 14 6 - 25 04/12/2017 [facility] CHEM PANEL AGAP 9.7 meq/L 10.0 - 20.0 04/12/2017 [facility] CHEM PANEL A/G Ratio 0.8 0.7 - 1.6 04/12/2017 [facility] CHEM PANEL eGFR 90 mL/min/1.73m2 04/12/2017 [...] should be multiplied by the estimated BMI. [facility] CHEM PANEL Alk Phos 96 unit/L 39 - 136 04/12/2017 [facility] CHEM PANEL Bili Total 0.5 mg/dL 0.2 - 1.3 04/12/2017 [facility] CHEM PANEL BUN 11 mg/dL 7 - 22 04/12/2017 [facility] CHEM PANEL Creatinine Lvl 0.76 mg/dL 0.50 - 1.40 04/12/2017 [facility] CHEM PANEL Sodium Lvl 141 meq/L 135 - 145 04/12/2017 [facility] CHEM PANEL Potassium Lvl 3.7 meq/L 3.5 - 5.1 04/12/2017 [facility] CHEM PANEL Chloride Lvl 106 meq/L 95 - 109 04/12/2017 [facility] CHEM PANEL Calcium Lvl 8.6 mg/dL 8.5 - 10.5 04/12/2017 [facility] CHEM PANEL CO2 29 meq/L 24 - 32 04/12/2017 [facility] CHEM PANEL ALT 24 unit/L 0 - 65 04/12/2017 [facility] CHEM PANEL AST 16 unit/L 0 - 37 04/12/2017 [facility] CHEM PANEL Total Protein 6.6 g/dL 6.4 - 8.4 04/12/2017 [facility] CHEM PANEL Albumin Lvl 3.0 g/dL 3.5 - 5.0 04/12/2017 [facility] CHEM PANEL Glucose Lvl 102 mg/dL 70 - 99 04/12/2017 [facility] HEMATOLOGY Basophils # 0.1 K/CMM 0.0 - 0.2 04/12/2017 [facility] HEMATOLOGY Lymphocytes # 2.4 K/CMM 1.0 - 5.5 04/12/2017 [facility] HEMATOLOGY Monocytes # 0.9 K/CMM 0.0 - 0.8 04/12/2017 [facility] HEMATOLOGY Eosinophils # 0.1 K/CMM 0.0 - 0.5 04/12/2017 [facility] HEMATOLOGY Segs 70.0 % 45.0 - 75.0 04/12/2017 [facility] HEMATOLOGY Segs-Bands # 8.3 K/CMM 1.5 - 8.1 04/12/2017 [facility] HEMATOLOGY Basophils 1.3 % 0.0 - 1.0 04/12/2017 [facility] HEMATOLOGY Eosinophils 0.8 % 0.0 - 4.0 04/12/2017 [facility] Lymphocytes 20.4 % 20.0 - 40.0 04/12/2017 [facility] [place] Monocytes 7.5 % 2.0 - 12.0 04/12/2017 [facility] [place] MCHC 33.4 g/dL 32.0 - 36.0 04/12/2017 [facility] HEMATOLOGY MPV 8.7 fL 7.4 - 10.4 04/12/2017 [facility] HEMATOLOGY RDW 12.4 % 11.5 - 14.5 04/12/2017 [facility] HEMATOLOGY Platelet 217 K/CMM 133 - 450 04/12/2017 [facility] [place] MCH 31.0 pg 27.0 - 31.0 04/12/2017 [facility] [place] MCV 92.9 fL 80.0 - 98.0 04/12/2017 [facility] HEMATOLOGY RBC 3.68 M/CMM 4.20 - 5.40 04/12/2017 [facility] HEMATOLOGY Hgb 11.4 g/dL 12.0 - 16.0 04/12/2017 [facility] HEMATOLOGY Hct 34.2 % 36.0 - 48.0 04/12/2017 [facility] HEMATOLOGY WBC 11.8 K/CMM 3.7 - 10.4 04/12/2017 [facility] Chest 1view DX Chest 1view DX [...] wires project over the patient's chest. SL: [id number] 04/12/2017 - - Read by: Russell Pantoja MD Dictated Date/time: 04/12/17 11:47 Electronically Signed by: Russell Pantoja MD 04/12/17 11:48 FINAL REPORT [facility] URINE AND STOOL UA Urobilinogen <=1.0 mg/dL 0.1 - 1.0 04/11/2017 [facility] URINE AND STOOL UA Mucus Few /LPF None Seen /LPF 04/11/2017 [facility] URINE AND STOOL UA Hyal Cast 1 /LPF 0 - 2 04/11/2017 [facility] URINE AND STOOL UA Leuk Est Negative (04/11/17 8:19 AM) Negative 04/11/2017 [facility] URINE AND STOOL UA Sq Epi Occasional /LPF Few /LPF 04/11/2017 [facility] URINE AND STOOL UA WBC 1 /HPF 0 - 5 04/11/2017 [facility] URINE AND STOOL UA RBC 5 /HPF 0 - 2 04/11/2017 [facility] URINE AND STOOL UA Blood Negative (04/11/17 8:19 AM) Negative 04/11/2017 [facility] URINE AND STOOL UA Bili Negative *NA* (04/11/17 8:19 AM) Negative 04/11/2017 [facility] URINE AND STOOL UA Ketones Negative mg/dL Negative mg/dL 04/11/2017 [facility] URINE AND STOOL UA Glucose Negative mg/dL Negative mg/dL 04/11/2017 [facility] URINE AND STOOL UA Nitrite Negative (8/9/17 8:19 AM) Negative 04/11/2017 [facility] URINE AND STOOL UA Protein Negative mg/dL Negative mg/dL 04/11/2017 [facility] URINE AND STOOL UA pH 5.0 5.0 - 8.0 04/11/2017 [facility] URINE AND STOOL UA Spec Grav 1.017 <=1.030 04/11/2017 [facility] URINE AND STOOL UA Turbidity Clear (04/11/17 8:19 AM) Clear 04/11/2017 [facility] URINE AND STOOL UA Color Yellow *NA* (04/11/17 8:19 AM) Yellow 04/11/2017 [facility] CARDIAC ENZYMES CK MB Index 0.7 0.0 - 2.5 04/11/2017 [facility] CARDIAC ENZYMES Total CK 173 unit/L 12 - 191 04/11/2017 [facility] CARDIAC ENZYMES Troponin-I null 0.00 - 0.40 04/11/2017 [facility] CARDIAC ENZYMES CK MB 1.2 ng/mL 0.5 - 3.6 04/11/2017 [facility] CHEM PANEL Lipase Lvl 121 unit/L 73 - 393 04/11/2017 [facility] CHEM PANEL eGFR 77 mL/min/1.73m2 04/11/2017 [...] should be multiplied by the estimated BMI. [facility] CHEM PANEL A/G Ratio 0.8 0.7 - 1.6 04/11/2017 [facility] CHEM PANEL B/C Ratio 10 6 - 25 04/11/2017 [facility] CHEM PANEL Globulin 4.3 g/dL 2.7 - 4.2 04/11/2017 [facility] CHEM PANEL Bili Total 0.6 mg/dL 0.2 - 1.3 04/11/2017 [facility] CHEM PANEL AST 21 unit/L 0 - 37 04/11/2017 [facility] CHEM PANEL AGAP 9.7 meq/L 10.0 - 20.0 04/11/2017 [facility] CHEM PANEL Glucose Lvl 116 mg/dL 70 - 99 04/11/2017 [facility] CHEM PANEL BUN 9 mg/dL 7 - 22 04/11/2017 [facility] CHEM PANEL Creatinine Lvl 0.87 mg/dL 0.50 - 1.40 04/11/2017 [facility] CHEM PANEL Potassium Lvl 3.7 meq/L 3.5 - 5.1 04/11/2017 [facility] CHEM PANEL Sodium Lvl 138 meq/L 135 - 145 04/11/2017 [facility] CHEM PANEL ALT 27 unit/L 0 - 65 04/11/2017 [facility] CHEM PANEL Albumin Lvl 3.6 g/dL 3.5 - 5.0 04/11/2017 [facility] CHEM PANEL Alk Phos 123 unit/L 39 - 136 04/11/2017 [facility] CHEM PANEL Chloride Lvl 102 meq/L 95 - 109 04/11/2017 [facility] CHEM PANEL CO2 30 meq/L 24 - 32 04/11/2017 [facility] CHEM PANEL Calcium Lvl 8.9 mg/dL 8.5 - 10.5 04/11/2017 [facility] CHEM PANEL Total Protein 7.9 g/dL 6.4 - 8.4 04/11/2017 [facility] HEMATOLOGY Monocytes # 0.8 K/CMM 0.0 - 0.8 04/11/2017 [facility] HEMATOLOGY Lymphocytes # 1.3 K/CMM 1.0 - 5.5 04/11/2017 [facility] HEMATOLOGY Basophils # 0.1 K/CMM 0.0 - 0.2 04/11/2017 [facility] HEMATOLOGY Eosinophils # 0.3 K/CMM 0.0 - 0.5 04/11/2017 [facility] HEMATOLOGY Segs-Bands # 11.2 K/CMM 1.5 - 8.1 04/11/2017 [facility] HEMATOLOGY Basophils 0.7 % 0.0 - 1.0 04/11/2017 [facility] HEMATOLOGY Eosinophils 1.9 % 0.0 - 4.0 04/11/2017 [facility] HEMATOLOGY Monocytes 6.0 % 2.0 - 12.0 04/11/2017 [facility] HEMATOLOGY Lymphocytes 9.5 % 20.0 - 40.0 04/11/2017 [facility] HEMATOLOGY Segs 81.9 % 45.0 - 75.0 04/11/2017 [facility] [place] Hct 40.3 % 36.0 - 48.0 04/11/2017 [facility] [place] WBC 13.7 K/CMM 3.7 - 10.4 04/11/2017 [facility] [place] RBC 4.37 M/CMM 4.20 - 5.40 04/11/2017 [facility] [place] Platelet 272 K/CMM 133 - 450 04/11/2017 [facility] [place] MPV 8.4 fL 7.4 - 10.4 04/11/2017 [facility] [place] MCV 92.1 fL 80.0 - 98.0 04/11/2017 [facility] [place] MCH 30.5 pg 27.0 - 31.0 04/11/2017 [facility] [place] RDW 12.4 % 11.5 - 14.5 04/11/2017 [facility] [place] MCHC 33.1 g/dL 32.0 - 36.0 04/11/2017 [facility] [place] Hgb 13.3 g/dL 12.0 - 16.0 04/11/2017 [facility] ED Abdomen/Pelvis IV contrast only CT ED Abdomen/Pelvis IV contrast only CT Patient Name: MARINA BERMGAN : 1965; Age: 51 years y/o Female MR: [id number] Study: ED Abdomen/Pelvis IV contrast only CT [...] abdominal and pelvic CT with contrast. SL: [id number] 04/11/2017 - - Read by: Jose Alfredo Damon MD Dictated Date/time: 04/11/17 10:21 Electronically Signed by: Jose Alfredo Damon MD 04/11/17 10:25 FINAL REPORT [facility] Chest CTA Chest CTA Patient Name: MARINA BERGMAN : 1965; Age: 51 years y/o Female MR: [id number] Study: Chest CTA 04/11/2017 8:41 AM CDT [...] noted within the right upper lobe. SL: [id number] 04/11/2017 - - Read by: Jose Alfredo Damon MD Dictated Date/time: 04/11/17 10:27 Electronically Signed by: Jose Alfredo Damon MD 04/11/17 10:40 FINAL REPORT [facility] Abdomen RUQ US Abdomen RUQ US [...] in the RUQ of the abdomen. SL: [id number] 04/11/2017 - - Read by: Russell Pantoja MD Dictated Date/time: 04/11/17 08:20 Electronically Signed by: Russell Pantoja MD 04/11/17 08:21 FINAL REPORT [facility] Chest 1view DX Chest 1view DX PROCEDURE: [...] versus further evaluation with CT chest. SL: [id number] 04/11/2017 - - Read by: Sarwat Leblanc MD Dictated Date/time: 04/11/17 07:59 Electronically Signed by: Sarwat Leblanc MD 04/11/17 08:01 FINAL REPORT [facility] Forearm 2 views DX Forearm 2 views DX Patient Name: MARINA BERGMAN : 1965; Age: 51 years y/o Female MR: [id number] Study: Forearm 2 views DX 02/28/2017 4:24 PM CDT Ordering Physician: Clinical Indication: - right arm pain after falling; Comparison: None Right forearm 2 views IMPRESSION: The Impacted distal radial metaphyseal intra-articular fracture. There is no proximal radial or ulnar shaft fractures appreciated. SL: [id number] 02/28/2017 - - Read by: Jose Alfredo Damon MD Dictated Date/time: 02/28/17 17:17 Electronically Signed by: Jose Alfredo Damon MD 02/28/17 17:18 FINAL REPORT [facility] Wrist complete DX Wrist complete DX Patient Name: MARINA BERGMAN : 1965; Age: 51 years y/o Female MR: [id number] Study: Wrist complete DX 02/28/2017 4:24 PM [...] Alfredo Damon MD 02/28/17 17:17 FINAL REPORT [facility] Chest 2 views DX Chest 2 [...] Arguelles MD 12/22/16 12:35 FINAL REPORT [facility] [place] Sinus wo contrast CT Sinus wo contrast [...] Alfredo Damon MD 03/07/14 11:14 FINAL REPORT [facility] Spine lumbar 2 or 3 views [...] Alfredo Damon MD 03/07/14 11:24 FINAL REPORT [facility] 2 views Chest 2 views CHEST, TWO VIEWS HISTORY: Chest pain. COMPARISON: 02/19/2014 FINDINGS: The lungs are clear. No pleural effusion. No pneumothorax. Heart size normal. No acute osseous abnormality. SL: 12 03/07/2014 - - Read by: Fransisco Julian MD Dictated Date/time: 03/07/14 11:15 Electronically Signed by: Fransisco Julian MD 03/07/14 11:17 FINAL REPORT [facility] Chest 2 views Chest 2 views [...] Anson Pete MD 02/19/14 13:36 FINAL REPORT [facility] Vital Signs Vital Sign Value Date [...] [facility] Systolic (mm Hg) 125 05/10/2017 [facility] Diastolic (mm Hg) 80 05/10/2017 [facility] Systolic (mm Hg) 136 05/10/2017 [facility] Diastolic (mm Hg) 77 05/10/2017 [facility] Respitory Rate 16 05/10/2017 [facility] Systolic (mm Hg) 124 05/10/2017 [facility] Diastolic (mm Hg) 79 05/10/2017 [facility] Respitory Rate 16 05/10/2017 [facility] Respitory Rate 18 05/10/2017 [facility] Temperature Oral (F) 98.0 F 05/10/2017 [facility] Heart Rate 69 05/10/2017 [facility] Temperature Oral (F) 98.2 F 05/10/2017 [facility] Heart Rate 68 05/10/2017 [facility] Height 162.56 cm 05/10/2017 [facility] Weight 75.818 05/10/2017 [facility] BMI Calculated 28.69 05/10/2017 [facility] Systolic (mm Hg) 153 04/16/2017 [facility] Diastolic (mm Hg) 88 04/16/2017 [facility] Temperature Oral (F) 98.2 F 04/16/2017 [facility] Heart Rate 84 04/16/2017 [facility] Respitory Rate 16 04/16/2017 [facility] Respitory Rate 20 04/16/2017 [facility] Temperature Oral (F) 98 F 04/16/2017 [facility] Heart Rate 84 04/16/2017 [facility] Respitory Rate 18 04/16/2017 [facility] Systolic (mm Hg) 131 04/16/2017 [facility] Diastolic (mm Hg) 96 04/16/2017 [facility] Temperature Oral (F) 98.1 F 04/15/2017 [facility] Weight 74.545 04/15/2017 [facility] Height 162.56 cm 04/15/2017 [facility] BMI Calculated 28.21 04/15/2017 [facility] Heart Rate 90 04/15/2017 [facility] Systolic (mm Hg) 166 04/15/2017 [facility] Diastolic (mm Hg) 115 04/15/2017 [facility] Temperature Oral (F) 98.8 F 04/12/2017 [facility] Systolic (mm Hg) 115 04/12/2017 [facility] Diastolic (mm Hg) 78 04/12/2017 [facility] Respitory Rate 18 04/12/2017 [facility] Systolic (mm Hg) 120 04/12/2017 [facility] Diastolic (mm Hg) 71 04/12/2017 [facility] Respitory Rate 22 04/12/2017 [facility] Systolic (mm Hg) 117 04/12/2017 [facility] Diastolic (mm Hg) 73 04/12/2017 [facility] Respitory Rate 16 04/12/2017 [facility] Heart Rate 79 04/12/2017 [facility] Temperature Oral (F) 99.3 F 04/12/2017 [facility] Heart Rate 90 04/12/2017 [facility] Temperature Oral (F) 98.1 F 04/12/2017 [facility] Heart Rate 83 04/12/2017 [facility] Weight 73.6 04/11/2017 [facility] Height 162.56 cm 04/11/2017 [facility] BMI Calculated 27.87 04/11/2017 [facility] Weight 73.636 04/11/2017 [facility] Heart Rate 67 03/01/2017 [facility] Temperature Oral (F) 98.2 F 03/01/2017 [facility] Respitory Rate 16 03/01/2017 [facility] Systolic (mm Hg) 139 03/01/2017 [facility] Diastolic (mm Hg) 75 03/01/2017 [facility] Temperature Oral (F) 98.0 F 02/28/2017 [facility] Systolic (mm Hg) 152 02/28/2017 [facility] Diastolic (mm Hg) 83 02/28/2017 [facility] Heart Rate 55 02/28/2017 [facility] Respitory Rate 18 02/28/2017 [facility] Weight 74.545 02/28/2017 [facility] Height 162.56 cm 03/07/2014 [facility] Weight 66.818 03/07/2014 [facility] BMI Calculated 25.29 03/07/2014 [facility] Temperature Oral (F) 98.1 F 03/07/2014 [facility] Diastolic (mm Hg) 87 03/07/2014 [facility] Heart Rate 92 03/07/2014 [facility] Respitory Rate 18 03/07/2014 [facility] Systolic (mm Hg) 142 03/07/2014 [facility] Encounters Location Location Details Encounter Type Encounter Number Reason For Visit Attending Provider ADM Date DC Date Status Source [facility] Outpatient [id number] COUGH TAHIR YEUNG 09/08/2011 09/08/2011 Active [facility] Outpatient [id number] COPD PTEER BOSWELL 01/18/2012 Active [facility] Outpatient [id number] Peter Boswell 02/19/2014 02/20/2014 [facility] [id number] Rafaela Gordillo 03/07/2014 03/07/2014 [facility] [place] [facility] Di[facility] Services [id number] Tao Felipe 11/10/2014 11/11/2014 [facility] [place] Outpatient [id number] PETER BOSWELL 06/03/2015 Active [facility] Outpatient [id number] PETER BOSWELL 07/09/2015 Active [facility] [id number] PETER BOSWELL 10/08/2015 Active [facility] Outpatient [id number] PETER BOSWELL 11/02/2015 Active [facility] Outpatient [id number] JASPREET PATELYES 12/02/2015 Active [facility] Outpatient [id number] PETER BOSWELL 2015 Active [facility] Outpatient [id number] PETER BOSWELL 03/14/2016 Active [facility] [id number] PETER BOSWELL 05/29/2016 Active [facility] Outpatient [id number] NURSE VISIT 05/31/2016 Active [facility] Outpatient [id number] PETER BOSWELL 06/29/2016 Active [facility] Out[facility] [id number] PETER BOSWELL 11/30/2016 Active [facility] [place] [facility] Di[facility] Services [id number] Anson Tai 12/22/2016 12/23/2016 [facility] [place] [facility] Emergency [id number] Jose Alberto Temo 02/28/2017 03/01/2017 [facility] Inpatient [id number] Crow Alberto 04/11/2017 04/12/2017 [facility] Emergency [id number] Yonatan Meyereme 04/15/2017 04/16/2017 [facility] Outpatient [id number] PETER BOSWELL 04/25/2017 Active [facility] [id number] Vasu Cruz 05/10/2017 05/10/2017 [facility] Outpatient [id number] PETER BOSWELL 06/18/2017 Active [facility] Outpatient [id number] PETER BOSWELL 07/27/2017 Active [facility] Primary Care [facility] Ambulatory Pre-Reg [id number] Peter Boswell 07/27/2017 07/27/2017 [facility] Primary [facility] Phone Message [id number] 07/30/2017 08/01/2017 [facility] Primary Care [facility] Phone Message [id number] 07/31/2017 08/02/2017 [facility] Outpatient [id number] PETER BOSWELL 08/09/2017 [facility] Primary Care [facility] Ambulatory Pre-Reg [id number] Peter Boswell 08/09/2017 08/09/2017 [facility] Outpatient [id number] PETER BOSWELL 08/21/2017 Active [facility] Primary Care [facility] Outpatient [id number] Peter Boswell 08/21/2017 08/22/2017 [facility] Primary Care [facility] Phone Message [id number] 08/24/2017 08/25/2017 [facility] Outpatient [id number] PETER BOSWELL 08/30/2017 Active [facility] Primary Care [facility] Outpatient [id number] Peter Boswell 08/30/2017 08/31/2017 [facility] Outpatient [id number] YESSY COX 10/29/2017 Active [facility] Primary Care [facility] Outpatient [id number] Yessy Cox 10/29/2017 10/30/2017 [facility] Outpatient [id number] PETER BOSWELL 11/26/2017 Active [facility] Primary Care [facility] Ambulatory Pre-Reg [id number] Peter Boswell 11/26/2017 11/26/2017 [facility] Primary Care [facility] Phone Message [id number] 11/29/2017 12/01/2017 [facility] Outpatient [id number] PETER BOSWELL 05/01/2018 Active [facility] Primary Care [facility] Ambulatory Pre-Reg [id number] Peter Boswell 05/01/2018 05/01/2018 [facility] Outpatient [id number] YESSY COX 06/20/2018 Active [facility] Outpatient [id number] YESSY COX 09/19/2018 Active [facility] Discharged Inpatient [id number] SAEED ECHAVARRIA MD 09/23/2018 09/23/2018 [facility] Outpatient [id number] PETER BOSWELL 09/27/2018 Active [facility] [id number] Peter Boswell 09/27/2018 09/28/2018 [facility] Primary Care [facility] Phone Message [id number] 10/01/2018 10/02/2018 [facility] Outpatient [id number] PETER CRABTREEO 03/26/2019 Active [facility] Procedures Procedure Code Date Perfomer Comments Source Thoracentesis with ultrasound guidance [id number] 09/23/2018 [facility] X-ray of chest, two views [id number] 09/21/2018 [facility] Computed tomography of chest with contrast [id number] 09/21/2018 [facility] Influenza vaccination [id number] 06/04/2018 [facility] Measurement of occult blood in stool specimen using immunoassay<sup>1</sup> [id number] 10/12/2017 negative [facility] Mediastinoscopy and lymph node sampling<sup>1</sup> [id number] 05/10/2017 PREOPERATIVE DIAGNOSIS: Right hilar mass with mediastinal lymphadenopathy. POSTOPERATIVE DIAGNOSIS: Right hilar mass with mediastinal lymphadenopathy. PROCEDURES PERFORMED: Video mediastinoscopy with mediastinal lymph node biopsies. [facility] Mediastinoscopy and lymph node sampling<sup>2</sup> [id number] 05/10/2017 PREOPERATIVE DIAGNOSIS: Right hilar mass with mediastinal lymphadenopathy. POSTOPERATIVE DIAGNOSIS: Right hilar mass with mediastinal lymphadenopathy. PROCEDURES PERFORMED: Video mediastinoscopy with mediastinal lymph node biopsies. [facility] Bronchoscopy and biopsy of bronchus<sup>2</sup> [id number] 04/12/2017 PROCEDURES PERFORMED: Central with ultrasound-guided transbronchial needle aspiration biopsy. INDICATIONS FOR THE PROCEDURE: Mediastinal adenopathy. PREOPERATIVE DIAGNOSIS Lung cancer. POSTPROCEDURE DIAGNOSIS: Lung cancer. [facility] Bronchoscopy and biopsy of bronchus<sup>3</sup> [id number] 04/12/2017 PROCEDURES PERFORMED: Central with ultrasound-guided transbronchial needle aspiration biopsy. INDICATIONS FOR THE PROCEDURE: Mediastinal adenopathy. PREOPERATIVE DIAGNOSIS Lung cancer. POSTPROCEDURE DIAGNOSIS: Lung cancer. [facility] Internal fixation of fracture<sup>3</sup> [id number] 09/03/2016 right wrist [facility] Internal fixation of fracture<sup>1</sup> [id number] 09/03/2016 right wrist [facility] Internal fixation of fracture<sup>4</sup> [id number] 09/03/2016 right wrist [facility] Tdap - tetanus, diphtheria and acellular pertussis vaccination [id number] 03/07/2014 [facility] Adhesiolysis [id number] [facility] FESS - FSS sphenoidotomy [id number] [facility] BSO - Total abdominal hysterectomy and bilateral salpingo-oophorectomy<sup>4</sup> [id number] due to cysts [facility] Adhesiolysis [id number] [facility] [place] FESS - FSS sphenoidotomy [id number] [facility] [place] [facility] BSO - Total abdominal hysterectomy and bilateral salpingo-oophorectomy<sup>1</sup> [id number] due to cysts [facility] [place] Adhesiolysis [id number] [facility] FESS - FSS sphenoidotomy [id number] [facility] BSO - Total abdominal hysterectomy and bilateral salpingo-oophorectomy<sup>1</sup> [id number] due to cysts [facility] BSO - Total abdominal hysterectomy and bilateral salpingo-oophorectomy<sup>2</sup> [id number] due to cysts [facility] BSO - Total abdominal hysterectomy and bilateral salpingo-oophorectomy<sup>5</sup> [id number] due to cysts [facility] Thoracentesis [id number] [facility]
--- NOTE | 2018-11-28 19:26 | Diagnostic Imaging Report ---
EXAMINATION: CHEST 2 VIEWS INDICATION: Right chest pain, history of pleurodesis ^right chest pain ^[id number] ^[id number] COMPARISON: Chest x-ray 11/05/2018 FINDINGS: PA and lateral views TUBES and LINES: None. Right IJ catheter has been removed. LUNGS: New airspace opacities have developed in the right mid and lower lung zones. No new findings in the left lung. PLEURA: Blunting of the right lateral costophrenic angle is increasing. There is fluid tracking along the major and minor fissures. No pneumothorax. HEART AND MEDIASTINUM: The cardiomediastinal silhouette is unremarkable. Surgical clips in the right mediastinum are stable BONES AND SOFT TISSUES: Right fifth rib fractures redemonstrated without evidence of healing. UPPER ABDOMEN: No free air under the diaphragm. IMPRESSION: Enlarging right pleural effusion and increasing airspace opacities in the right lung. This is concerning for pneumonia or atelectasis. Signed by: Dr. Yani George MD on 11/28/2018 7:22 PM
[2018-11-28 20:06] LABS: HEMATOCRIT 32.9 % (34.2-44.1); HEMOGLOBIN 10.3 g/dL (12.0-16.0); LYMPHOCYTES # (AUTO) 0.5 (1.0-3.2); LYMPHOCYTES % 5.2 % (18.0-39.1); MEAN CORPUSCULAR HEMOGLOBIN 28.9 pg (28-32); MEAN CORPUSCULAR HGB CONC 31.3 g/dL (31-35); MEAN CORPUSCULAR VOLUME 92.2 fL (81-99); MONOCYTES % 9.7 % (4.4-11.3); NEUTROPHILS # (AUTO) 8.4 (2.1-6.9); NEUTROPHILS % 84.7 % (38.7-80.0); PLATELET COUNT 282 x10e3/uL (140-360); RED BLOOD COUNT 3.57 x10e6/uL (3.6-5.1); RED CELL DISTRIBUTION WIDTH 13.4 % (11.7-14.4)
[2018-11-28 20:11] LABS: INR 0.93
[2018-11-28 20:12] LABS: PARTIAL THROMBOPLASTIN TIME 26.6 seconds (23.8-35.5)
[2018-11-28 20:18] LABS: ALANINE AMINOTRANSFERASE 18 IU/L (0-55); ALBUMIN 3.1 g/dL (3.5-5.0); ALBUMIN/GLOBULIN RATIO 0.9 (0.8-2.0); ALKALINE PHOSPHATASE 96 IU/L (40-150); ANION GAP 11.7 mmol/L (8-16); BLOOD UREA NITROGEN 11 mg/dL (7-26); BUN/CREATININE RATIO 15 (6-25); CALCIUM 8.9 mg/dL (8.4-10.2); CARBON DIOXIDE 27 mmol/L (22-29); CHLORIDE 102 mmol/L (98-107); CREATININE, SERUM 0.74 mg/dL (0.57-1.11); EST GLOMERULAR FILTRATION RATE > 60 ML/MIN (60-); GLUCOSE 98 mg/dL (74-118); POTASSIUM 3.7 mmol/L (3.5-5.1); SODIUM 137 mmol/L (136-145)
--- NOTE | 2018-11-28 20:52 | Diagnostic Imaging Report ---
CT chest without enhancement CPT code: 10124 INDICATION: Loculated pleural effusion, pneumonia, TECHNIQUE: Thin collimation axial images obtained from the thoracic inlet to the level of the diaphragm without intravenous contrast. Dose reduction techniques used: Automated exposure control, adjustment of the mAs and/or kVp according to patient size, standardized low-dose protocol, and/or iterative reconstruction technique. RADIATION DOSE: Total DLP: 537.22 mGy*cm Estimated effective dose: (DLP x 0.015 x size factor) mSv CTDIvol has been reviewed. It is below the limits set by the Radiation Protocol Committee (RPC). COMPARISON: CT chest 09/21/2018. CHEST FINDINGS: Lymph nodes: Enlarged right axillary lymph nodes measure up to 18 mm and are stable. No enlarged left axillary or subclavicular lymph nodes. Diffuse mediastinal lymphadenopathy is redemonstrated but less specular with given the lack of intravenous contrast. A lymph node in the AP window measures 2.9 x 3.4 cm and is grossly stable. There are are enlarged hilar lymph nodes and enlarged subcarinal lymph node measuring approximately 2.7 cm in AP dimension. The most confluent lymphadenopathy is along the right mediastinum.. Thyroid: Normal in size without mass in the visualized parenchyma.. Mediastinum: Circumferential pericardial effusion measures 13 mm (previously, 9 mm). The ascending aorta measures 3.6 cm. The main pulmonary artery measures 2.7 cm. The esophagus is collapsed Lungs/pleura: Right: Mild volume loss of the right hemithorax. Circumferential loculated pleural effusion has developed. Portions of the pleura have increased attenuation, particularly anteriorly and posteromedially. This may be the result of talc pleurodesis. Portions of the pleural fluid measure 3.5 cm in thickness. A dependently layering pleural effusion is no longer visualized. There is loculated fluid tracking along the major and minor fissures. A rounded focus of airspace disease or potential tumor in the posterior upper lobe measures 3.7 cm and is new. There is mass effect on the adjacent bronchi. There is soft tissue extending along the middle lobe and lower lobe bronchi. This is also new. There is diffuse interlobular septal thickening. No pleural effusion. Left: Mild smooth interlobular septal thickening. No confluent infiltrate. No discrete mass. Airways: There is luminal narrowing of the right main bronchus and the posterior upper lobe bronchi. There is also luminal narrowing of the bronchus intermedius and the proximal middle and lower lobe bronchi. ABDOMEN FINDINGS: The liver is lobulated in contour suggestive of hepatomegaly. The attenuation is normal, however. Visualized portions of the gallbladder, pancreas, spleen, adrenal glands, and left kidney are unremarkable. Bones: There are fracture deformities of the fifth and sixth ribs, potentially from thoracotomy. There are no destructive lesions. Soft tissues: Scarring of the lateral right chest suggestive of surgery. IMPRESSION: 1. Loculated circumferential right pleural effusion. 2. Extensive mediastinal lymphadenopathy and particularly right hilar lymphadenopathy with concern for lipidic growth into the right lung resulting in bronchial narrowing consistent with neoplasm. Interlobular septal thickening may be the result of edema or lymphangitic spread of tumor. Stable right axillary lymphadenopathy. 3. Enlarging circumferential pericardial effusion. 4. Potential hepatomegaly. 5. Postoperative changes of the right hemithorax as described above. 6. Ascending aortic ectasia. Signed by: Dr. Yani George MD on 11/28/2018 8:49 PM
[2018-11-28 21:33] VITALS: BP 111/84
== END 2018-11-28 21:56 | disposition home or self-care (01) ==
LOC: ER 17:49
DX: J90 Pleural effusion, not elsewhere classified (principal); Z88.5 Allergy status to narcotic agent; Z82.49 Family history of ischemic heart disease and other diseases of the circulatory system
CPT/HCPCS: 36415; 71046; 71250; 80053; 85025; 85610; 85730; 87040; 99284

== ENCOUNTER 2018-11-30 08:22 | Observation (INO) | payer OTHER ==
[~2018-11-30] VITALS: Ht 162.6 cm; Wt 83.9 kg
[2018-11-30] MEDS ORDERED: ONDANSETRON HCL INJ 2MG/ML 2ML 2 MG/ML VIAL IV STA (08:47)
--- NOTE | 2018-11-30 08:57 | NUR ---
XRAY HERE. PT EXSMOKER QUIT 3 YRS AGO; WAS A SMOKER X 37 YRS.
[2018-11-30] MEDS ORDERED: SODIUM CHLORIDE 0.9% 500ML 500 ML IV ONE (09:00)
[2018-11-30] MEDS ORDERED: METHYLPREDNISOLONE SOD SUCC 125 MG/2ML VIAL IV ONE (09:00)
[2018-11-30] MEDS ORDERED: MORPHINE SULFATE INJ 4 MG/ML INJ 1ML IV PRN (09:00)
[2018-11-30] MEDS ORDERED: IPRATROPIUM BROMIDE 0.02% 2.5 ML NEB NEB ONE (09:00)
[2018-11-30] MEDS ORDERED: LEVALBUTEROL HCL SOLN NEBU 0.63 MG/3 ML NEB INH ONE (09:00)
[2018-11-30 09:02] LABS: HEMATOCRIT 35.3 % (34.2-44.1); LYMPHOCYTES # (AUTO) 0.4 (1.0-3.2); LYMPHOCYTES % 3.7 % (18.0-39.1); MEAN CORPUSCULAR HEMOGLOBIN 28.6 pg (28-32); MEAN CORPUSCULAR HGB CONC 31.2 g/dL (31-35); MEAN CORPUSCULAR VOLUME 91.7 fL (81-99); MONOCYTES % 8.6 % (4.4-11.3); NEUTROPHILS # (AUTO) 9.9 (2.1-6.9); NEUTROPHILS % 87.3 % (38.7-80.0); PLATELET COUNT 333 x10e3/uL (140-360); RED BLOOD COUNT 3.85 x10e6/uL (3.6-5.1); RED CELL DISTRIBUTION WIDTH 13.5 % (11.7-14.4)
[2018-11-30 09:13] LABS: ALANINE AMINOTRANSFERASE 20 IU/L (0-55); ALBUMIN 3.4 g/dL (3.5-5.0); ALBUMIN/GLOBULIN RATIO 0.9 (0.8-2.0); ALKALINE PHOSPHATASE 117 IU/L (40-150); ANION GAP 14.1 mmol/L (8-16); BLOOD UREA NITROGEN 7 mg/dL (7-26); BUN/CREATININE RATIO 9 (6-25); CALCIUM 9.5 mg/dL (8.4-10.2); CARBON DIOXIDE 26 mmol/L (22-29); CHLORIDE 106 mmol/L (98-107); CREATINE KINASE 129 IU/L (29-168); CREATININE, SERUM 0.79 mg/dL (0.57-1.11); EST GLOMERULAR FILTRATION RATE > 60 ML/MIN (60-); GLUCOSE 109 mg/dL (74-118); POTASSIUM 4.1 mmol/L (3.5-5.1); SODIUM 142 mmol/L (136-145)
[2018-11-30] MEDS ORDERED: SODIUM CHLORIDE 0.9% 1000ML 1,000 ML IV ONE (09:15)
[2018-11-30] MEDS ORDERED: IPRATROPIUM BROMIDE 0.02% 2.5 ML NEB NEB PRN (09:15)
[2018-11-30] MEDS ORDERED: LEVALBUTEROL HCL SOLN NEBU 0.63 MG/3 ML NEB INH PRN (09:15)
[2018-11-30] MEDS ORDERED: ONDANSETRON HCL INJ 2MG/ML 2ML 2 MG/ML VIAL IV PRN (09:15)
--- NOTE | 2018-11-30 09:16 | Diagnostic Imaging Report ---
EXAMINATION: CHEST SINGLE (PORTABLE) INDICATION: ^CP SOB ^[id number] ^[id number] COMPARISON: Chest CT and x-ray dated 11/28/2018 FINDINGS: AP view TUBES and LINES: None. LUNGS and PLEURA: Lungs are well inflated. Pulmonary vascular congestion. Increased right lung opacification when compared to prior x-ray. Loculated right pleural effusion is better seen on prior CT. HEART AND MEDIASTINUM: The cardiomediastinal silhouette is enlarged. Thickening of the right paratracheal stripe. Surgical clips are seen just superior to the right hilum. BONES AND SOFT TISSUES: No acute osseous lesion. Soft tissues are unremarkable. UPPER ABDOMEN: No free air under the diaphragm. IMPRESSION: Increased right lung opacification when compared to prior x-ray, representing worsening effusion/atelectasis or superimposed pneumonia. Pulmonary vascular congestion. Signed by: Dr. Klaus Muir MD on 11/30/2018 9:11 AM
--- NOTE | 2018-11-30 09:19 | NUR ---
multiple warm blankets. vss. pending room assg.
--- NOTE | 2018-11-30 09:20 | NUR ---
pending urine sample for ua ordered; pt states unable to void at this time. remains sinus rhythm
[2018-11-30 09:46] LABS: PARTIAL THROMBOPLASTIN TIME 18.8 seconds (23.8-35.5)
[2018-11-30 09:49] LABS: INR 0.73; PROTHROMBIN TIME 10.8 seconds (11.9-14.5)
[2018-11-30] MEDS ORDERED: ASPIRIN 81 MG CHEW TAB PO ONE (10:00)
--- NOTE | 2018-11-30 10:28 | NUR ---
Recvd patient from ER, AAOX3, Denies any SOB , c/o pain rating 3/10 on right hip, skin intact, call light in reach, keep monitoring
[2018-11-30 10:41] VITALS: BP 172/90
[2018-11-30 11:46] VITALS: BP 172/90
[2018-11-30 11:46] LABS: CLARITY,URINE CLEAR (CLEAR); COLOR,URINE YELLOW (YELLOW); LEUKOCYTE ESTERASE ,URINE TRACE (NEGATIVE); NITRITE,URINE NEGATIVE (NEGATIVE)
[2018-11-30 11:47] LABS: PROTEIN,URINE DIPSTICK NEGATIVE (NEGATIVE)
[2018-11-30 11:48] LABS: BILIRUBIN,URINE NEGATIVE (NEGATIVE); KETONES,URINE NEGATIVE (NEGATIVE); URINE UROBILINOGEN 0.2 mg/dL (0.2 - 1)
[2018-11-30 12:11] LABS: BACTERIA,URINE FEW /HPF; EPITHELIAL CELLS,URINE FEW /LPF; RBC,URINE 0-5 /HPF (0-5); WBC,URINE (MAN) 0-5 /HPF (0-5)
[2018-11-30] MEDS ORDERED: MAGNESIUM HYDROXIDE 30 ML UDC PO PRN (14:15)
--- NOTE | 2018-11-30 15:17 | Pre Op History & Physical ---
CHIEF COMPLAINT: The patient reports dyspnea and chest pain. HISTORY OF PRESENT ILLNESS: The patient is a 52-year-old woman. She has a history of prior asthma and histoplasmosis. She has had problems with recurrent pleural effusions over the past year to year and a half. She also has a history of mediastinal adenopathy and a prior mediastinoscopy. About 3-4 weeks ago, she had a pleurodesis with a limited thoracotomy. Pathology results at that time showed B-cell lymphoma. The patient has since been evaluated at [facility] and is scheduled to begin chemotherapy for B-cell lymphoma, but is awaiting the review of the pathology by [facility]. She now complains of worsening pain at the incision site where she had the thoracotomy as well as dyspnea and wheezing. The patient was here at emergency department 2 days ago and had a CT scan that showed some loculated pleural fluid and changes from the pleurodesis. The patient also had possible pericardial effusion, but a subsequent echocardiogram in the office showed no pericardial fluid. PAST SURGICAL HISTORY: 1. Status post recent mini thoracotomy with pleurodesis. 2. History of dilatation of the right upper lobe bronchus. 3. History of a mediastinoscopy. 4. History of bone marrow biopsy. SOCIAL HISTORY: The patient is not an active smoker. She is not an active drinker. FAMILY HISTORY: Family history is noncontributory. REVIEW OF SYSTEMS: The patient is afebrile. She has no headache. She has no neck pain. She is not having any swollen glands of the neck. She does have some right-sided chest discomfort. She has some wheezing and shortness of breath. She denies any abdominal pain. She is having no nausea or vomiting. She is not having any leg edema. PHYSICAL EXAMINATION: VITAL SIGNS: The patient is afebrile. The vital signs are stable. HEENT: Shows no facial swelling or erythema. The nasal mucosa is normal. The oropharynx is normal. LYMPHATIC: Shows no submandibular, cervical, or supraclavicular adenopathy. CARDIAC: Reveals regular rate and rhythm with normal S1 and S2. There are no murmurs or rubs heard. LUNGS: Auscultation of lungs shows wheezing on the left side and decreased breath sounds on the right. ABDOMEN: Soft, tender. There is no rebound or guarding. EXTREMITIES: Shows no leg edema or calf tenderness. There is no cyanosis or clubbing. SKIN: Shows no rashes. NEUROLOGIC: Shows no focal abnormalities. IMPRESSION: 1. B-cell lymphoma with recurrent right pleural effusion. 2. Status post mini thoracotomy and pleurodesis. 3. Chronic persistent asthma with acute exacerbation. 4. Post thoracotomy chest pain. PLAN: 1. Morphine for pain control. 2. Solu-Medrol and bronchodilators. 3. The patient will have a possible ultrasound-guided thoracentesis. 4. Continue bowel regimen. 5. The patient will need followup for chemotherapy at [facility]. Clifton Smith MD [facility]/MODL /[id number]
[2018-11-30 15:25] VITALS: BP 138/83
[2018-11-30] MEDS ORDERED: ENOXAPARIN SOD INJ 40 MG/0.4 ML SYR SC SCH (17:00)
--- NOTE | 2018-11-30 17:30 | NUR ---
patient back from thoracentesis from radiology. incision site rt upper back pressure bandage ON, no bleeding or hematoma noted, Denies Any SOB, patient stated she feeling better now.
--- NOTE | 2018-11-30 17:31 | Diagnostic Imaging Report ---
EXAMINATION: CHEST XRAY POST PROCEDURE INDICATION: Post thoracocentesis. COMPARISON: Same day at 8:58 AM. FINDINGS: See impression. IMPRESSION: Slight interval decrease in right pleural effusion, status post thoracocentesis. No visible pneumothorax. Persistent mild to moderate, pulmonary edema and enlarged cardiomediastinal silhouette. Signed by: Dr. Klaus Muir MD on 11/30/2018 5:28 PM
[2018-11-30] MEDS: ACETAMINOPHEN 325 MG TAB PO PRN (18:20)
--- NOTE | 2018-11-30 18:45 | NUR ---
GOT REPORT FROM PREVIOUS NURSE. CALL GARCIA WITHIN REACH. A&O X 3.
[2018-11-30 20:00] VITALS: BP 138/87
[2018-11-30 20:04] LABS: CREATINE KINASE MB 1.7 ng/mL (0-5.0)
[2018-11-30] MEDS: METHYLPREDNISOLONE SOD SUCC 40 MG/ML VIAL 1ML IV SCH (20:27)
[2018-11-30] MEDS ORDERED: DULOXETINE HCL 20 MG DELAYED RELEASE PO SCH (21:00)
[2018-11-30] MEDS ORDERED: MONTELUKAST SODIUM 10 MG TAB PO SCH (21:00)
[2018-12-01] VITALS: BP 137/63
[2018-12-01] MEDS ORDERED: SODIUM CHLORIDE 0.9% 1000ML 1,000 ML ONE (00:11)
[2018-12-01 04:00] VITALS: BP 120/77
[2018-12-01 05:15] LABS: HEMATOCRIT 30.6 % (34.2-44.1); HEMOGLOBIN 9.6 g/dL (12.0-16.0); LYMPHOCYTES # (AUTO) 0.3 (1.0-3.2); LYMPHOCYTES % 2.8 % (18.0-39.1); MEAN CORPUSCULAR HEMOGLOBIN 28.2 pg (28-32); MEAN CORPUSCULAR HGB CONC 31.4 g/dL (31-35); MONOCYTES # (AUTO) 0.3 (0.2-0.8); MONOCYTES % 2.8 % (4.4-11.3); NEUTROPHILS # (AUTO) 9.3 (2.1-6.9); NEUTROPHILS % 93.8 % (38.7-80.0); PLATELET COUNT 297 x10e3/uL (140-360); RED CELL DISTRIBUTION WIDTH 13.3 % (11.7-14.4)
[2018-12-01 05:43] LABS: ALANINE AMINOTRANSFERASE 17 IU/L (0-55); ALBUMIN 2.8 g/dL (3.5-5.0); ALBUMIN/GLOBULIN RATIO 0.8 (0.8-2.0); ALKALINE PHOSPHATASE 103 IU/L (40-150); ANION GAP 11.8 mmol/L (8-16); BLOOD UREA NITROGEN 11 mg/dL (7-26); BUN/CREATININE RATIO 15 (6-25); CALCIUM 9.4 mg/dL (8.4-10.2); CARBON DIOXIDE 26 mmol/L (22-29); CHLORIDE 109 mmol/L (98-107); CHOL/HDL RATIO 3.2 (3.0-3.6); CHOLESTEROL 162 MD/DL (0-199); CREATININE, SERUM 0.75 mg/dL (0.57-1.11); EST GLOMERULAR FILTRATION RATE > 60 ML/MIN (60-); GLUCOSE 144 mg/dL (74-118); HDL CHOLESTEROL 50 MG/DL (40-60); LDL CHOLESTEROL 94 MG/DL (60-130); POTASSIUM 3.8 mmol/L (3.5-5.1); SODIUM 143 mmol/L (136-145); TRIGLYCERIDES 92 MG/DL (0-149)
[2018-12-01 06:03] LABS: CREATINE KINASE 113 IU/L (29-168)
--- NOTE | 2018-12-01 06:54 | NUR ---
Gave report to oncoming nurse. Patient in bed. No pain or distress. call light within reach.
[2018-12-01] MEDS ORDERED: PANTOPRAZOLE SODIUM 40 MG SUSPDR.PKT PO SCH (07:30)
[2018-12-01 07:33] VITALS: BP 136/76
[2018-12-01] MEDS: METHYLPREDNISOLONE SOD SUCC 40 MG/ML VIAL 1ML IV SCH (08:41)
[2018-12-01 08:48] VITALS: BP 136/76
--- NOTE | 2018-12-01 08:50 | NUR ---
patient sitting up in bed, tolerated breakfast, not in any distress, ambulating in room, denies any pain, Dr Claudia Smith had rounds
[2018-12-01] MEDS ORDERED: ASPIRIN 81 MG ENTERIC COATED PO SCH (09:00)
[2018-12-01] MEDS ORDERED: MULTIVITAMINS/MINERALS TAB PO SCH (09:00)
[2018-12-01] MEDS ORDERED: POLYETHYLENE GLYCOL 3350 17 GM PACK PO SCH (09:00)
[2018-12-01] MEDS: ACETAMINOPHEN 325 MG TAB PO PRN (09:49)
--- NOTE | 2018-12-01 11:24 | NUR ---
patient discharged home, IV canula removed with tip intact, no SS of infiltration noted, Tele box returned. Denies any pain or SOB now, not in any distress noted, patient aware about her f/up appointments. Transported via to [facility], she said she drive her car. Got all personnel belongings with her.
--- NOTE | 2018-12-01 13:07 | Diagnostic Imaging Report ---
Date and Time: 11/30/2018 Procedure: Ultrasound-guided right thoracentesis pharmaceutical operator: Dr. Jimenez Pre-operative diagnosis: Right pleural effusion Post-operative diagnosis: Right pleural effusion Conscious Sedation: None The patient's heart rate and pulse oximetry were continuously monitored by the interventional radiology nurse. Blood pressure was monitored at 5 minute intervals. Additional Medications: Lidocaine 1% for local anesthesia Estimated blood loss: Less than 5 cc Blood products administered: None Specimens: 150 cc straw-colored fluid Implants: None Condition at completion: Stable Disposition: Returned to floor Complications: No immediate DISCUSSION: Informed consent was obtained and documented in the medical record after discussion of risks and benefits. The right posterior chest was prepped and draped in the standard sterile fashion. A suitable intercostal percutaneous approach to the right pleural space was identified and 1% lidocaine was infiltrated into the skin and subcutaneous tissues for local anesthesia. Then under continuous sonographic guidance a 5 Occitan Share[employer]eh needle catheter was advanced into the small right pleural effusion, noted to have multiple thin internal septations. A permanent sonographic image was stored. The catheter was advanced off the needle and connected to vacuum bottle with subsequent evacuation of 150 cc straw-colored fluid. Postprocedure sonographic imaging confirmed partial evacuation of the pleural effusion. At the conclusion of sampling the catheter was removed and a sterile, occlusive dressing was applied. The patient tolerated the procedure well without immediate complication. FINDINGS: Small, complex right pleural effusion IMPRESSION: Successful ultrasound-guided right thoracentesis with evacuation of 150 cc straw-colored fluid. Of note, interval development of multiple thin internal septations within the pleural effusion, which may be reactive (patient reports recent history of right thoracotomy and chest tube placement at an outside facility). Specimen was submitted for laboratory analysis as requested by the referring clinical service. Signed by: Dr. Anson Jimenez M.D. on 12/01/2018 1:03 PM
--- NOTE | 2018-12-01 13:07 | Diagnostic Imaging Report ---
Date and Time: 11/30/2018 Procedure: Ultrasound-guided right thoracentesis cmm operator: Dr. Jimenez Pre-operative diagnosis: Right pleural effusion Post-operative diagnosis: Right pleural effusion Conscious Sedation: None The patient's heart rate and pulse oximetry were continuously monitored by the interventional radiology nurse. Blood pressure was monitored at 5 minute intervals. Additional Medications: Lidocaine 1% for local anesthesia Estimated blood loss: Less than 5 cc Blood products administered: None Specimens: 150 cc straw-colored fluid Implants: None Condition at completion: Stable Disposition: Returned to floor Complications: No immediate DISCUSSION: Informed consent was obtained and documented in the medical record after discussion of risks and benefits. The right posterior chest was prepped and draped in the standard sterile fashion. A suitable intercostal percutaneous approach to the right pleural space was identified and 1% lidocaine was infiltrated into the skin and subcutaneous tissues for local anesthesia. Then under continuous sonographic guidance a 5 Urdu SoMoLendeh needle catheter was advanced into the small right pleural effusion, noted to have multiple thin internal septations. A permanent sonographic image was stored. The catheter was advanced off the needle and connected to vacuum bottle with subsequent evacuation of 150 cc straw-colored fluid. Postprocedure sonographic imaging confirmed partial evacuation of the pleural effusion. At the conclusion of sampling the catheter was removed and a sterile, occlusive dressing was applied. The patient tolerated the procedure well without immediate complication. FINDINGS: Small, complex right pleural effusion IMPRESSION: Successful ultrasound-guided right thoracentesis with evacuation of 150 cc straw-colored fluid. Of note, interval development of multiple thin internal septations within the pleural effusion, which may be reactive (patient reports recent history of right thoracotomy and chest tube placement at an outside facility). Specimen was submitted for laboratory analysis as requested by the referring clinical service. Signed by: Dr. Anson Jimenez M.D. on 12/01/2018 1:03 PM
--- NOTE | 2018-12-02 06:45 | Discharge Summary ---
DISCHARGE MEDICATIONS: 1. Cymbalta 20 mg p.o. daily. 2. Atrovent albuterol through the nebulizer q.4h p.r.n. 3. Singulair 10 mg p.o. at bedtime. 4. Protonix 40 mg p.o. daily. 5. Breo 200 mcg p.o. daily. 6. Ibuprofen p.r.n. for pain. DISCHARGE DIAGNOSES: 1. Recurrent right pleural effusions. 2. B-cell lymphoma. 3. Chronic persistent asthma with acute exacerbation. 4. Postthoracotomy pain syndrome. RADIOGRAPHIC DATA: Ultrasound of the pleural space shows some loculated pleural fluid. PROCEDURE: 150 mL of pleural fluid was removed by Radiology under ultrasound guidance. HISTORY OF PRESENT ILLNESS: The patient is a 52-year-old woman. She has a history of prior asthma and histoplasmosis. She has had recurrent pleural effusions. She also has mediastinal adenopathy. About four weeks ago, she had a limited thoracotomy with a pleurodesis and biopsies. Pathology showed B-cell lymphoma. The patient now returns with pain and difficulty breathing. She has some dyspnea with exertion. HOSPITAL COURSE: The patient was admitted. She had cardiac enzymes and an EKG. They were all negative. She subsequently had an ultrasound-guided thoracentesis and 150 mL of fluid had been removed. She felt better after this and was eager to go home. The patient also received Solu-Medrol x1 dose and was continued on bronchodilators. DISPOSITION: The patient will be discharged home. FOLLOWUP: She is scheduled to follow up with [facility] for treatment of her lymphoma. She will also follow up with Dr. Clifton Smith. [facility]/LETAL /[id number]
== END 2018-12-01 11:05 | disposition home or self-care (01) ==
LOC: ER 08:22 → ERHOLD 09:11 → IMCU 10:29
PROVIDERS: ADMIT Internal Medicine Critical Care Medicine; ATTEND Internal Medicine Critical Care Medicine
DX: C83.82 Other non-follicular lymphoma, intrathoracic lymph nodes (principal); J91.0 Malignant pleural effusion; G89.18 Other acute postprocedural pain; R07.2 Precordial pain; R06.00 Dyspnea, unspecified; F41.9 Anxiety disorder, unspecified; Z87.891 Personal history of nicotine dependence; Z82.49 Family history of ischemic heart disease and other diseases of the circulatory system; Z88.5 Allergy status to narcotic agent; J45.31 Mild persistent asthma with (acute) exacerbation; R59.0 Localized enlarged lymph nodes
CPT/HCPCS: 32555 ×2; 36415 ×2; 71045 ×2; 74470; 80053 ×2; 80061; 81001; 82550 ×2; 82553 ×2; 84484 ×2; 85025 ×2; 85610; 85730; 87086; 87186; 88112; 88305; 93005; 94640; 94760; 99284; G0378 ×2; J1650; J2270; J2405; J2920 ×2; J2930; J7030 ×2; J7040

== ENCOUNTER 2018-12-15 12:30 | Observation (INO) | payer OTHER ==
[~2018-12-15] VITALS: Ht 162.6 cm; Wt 78.9 kg
[2018-12-15] MEDS ORDERED: SODIUM CHLORIDE 0.9% 1000ML 1,000 ML IV STA (12:39)
[2018-12-15] MEDS ORDERED: METHYLPREDNISOLONE SOD SUCC 125 MG/2ML VIAL IV STA (12:39)
[2018-12-15] MEDS ORDERED: ALBUTEROL/IPRATROPIUM 3 ML NEB NEB ONE (12:45)
[2018-12-15] MEDS ORDERED: CEFTRIAXONE SOD 1 GM/NS 50 ML 50 ML IV ONE (13:30)
[2018-12-15] MEDS ORDERED: MORPHINE SULFATE INJ 4 MG/ML INJ 1ML IV ONE (13:30)
[2018-12-15] MEDS ORDERED: ONDANSETRON HCL INJ 2MG/ML 2ML 2 MG/ML VIAL IV ONE (13:30)
[2018-12-15 13:41] LABS: BASOPHILS % 0.1 % (0.0-1.0); HEMATOCRIT 35.2 % (34.2-44.1); LYMPHOCYTES # (AUTO) 0.6 (1.0-3.2); LYMPHOCYTES % 4.3 % (18.0-39.1); MEAN CORPUSCULAR HEMOGLOBIN 27.7 pg (28-32); MEAN CORPUSCULAR HGB CONC 31.3 g/dL (31-35); MEAN CORPUSCULAR VOLUME 88.7 fL (81-99); MONOCYTES # (AUTO) 1.4 (0.2-0.8); MONOCYTES % 10.8 % (4.4-11.3); NEUTROPHILS # (AUTO) 10.9 (2.1-6.9); NEUTROPHILS % 84.4 % (38.7-80.0); PLATELET COUNT 297 x10e3/uL (140-360); RED BLOOD COUNT 3.97 x10e6/uL (3.6-5.1); RED CELL DISTRIBUTION WIDTH 13.3 % (11.7-14.4)
[2018-12-15 13:53] LABS: INR 0.99; PROTHROMBIN TIME 13.6 seconds (11.9-14.5)
[2018-12-15 13:54] LABS: PARTIAL THROMBOPLASTIN TIME 30.5 seconds (23.8-35.5)
--- NOTE | 2018-12-15 13:54 | Diagnostic Imaging Report ---
EXAMINATION: PA and lateral views of the chest. COMPARISON: December 07, 2018 CLINICAL HISTORY: shortness of breath, cough DISCUSSION: Lines/tubes: None. Lungs: Stable pulmonary venous congestion and increased right lower lung opacity/mass. Pleura: Loculated right effusion. Heart and mediastinum: The cardiomediastinal silhouette is normal. Bones and soft tissues: No acute bony abnormalities. Multiple right-sided rib fractures. IMPRESSION: Right lung effusion with increased consolidation/mass Signed by: Dr. Fransisco Mcmullen M.D. on 12/15/2018 1:51 PM
[2018-12-15 14:01] LABS: ALANINE AMINOTRANSFERASE 17 IU/L (0-55); ALBUMIN 3.1 g/dL (3.5-5.0); ALBUMIN/GLOBULIN RATIO 0.9 (0.8-2.0); ALKALINE PHOSPHATASE 98 IU/L (40-150); ANION GAP 12.3 mmol/L (8-16); BLOOD UREA NITROGEN 12 mg/dL (7-26); BUN/CREATININE RATIO 14 (6-25); CALCIUM 9.2 mg/dL (8.4-10.2); CARBON DIOXIDE 28 mmol/L (22-29); CHLORIDE 100 mmol/L (98-107); CREATINE KINASE 69 IU/L (29-168); CREATININE, SERUM 0.83 mg/dL (0.57-1.11); EST GLOMERULAR FILTRATION RATE > 60 ML/MIN (60-); GLUCOSE 104 mg/dL (74-118); POTASSIUM 3.3 mmol/L (3.5-5.1); SODIUM 137 mmol/L (136-145)
[2018-12-15 14:45] LABS: CLARITY,URINE HAZY (CLEAR); COLOR,URINE YELLOW (YELLOW); KETONES,URINE 1+ (NEGATIVE); LEUKOCYTE ESTERASE ,URINE TRACE (NEGATIVE); NITRITE,URINE POSITIVE (NEGATIVE); PROTEIN,URINE DIPSTICK NEGATIVE (NEGATIVE); URINE UROBILINOGEN 0.2 mg/dL (0.2 - 1)
[2018-12-15 14:46] LABS: BILIRUBIN,URINE NEGATIVE (NEGATIVE)
[2018-12-15 14:49] LABS: BACTERIA,URINE MODERATE /HPF; EPITHELIAL CELLS,URINE FEW /LPF; RBC,URINE 0-5 /HPF (0-5)
[2018-12-15] MEDS ORDERED: CEFTRIAXONE SOD 1 GM/NS 50 ML 50 ML IV SCH (17:15)
[2018-12-15] MEDS ORDERED: PENTAZOCINE/NALOXONE 1 TAB PO PRN (17:15)
[2018-12-15] MEDS ORDERED: SODIUM CHLORIDE FLUSH 10 ML SYR INJ PRN (17:15)
[2018-12-15] MEDS ORDERED: ONDANSETRON HCL INJ 2MG/ML 2ML 2 MG/ML VIAL IV PRN (17:15)
[2018-12-15] MEDS ORDERED: IPRATROPIUM BROMIDE 0.02% 2.5 ML NEB NEB PRN (17:45)
[2018-12-15] MEDS ORDERED: IBUPROFEN 400 MG TAB PO PRN (17:45)
[2018-12-15] MEDS ORDERED: LORAZEPAM 0.5 MG TAB PO PRN (17:45)
[2018-12-15] MEDS ORDERED: ZOLPIDEM TARTRATE 5 MG TAB PO PRN (17:45)
[2018-12-15] MEDS ORDERED: ALBUTEROL SULF 0.083% NEB SOLN 3 ML NEB INH PRN (17:45)
--- NOTE | 2018-12-15 17:55 | NUR ---
recv patient from ER. AAOX3, Denies any chest pain, on O2 2 L NC, call light in reach, not in any distress
[2018-12-15 18:05] VITALS: BP 130/82
--- NOTE | 2018-12-15 18:29 | History and Physical ---
CHIEF COMPLAINT: Right-sided chest wall pain and dyspnea. HISTORY OF PRESENT ILLNESS: The patient is a 53-year-old woman. She has a history of lymphoma with recurrent pleural effusions. She recently underwent a mini thoracotomy with a pleurodesis. She is awaiting chemotherapy through [facility]. She has noticed worsening chest wall pain recently. She believes it was worse after coughing. She has been using a Lidoderm patch at home as well as Tylenol 3 with no relief. She also complains of dyspnea and wheezing. PAST SURGICAL HISTORY: 1. Status post mini thoracotomy and pleurodesis. 2. History of recurrent thoracentesis. 3. History of mediastinoscope. 4. History of bronchoscopy with bronchial dilatation of the right upper lobe. PAST MEDICAL HISTORY: 1. Lymphoma. 2. Asthma. 3. Recurrent pleural effusions. 4. Histoplasmosis. SOCIAL HISTORY: The patient is not a smoker. She has never been a drinker. FAMILY HISTORY: Family history is noncontributory. REVIEW OF SYSTEMS: There is no fever. She has no headache. There is no neck pain. She is not having any throat pain. She does note chest wall pain on the right side that is worse with coughing. It is near the thoracotomy site. She has no anterior chest pain. She reports some dyspnea and wheezing. She has no abdominal pain. There is no nausea or vomiting. She has no leg edema. She has no focal neurological complaints. PHYSICAL EXAMINATION: VITAL SIGNS: The patient is afebrile. The vital signs are stable. HEENT: Shows no facial swelling or erythema. The nasal mucosa is normal. The oropharynx is normal. LYMPHATIC: Shows no submandibular, cervical, or supraclavicular adenopathy. CARDIAC: Reveals regular rate and rhythm with normal S1, S2. LUNGS: Auscultation of lungs reveals decreased breath sounds on the right side. There is some tenderness over the right lower lateral chest wall. Her incisions look clean. There is no drainage. ABDOMEN: Soft, nontender. There is no rebound or guarding. EXTREMITIES: Show no leg edema or calf tenderness. There is no cyanosis or clubbing. SKIN: Shows no rashes. NEUROLOGIC: Shows no focal abnormalities. IMPRESSION: 1. Recurrent right-sided chest wall pain. 2. Recurrent right pleural effusions. 3. Lymphoma. 4. Asthma. PLAN: 1. The patient will continue to receive her Lidoderm patches. 2. Begin gabapentin 3 times a day. 3. Solu-Medrol x1 along with bronchodilators. 4. Radiology to do ultrasound-guided thoracentesis if fluid is present. [facility] Cash/JILLIAN /[id number]
[2018-12-15] MEDS ORDERED: METHYLPREDNISOLONE SOD SUCC 40 MG/ML VIAL 1ML IV ONE (18:30)
[2018-12-15 18:39] VITALS: BP 134/78
--- NOTE | 2018-12-15 19:00 | NUR ---
Got report from previous nurse. call light within reach. patient in bed. no pain or distress.
[2018-12-15 20:00] VITALS: BP_SYST 130; BP_SYST 150; BP_DIAS 76; BP_DIAS 81
[2018-12-15] MEDS ORDERED: DULOXETINE HCL 20 MG DELAYED RELEASE PO SCH (21:00)
[2018-12-15] MEDS ORDERED: MONTELUKAST SODIUM 10 MG TAB PO SCH (21:00)
[2018-12-16] VITALS: BP 120/71
[2018-12-16 04:00] VITALS: BP 152/86
[2018-12-16 05:37] LABS: BASOPHILS % 0.1 % (0.0-1.0); HEMATOCRIT 32.9 % (34.2-44.1); HEMOGLOBIN 10.2 g/dL (12.0-16.0); LYMPHOCYTES # (AUTO) 0.3 (1.0-3.2); LYMPHOCYTES % 2.9 % (18.0-39.1); MEAN CORPUSCULAR HEMOGLOBIN 27.6 pg (28-32); MEAN CORPUSCULAR VOLUME 88.9 fL (81-99); MONOCYTES # (AUTO) 0.3 (0.2-0.8); NEUTROPHILS # (AUTO) 9.3 (2.1-6.9); NEUTROPHILS % 93.5 % (38.7-80.0); PLATELET COUNT 282 x10e3/uL (140-360); RED CELL DISTRIBUTION WIDTH 13.2 % (11.7-14.4)
[2018-12-16 05:52] LABS: ANION GAP 11.2 mmol/L (8-16); BLOOD UREA NITROGEN 11 mg/dL (7-26); BUN/CREATININE RATIO 14 (6-25); CALCIUM 9.7 mg/dL (8.4-10.2); CARBON DIOXIDE 28 mmol/L (22-29); CHLORIDE 103 mmol/L (98-107); CREATININE, SERUM 0.78 mg/dL (0.57-1.11); EST GLOMERULAR FILTRATION RATE > 60 ML/MIN (60-); GLUCOSE 139 mg/dL (74-118); SODIUM 138 mmol/L (136-145)
[2018-12-16 05:53] LABS: POTASSIUM 4.2 mmol/L (3.5-5.1)
[2018-12-16] MEDS ORDERED: BREO ELLIPTA INH SCH (06:00)
--- NOTE | 2018-12-16 07:24 | NUR ---
Gave report to oncoming nurse. patient in bed. Call light within reach.
[2018-12-16 08:00] VITALS: BP 156/80
--- NOTE | 2018-12-16 08:03 | NUR ---
pt amb hallways. no c/o pain or s/s distress. will continue to monitor.
[2018-12-16] MEDS ORDERED: LIDOCAINE 5% PATCH TP SCH (09:00)
[2018-12-16] MEDS ORDERED: MULTIVITAMINS/MINERALS TAB PO SCH (09:00)
[2018-12-16] MEDS ORDERED: GABAPENTIN 100 MG CAP PO SCH (09:00)
[2018-12-16] MEDS ORDERED: PANTOPRAZOLE SODIUM 40 MG SUSPDR.PKT PO SCH (09:00)
[2018-12-16 09:29] VITALS: BP 156/80
[2018-12-16 12:33] VITALS: BP 165/81
--- NOTE | 2018-12-16 13:12 | Diagnostic Imaging Report ---
Limited bilateral chest ultrasound/ Terminated procedure-thoracentesis. History: Evaluate for pleural effusion. Comparison: Chest radiograph 12/15/2018. Technique/findings: Limited bilateral chest ultrasound was performed to evaluate for pleural effusion. Trace right pleural effusion. No left pleural effusion. IMPRESSION: Trace right pleural effusion, too small for therapeutic drainage. Therefore thoracentesis was not performed. No left pleural effusion. Signed by: Dr. Patria Rahman MD on 12/16/2018 1:08 PM
--- NOTE | 2018-12-16 13:38 | NUR ---
chest US performed for prethoracentesis, jerry MENJIVAR with results.
[2018-12-16] MEDS ORDERED: ONDANSETRON HCL 4 MG ORAL DISINTEGRATING TAB PO PRN (15:00)
--- NOTE | 2018-12-16 15:56 | NUR ---
rounded, no thora to be done. reviewed dc instructions with pt, verbalized understanding. pt is following up with [facility] and scheduled appt for wed. dc stable
--- NOTE | 2018-12-16 19:54 | Discharge Summary ---
DISCHARGE DIAGNOSES: 1. Lymphoma. 2. Dyspnea. 3. Asthma. 4. Recurrent right-sided chest wall pain. DISCHARGE MEDICATIONS: 1. Cymbalta 20 mg p.o. daily. 2. Ativan 0.5 mg p.o. q.12 p.r.n. 3. Breo 200 mcg one p.o. daily. 4. Singulair 10 mg p.o. daily. 5. Protonix 40 mg p.o. daily. 6. Albuterol and ipratropium through the nebulizer q.6 p.r.n. RADIOGRAPHIC DATA: 1. Chest x-ray shows right lung scarring or pleural effusion. 2. Ultrasound of the chest shows only trace right pleural effusion. HISTORY OF PRESENT ILLNESS: The patient is a 53-year-old woman, she has a history of lymphoma with recurrent pleural effusions. She initially underwent a mini thoracotomy with a pleurodesis. She is awaiting chemotherapy through [facility]. She came in complaining of chest wall pain and increased dyspnea. She noted wheezing and some coughing. HOSPITAL COURSE: The patient was admitted. She received Solu-Medrol and bronchodilators with some improvement. She also had a chest x-ray and ultrasound of the chest that showed minimal pleural effusion. Thoracentesis was not performed. DISPOSITION: The patient will be discharged home and will follow up with Dr. Smith and with [facility]. Clifton Smith MD [facility]/MODL /[id number]
== END 2018-12-16 15:40 | disposition home or self-care (01) ==
LOC: ER 12:33 → ERHOLD 17:07 → IMCU 17:32
PROVIDERS: ADMIT Internal Medicine Critical Care Medicine; ATTEND Internal Medicine Critical Care Medicine
DX: R07.89 Other chest pain (principal); J90 Pleural effusion, not elsewhere classified; N30.01 Acute cystitis with hematuria; Z88.5 Allergy status to narcotic agent; Z82.49 Family history of ischemic heart disease and other diseases of the circulatory system; J84.10 Pulmonary fibrosis, unspecified; F17.210 Nicotine dependence, cigarettes, uncomplicated; I50.9 Heart failure, unspecified; C85.90 Non-Hodgkin lymphoma, unspecified, unspecified site; J45.909 Unspecified asthma, uncomplicated
CPT/HCPCS: 36415 ×2; 71046; 74470; 76604; 80048; 80053; 81001; 82550; 82553; 83605; 84484; 85025 ×2; 85610; 85730; 87040; 93005; 94640 ×2; 99284; G0378 ×2; J0696; J2270; J2405; J2930; J7030

== ENCOUNTER 2018-12-23 07:10 | Observation (INO) | payer OTHER ==
[~2018-12-23] VITALS: Ht 162.6 cm; Wt 78.9 kg
[2018-12-23] MEDS ORDERED: METHYLPREDNISOLONE SOD SUCC 125 MG/2ML VIAL IV STA (07:29)
[2018-12-23] MEDS ORDERED: LORAZEPAM INJ 2 MG/ML VIAL IV ONE (07:30)
[2018-12-23] MEDS ORDERED: LEVALBUTEROL HCL SOLN NEBU 1.25 MG/3 ML NEB INH ONE ×2 (07:30→08:45)
[2018-12-23] MEDS ORDERED: IPRATROPIUM BROMIDE 0.02% 2.5 ML NEB NEB ONE ×2 (07:30→08:45)
--- NOTE | 2018-12-23 08:03 | NUR ---
PT SEVERELY ANXIOUS. STATES SOB, BUT THEN STATES NAUSEA. PT STATES COUGHING
--- NOTE | 2018-12-23 08:21 | Diagnostic Imaging Report ---
EXAMINATION: PA and lateral views of the chest. COMPARISON: Chest radiograph 12/15/2018, CT chest 11/28/2018 CLINICAL HISTORY: History of lymphoma recurrent right pleural effusion DISCUSSION: When accounting for differences in technique, similar appearance of opacification of the inferior two thirds of the right hemithorax, shown to represent a combination of hilar mass, postobstructive consolidation, and pleural effusion by comparison CT chest. Left lung remains clear. Cardiomediastinal contour is unchanged. Right-sided rib deformities related to prior thoracotomy. IMPRESSION: Right inferior hemithorax opacity due to hilar mass, postobstructive consolidation, and small effusion, similar to that noted 12/15/2018. Signed by: Dr. Anson Jimenez M.D. on 12/23/2018 8:18 AM
[2018-12-23 08:36] LABS: BASOPHILS % 0.1 % (0.0-1.0); HEMATOCRIT 36.5 % (34.2-44.1); HEMOGLOBIN 11.5 g/dL (12.0-16.0); LYMPHOCYTES # (AUTO) 0.5 (1.0-3.2); MEAN CORPUSCULAR HEMOGLOBIN 27.1 pg (28-32); MEAN CORPUSCULAR HGB CONC 31.5 g/dL (31-35); MEAN CORPUSCULAR VOLUME 85.9 fL (81-99); MONOCYTES # (AUTO) 1.2 (0.2-0.8); MONOCYTES % 9.8 % (4.4-11.3); NEUTROPHILS # (AUTO) 10.6 (2.1-6.9); NEUTROPHILS % 85.6 % (38.7-80.0); PLATELET COUNT 382 x10e3/uL (140-360); RED BLOOD COUNT 4.25 x10e6/uL (3.6-5.1); RED CELL DISTRIBUTION WIDTH 13.5 % (11.7-14.4)
[2018-12-23 08:41] LABS: CLARITY,URINE HAZY (CLEAR); COLOR,URINE ORANGE (YELLOW); LEUKOCYTE ESTERASE ,URINE TRACE (NEGATIVE); NITRITE,URINE POSITIVE (NEGATIVE); PROTEIN,URINE DIPSTICK 1+ (NEGATIVE)
[2018-12-23 08:42] LABS: BILIRUBIN,URINE 1+ (NEGATIVE); KETONES,URINE NEGATIVE (NEGATIVE); PROTHROMBIN TIME 13.7 seconds (11.9-14.5); URINE UROBILINOGEN 4 mg/dL (0.2 - 1)
[2018-12-23 08:43] LABS: PARTIAL THROMBOPLASTIN TIME 34.5 seconds (23.8-35.5)
[2018-12-23] MEDS ORDERED: SODIUM CHLORIDE 0.9% 1000ML 1,000 ML IV STA (08:49)
--- NOTE | 2018-12-23 08:51 | NUR ---
US at bedside at this time. RT notified of need for ABG per MD's order.
[2018-12-23 08:54] LABS: WBC,URINE (MAN) 0-5 /HPF (0-5)
[2018-12-23 08:55] LABS: BACTERIA,URINE FEW /HPF; EPITHELIAL CELLS,URINE FEW /LPF; TRANSITIONAL EPI CELLS,URINE RARE
[2018-12-23 08:58] LABS: ALANINE AMINOTRANSFERASE 15 IU/L (0-55); ALBUMIN 3.2 g/dL (3.5-5.0); ALBUMIN/GLOBULIN RATIO 0.8 (0.8-2.0); ALKALINE PHOSPHATASE 119 IU/L (40-150); ANION GAP 15.9 mmol/L (8-16); BLOOD UREA NITROGEN 5 mg/dL (7-26); BUN/CREATININE RATIO 6 (6-25); CALCIUM 9.7 mg/dL (8.4-10.2); CARBON DIOXIDE 28 mmol/L (22-29); CHLORIDE 98 mmol/L (98-107); CREATINE KINASE 101 IU/L (29-168); EST GLOMERULAR FILTRATION RATE > 60 ML/MIN (60-); GLUCOSE 119 mg/dL (74-118); SODIUM 139 mmol/L (136-145)
[2018-12-23 08:59] LABS: POTASSIUM 2.9 mmol/L (3.5-5.1)
[2018-12-23 09:00] LABS: LYMPHOCYTES % (MANUAL) 10 % (19-48); MONOCYTES % (MANUAL) 8 % (3.4-9.0); NEUTROPHILS % (MANUAL) 82 % (40-74); PLATELET ESTIMATE SLIGHTLY INCREASED; RBC MORPHOLOGY COMMENT NORMAL
[2018-12-23] MEDS ORDERED: LEVALBUTEROL HCL SOLN NEBU 0.63 MG/3 ML NEB INH SCH (09:00)
[2018-12-23] MEDS ORDERED: VANCOMYCIN 1GM/NS 250 ML 250 ML IV ONE ×2 (09:00→12:00)
[2018-12-23 09:01] LABS: PLATELET MORPHOLOGY COMMENT FEW LARGE
[2018-12-23 09:13] LABS: B-TYPE NATRIURETIC PEPTIDE2 59.7 pg/mL (0-100)
[2018-12-23] MEDS ORDERED: POTASSIUM CHLORIDE 10MEQ/100ML 200 ML IV ONE ×2 (09:15→14:00)
[2018-12-23 09:18] LABS: ABG HCO3 29 mmol/L (23-28); ABG PCO2 42 mmHg (41-51); ABG PH 7.45 (7.31-7.41); ABG PO2 94 mmHg (80-105)
[2018-12-23] MEDS ORDERED: CEFEPIME HCL 2 GM VIAL ONE (09:24)
[2018-12-23] MEDS ORDERED: VANCOMYCIN 1GM/NS 250 ML 250 ML ONE (09:25)
[2018-12-23] MEDS ORDERED: POTASSIUM CHLORIDE 10MEQ/100ML 100 ML ONE (09:25)
[2018-12-23] MEDS ORDERED: POTASSIUM CHLORIDE 20 MEQ TAB CR PO NR (09:30)
--- NOTE | 2018-12-23 09:32 | Diagnostic Imaging Report ---
Examination: Thoracic ultrasound. Clinical indication: Evaluate size of right pleural effusion in need for thoracentesis. Comparison examination: Thoracic ultrasound 12/16/2018. Technique: Transverse and longitudinal sonographic images of the right and left hemithoraces were obtained. Findings: See impression Impression: Trace right pleural effusion, similar to that seen on 12/16/2018, of insufficient quantity for therapeutic thoracentesis. No left pleural effusion. Signed by: Dr. Anson Jimenez M.D. on 12/23/2018 9:29 AM
[2018-12-23] MEDS: CEFEPIME 2 GM/NS 0.9% 100 ML 100 ML IV SCH ×2 (09:37→22:26)
--- NOTE | 2018-12-23 09:39 | NUR ---
ULTRASOUND DONE AT BEDSIDE.
[2018-12-23] MEDS: LEVALBUTEROL HCL SOLN NEBU 0.63 MG/3 ML NEB INH SCH ×4 (11:00→23:00)
[2018-12-23] MEDS: IPRATROPIUM BROMIDE 0.02% 2.5 ML NEB NEB SCH ×4 (11:00→23:00)
--- NOTE | 2018-12-23 12:39 | NUR ---
ASSISTED TO RESTROOM
[2018-12-23 13:30] VITALS: BP 139/70
[2018-12-23 13:33] VITALS: BP 139/70
[2018-12-23] MEDS ORDERED: ZOLPIDEM TARTRATE 10 MG TAB PO PRN (14:45)
[2018-12-23] MEDS ORDERED: LORAZEPAM 0.5 MG TAB PO PRN (14:45)
[2018-12-23] MEDS ORDERED: POTASSIUM CHLORIDE 20 MEQ TAB CR PO ONE (15:00)
--- NOTE | 2018-12-23 15:46 | Pre Op History & Physical ---
CHIEF COMPLAINT: Dyspnea, chest pain and anxiety. HISTORY OF PRESENT ILLNESS: The patient is a 53-year-old woman. She has a history of B-cell lymphoma with recurrent pleural effusions that have required thoracentesis. She required a mini-thoracotomy with a pleurodesis about six weeks ago. She is awaiting initiation of chemotherapy with [facility]. She recently had a liver biopsy for possible lymphoma in the liver. The patient complains of dyspnea and chest discomfort. She does not complain of wheezing or cough. She has no fever. She has no weight loss. PAST SURGICAL HISTORY: 1. Status post mini-thoracotomy with pleurodesis. 2. Status post mediastinoscopy. 3. History of a bronchoscopy with a bronchoplasty for right upper lobe atelectasis. PAST MEDICAL HISTORY: 1. B-cell lymphoma. 2. Asthma. 3. Histoplasmosis. SOCIAL HISTORY: The patient is not a smoker. She is not a drinker. FAMILY HISTORY: Family history is noncontributory. REVIEW OF SYSTEMS: The patient does not complain of headache or fevers. She has no neck pain. She does note new swollen glands in her cervical area as well as in her left axilla. She reports some chest discomfort on the right side in the area of the thoracotomy. She is not having any dyspnea or cough. She has no abdominal pain. She has no leg edema. PHYSICAL EXAMINATION: VITAL SIGNS: The patient is afebrile. The vital signs are stable. HEENT: Shows no facial swelling or erythema. There is no submandibular, cervical, supraclavicular adenopathy. There is an enlarged left axillary node. CARDIAC: Reveals a regular rate and rhythm with normal S1, S2. LUNGS: Auscultation of lungs shows decreased breath sounds on the right side. ABDOMEN: Soft, nontender. There is no rebound or guarding. EXTREMITIES: Show no leg edema or calf tenderness. There is no cyanosis or clubbing. SKIN: Shows no rashes. NEUROLOGICAL: Shows no focal abnormalities. LABORATORY DATA: White blood cell count is 12.3 and hemoglobin is 11.5. The platelet count is 382. The potassium is 2.9 and the other electrolytes are within normal limits. RADIOGRAPHIC DATA: Chest x-ray shows some right-sided atelectasis and pleural scarring. Ultrasound of the chest shows no visible pleural fluid. IMPRESSION: 1. B-cell lymphoma. 2. Status post mini-thoracotomy with pleurodesis. 3. Asthma. 4. Depression with anxiety component. PLAN: 1. The patient will receive Solu-Medrol. 2. Continue bronchodilators. 3. Restart Cymbalta along with Ativan as needed. 4. The patient is scheduled to follow up with [facility] in three days. She will probably initiate chemotherapy at that time. Clifton Smith MD [facility]/MODL /[id number]
--- NOTE | 2018-12-23 15:57 | NUR ---
CASE MANAGEMENT ASSESSMENT Buckle Wire Inserter to bedside to discuss plan of care with patient/family. CM/SW role and care transitions discussed. Anticipated discharge plan discussed along with duration of care. CM/SW discussed patients right to make decisions in care. CM/SW work hours given. Patient lives: with her and grandson Admit/Transfer: thru ED Hospital/ER visits since last admit: was recently discharged from this facility on DECEMBER 16, 2018 in obs. POA/Emergency contact: Roberto Mercedesarger [phone] Current/Previous Home Health: none PCP/Follow-up Care: Dr. Linh Lewis - PCP; Dr. 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 Name and number was also written on the patients whiteboard. Patient verbalized understanding of discussion. CM will follow-up with ongoing discharge and transition of care needs.
[2018-12-23 16:00] VITALS: BP 143/77
[2018-12-23 16:12] LABS: CREATINE KINASE 73 IU/L (29-168)
[2018-12-23] MEDS ORDERED: POTASSIUM CHLORIDE 20 MEQ TAB CR PO SCH (17:45)
[2018-12-23] MEDS: POTASSIUM CHLORIDE 10MEQ/100ML 100 ML IV SCH (18:00)
[2018-12-23] MEDS: GABAPENTIN 100 MG CAP PO SCH (18:02)
--- NOTE | 2018-12-23 18:30 | NUR ---
NO S/S OF DISTRESS, PT WITH NC RUNNING AT 2 L/MIN, SIDE RAILS UP X2, AND CALL GARCIA WITHIN REACH
[2018-12-23] MEDS ORDERED: SODIUM CHLORIDE 0.9% 250ML 250 ML ONE (18:31)
[2018-12-23 19:56] VITALS: BP 133/62
--- NOTE | 2018-12-23 20:21 | NUR ---
RECEIVED PT WALKING IN THE ROOM .PT HAS COUGH AND SOB .AKIKO PAIN TELE#[address] CALL LIGHT WITH IN REACH ..CONTINUE TO MONITOR
[2018-12-23] MEDS ORDERED: MONTELUKAST SODIUM 10 MG TAB PO SCH (21:00)
[2018-12-24] VITALS (7 sets, daily range): BP systolic 131–163; BP diastolic 73–85
[2018-12-24] MEDS: LEVALBUTEROL HCL SOLN NEBU 0.63 MG/3 ML NEB INH SCH ×4 (03:00→15:00)
[2018-12-24] MEDS: IPRATROPIUM BROMIDE 0.02% 2.5 ML NEB NEB SCH ×4 (03:00→15:00)
--- NOTE | 2018-12-24 06:16 | NUR ---
PT C/O INSOMNIA GIVEN AMBIEN .PT RESTED DURING THE NIGHT .NO ACUTE DISTRESS NOTED .CONTINUE TO MONITOR
[2018-12-24 06:21] LABS: BASOPHILS % 0.1 % (0.0-1.0); HEMATOCRIT 31.1 % (34.2-44.1); HEMOGLOBIN 9.7 g/dL (12.0-16.0); LYMPHOCYTES # (AUTO) 0.4 (1.0-3.2); LYMPHOCYTES % 2.7 % (18.0-39.1); MEAN CORPUSCULAR HEMOGLOBIN 26.9 pg (28-32); MEAN CORPUSCULAR HGB CONC 31.2 g/dL (31-35); MEAN CORPUSCULAR VOLUME 86.4 fL (81-99); MONOCYTES # (AUTO) 0.9 (0.2-0.8); MONOCYTES % 6.9 % (4.4-11.3); NEUTROPHILS % 89.4 % (38.7-80.0); PLATELET COUNT 345 x10e3/uL (140-360); RED CELL DISTRIBUTION WIDTH 13.4 % (11.7-14.4)
[2018-12-24 06:43] LABS: ALANINE AMINOTRANSFERASE 14 IU/L (0-55); ALBUMIN 2.7 g/dL (3.5-5.0); ALBUMIN/GLOBULIN RATIO 0.8 (0.8-2.0); ALKALINE PHOSPHATASE 92 IU/L (40-150); ANION GAP 10.9 mmol/L (8-16); BLOOD UREA NITROGEN 8 mg/dL (7-26); BUN/CREATININE RATIO 11 (6-25); CALCIUM 9.3 mg/dL (8.4-10.2); CARBON DIOXIDE 25 mmol/L (22-29); CHLORIDE 107 mmol/L (98-107); CREATININE, SERUM 0.73 mg/dL (0.57-1.11); EST GLOMERULAR FILTRATION RATE > 60 ML/MIN (60-); GLUCOSE 141 mg/dL (74-118); POTASSIUM 3.9 mmol/L (3.5-5.1); SODIUM 139 mmol/L (136-145)
[2018-12-24 07:02] LABS: CREATINE KINASE 67 IU/L (29-168)
--- NOTE | 2018-12-24 07:25 | NUR ---
REPORT GIVEN TO THE ONCOMING NURSE
[2018-12-24] MEDS: POTASSIUM CHLORIDE 10MEQ/100ML 100 ML IV SCH (07:26)
[2018-12-24] MEDS ORDERED: PANTOPRAZOLE SOD 40 MG TABEC PO SCH (07:30)
--- NOTE | 2018-12-24 07:30 | NUR ---
PT IN ANTHONY'S POSITION, ANXIOUS, AND NO S/S OF DISTRESS. ANTIBIOTICS RUNNING, SIDE RAILS UP X2, BED IN LOWEST POSITION, AND CALL GARCIA WITHIN REACH.
[2018-12-24] MEDS: GABAPENTIN 100 MG CAP PO SCH ×2 (08:50→17:54)
[2018-12-24] MEDS ORDERED: NON-FORMULARY MEDICATION (Mu-Vits-Min Th/Lycopene/Lutein (Centrum Silver Tablet) 1 TAB) PO SCH (09:00)
[2018-12-24] MEDS ORDERED: PANTOPRAZOLE SODIUM 40 MG SUSPDR.PKT PO SCH (09:00)
[2018-12-24] MEDS ORDERED: BREO ELLIPTA INH SCH (09:00)
[2018-12-24] MEDS ORDERED: LIDOCAINE 5% PATCH TP SCH (09:00)
[2018-12-24] MEDS ORDERED: MULTIVITAMINS/MINERALS TAB PO SCH (09:00)
[2018-12-24] MEDS ORDERED: DULOXETINE HCL 30 MG DELAYED RELEASE PO SCH (09:00)
[2018-12-24] MEDS: CEFEPIME 2 GM/NS 0.9% 100 ML 100 ML IV SCH (09:22)
[2018-12-24] MEDS ORDERED: METHYLPREDNISOLONE SOD SUCC 125 MG/2ML VIAL IV SCH (12:15)
[2018-12-24 15:13] LABS: CREATINE KINASE 87 IU/L (29-168)
--- NOTE | 2018-12-24 15:25 | NUR ---
PT TAKEN FOR A CT SCAN OF THE CHEST. PT ON NASAL CANNULA RUNNING AT 3L/MIN.
--- NOTE | 2018-12-24 15:50 | NUR ---
Visit made by the Spiritual Care Department Pastoral Visitor, Wilda Moreno. Pt out of room and no family at bedside. A card was left at the bedside to indicate a missed visit from a member of the Spiritual Care team and to inform the pt and family of the availability of a Cement Handler 24 hours a day/7 days a week. A fire watcher will follow up as able. LANIE RAIN Cement Handler Spiritual Care Department O: [phone] Pager: [phone] ([phone] number calling from)
--- NOTE | 2018-12-24 17:02 | Diagnostic Imaging Report ---
EXAMINATION: CT of the chest with contrast, PE protocol. TECHNIQUE: Spiral CT images of the chest were performed from the lung apices through the level of the adrenal glands after the IV administration of 60 cc of Isovue-370. Thin section reconstructions were obtained with special concentration on the pulmonary arteries. Technique manipulation was accomplished to maintain the lowest dose possible to the patient DLP: 548.80 mGycm2. COMPARISON: 11/28/[address] CLINICAL HISTORY: Shortness of breath with chest pain DISCUSSION: Lungs: No filling defects are identified in the main, right or left pulmonary arteries to their segmental and subsegmental levels, to suggest pulmonary embolism. Right upper lobe calcified granuloma. Posterior right upper lobe round airspace opacity is smaller. Right hilar mass more prominent. Pleura: Circumferential areas of loculated right pleural effusion appears similar compared to the prior study. Lymph nodes: Enlarged right axillary nodes again noted appearing larger. Mediastinal lymphadenopathy appear similar. Heart and mediastinum: <The heart and the mediastinum are normal.> Small pericardial effusion is less prominent. Abdomen: <The visualized parts of the upper abdomen are unremarkable.> Bones and soft tissues: Several right rib deformities compatible with fractures. Sternal fractures appear new. IMPRESSION: 1. No CT evidence of pulmonary emboli. 2. Circumferential areas of right pulmonary effusion/loculation. 3. Enlargement of the right axillary lymph nodes compared to prior. 4. Mediastinal lymphadenopathy and right hilar mass again noted. 5. New sternal fractures. Signed by: Dr. Austyn Appiah DO on 12/24/2018 4:58 PM
[2018-12-24] MEDS ORDERED: PREDNISONE20 MG PO (17:56)
--- NOTE | 2018-12-24 18:11 | NUR ---
PT HAS BEEN DISCHARGED HOME. IV ON BOTH UPPER EXTREMITIES HAVE BEEN REMOVED. NO COMPLICATION TO IV SITES.
--- NOTE | 2018-12-24 18:11 | NUR ---
PT HAS BEEN DISCHARGED VIA WHEELCHAIR. IVS HAVE BEEN D/C. NO COMPLICATIONS TO IV SITES. NO S/S OF DISTRESS.
[2018-12-24] MEDS ORDERED: SODIUM CHLORIDE 0.9% 50ML 50 ML ONE (18:28)
[2018-12-24] MEDS ORDERED: IOPAMIDOL 370 MG/ML 200 ML INFUS..BTL INJ ONE (18:28)
--- NOTE | 2018-12-25 06:54 | Discharge Summary ---
DISCHARGE DIAGNOSES: 1. Sternal fracture secondary to coughing. 2. B-cell lymphoma. 3. Asthma. DISCHARGE MEDICATIONS: 1. Montelukast 10 mg p.o. daily. 2. Protonix 40 mg p.o. daily. 3. Breo Ellipta 200 mg p.o. daily. 4. Albuterol and Atrovent through the nebulizer q.6 p.r.n. 5. Lidoderm patch applied to the chest wall daily as needed. 6. Ativan 0.25 to 0.5 p.o. t.i.d. p.r.n. 7. Neurontin 200 mg p.o. b.i.d. 8. Cymbalta 30 mg p.o. daily. RADIOGRAPHIC DATA: 1. Ultrasound of the chest shows no significant pleural effusion. 2. CT scan of the chest shows no evidence of pulmonary emboli. There is some scarring in circumferential areas of right loculated pleural effusion. 3. Mediastinal and axillary adenopathy, small areas of loculated right pleural effusion and pleural scarring, mediastinal adenopathy, axillary adenopathy, right hilar mass, and new sternal fractures. HISTORY OF PRESENT ILLNESS: The patient is a 53-year-old woman. She has B-cell lymphoma with recurrent pleural effusions, have required thoracentesis. She required a mini thoracotomy with a pleurodesis about six weeks ago. She has been coughing more recently and has been complaining of chest pain along with difficulty breathing. HOSPITAL COURSE: The patient was admitted. She complained of chest discomfort and wheezing. She noted dyspnea. She was initially evaluated for a pleural effusion. Although she had scarring in the pleural space on her chest x-ray. Her ultrasound showed no significant pleural effusion. She went for a CT scan of the chest that showed no pulmonary emboli. She did have some new sternal fractures related to the coughing. The patient to receive Solu-Medrol along with bronchodilators and oxygen. She also received cough suppressants. She felt improved at the time of discharge and was eager to go home. DISPOSITION: The patient will be discharged home. She is scheduled to follow up with [facility] satellite office in [place] in two days. Clifton Smith MD [facility]/JILLIAN /[id number]
== END 2018-12-24 18:14 | disposition home or self-care (01) ==
LOC: ER 07:10 → ERHOLD 08:30 → MED/SURG3 13:29
PROVIDERS: ADMIT Internal Medicine Critical Care Medicine; ATTEND Internal Medicine Critical Care Medicine
DX: S22.20XA Unspecified fracture of sternum, initial encounter for closed fracture (principal); C85.10 Unspecified B-cell lymphoma, unspecified site; J45.41 Moderate persistent asthma with (acute) exacerbation; F41.9 Anxiety disorder, unspecified; K21.9 Gastro-esophageal reflux disease without esophagitis; B39.9 Histoplasmosis, unspecified; Z88.5 Allergy status to narcotic agent; Z82.49 Family history of ischemic heart disease and other diseases of the circulatory system; F41.8 Other specified anxiety disorders
CPT/HCPCS: 36415 ×2; 36600; 71046; 71260; 76604; 80053 ×2; 81001; 82550 ×2; 82553 ×2; 82805; 83605; 83735; 83880; 84484 ×2; 85025 ×2; 85610; 85730; 87040; 87086; 93005; 94640 ×4; 99285; G0378 ×2; J0692; J2060; J2930 ×2; J3370; J3480; J7030; J7050; Q9967; S0164

== ENCOUNTER → 2019-07-25 | Outpatient (CLI) | payer OTHER ==
[~2019-07-25] MED LIST changes: +IOPAMIDOL 370 MG/ML 200 ML INFUS..BTL INJ ONE; +PREDNISONE20 MG PO; +SODIUM CHLORIDE 0.9% 50ML 50 ML ONE
--- NOTE | 2019-07-25 09:38 | Diagnostic Imaging Report ---
EXAMINATION: CT scan of the chest with contrast. TECHNIQUE: Spiral CT images of the chest were performed from the lung apices to the level of the adrenal glands after the intravenous administration of 100 cc of Isovue-370.. Coronal and sagittal reformatted images were obtained. COMPARISON: CT chest with contrast 12/24/2018 CLINICAL HISTORY:History of lymphoma, completed chemotherapy, right-sided chest pain DISCUSSION: LINES/TUBES: None. LUNGS AND AIRWAYS: Unchanged calcified granuloma in the right lung apex. Marked interval improvement in nodularity along the superior margin of the right major fissure relative to 12/24/2018. Mild pleural thickening along the right hemidiaphragmatic surface, unchanged. Interval resolution of the previously described diffuse interlobular septal thickening of the right lung, hilar mass, and multiloculated pleural effusion. No new airspace consolidation, bronchiectasis, or mass lesion. The left lung is clear. Trachea, mainstem bronchi, and central lobar and segmental bronchi are patent. PLEURA: Resolution of multiloculated right pleural effusion/pleural thickening with minimal residual nodularity along the superior margin of the right major fissure. HEART AND MEDIASTINUM: The thyroid gland is normal. Bulky right hilar and mediastinal lymphadenopathy has essentially completely resolved, with minimal residual mediastinal soft tissue. Compression of the right central bronchial tree and right main pulmonary artery is no longer evident. Calcified right lower paratracheal and precarinal lymph nodes are unchanged. No pericardial effusion. Right axillary lymphadenopathy has also resolved. LYMPH NODES: As above. ABDOMEN: Visualized portions of the liver, gallbladder, spleen, pancreas, and adrenals are unremarkable. BONES AND SOFT TISSUES: Postsurgical or posttraumatic changes of the right lateral fifth and sixth ribs are unchanged. No osseous destructive lesions. Sternal fractures described on the comparison study are not evident on the current examination and may have been a consequence of motion artifact. IMPRESSION: Positive imaging response to reported history of chemotherapy for lymphoma, evidenced by near complete resolution of right hilar mass and mediastinal and right axillary lymphadenopathy and no residual mass effect on the right central bronchial tree or right main pulmonary artery.. Mild residual nodularity along the right major fissure may reflect small amount of residual loculated fluid, posttreatment changes, or less likely residual disease, and attention on follow-up cross-sectional imaging studies is suggested. Interval resolution of multiloculated right pleural effusion and pericardial effusion. Signed by: Dr. Anson Jimenez M.D. on 07/25/2019 9:34 AM
== END ==
LOC: CT 08:28
PROVIDERS: ATTEND Internal Medicine Critical Care Medicine
DX: R06.9 Unspecified abnormalities of breathing (principal); B39.3 Disseminated histoplasmosis capsulati; I31.3 Pericardial effusion (noninflammatory); J45.50 Severe persistent asthma, uncomplicated
CPT/HCPCS: 71260; Q9967

== ENCOUNTER 2019-10-12 10:26 | Emergency (ER) | payer OTHER ==
[~2019-10-12] VITALS: Ht 162.6 cm; Wt 78.9 kg
[~2019-10-12 10:26] MED LIST changes: -IOPAMIDOL 370 MG/ML 200 ML INFUS..BTL INJ ONE; -SODIUM CHLORIDE 0.9% 50ML 50 ML ONE
[2019-10-12 11:26] LABS: BASOPHILS % 0.5 % (0.0-1.0); EOSINOPHILS # (AUTO) 0.1 (0.0-0.4); EOSINOPHILS % 2.3 % (0.0-6.0); HEMATOCRIT 34.7 % (34.2-44.1); HEMOGLOBIN 11.6 g/dL (12.0-16.0); LYMPHOCYTES # (AUTO) 0.5 (1.0-3.2); LYMPHOCYTES % 12.8 % (18.0-39.1); MEAN CORPUSCULAR HEMOGLOBIN 30.5 pg (28-32); MEAN CORPUSCULAR HGB CONC 33.4 g/dL (31-35); MEAN CORPUSCULAR VOLUME 91.3 fL (81-99); MONOCYTES # (AUTO) 0.7 (0.2-0.8); MONOCYTES % 16.8 % (4.4-11.3); NEUTROPHILS # (AUTO) 2.7 (2.1-6.9); NEUTROPHILS % 67.3 % (38.7-80.0); PLATELET COUNT 245 x10e3/uL (140-360)
[2019-10-12 11:46] LABS: ALANINE AMINOTRANSFERASE 20 IU/L (0-55); ALBUMIN 3.5 g/dL (3.5-5.0); ALBUMIN/GLOBULIN RATIO 1.1 (0.8-2.0); ALKALINE PHOSPHATASE 138 IU/L (40-150); ANION GAP 13.3 mmol/L (8-16); BLOOD UREA NITROGEN 12 mg/dL (7-26); BUN/CREATININE RATIO 15 (6-25); CALCIUM 8.9 mg/dL (8.4-10.2); CARBON DIOXIDE 24 mmol/L (22-29); CHLORIDE 107 mmol/L (98-107); CREATINE KINASE 191 IU/L (29-168); CREATININE, SERUM 0.81 mg/dL (0.57-1.11); EST GLOMERULAR FILTRATION RATE > 60 ML/MIN (60-); GLUCOSE 117 mg/dL (74-118); POTASSIUM 3.3 mmol/L (3.5-5.1); SODIUM 141 mmol/L (136-145)
[2019-10-12] MEDS ORDERED: IPRATROPIUM BROMIDE 0.02% 2.5 ML NEB NEB NR (12:28)
[2019-10-12] MEDS ORDERED: METHYLPREDNISOLONE SOD SUCC 125 MG/2ML VIAL IV NR (12:30)
--- NOTE | 2019-10-12 12:39 | Diagnostic Imaging Report ---
EXAMINATION: CHEST SINGLE (PORTABLE) INDICATION: Chest pain. COMPARISON: CT Chest with contrast 07/25/19. FINDINGS: TUBES and LINES: None. LUNGS: Lungs are well inflated. There is no evidence of pneumonia or pulmonary edema. Posttreatment changes of the right hilum and lung are better characterized on prior chest CT from 09/24/2018. PLEURA: No pleural effusion or pneumothorax. HEART AND MEDIASTINUM: The cardiomediastinal silhouette is unremarkable. BONES AND SOFT TISSUES: No acute osseous lesion. Soft tissues are unremarkable. UPPER ABDOMEN: No free air under the diaphragm. IMPRESSION: No acute thoracic abnormality. Posttreatment changes of the right hilum and lung are better characterized on prior chest CT from 09/24/2018. Signed by: Dr. Patria Rahman MD on 10/12/2019 12:37 PM
[2019-10-12] MEDS ORDERED: ALBUTEROL SULF 0.083% NEB SOLN 3 ML NEB NEB NR (12:45)
[2019-10-12] MEDS ORDERED: IOPAMIDOL 370 MG/ML 200 ML INFUS..BTL INJ ONE (12:57)
[2019-10-12] MEDS ORDERED: SODIUM CHLORIDE 0.9% 50ML 50 ML ONE (12:57)
--- NOTE | 2019-10-12 13:58 | Diagnostic Imaging Report ---
EXAMINATION: CT scan of the chest with contrast - PE Protocol TECHNIQUE: Spiral CT images of the chest were performed from the lung apices to the level of the adrenal glands after the intravenous administration of 100 cc of Isovue-370. Pulmonary embolism protocol was performed. Coronal and sagittal reformatted images were obtained. COMPARISON: CT Chest with contrast 07/25/19. Chest radiograph 10/12/2019. CLINICAL HISTORY: History of lymphoma status post chemotherapy; chest pain, shortness of breath. FINDINGS: PULMONARY ARTERIES: Examination is satisfactory for the evaluation of pulmonary embolism to level of the segmental pulmonary arteries. The subsegmental pulmonary arteries are not well opacified. No evidence of pulmonary embolism. The main pulmonary artery measures 2.9 cm. LINES/TUBES: None. LUNGS AND AIRWAYS/PLEURA: Again noted is mild pleural thickening along the right hemidiaphragmatic surface. Mild volume loss, linear opacity, and nodularity along the superior aspect of the right major fissure, likely posttreatment changes. No evidence of increasing nodularity. Unchanged appearance of the right hilum without evidence of recurrent mass. Unchanged mild right greater than left apical pleural-parenchymal opacity. Partially calcified nodularity in the right upper lung is unchanged, likely sequela of remote granulomatous disease. No evidence of pleural effusion. HEART AND MEDIASTINUM: The thyroid gland is normal. Unchanged minimal residual mediastinal soft tissue. No evidence of recurrent lymphadenopathy. No evidence of central bronchial or pulmonary arterial compression. Calcified right lower paratracheal and precarinal lymph nodes are unchanged. No pericardial effusion. ABDOMEN: Partially visualized upper abdomen appears unremarkable. BONES AND SOFT TISSUES: Postsurgical or posttraumatic changes of the right lateral fifth and sixth ribs are unchanged. No osseous destructive lesions. IMPRESSION: No evidence of pulmonary embolism to the level of the segmental pulmonary arteries. Similar appearance of posttreatment findings related to lymphoma. Unchanged mild residual nodularity along the right major fissure. Recommend attention on follow-up CT per oncology protocol. No evidence of recurrent lymphadenopathy or mass. Signed by: Dr. Patria Rahman MD on 10/12/2019 1:56 PM
[2019-10-12 14:50] VITALS: BP 118/80
--- NOTE | 2019-10-12 18:19 | Consultation ---
DATE OF CONSULTATION: Pulmonary Critical Care Consultation CHIEF COMPLAINT: Cough and dyspnea. HISTORY OF PRESENT ILLNESS: The patient is a 53-year-old woman. She has a history of B-cell lymphoma. She completed her treatment at [facility] and is receiving checks every [address] scans and blood work. She has noticed worsening cough over the past several days. She notes associated dyspnea. She does have acid reflux. Despite taking pantoprazole, she still has some symptoms of heartburn and bad taste in her mouth. PAST MEDICAL HISTORY: 1. Non-Hodgkin lymphoma. 2. Asthma. 3. Histoplasmosis. PAST SURGICAL HISTORY: Status post video-assisted thoracoscopy and pleurodesis. SOCIAL HISTORY: The patient has never been a smoker. She is not a drinker. FAMILY HISTORY: Family history is noncontributory. REVIEW OF SYSTEMS: The patient is afebrile. There is no headache. She is not complaining of any neck pain. She has no sore throat. She does note cough. She does not complain of wheezing. She does have some dyspnea. She denies chest pain. There is no abdominal pain. She has no nausea or vomiting. PHYSICAL EXAMINATION: VITAL SIGNS: Stable. HEENT: Shows no facial swelling or erythema. CARDIAC: Reveals a regular rate and rhythm with normal S1 and S2. LUNGS: Auscultation of lungs reveals clear breath sounds bilaterally. There is no wheezing. ABDOMEN: Soft and nontender. There is no rebound or guarding. EXTREMITIES: Shows no leg edema or calf tenderness. There is no cyanosis or clubbing. SKIN: Shows no rashes. NEUROLOGICAL: Shows no focal abnormalities. IMPRESSION: 1. Persistent cough, possibly secondary to gastroesophageal reflux. 2. History of prior lymphoma with no new changes on her CT scan. 3. Possible reactive airway disease. PLAN: 1. The patient will go home with pantoprazole 40 mg p.o. q.a.m. and Pepcid 40 mg p.o. at bedtime. 2. Prednisone 20 mg p.o. daily for 5 days. 3. Rescue inhaler as needed. 4. The patient is scheduled to follow up with [facility] next month for blood work and a repeat CT scan. [facility] Cash/JILLIAN /[id number]
== END 2019-10-12 14:52 | disposition home or self-care (01) ==
LOC: ER 10:26
DX: J96.12 Chronic respiratory failure with hypercapnia (principal); J42 Unspecified chronic bronchitis; C81.90 Hodgkin lymphoma, unspecified, unspecified site
CPT/HCPCS: 36415; 71045; 71260; 80053; 82550; 82553; 84484; 85025; 93005; 94640; 99284; Q9967

== ENCOUNTER → 2019-12-29 | Emergency (ER) | payer OTHER ==
[~2019-12-29] VITALS: Ht 162.6 cm; Wt 78.9 kg
[~2019-12-29] MED LIST changes: +IOPAMIDOL 370 MG/ML 200 ML INFUS..BTL INJ ONE; +METHYLPREDNISOLONE SOD SUCC 125 MG/2ML VIAL IV ONE; +SODIUM CHLORIDE 0.9% 50ML 50 ML ONE
[2019-12-29 17:45] LABS: BASOPHILS # (AUTO) 0.1 (0.0-0.1); BASOPHILS % 0.8 % (0.0-1.0); EOSINOPHILS # (AUTO) 0.2 (0.0-0.4); EOSINOPHILS % 2.6 % (0.0-6.0); HEMATOCRIT 33.5 % (34.2-44.1); HEMOGLOBIN 11.3 g/dL (12.0-16.0); LYMPHOCYTES # (AUTO) 0.8 (1.0-3.2); LYMPHOCYTES % 12.8 % (18.0-39.1); MEAN CORPUSCULAR HEMOGLOBIN 31.2 pg (28-32); MEAN CORPUSCULAR HGB CONC 33.7 g/dL (31-35); MEAN CORPUSCULAR VOLUME 92.5 fL (81-99); MONOCYTES # (AUTO) 0.8 (0.2-0.8); MONOCYTES % 11.4 % (4.4-11.3); NEUTROPHILS # (AUTO) 4.8 (2.1-6.9); NEUTROPHILS % 72.1 % (38.7-80.0); PLATELET COUNT 219 x10e3/uL (140-360); RED BLOOD COUNT 3.62 x10e6/uL (3.6-5.1); RED CELL DISTRIBUTION WIDTH 12.1 % (11.7-14.4)
[2019-12-29 18:00] LABS: ALANINE AMINOTRANSFERASE 22 IU/L (0-55); ALBUMIN 3.5 g/dL (3.5-5.0); ALBUMIN/GLOBULIN RATIO 1.2 (0.8-2.0); ALKALINE PHOSPHATASE 135 IU/L (40-150); ANION GAP 13.5 mmol/L (8-16); BLOOD UREA NITROGEN 13 mg/dL (7-26); BUN/CREATININE RATIO 17 (6-25); CARBON DIOXIDE 26 mmol/L (22-29); CHLORIDE 107 mmol/L (98-107); CREATINE KINASE 202 IU/L (29-168); CREATININE, SERUM 0.78 mg/dL (0.57-1.11); EST GLOMERULAR FILTRATION RATE > 60 ML/MIN (60-); GLUCOSE 96 mg/dL (74-118); POTASSIUM 3.5 mmol/L (3.5-5.1); SODIUM 143 mmol/L (136-145)
--- NOTE | 2019-12-29 18:52 | NUR ---
report given to Tristian CARTAGENA
--- NOTE | 2019-12-29 19:27 | Diagnostic Imaging Report ---
EXAMINATION: CT scan of the chest with contrast. CLINICAL HISTORY: History of lymphoma status post chemotherapy; chest pain. TECHNIQUE: Spiral CT images of the chest were performed from the lung apices to the level of the adrenal glands after the intravenous administration of 100 cc of Isovue-370. Pulmonary embolism protocol was performed. Coronal and sagittal reformatted images were obtained. DOSE: DLP 488.80 mGycm2. COMPARISON: CT chest 10/12/2019. FINDINGS: PULMONARY ARTERIES: The subsegmental pulmonary arteries are not well opacified. No evidence of pulmonary embolism. The main pulmonary artery measures 3.1 cm. LINES/TUBES: None. LUNGS AND AIRWAYS/PLEURA: Again noted is mild pleural thickening along the right middle lobe surface. Mild volume loss, linear opacity, and nodularity along the superior aspect of the right major fissure series 3, image 40), likely posttreatment changes. No evidence of increasing nodularity. Unchanged appearance of the right hilum without evidence of recurrent mass. Right apical calcified granuloma (series 3, image 27) again seen. No new pulmonary nodule or masslike lesion or consolidation. No evidence of pleural effusion or pneumothorax. HEART AND MEDIASTINUM: The thyroid gland is normal. Unchanged 2.0 cm mediastinal soft tissue (series 2, image 38). No evidence of new lymphadenopathy. The heart is normal in size. No pericardial effusion. UPPER ABDOMEN: Partially visualized upper abdomen appears unremarkable. BONES AND SOFT TISSUES: Postsurgical changes of the right lateral fifth and sixth ribs are unchanged. No osseous destructive lesions. IMPRESSION: 1. No evidence of pulmonary embolism to the level of the segmental pulmonary arteries. 2. No interval change. Signed by: Fredy Wiggins MD on 12/29/2019 7:24 PM
[2019-12-29 19:47] VITALS: BP 133/76
== END | disposition home or self-care (01) ==
LOC: ER 16:08
DX: R06.00 Dyspnea, unspecified (principal); R05 Cough; J44.9 Chronic obstructive pulmonary disease, unspecified; Z85.72 Personal history of non-Hodgkin lymphomas; Z92.21 Personal history of antineoplastic chemotherapy
CPT/HCPCS: 36415; 71260; 80053; 82550; 82553; 84484; 85025; 93005; 99284; J2930; Q9967

== ENCOUNTER → 2020-01-27 | Day surgery (SDC) | payer OTHER ==
[2020-01-23 10:51] LABS: BASOPHILS % 0.7 % (0.0-1.0); EOSINOPHILS # (AUTO) 0.2 (0.0-0.4); EOSINOPHILS % 2.7 % (0.0-6.0); HEMATOCRIT 36.5 % (34.2-44.1); LYMPHOCYTES # (AUTO) 0.8 (1.0-3.2); LYMPHOCYTES % 14.2 % (18.0-39.1); MEAN CORPUSCULAR HEMOGLOBIN 30.3 pg (28-32); MEAN CORPUSCULAR HGB CONC 32.9 g/dL (31-35); MEAN CORPUSCULAR VOLUME 92.2 fL (81-99); MONOCYTES # (AUTO) 0.8 (0.2-0.8); MONOCYTES % 14.4 % (4.4-11.3); NEUTROPHILS # (AUTO) 3.8 (2.1-6.9); NEUTROPHILS % 67.6 % (38.7-80.0); PLATELET COUNT 225 x10e3/uL (140-360); RED BLOOD COUNT 3.96 x10e6/uL (3.6-5.1)
[~2020-01-27] MED LIST changes: +AMOXICILLIN250 MG PO; +BUPROPION XL150 MG PO; +FAMOTIDINE20 MG PO; +FLUOXETINE HCL20 MG PO; +GABAPENTIN300 MG PO; -IOPAMIDOL 370 MG/ML 200 ML INFUS..BTL INJ ONE; +LIDOCAINE HCL 2% LOCAL INJ 5 ML SDV VIAL INJ ONE; -METHYLPREDNISOLONE SOD SUCC 125 MG/2ML VIAL IV ONE; +MONTELUKAST SOD10 MG PO; +OMEPRAZOLE40 MG PO; +PROAIR HFA INH8.5 GM INH; +PROPOFOL IV EMULSION 10 MG/ML 20 ML VIAL ONE; -SODIUM CHLORIDE 0.9% 50ML 50 ML ONE
[2020-01-27 11:15] VITALS: BP 103/69
--- NOTE | 2020-01-27 15:20 | Operative Report ---
DATE OF PROCEDURE: 01/27/2020 SURGEON: Mark Goodson MD NAME OF PROCEDURE: EGD with colonoscopy. PREPROCEDURE DIAGNOSES: Patient with history of dyspepsia, positive Cologuard. Differential diagnoses including upper and lower gastrointestinal neoplasm, peptic ulcer disease. DESCRIPTION OF PROCEDURE: After informed written consent, premedications with monitored anesthesia care, standard video Olympus gastroscope was introduced into the mouth, esophagus, stomach into the 2nd portion of the duodenum, 1st and 2nd portion of the duodenum appeared to be normal. Small bowel biopsies were done to rule out celiac disease. Antrum, body showed mild gastritis and biopsies were done. Retroflexion revealed a small hiatal hernia. The GE junction showed an irregular Z-line and biopsies were done to rule out short-segment Aguirre's esophagus. COLONOSCOPY: The standard video Olympus colonoscope was introduced into the rectum and all the way into the terminal ileum. Terminal ileum, cecum, ascending, transverse, descending, sigmoid colon all appeared to be normal. A small diminutive polyp was seen in the rectum, which was removed by cold biopsy forceps. Retroflexion revealed small internal hemorrhoids. IMPRESSION: Gastritis, hiatal hernia, internal hemorrhoids, colon polyp. RECOMMENDATION: Check biopsies. Repeat colonoscopy in 3-5 years depending on the pathology, GERD precautions and monitor hemoglobin. Further recommendations will be based on patient's clinical course. Mark Goodson MD [facility]/MODL /[id number] cc: Julianne Coto MD
== END | disposition home or self-care (01) ==
LOC: OR 07:48
PROVIDERS: ATTEND Internal Medicine Gastroenterology
DX: R19.5 Other fecal abnormalities (principal); K63.5 Polyp of colon; K62.1 Rectal polyp; K29.70 Gastritis, unspecified, without bleeding; K44.9 Diaphragmatic hernia without obstruction or gangrene; K64.8 Other hemorrhoids; M06.9 Rheumatoid arthritis, unspecified; J44.9 Chronic obstructive pulmonary disease, unspecified; K20.9 Esophagitis, unspecified; J84.10 Pulmonary fibrosis, unspecified; Z88.6 Allergy status to analgesic agent; Z01.810 Encounter for preprocedural cardiovascular examination; Z01.812 Encounter for preprocedural laboratory examination; Z11.59 Encounter for screening for other viral diseases
CPT/HCPCS: 36415; 43239; 45380; 85025; 87635; 93005; J2001; J2704; 45378

== ENCOUNTER 2021-09-22 14:17 | Emergency (ER) | payer BC, MEDICARE ==
[~2021-09-22] VITALS: Ht 162.6 cm; Wt 78.9 kg
[~2021-09-22 14:17] MED LIST changes: -LIDOCAINE HCL 2% LOCAL INJ 5 ML SDV VIAL INJ ONE; -PROPOFOL IV EMULSION 10 MG/ML 20 ML VIAL ONE
[2021-09-22 14:44] LABS: BASOPHILS % 0.3 % (0.0-1.0); EOSINOPHILS # (AUTO) 0.1 (0.0-0.4); EOSINOPHILS % 1.2 % (0.0-6.0); HEMATOCRIT 40.7 % (34.2-44.1); HEMOGLOBIN 13.5 g/dL (12.0-16.0); LYMPHOCYTES # (AUTO) 1.7 (1.0-3.2); MEAN CORPUSCULAR HEMOGLOBIN 30.8 pg (28-32); MEAN CORPUSCULAR HGB CONC 33.2 g/dL (31-35); MEAN CORPUSCULAR VOLUME 92.7 fL (81-99); MONOCYTES # (AUTO) 0.7 (0.2-0.8); MONOCYTES % 11.3 % (4.4-11.3); NEUTROPHILS % 60.9 % (38.7-80.0); PLATELET COUNT 227 x10e3/uL (140-360); RED BLOOD COUNT 4.39 x10e6/uL (3.6-5.1); RED CELL DISTRIBUTION WIDTH 12.6 % (11.7-14.4)
[2021-09-22] MEDS ORDERED: KETOROLAC TROMETHAMINE 30 MG/ML VIAL IV STA (14:51)
[2021-09-22 14:57] LABS: ALBUMIN 3.6 g/dL (3.5-5.0); ALBUMIN/GLOBULIN RATIO 0.9 (0.8-2.0); ANION GAP 12.9 mmol/L (8-16); CALCIUM 8.9 mg/dL (8.4-10.2); CREATININE, SERUM 0.81 mg/dL (0.57-1.11); POTASSIUM 3.9 mmol/L (3.5-5.1)
[2021-09-22] MEDS ORDERED: PROAIR HFA INH8.5 GM IH (16:30)
[2021-09-22] MEDS ORDERED: KETOROLAC TROME10 MG PO (16:30)
[2021-09-22] MEDS ORDERED: BENZONATATE200 MG PO (16:30)
== END 2021-09-22 16:40 | disposition home or self-care (01) ==
LOC: ER 14:24
DX: U07.1 COVID-19 (principal); R50.9 Fever, unspecified; R06.02 Shortness of breath; R07.89 Other chest pain; J44.9 Chronic obstructive pulmonary disease, unspecified; J45.909 Unspecified asthma, uncomplicated; J84.10 Pulmonary fibrosis, unspecified; F41.9 Anxiety disorder, unspecified; K21.9 Gastro-esophageal reflux disease without esophagitis; Z85.72 Personal history of non-Hodgkin lymphomas; F17.210 Nicotine dependence, cigarettes, uncomplicated
CPT/HCPCS: 36415; 71045; 80053; 83880; 84484; 85025; 99284; J1885; U0002

== ENCOUNTER 2022-05-09 17:00 | Emergency (ER) | payer BC ==
[~2022-05-09] VITALS: Ht 162.6 cm; Wt 78.9 kg
[~2022-05-09 17:00] MED LIST changes: +BENZONATATE200 MG PO; +KETOROLAC TROME10 MG PO; +PROAIR HFA INH8.5 GM IH
[2022-05-09] MEDS ORDERED: BENZONATATE200 MG PO (19:51)
[2022-05-09] MEDS ORDERED: AZITHROMYCIN250 MG PO (19:51)
[2022-05-09] MEDS ORDERED: MEDROL4 M2 PO (19:51)
== END 2022-05-09 19:54 | disposition home or self-care (01) ==
LOC: ER 17:44
DX: R05.9 Cough, unspecified (principal); J20.9 Acute bronchitis, unspecified; J44.9 Chronic obstructive pulmonary disease, unspecified; K21.9 Gastro-esophageal reflux disease without esophagitis; J84.10 Pulmonary fibrosis, unspecified; F41.9 Anxiety disorder, unspecified; Z85.72 Personal history of non-Hodgkin lymphomas; Z20.822 Contact with and (suspected) exposure to COVID-19
CPT/HCPCS: 71046; 99283; U0002

== ENCOUNTER 2023-02-18 12:21 | Observation (INO) | payer BC, MEDICARE ==
[~2023-02-18] VITALS: Ht 165.1 cm; Wt 80.3 kg
[~2023-02-18 12:21] MED LIST changes: +AZITHROMYCIN250 MG PO; +MEDROL4 M2 PO
[2023-02-18] MEDS ORDERED: SODIUM CHLORIDE 0.9% 1000ML 1,000 ML IV STA (12:28)
[2023-02-18] MEDS ORDERED: Vancomycin IV 1 GM in SODIUM CHLORIDE 0.9% 250ML 250 ML IV ONE (12:30)
[2023-02-18 12:46] LABS: BASOPHILS # (AUTO) 0.1 (0.0-0.1); BASOPHILS % 0.7 % (0.0-1.0); EOSINOPHILS # (AUTO) 0.2 (0.0-0.4); EOSINOPHILS % 1.9 % (0.0-6.0); HEMATOCRIT 39.1 % (34.2-44.1); LYMPHOCYTES # (AUTO) 2.1 (1.0-3.2); LYMPHOCYTES % 22.9 % (18.0-39.1); MEAN CORPUSCULAR HEMOGLOBIN 30.4 pg (28-32); MEAN CORPUSCULAR HGB CONC 33.2 g/dL (31-35); MEAN CORPUSCULAR VOLUME 91.6 fL (81-99); MONOCYTES # (AUTO) 0.7 (0.2-0.8); MONOCYTES % 6.9 % (4.4-11.3); NEUTROPHILS # (AUTO) 6.3 (2.1-6.9); NEUTROPHILS % 67.4 % (38.7-80.0); PLATELET COUNT 244 x10e3/uL (140-360); RED BLOOD COUNT 4.27 x10e6/uL (3.6-5.1); RED CELL DISTRIBUTION WIDTH 13.2 % (11.7-14.4)
[2023-02-18 13:13] LABS: ALANINE AMINOTRANSFERASE 25 IU/L (0-55); ALBUMIN 3.8 g/dL (3.5-5.0); ALKALINE PHOSPHATASE 119 IU/L (40-150); ANION GAP 14.1 mmol/L (8-16); BLOOD UREA NITROGEN 12 mg/dL (7-26); BUN/CREATININE RATIO 14 (6-25); CALCIUM 9.2 mg/dL (8.4-10.2); CARBON DIOXIDE 26 mmol/L (22-29); CHLORIDE 103 mmol/L (98-107); CREATININE, SERUM 0.83 mg/dL (0.57-1.11); GLUCOSE 92 mg/dL (74-118); MAGNESIUM 2.1 MG/DL (1.3-2.1); POTASSIUM 4.1 mmol/L (3.5-5.1); SODIUM 139 mmol/L (136-145)
[2023-02-18] MEDS ORDERED: Morphine 4mg INJECTION 4 MG/ML INJ IV PRN (13:15)
[2023-02-18] MEDS ORDERED: ONDANSETRON HCL INJ 2MG/ML 2ML 2 MG/ML VIAL IV PRN (13:15)
[2023-02-18 14:30] VITALS: BP 152/83; PULSE 78; RESP 16; TEMP 98.1; O2SAT 98
[2023-02-18 15:16] VITALS: BP 152/83; PULSE 78; RESP 16; TEMP 98.1; O2SAT 98
[2023-02-18] MEDS: SODIUM CHLORIDE 0.9% 1000ML 1,000 ML IV SCH ×2 (16:33→23:43)
[2023-02-18 20:13] VITALS: BP 143/76; PULSE 76; RESP 20; TEMP 98; O2SAT 97
[2023-02-18 20:14] VITALS: BP 143/76; PULSE 76; RESP 20; TEMP 98; O2SAT 97
[2023-02-18] MEDS: Vancomycin IV 1 GM in SODIUM CHLORIDE 0.9% 250ML 250 ML IV SCH (23:42)
[2023-02-19] VITALS (8 sets, daily range): BP systolic 112–138; BP diastolic 73–90; PULSE 70–82; RESP 17–20; TEMP 97.7–98.2; O2SAT 95–99
[2023-02-19 06:24] LABS: BASOPHILS # (AUTO) 0.1 (0.0-0.1); BASOPHILS % 0.6 % (0.0-1.0); EOSINOPHILS # (AUTO) 0.2 (0.0-0.4); EOSINOPHILS % 2.9 % (0.0-6.0); HEMATOCRIT 40.7 % (34.2-44.1); LYMPHOCYTES # (AUTO) 1.4 (1.0-3.2); LYMPHOCYTES % 17.3 % (18.0-39.1); MEAN CORPUSCULAR HEMOGLOBIN 30.6 pg (28-32); MEAN CORPUSCULAR HGB CONC 31.9 g/dL (31-35); MEAN CORPUSCULAR VOLUME 95.8 fL (81-99); MONOCYTES # (AUTO) 0.6 (0.2-0.8); MONOCYTES % 7.1 % (4.4-11.3); NEUTROPHILS # (AUTO) 5.7 (2.1-6.9); NEUTROPHILS % 71.8 % (38.7-80.0); PLATELET COUNT 182 x10e3/uL (140-360); RED BLOOD COUNT 4.25 x10e6/uL (3.6-5.1); RED CELL DISTRIBUTION WIDTH 13.2 % (11.7-14.4)
[2023-02-19 07:22] LABS: ALBUMIN 3.3 g/dL (3.5-5.0); ANION GAP 11.1 mmol/L (8-16); CALCIUM 8.5 mg/dL (8.4-10.2); CREATININE, SERUM 0.81 mg/dL (0.57-1.11); POTASSIUM 4.1 mmol/L (3.5-5.1)
[2023-02-19] MEDS ORDERED: NIFEDIPINE ER30 MG PO (07:37)
[2023-02-19] MEDS: SODIUM CHLORIDE 0.9% 1000ML 1,000 ML IV SCH ×2 (09:36→17:04)
[2023-02-19] MEDS: Vancomycin IV 1 GM in SODIUM CHLORIDE 0.9% 250ML 250 ML IV SCH (12:08)
[2023-02-19] MEDS ORDERED: IPRATROPIUM BROMIDE 0.02% 2.5 ML NEB NEB PRN (12:30)
[2023-02-19] MEDS ORDERED: ALBUTEROL SULF 0.083% NEB SOLN 3 ML NEB INH PRN (12:30)
[2023-02-19] MEDS ORDERED: ALBUTEROL SULFATE HFA 8GM INHALATION AEROSOL INH PRN (12:30)
[2023-02-19] MEDS ORDERED: MONTELUKAST SODIUM 10 MG TAB PO SCH (21:00)
[2023-02-19] MEDS ORDERED: GABAPENTIN 300 MG CAP PO SCH (21:00)
[2023-02-19] MEDS ORDERED: ONDANSETRON HCL INJ 2MG/ML 2ML 2 MG/ML VIAL IV PRN (22:15)
[2023-02-19] MEDS ORDERED: HYDROCODONE/APAP 5MG-325MG TAB PO PRN (22:15)
[2023-02-19] MEDS ORDERED: POTASSIUM CHLORIDE 20 MEQ TAB CR PO PRN (22:15)
[2023-02-19] MEDS ORDERED: ZOLPIDEM TARTRATE 5 MG TAB PO PRN (22:15)
[2023-02-19] MEDS ORDERED: DIPHENHYDRAMINE HCL INJ 50 MG/ML VIAL IV PRN (22:15)
[2023-02-19] MEDS ORDERED: ACETAMINOPHEN 325 MG TAB PO PRN (22:15)
[2023-02-19] MEDS ORDERED: DOCUSATE SODIUM 100 MG CAP PO PRN (22:15)
[2023-02-20 00:39] VITALS: BP 139/79; PULSE 78; RESP 18; TEMP 97.4; O2SAT 94
[2023-02-20] MEDS: Vancomycin IV 1 GM in SODIUM CHLORIDE 0.9% 250ML 250 ML IV SCH ×2 (01:33→13:00)
[2023-02-20 05:22] VITALS: BP 123/82; PULSE 69; RESP 17; TEMP 97.6; O2SAT 95
[2023-02-20 05:50] LABS: BASOPHILS % 0.5 % (0.0-1.0); EOSINOPHILS # (AUTO) 0.2 (0.0-0.4); HEMATOCRIT 38.9 % (34.2-44.1); HEMOGLOBIN 12.8 g/dL (12.0-16.0); LYMPHOCYTES # (AUTO) 1.4 (1.0-3.2); LYMPHOCYTES % 19.4 % (18.0-39.1); MEAN CORPUSCULAR HEMOGLOBIN 30.6 pg (28-32); MEAN CORPUSCULAR HGB CONC 32.9 g/dL (31-35); MEAN CORPUSCULAR VOLUME 93.1 fL (81-99); MONOCYTES # (AUTO) 0.5 (0.2-0.8); MONOCYTES % 6.9 % (4.4-11.3); NEUTROPHILS # (AUTO) 5.2 (2.1-6.9); NEUTROPHILS % 69.9 % (38.7-80.0); PLATELET COUNT 216 x10e3/uL (140-360); RED BLOOD COUNT 4.18 x10e6/uL (3.6-5.1); RED CELL DISTRIBUTION WIDTH 13.1 % (11.7-14.4)
[2023-02-20 06:21] LABS: ALBUMIN 3.4 g/dL (3.5-5.0); ANION GAP 11.1 mmol/L (8-16); CALCIUM 8.8 mg/dL (8.4-10.2); CREATININE, SERUM 0.9 mg/dL (0.57-1.11); POTASSIUM 4.1 mmol/L (3.5-5.1)
[2023-02-20] MEDS: SODIUM CHLORIDE 0.9% 1000ML 1,000 ML IV SCH (06:42)
[2023-02-20 08:00] VITALS: BP 123/82; PULSE 69; RESP 17; TEMP 97.6; O2SAT 95
[2023-02-20 08:21] VITALS: BP 97/80; PULSE 76; RESP 18; TEMP 98; O2SAT 97
[2023-02-20] MEDS ORDERED: FLUOXETINE HCL 20 MG CAP PO SCH (09:00)
[2023-02-20] MEDS ORDERED: PANTOPRAZOLE SOD 40 MG TABEC PO SCH (09:00)
[2023-02-20 11:45] VITALS: BP 122/73; PULSE 70; RESP 19; TEMP 97.8; O2SAT 96
[2023-02-20] MEDS ORDERED: ONDANSETRON HCL 4 MG ORAL DISINTEGRATING TAB PO PRN (13:45)
== END 2023-02-20 13:55 | disposition home or self-care (01) ==
LOC: ER 12:30 → ERHOLD 13:16 → INTOOBSV 13:16 → MED/SURG3 14:19
PROVIDERS: ADMIT Internal Medicine; ATTEND Internal Medicine
DX: L03.211 Cellulitis of face (principal); J44.9 Chronic obstructive pulmonary disease, unspecified; J45.20 Mild intermittent asthma, uncomplicated; J84.10 Pulmonary fibrosis, unspecified; F17.210 Nicotine dependence, cigarettes, uncomplicated; Z71.6 Tobacco abuse counseling; K21.9 Gastro-esophageal reflux disease without esophagitis; F41.9 Anxiety disorder, unspecified; B39.9 Histoplasmosis, unspecified; Z11.52 Encounter for screening for COVID-19; Z85.72 Personal history of non-Hodgkin lymphomas; Z79.899 Other long term (current) drug therapy
CPT/HCPCS: 0223U; 36415; 80053; 80202; 83735; 85025; 87040; 99284; G0378; J2405; J2543; J7030; J7050